=== PATIENT | female | born 1935 | race Caucasian/White ===

== ENCOUNTER 2016-10-04 23:59 | Emergency (ER) | payer MEDICARE ==
[~2016-10-04] VITALS: Ht 167.6 cm; Wt 72.6 kg
[2016-10-05] MEDS ORDERED: RANI75TA9 PO (00:16)
[2016-10-05] MEDS ORDERED: RAN (00:16)
[2016-10-05] MEDS ORDERED: RANI15ELUD PO (00:16)
[2016-10-05] MEDS ORDERED: COUM1TAB14 PO (00:16)
[2016-10-05] MEDS ORDERED: TOPR50TA PO (00:16)
[2016-10-05] MEDS ORDERED: [UNRECOGNIZED DRUG - OTHER] (00:16)
[2016-10-05] MEDS ORDERED: LEVO100T5 PO (00:16)
[2016-10-05] MEDS ORDERED: KETOROLAC 30 MG/ML VIAL (J1885) IV ONE (01:15)
[2016-10-05] MEDS ORDERED: NS 500 ML IV ONE (01:15)
[2016-10-05] MEDS ORDERED: METOCLOPRAMIDE INJ 10MG/2ML VIAL (J2765) IV ONE (01:15)
[2016-10-05] MEDS ORDERED: traMADol 50 MG TAB PO ONE (02:15)
[2016-10-05] MEDS ORDERED: TRAM50TA2 PO (03:39)
[2016-10-05 04:10] VITALS: BP 160/59
== END 2016-10-05 04:31 | disposition home or self-care (01) ==
LOC: M ED 10-05 01:21
DX: G44.201 Tension-type headache, unspecified, intractable (principal); I48.91 Unspecified atrial fibrillation; E03.9 Hypothyroidism, unspecified; K21.9 Gastro-esophageal reflux disease without esophagitis; Z79.01 Long term (current) use of anticoagulants; Z79.899 Other long term (current) drug therapy; Z88.0 Allergy status to penicillin; Z88.2 Allergy status to sulfonamides; Z88.8 Allergy status to other drugs, medicaments and biological substances; Z91.09 Other allergy status, other than to drugs and biological substances
CPT/HCPCS: 70450; 82375; 85652; 96361; 96374; 96375; 99284; J1885; J2765

== ENCOUNTER → 2016-12-03 | Outpatient (REF) | payer MEDICARE ==
[~2016-12-03] MED LIST: COUM1TAB14 PO; LEVO100T5 PO; RAN; RANI15ELUD PO; RANI75TA9 PO; TOPR50TA PO; TRAM50TA2 PO; [UNRECOGNIZED DRUG - OTHER]
== END ==
LOC: M LAB REF 13:08
PROVIDERS: ATTEND Family Medicine
DX: N39.0 Urinary tract infection, site not specified (principal); R82.90 Unspecified abnormal findings in urine

== ENCOUNTER → 2017-04-03 | Outpatient (REF) | payer MEDICARE | LOC: M LAB REF 17:10 | PROVIDERS: ATTEND Physician Assistant Medical | DX: R68.83 Chills (without fever) (principal) ==

== ENCOUNTER → 2017-04-18 | Outpatient (REF) | payer MEDICARE | LOC: M LAB REF 13:10 | PROVIDERS: ATTEND Family Medicine | DX: N39.0 Urinary tract infection, site not specified (principal) ==

== ENCOUNTER → 2017-04-25 | Outpatient (REF) | payer MEDICARE | LOC: M LAB REF 15:22 | DX: N39.0 Urinary tract infection, site not specified (principal) | CPT/HCPCS: 87086 ==

== ENCOUNTER 2018-05-07 16:00 | Emergency (ER) | payer MEDICARE ==
[~2018-05-07] VITALS: Ht 170.2 cm; Wt 77.3 kg
[~2018-05-07 16:00] MED LIST changes: +RANI75TA15 PO; -RANI75TA9 PO; -TOPR50TA PO; +TOPR50TA23 PO
--- NOTE | 2018-05-07 20:36 | REPVR ---
EXAM: MR Lumbar Spine Without Contrast. EXAM DATE/TIME: 05/07/2018 4:54 PM CLINICAL HISTORY: 82 years old, female; Pain; Low back pain; Additional info: Lbp x's 3-4 weeks, intermittent urinary retention TECHNIQUE: Multiplanar magnetic resonance images of the lumbar spine without intravenous contrast. COMPARISON: No relevant prior studies available. FINDINGS: Vertebrae: Slight anterolisthesis of L5 on S1. Levoconvex scoliosis. Marrow: Marrow edema and L3 may indicate the presence of a compression fracture with approximate 10% loss of vertebral height in comparison to L4. Clinical correlation needed. Spinal cord: Normal signal. No cord compression. Clumping of nerve roots demonstrated from the cauda equina to L2-3 maybe related to the presence of lower level central spinal stenoses however arachnoiditis not excluded. Thoracic discs/Spinal canal/Neural foramina: Desiccation of the intervertebral discs throughout the lumbar spine. DISCS/SPINAL CANAL/NEURAL FORAMINA: L1-L2: Diffusely bulging annulus at L1-2 without central spinal stenosis. Bilateral facet joint arthropathy. Moderate bilateral foraminal stenosis. No lateral recess stenosis. L2-L3: There is a moderate central spinal stenosis at L2-3 secondary to diffuse annular bulging, thickened ligamentum flavum and facet joint arthropathy. Moderate foraminal stenosis on the left. No lateral recess stenosis. L3-L4: There is a severe central spinal stenosis at L3-4 secondary to diffuse annular bulging, thickened ligamentum flavum and facet joint arthropathy. Moderate to severe bilateral foraminal stenosis. No lateral recess stenosis. L4-L5: There is a severe central spinal stenosis at L4-5 secondary to diffuse annular bulging, thickened ligamentum flavum and facet joint arthropathy. Severe foraminal stenosis on the right. No lateral recess stenosis. L5-S1: There is a severe central spinal stenosis at L5-S1 secondary to diffuse annular bulging, thickened ligamentum flavum and facet joint arthropathy. Mild bilateral foraminal narrowing. No lateral recess stenosis. Sacrum/coccyx: Transitional S1 segment with an S1-2 disc. Soft tissues: Unremarkable. IMPRESSION: Marrow edema and L3 may indicate the presence of a compression fracture with approximate 10% loss of vertebral height in comparison to L4 versus discogenic marrow space edema. Clinical correlation needed. Multilevel central spinal stenoses, moderate at L2-3 and severe at L3-4 through L5-S1. 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 Electronically signed by: Darnell Maloney On 05/07/2018 20:36:35 PM
[2018-05-07] MEDS ORDERED: ACETAMINOPHEN 325 MG TAB PO ONE ×2 (20:45→21:00)
[2018-05-07] MEDS ORDERED: ULTRACET TAB PO ONE (20:45)
[2018-05-07] MEDS ORDERED: traMADol 50 MG TAB PO ONE (21:00)
[2018-05-07 21:23] VITALS: BP 172/94
--- NOTE | 2018-05-11 12:33 | ED PDOC ---
Post-Departure Follow-Up alex feldman and ruben faxed formal report of mri ls spine for fu Honey Cristina MD May 11, 2018 12:32
== END 2018-05-07 21:29 | disposition home or self-care (01) ==
LOC: M ED 16:00
DX: M48.061 Spinal stenosis, lumbar region without neurogenic claudication (principal); I10 Essential (primary) hypertension; J45.909 Unspecified asthma, uncomplicated; K21.9 Gastro-esophageal reflux disease without esophagitis; M19.90 Unspecified osteoarthritis, unspecified site; E03.9 Hypothyroidism, unspecified; Z85.3 Personal history of malignant neoplasm of breast; Z79.01 Long term (current) use of anticoagulants; Z79.899 Other long term (current) drug therapy; Z88.8 Allergy status to other drugs, medicaments and biological substances; Z88.0 Allergy status to penicillin; Z88.2 Allergy status to sulfonamides; Z91.89 Other specified personal risk factors, not elsewhere classified

== ENCOUNTER → 2018-07-14 | Outpatient (CLI) | payer MEDICARE ==
[~2018-07-14] MED LIST changes: +TRAM-533 PO
--- NOTE | 2018-07-15 23:06 | ECWPNPC ---
PATIENT NAME: GAL MUNOZ : 1935 GENDER: FEMALE VISIT DATE: 07/14/2018 DISCHARGE DATE: 07/14/18 1510 VISIT LOCKED DATE TIME: PHYSICIAN: EUGENE JAMES RESOURCE: EUGENE JAMES REASON FOR APPOINTMENT 1. SPINAL STENOSIS. HISTORY OF PRESENT ILLNESS FALL RISK SCREENING: NEW PATIENT CONSULT: WHEN DID YOUR PAIN FIRST START? ACCIDENT AT HOME. BRIEFLY DESCRIBE HOW YOUR PAIN STARTED? STARTED AFTER A FALL IN 2018. HOW DOES YOUR PAIN CHANGE WITH TIME? WORSENS WITH MOVEMENT. DOES YOUR PAIN AWAKEN YOU FROM SLEEP? 2LOCATION: BUTTOCKS, YES , ONSET: SUB-ACUTE, SEVERITY: MODERATE TO SEVERE, NATURE: ACHING. HOW MANY HOURS OF SLEEP DO YOU NORMALLY GET? 4 HOURS. ANY DIAGNOSTIC TESTING? MRI. PAIN TREATMENT TREATMENT YES CANCER HAVE YOU EVER HAD ANY TYPE OF CANCER?NO NO. 82 YR OLD FEMALE [facility].LOWER BACK PAIN STARTED AFTER FALLING IN 05/16AND AGAIN LAST WEEK, WENT TO ED. SHE WAS INITALLLY REFERRED TO [facility] AND WAS GIVEN PT BUT SAYS IT DID NOT MAKE A DIFFERENCE. SHE WAS ALSO EVALUATED IN [place] BY ORTHOPEDIC SURGEON.SHE HAS BEEN USING TRAMADOL THAT WAS PRESCRIBED IN ED.MRI LUMBAR SPINE 05/16: MARROW EDEMA AND L3 MAY INDICATE PRESENCE OF COMPRESSION FRACTURE.MULTI LEVEL CENTRAL SPINAL STENOSIS, MODERATE AT L2-3 AND SEVERE AT L3-4 AND THROUGH L5-S1.MRI ALSO SUGGESTED ARACHNIODITIS.SHE TAKES COUMADIN FOR PREVIOUS ABLATION AND AF AND UNDER CARE OF WALLET ASSEMBLER.LOCATION IS TOWARDS SACRAL REGION AND TOWARDS GROIN. PATIENT SAYS SHE IS NOT SLEEPING, BUT IS BEING AWAKEN BY PAIN ALMOST EVERY HOUR.SHE DENIES, FEVER, CHILLS, WEIGHT LOSS. PAIN SCREENING: PATIENT HAS A COMPLAINT OF ACUTE OR CHRONIC PAIN :YES ESPINOSA INVENTORY: QUESTIONNAIRE ASSESSEDTBD SCORE VALUE CALCULATED TBD CURRENT MEDICATIONS TAKING VENTOLIN HFA 108 (90 BASE) MCG/ACT AEROSOL SOLUTION 2 PUFFS NEEDED INHALATION EVERY 4 HRS NEEDED TAKING WARFARIN SODIUM 4 MG TABLET 5 DAYS A WEEK AND 2 MG 2 DAYS A WEEK ORALLY ONCE A DAY TAKING METOPROLOL TARTRATE 50 MG TABLET 1 TABLET WITH FOOD ORALLY TWICE A DAY TAKING LEVOTHYROXINE SODIUM 100 MCG TABLET 1 TABLET ON AN EMPTY STOMACH IN THE MORNING ORALLY ONCE A DAY TAKING OMEPRAZOLE 40 MG CAPSULE DELAYED RELEASE 1 CAPSULE ORALLY ONCE A DAY, NOTES: TAKES NEEDED TAKING TRAMADOL HCL 50 MG TABLET DIRECTED ORALLY , NOTES: FROM ER NOT-TAKING WARFARIN SODIUM 3 MG TABLET 2 TABLETS ON FRIDAY, 1.5 TABLETS ON FRI., 1 TABLET ROW ORALLY DAILY MEDICATION LIST REVIEWED AND RECONCILED WITH THE PATIENT PAST MEDICAL HISTORY HTN PAROXYSMAL A. FIB. 11/28/2015 TACHYCARDIA TO 150BPM, DR. SAHNI DID FIND PVC'S ON EKG, 2004 S/P ABLATION C DR. 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 LORENZ 11/2014 GALBLADDER COLIC, STONE RECTAL BLEED 01/31, COLON POLYP ON COLONOSCOPY NAFLD C ELEVATED LFTS ASYMPTOMATIC 06/2015 C OF HEAD, 09/2015 MRI BOTH C SMALL VESS. DIS. 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 LORDOSIS, NARROW EPIDURAL SPACE FORAMEN NARROEWD R C4-6, L C5-6 ALLERGIES PENICILLIN (FOR ALLERGIES USE ONLY): HIVES - ALLERGY AUGMENTIN: RASH - ALLERGY LEVOFLOXACIN: RASH - ALLERGY AMBIEN: PASSED OUT - ALLERGY PREDNISONE: HYPER - ALLERGY THEOPHYLLINE: PASSED OUT - ALLERGY SURGICAL HISTORY PARTIAL HYSTERECTOMY-[facility] 1983 L BREAST LUMPECTOMY-[facility] 1991 HEART ABLATION-[facility] 2003 B CATARACT [id number]. SANNI 2011 FAMILY HISTORY FATHER: 72 YRS MOTHER: 89 YRS FATHER-ANEURYSM, STROKE, ?HTN, ?HL; WAS A SMOKER QUIT C CVA AGE 61\NMOTHER-HEART DIS., A. FIB. SOCIAL HISTORY GENERAL: TOBACCO USE ARE YOU A:NONSMOKER ALCOHOL SCREENING DID YOU HAVE A DRINK CONTAINING ALCOHOL IN THE PAST YEAR?YES HOW OFTEN DID YOU HAVE A DRINK CONTAINING ALCOHOL IN THE PAST YEAR?TWO TO FOUR TIMES A MONTH (2 POINTS) HOW MANY DRINKS DID YOU HAVE ON A TYPICAL DAY WHEN YOU WERE DRINKING IN THE PAST YEAR?1 OR 2 (0 POINTS) POINTS2 INTERPRETATIONNEGATIVE CAFFEINE CAFFEINE USE?YES USUALLY DRINKJS DECAF..DOES HAVE A CUP OCCASIONAL LANGUAGE LANGUAGES SPOKEN:GREEK EDUCATION LEVEL OF EDUCATION:FINISHED COLLEGE LEARNING BARRIERS / SPECIAL NEEDS SPECIAL DEVICES?YES HAS A WALKER AND CANE FOR SAFETY NOT USING DOMESTIC VIOLENCE DO YOU FEEL SAFE IN YOUR ENVIRONMENT?YES OCCUPATION: RETIRED. DIET: REGULAR. EXERCISE: WALKS. MARITAL STATUS: . OTHERS AT HOME: LIVES ALONG. PAIN CLINIC PFS, CLERGY, PUBLIC HEALTH REFERRALS CLERGY REFERRAL NEEDED?NO WAS THE PROVIDER NOTIFIED OF ANY PERTINENT INFO?NO PFS REFERRAL NEEDED?NO PUBLIC HEALTH REFERRAL NEEDED?NO ADVANCE DIRECTIVE ADVANCE DIRECTIVE DISCUSSED WITH PATIENT:YES HAS EVERYTHING AND INSTRUCTED TO BRING IN COPIES TO SCAN INTO CHART HOSPITALIZATION/MAJOR DIAGNOSTIC PROCEDURE ABOVE REVIEW OF SYSTEMS REVIEWED BY: PROVIDER: REGI Zaidi CONSTITUTIONAL: ANY CHANGE IN YOUR MEDICAL CONDITION? YES HAS HAD A COUPLE FALLS . CHILLS NO . FEVER NO . INFECTION: DO YOU HAVE NEW INFECTIONS? NO . DO YOU HAVE HISTORY OF MRSA? NO . MUSCULOSKELETAL: ANY NEW PATTERNS OF PAIN OR NUMBNESS? NO . SYTEMIC LUPUS NO . GASTROENTEROLOGY: ANY NEW CHANGE IN BOWEL CONTROL? NO . BARRETTS ESOPHAGUS NO . CIRRHOSIS NO . HEPATITIS NO . LIVER FAILURE NO . ACID REFLUX NO . UNEXPLAINED WEIGHT LOSS NO . GENITOURINARY: ANY NEW CHANGE IN BLADDER CONTROL? NO . IS THERE A CHANCE YOU COULD BE ? NO . HEMATOLOGY/LYMPH: DO YOU TAKE ANY BLOOD THINNERS? (FOR EXAMPLE- COUMADIN, PLAVIX, AGGRENOX, PLATEL, PRADAXA, OR XARELTO) NO . WHEN WAS YOUR LAST DOSE? DATE: TIME: . LOW PLATELET COUNT NO . SICKLE CELL DISEASE NO . VON WILLIEBRANDS NO . FACTOR V LEIDEN NO . THALLASEMIA NO . ANEMIA NO . EASY BRUISING NO . NEUROLOGY: HAVE YOU FALLEN IN THE PAST 12 MONTHS? NO . ANY NEW EXTREMITY NUMBNESS OR WEAKNESS? NO . HEAD INJURY NO . DEMENTIA NO . CEREBRAL PALSY NO . MULTIPLE SCLEROSIS NO . DIZZINESS NO . HEADACHE NO . STROKES NO . VERTIGO NO . CARDIOLOGY: DO YOU HAVE A PACEMAKER OR DEFIBRILLATOR? NO . ANGINA NO . HEART ATTACK NO . HEART SURGERY YES ABLAISOION IN 2003 . CONGESTIVE HEART FAILURE/FLUID OVERLOAD NO . CHEST PAIN NO . HIGH BLOOD PRESSURE NO . IRREGULAR HEART BEAT NO . RESPIRATORY: HAVE YOU BEEN SICK IN THE PAST WEEK? NO . FEVER NO . FLU LIKE SYMPTOMS? NO . CPAP NO . BYPAP NO . ASTHMA ALLERGIC REACTION CAUSING THE NEED FOR NEBULIZER . EMPHYSEMA NO . CHRONIC LUNG DISEASES NO . SHORTNESS OF BREATH ON EXERTION NO . DO YOU USE ANY TYPE OF TOBACCO (SMOKE, SMOKELESS, CHEW)? NO . COUGH NO . SNORING NO . INTEGUMENTARY: DO YOU HAVE ANY RASHES OR OPEN SORES? NO . ALLERGIC/IMMUNO: ARE YOU ALLERGIC TO IV DYE? NO . ANY NEW ALLERGIES? NO . PSYCHIATRIC: DO YOU HAVE THOUGHTS OF HURTING YOURSELF OR SOMEONE ELSE? NO . ARE YOU ABUSED, NEGLECTED, OR IN AN UNSAFE ENVIRONMENT? NO . ENDOCRINOLOGY: ARE YOU DIABETIC? NO . THYROID DISORDER NO . OTHER: DO YOU NEED ANY PRESCRIPTIONS? NO . IF YES, PLEASE LIST: ____ . ANY NEW PROBLEMS WITH YOUR MEDICATIONS? NO . WHEN DID YOU LAST EAT? ____ . WHEN DID YOU LAST DRINK? ____ . WHAT DID YOU LAST DRINK? ____ . NAME OF PERSON DRIVING YOU HOME? ____ . DO YOU HAVE ANY OTHER QUESTIONS OR CONCERNS NO . VITAL SIGNS WT 166 LBS, HT 68 IN, BMI 25.24 INDEX, BP 147/76 MM HG, HR 18 /MIN, RR 65 /MIN, TEMP 96.8 F, OXYGEN SAT % 98%, NA INITIALS AW 1107. EXAMINATION GENERAL EXAMINATION: GENERAL APPEARANCE:NO ACUTE DISTRESS, WELL NOURISHED AND HYDRATED.UNSTEADY ON FEET. PSYCHAPPROPRIATE MOOD AND AFFECT . HEENT:EOMI, NO SCLERAL ICTERUS, NARES PATENT, ORAL MUCOSA MOIST. FACE:UNREMARKABLE. LUNGS:CLEAR TO AUSCULTATION BILATERALLY, NO WHEEZES, RHONCHI, RALES. HEART:NO MURMURS, REGULAR RATE AND RHYTHM. BACK: NORMAL ALIGNMENT.ANTALGIC GAIT NO TENDERNESS TO PALPATION TO LUMBAR SPINE UNABLE TO LIE ON EXAMINATION BED STANDING JODI TEST + LEFT SIDE.. LUMBAR SACRAL SPINE MUSCLE STRENGTH TESTING 4/5 BILATERAL. ASSESSMENTS SACROILIITIS - M46.1 (PRIMARY) TREATMENT SACROILIITIS CLINICAL NOTES: CONSULTATION DONE IN CONJUNCTION WITH DR GAO. RECOMMENDS BILATERAL SI BLOCK.PLAN: TO GET APPROVAL FROM WALLET ASSEMBLER TO STOP COUMADIN FOR 5 DAYS PRIOR TO PROCEDURE.OBTAIN PHYSICIAN TO PHYSICIAN AGREEMENT FROM PCP TO PRESCRIBED PAIN MEDICATION ARRANGE PROCEDURE AFTER APPROVAL FROM CARDIOLLOGIST.DR GAO SPOKE TO RADIOLOGIST TO DISCUSS MRI, REGARDING POSSIBLE ARACHNOIDITIS. RADIOLOGIST CONFIRMED THERE IS NO EVIDENCE OF ARCHNOIDITIS. OTHERS DISCONTINUE TRAMADOL HCL TABLET, 50 MG, DIRECTED, ORALLY, TID MMD 3 PER DAY, 7 DAYS, 21, REFILLS 0 DISCONTINUE CARISOPRODOL TABLET, 350 MG, 1 TABLET NEEDED, ORALLY, AT BED TIME, 7 DAYS, 7, REFILLS 0 START TRAMADOL HCL TABLET, 50 MG, DIRECTED, ORALLY, THREE TIMES A DAY MMD3, 7 DAYS, 21 START CARISOPRODOL TABLET, 350 MG, 1 TABLET NEEDED, ORALLY, AT BEDTIME, 7 DAYS, 7 CLINICAL NOTES: INITIAL TRAMADOL AND SOMA WAS NOT SENT. PROCEDURE CODES FA211 ESTABILISHED PATIENT [facility] CHARGE DISPOSITION & COMMUNICATION FOLLOW UP REASON: CHRIS DUKES ELECTRONICALLY SIGNED BY RAVEN VALERIO ON 07/15/2018 AT 09:34 AM EDT DISCLAIMER : THIS IS A VISIT SUMMARY EXTRACTED FROM THE [employer] CHART. IT IS NOT A COPY OF THE [employer] PROGRESS NOTE. MIKI
== END ==
LOC: M PAIN 11:00
PROVIDERS: ATTEND Nurse Practitioner Family
DX: M46.1 Sacroiliitis, not elsewhere classified (principal); I10 Essential (primary) hypertension; Z86.79 Personal history of other diseases of the circulatory system; E89.0 Postprocedural hypothyroidism; Z92.3 Personal history of irradiation; Z85.3 Personal history of malignant neoplasm of breast; Z88.0 Allergy status to penicillin; Z88.1 Allergy status to other antibiotic agents; Z88.8 Allergy status to other drugs, medicaments and biological substances; Z79.01 Long term (current) use of anticoagulants; Z79.899 Other long term (current) drug therapy

== ENCOUNTER → 2018-07-23 | Outpatient (CLI) | payer MEDICARE ==
[2018-07-23 11:12] LABS: INR 1.18; PROTHROMBIN TIME 15.2 SECONDS (12.1-14.4)
== END ==
LOC: M LAB 10:22
PROVIDERS: ATTEND Nurse Practitioner Family
DX: M46.01 Spinal enthesopathy, occipito-atlanto-axial region (principal); I48.0 Paroxysmal atrial fibrillation; I10 Essential (primary) hypertension; E89.0 Postprocedural hypothyroidism

== ENCOUNTER → 2018-07-23 | Outpatient (CLI) | payer MEDICARE ==
[~2018-07-23] MED LIST changes: +BUPIVACAINE HCL 0.25% 30 ML VIAL As Ordered ONE; +ISOVUE-M 300 61% 15ML VIAL (Q9967) As Ordered ONE; +LIDOCAINE 1% SDV INJ 30 ML VIAL As Ordered ONE; +TRIAMCINOLONE ACETONIDE SUSP 40 MG/ML VIAL (J3301) As Ordered ONE; +diazePAM 5 MG TAB As Ordered ONE; +oxyCODONE 5MG TAB As Ordered ONE
--- NOTE | 2018-07-23 15:01 | REP ---
SI JOINT SERIES: Four views bilateral study. HISTORY: SI joint injection for pain. 18 seconds of fluoroscopy time is reported. FINDINGS: A sequence of four last image hold fluoroscopically obtained spot radiographs of the SI joints document needle position and contrast injection associated with injection procedure. Electronically Signed by Dustin Carrasco MD 07/23/2018 03:26 P
--- NOTE | 2018-07-24 23:57 | ECWPNPC ---
PATIENT NAME: GAL MUNOZ : 1935 GENDER: FEMALE VISIT DATE: 07/23/2018 DISCHARGE DATE: 07/23/18 1404 VISIT LOCKED DATE TIME: PHYSICIAN: SHERIE GAO MD RESOURCE: SHERIE GAO MD REASON FOR APPOINTMENT 1. BILAT SI BLOCK HISTORY OF PRESENT ILLNESS HISTORY OF PRESENT ILLNESS: PAIN THE PATIENT DESCRIBES THE PAIN... FALL RISK SCREENING: SCREENING :NO FALLS REPORTED IN THE LAST YEAR CURRENT MEDICATIONS TAKING VENTOLIN HFA 108 (90 BASE) MCG/ACT AEROSOL SOLUTION 2 PUFFS NEEDED INHALATION EVERY 4 HRS NEEDED, NOTES: NONE RECENT TAKING WARFARIN SODIUM 4 MG TABLET 5 DAYS A WEEK AND 2 MG 2 DAYS A WEEK ORALLY ONCE A DAY, NOTES: 07/18 TAKING METOPROLOL TARTRATE 50 MG TABLET 1 TABLET WITH FOOD ORALLY TWICE A DAY, NOTES: 07/23 699 TAKING LEVOTHYROXINE SODIUM 100 MCG TABLET 1 TABLET ON AN EMPTY STOMACH IN THE MORNING ORALLY ONCE A DAY, NOTES: 07/23 699 TAKING OMEPRAZOLE 40 MG CAPSULE DELAYED RELEASE 1 CAPSULE ORALLY ONCE A DAY, NOTES: TAKES NEEDED 07/22 899 TAKING TRAMADOL HCL 50 MG TABLET DIRECTED ORALLY THREE TIMES A DAY MMD3, NOTES: 07/23 599 TAKING CARISOPRODOL 350 MG TABLET 1 TABLET NEEDED ORALLY AT BEDTIME, NOTES: 07/22 2129 DISCONTINUED TRAMADOL HCL 50 MG TABLET DIRECTED ORALLY , NOTES: DUPLICATE DISCONTINUED TRAMADOL HCL 50 MG TABLET DIRECTED ORALLY TID MMD 3 PER DAY, NOTES: DUPLICATE DISCONTINUED CARISOPRODOL 350 MG TABLET 1 TABLET NEEDED ORALLY AT BED TIME, NOTES: DUPLICATE DISCONTINUED WARFARIN SODIUM 3 MG TABLET 2 TABLETS ON FRIDAY, 1.5 TABLETS ON FRI., 1 TABLET ROW ORALLY DAILY MEDICATION LIST REVIEWED AND RECONCILED WITH THE PATIENT PAST MEDICAL HISTORY HTN PAROXYSMAL A. FIB. 11/28/2015 TACHYCARDIA TO 150BPM, DR. SAHNI DID FIND PVC'S ON EKG, 2004 S/P ABLATION C DR. 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 LORENZ 11/2014 GALBLADDER COLIC, STONE RECTAL BLEED 01/31, COLON POLYP ON COLONOSCOPY NAFLD C ELEVATED LFTS ASYMPTOMATIC 06/2015 C OF HEAD, 09/2015 MRI BOTH C SMALL VESS. DIS. 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 LORDOSIS, NARROW EPIDURAL SPACE FORAMEN NARROEWD R C4-6, L C5-6 ALLERGIES PENICILLIN (FOR ALLERGIES USE ONLY): HIVES - ALLERGY AUGMENTIN: RASH - ALLERGY LEVOFLOXACIN: RASH - ALLERGY AMBIEN: PASSED OUT - ALLERGY PREDNISONE: HYPER - SIDE EFFECTS THEOPHYLLINE: PASSED OUT - ALLERGY FOOD ADDITIVES: ASTHMA ATTACK - ALLERGY SURGICAL HISTORY PARTIAL HYSTERECTOMY-[facility] 1983 L BREAST LUMPECTOMY-[facility] 1991 HEART ABLATION-[facility] 2003 B CATARACT [id number]. SANNI 2011 TONSILLECTOMY AGE 9 FAMILY HISTORY FATHER: 72 YRS MOTHER: 89 YRS DAUGHTER(S): ALIVE, ARTHRITIS CROHNS 2 SON(S) , 1 DAUGHTER(S) . FATHER-ANEURYSM, STROKE, ?HTN, ?HL; WAS A SMOKER QUIT C CVA AGE 61\\NMOTHER-HEART DIS., A. FIB. SOCIAL HISTORY GENERAL: TOBACCO USE ARE YOU A:NONSMOKER ALCOHOL SCREENING DID YOU HAVE A DRINK CONTAINING ALCOHOL IN THE PAST YEAR?YES HOW OFTEN DID YOU HAVE A DRINK CONTAINING ALCOHOL IN THE PAST YEAR?TWO TO FOUR TIMES A MONTH (2 POINTS) HOW MANY DRINKS DID YOU HAVE ON A TYPICAL DAY WHEN YOU WERE DRINKING IN THE PAST YEAR?1 OR 2 (0 POINTS) POINTS2 INTERPRETATIONNEGATIVE RECREATIONAL DRUG USE DRUG USE?NO NONE CAFFEINE CAFFEINE USE?YES USUALLY DRINKJS DECAF..DOES HAVE A CUP OCCASIONAL WORSHIP [id number] [facility] LANGUAGE LANGUAGES SPOKEN:MALTESE EDUCATION LEVEL OF EDUCATION:FINISHED COLLEGE LEARNING BARRIERS / SPECIAL NEEDS BARRIERS TO LEARNING?NO HEARING IMPAIRED?NO VISION IMPAIRED?YES :CORRECTIVE LENSES READING GLASSES COGNITIVELY IMPAIRED?NO READINESS TO LEARN?YES LEARNING PREFERENCES?NO LEARNING CAPABILITIES PRESENT?YES EMOTIONAL BARRIERS?NO SPECIAL DEVICES?YES HAS A WALKER AND CANE FOR SAFETY NOT USING FOUNDRY PATTERNMAKER NEEDED?NO DOMESTIC VIOLENCE DO YOU FEEL SAFE IN YOUR ENVIRONMENT?YES OCCUPATION: RETIRED. DIET: REGULAR. EXERCISE: WALKS. MARITAL STATUS: . OTHERS AT HOME: LIVES ALONG. PAIN CLINIC PFS, CLERGY, PUBLIC HEALTH REFERRALS HAS THE PATIENT BEEN EDUCATED REGARDING HIS/HER PLAN OF CARE?YES HAS THE PATIENT BEEN EDUCATED REGARDING PAIN, THE RISK FOR PAIN, THE IMPORTANCE OF EFFECTIVE PAIN MANAGEMENT, AND THE PAIN ASSESSMENT PROCESS?YES ADVANCE DIRECTIVE ADVANCE DIRECTIVE DISCUSSED WITH PATIENT:YES HAS EVERYTHING AND INSTRUCTED TO BRING IN COPIES TO SCAN INTO CHART 07/23/18 REVIEWED WITH PT. AD. HOSPITALIZATION/MAJOR DIAGNOSTIC PROCEDURE ABOVE CHILD REVIEW OF SYSTEMS REVIEWED BY: PROVIDER: . CONSTITUTIONAL: ANY CHANGE IN YOUR MEDICAL CONDITION? NO . CHILLS NO . FEVER NO . INFECTION: DO YOU HAVE NEW INFECTIONS? NO . DO YOU HAVE HISTORY OF MRSA? NO . MUSCULOSKELETAL: ANY NEW PATTERNS OF PAIN OR NUMBNESS? NO . GASTROENTEROLOGY: ANY NEW CHANGE IN BOWEL CONTROL? YES, CONSTRIPATION OR LOOSE STOOLS . GENITOURINARY: ANY NEW CHANGE IN BLADDER CONTROL? YES, INCONTINENCE WHICH HAS GOTTEN A LITTLE BETTER . IS THERE A CHANCE YOU COULD BE ? NO . HEMATOLOGY/LYMPH: DO YOU TAKE ANY BLOOD THINNERS? (FOR EXAMPLE- COUMADIN, PLAVIX, AGGRENOX, PLATEL, PRADAXA, OR XARELTO) YES, COUMADIN . WHEN WAS YOUR LAST DOSE? DATE: TIME:07/18 2099 . NEUROLOGY: HAVE YOU FALLEN IN THE PAST 12 MONTHS? YES X 2 LAST TIME WAS 07/09 WAS SEEN IN THE ED AFTER, NO FRACTURES BUT INCREASE IN PAIN AFTER . ANY NEW EXTREMITY NUMBNESS OR WEAKNESS? YES, NUMBNESS OR PAIN RIGHT LEG SINCE FALLING IN APR. . CARDIOLOGY: DO YOU HAVE A PACEMAKER OR DEFIBRILLATOR? NO . RESPIRATORY: HAVE YOU BEEN SICK IN THE PAST WEEK? NO . FEVER NO . FLU LIKE SYMPTOMS? NO . COUGH NO . INTEGUMENTARY: DO YOU HAVE ANY RASHES OR OPEN SORES? NO . ALLERGIC/IMMUNO: ARE YOU ALLERGIC TO IV DYE? NO . ANY NEW ALLERGIES? NO . PSYCHIATRIC: DO YOU HAVE THOUGHTS OF HURTING YOURSELF OR SOMEONE ELSE? NO . ARE YOU ABUSED, NEGLECTED, OR IN AN UNSAFE ENVIRONMENT? NO . ENDOCRINOLOGY: ARE YOU DIABETIC? NO . OTHER: DO YOU NEED ANY PRESCRIPTIONS? NO . IF YES, PLEASE LIST: ____ . ANY NEW PROBLEMS WITH YOUR MEDICATIONS? NO . WHEN DID YOU LAST EAT? 07/[address] GAO AWARE . WHEN DID YOU LAST DRINK? 07/23 0730 . WHAT DID YOU LAST DRINK? CRANBERRY JUICE . NAME OF PERSON DRIVING YOU HOME? NICHELLE CANNON . DO YOU HAVE ANY OTHER QUESTIONS OR CONCERNS NO PT HAS NOT HAD ANY VACCINES IN THE PAST 30 DAYS . VITAL SIGNS WT 162.6 LBS, HT 68 IN, BMI 24.72 INDEX, BP 138/71 MM HG, HR 16 /MIN, RR 64 /MIN, TEMP 97.8 F, OXYGEN SAT % 100%, SAFE IN ENV? (Y/N) Y, NA INITIALS [place] 11:05, REVIEWED BY: RAVEN. 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 SHERIE GAO NAIL POLISH BRUSH MACHINE FEEDER NONE ANESTHESIA LOCAL PRE PROCEDURE NOTE PATIENT WITH HISTORY OF CHRONIC LOW BACK PAIN. I EVALUATED THE PATIENT AND REVIEWED THE CHART. I WENT OVER THE RISKS, ALTERNATIVES, AND BENEFITS ASSOCIATED WITH THIS PROCEDURE. THE PATIENT WOULD LIKE TO PROCEED AND GAVE CONSENT TO PERFORM THE PROCEDURE. THE PATIENT DENIES UNEXPLAINABLE WEIGHT LOSS, FEVER, CHILLS, OR NEW CHANGES IN URINARY OR BOWEL CONTROL DESCRIPTION OF PROCEDURE THE PATIENT WAS BROUGHT TO THE PROCEDURE ROOM AND PLACED IN THE PRONE POSITION. THE LUMBOSACRAL AREA WAS CLEANED WITH CHLORAPREP SOLUTION AND DRAPED ASEPTICALLY. THE PROCEDURE WAS DONE UNDER STERILE CONDITIONS. I CHECKED LATERALITY AND THE LEVEL WHERE THE PROCEDURE WAS GOING TO BE PERFORMED WITH THE PATIENT AND THE SUPPORTING STAFF AT THE MOMENT OF THE TIME OUT IN THE PROCEDURE ROOM. UNDER FLUOROSCOPIC GUIDANCE, TARGET POINT WAS SELECTED AT THE LOWER BORDER OF THE RIGHT AND LEFT SACROILIAC JOINT. TARGET POINT WAS SELECTED AFTER MEDIAL ROTATION AND TILT OF THE MAGNIFIER OF THE C-ARM. LIDOCAINE WAS USED TO NUMB THE SKIN AND SUBCUTANEOUS TISSUE BELOW IT. A SPINAL NEEDLE, 22-GAUGE, WAS ADVANCED UNDER FLUOROSCOPIC GUIDANCE AND FOLLOWING PATIENT FEEDBACK UNTIL THE TARGET AREA WAS TOUCHED. THE POSITION OF THE NEEDLE WAS VERIFIED WITH AP AND LATERAL VIEWS. AFTER PROPER POSITION OF THE NEEDLE WAS ACHIEVED, ISOVUE M DYE 30%, 0.25 ML, WAS INJECTED SHOWING SPREAD OF THE DYE. THEN, A SOLUTION OF 20 MG OF KENALOG WAS INJECTED IN RIGHT AND LEFT JOINT WITH 3 ML OF BUPIVACAINE 0.125%. THERE WAS NO EVIDENCE OF BLOOD, PARESTHESIA OR CEREBROSPINAL FLUID DURING THE PROCEDURE. THE PATIENT WAS SENT TO THE RECOVERY ROOM. THE PATIENT WAS MOVING THE EXTREMITIES AND DOING WELL. THERE WAS NO COMPLICATION DURING THE PROCEDURE. FLUOROSCOPY TIME WAS 18 SECONDS POST PROCEDURE NOTE THE PATIENT WILL BE SEEN IN A FOLLOW UP IN THE NEXT FEW WEEKS. INSTRUCTIONS WERE GIVEN, QUESTIONS WERE ANSWERED, AND THE PATIENT EXPRESSED UNDERSTANDING AND AGREED WITH THE PLAN. I, DU TORRES, DOCUMENTED THE ABOVE INFORMATION ACTING A SCRIBE FOR DR. GAO. I HAVE REVIEWED THE ABOVE DOCUMENT, WRITTEN BY DU TORRES SCRIBGiacomo AND I VERIFY THAT IT IS ACCURATE. PROCEDURE CODES 6045F RADXPS IN END [id number] INJECT SACROILIAC JOINT, MODIFIERS: 50 DISPOSITION & COMMUNICATION FOLLOW UP 3 WEEKS ELECTRONICALLY SIGNED BY SHERIE GAO MD, MD ON 07/24/2018 AT 03:39 PM EDT DISCLAIMER : THIS IS A VISIT SUMMARY EXTRACTED FROM THE [employer] CHART. IT IS NOT A COPY OF THE [employer] PROGRESS NOTE. MTDD
== END ==
LOC: M PAIN 10:30
PROVIDERS: ATTEND Anesthesiology
DX: G89.29 Other chronic pain (principal); M46.1 Sacroiliitis, not elsewhere classified; M53.88 Other specified dorsopathies, sacral and sacrococcygeal region; I48.0 Paroxysmal atrial fibrillation; I10 Essential (primary) hypertension; E89.0 Postprocedural hypothyroidism; Z79.01 Long term (current) use of anticoagulants; Z79.899 Other long term (current) drug therapy; Z88.0 Allergy status to penicillin; Z88.1 Allergy status to other antibiotic agents; Z88.8 Allergy status to other drugs, medicaments and biological substances; Z91.02 Food additives allergy status; Z85.3 Personal history of malignant neoplasm of breast; Z92.3 Personal history of irradiation; Z92.29 Personal history of other drug therapy
CPT/HCPCS: 36415; 85610; G0260; J3301; Q9967

== ENCOUNTER → 2018-07-29 | Outpatient (CLI) | payer MEDICARE ==
[~2018-07-29] MED LIST changes: -BUPIVACAINE HCL 0.25% 30 ML VIAL As Ordered ONE; -ISOVUE-M 300 61% 15ML VIAL (Q9967) As Ordered ONE; -LIDOCAINE 1% SDV INJ 30 ML VIAL As Ordered ONE; -RANI15ELUD PO; +RANI75SY PO; +TOPR50TA PO; -TOPR50TA23 PO; -TRIAMCINOLONE ACETONIDE SUSP 40 MG/ML VIAL (J3301) As Ordered ONE; -diazePAM 5 MG TAB As Ordered ONE; -oxyCODONE 5MG TAB As Ordered ONE
--- NOTE | 2018-07-31 23:07 | ECWPNPC ---
PATIENT NAME: GAL MUNOZ : 1935 GENDER: FEMALE VISIT DATE: 07/29/2018 DISCHARGE DATE: 07/29/18 1343 VISIT LOCKED DATE TIME: PHYSICIAN: EUGENE JAMES RESOURCE: EUGENE JAMES REASON FOR APPOINTMENT 1. POST PROCEDURE- INCREASED PAIN HISTORY OF PRESENT ILLNESS HISTORY OF PRESENT ILLNESS: PAIN THE PATIENT DESCRIBES THE PAINAFTER THE PROCEDURE SEVERITY - PAIN SCORE OF8/10 QUALITYTHROBBING PATIENT IS 83 YR OLD FEMALE HERE FOR F/U POST PROCEDURE OF BILATERAL SI BLOCK ON 07/23/18.SHE SAYS THE PAIN IN LOWER BACK HAS IMPROVED BY >50 PERCENT BUT SAYS SHE HAS MORE PAIN AROUND LEFT SIDE OF WAIST DOWN THE LEG.SHE SAYS SHE HAS NOT TAKEN HER WAFARIN SINCE YESTERDAY. SHE WOULD LIKE TO DISCUSS OTHER TREATMENTS. FALL RISK SCREENING: SCREENING :NO FALLS REPORTED IN THE LAST YEAR CURRENT MEDICATIONS TAKING VENTOLIN HFA 108 (90 BASE) MCG/ACT AEROSOL SOLUTION 2 PUFFS NEEDED INHALATION EVERY 4 HRS NEEDED, NOTES: NONE RECENT TAKING WARFARIN SODIUM 4 MG TABLET 5 DAYS A WEEK AND 2 MG 2 DAYS A WEEK ORALLY ONCE A DAY, NOTES: 07/18 TAKING METOPROLOL TARTRATE 50 MG TABLET 1 TABLET WITH FOOD ORALLY TWICE A DAY, NOTES: 07/23 699 TAKING LEVOTHYROXINE SODIUM 100 MCG TABLET 1 TABLET ON AN EMPTY STOMACH IN THE MORNING ORALLY ONCE A DAY, NOTES: 07/23 699 TAKING OMEPRAZOLE 40 MG CAPSULE DELAYED RELEASE 1 CAPSULE ORALLY ONCE A DAY, NOTES: TAKES NEEDED 07/22 899 TAKING TRAMADOL HCL 50 MG TABLET DIRECTED ORALLY THREE TIMES A DAY MMD3, NOTES: 07/23 599 TAKING CARISOPRODOL 350 MG TABLET 1 TABLET NEEDED ORALLY AT BEDTIME, NOTES: 07/22 2129 MEDICATION LIST REVIEWED AND RECONCILED WITH THE PATIENT PAST MEDICAL HISTORY HTN PAROXYSMAL A. FIB. 11/28/2015 TACHYCARDIA TO 150BPM, DR. SAHNI DID FIND PVC'S ON EKG, 2004 S/P ABLATION C DR. 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 LORENZ 11/2014 GALBLADDER COLIC, STONE RECTAL BLEED 01/31, COLON POLYP ON COLONOSCOPY NAFLD C ELEVATED LFTS ASYMPTOMATIC 06/2015 C OF HEAD, 09/2015 MRI BOTH C SMALL VESS. DIS. 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 LORDOSIS, NARROW EPIDURAL SPACE FORAMEN NARROEWD R C4-6, L C5-6 ALLERGIES PENICILLIN (FOR ALLERGIES USE ONLY): HIVES - ALLERGY AUGMENTIN: RASH - ALLERGY LEVOFLOXACIN: RASH - ALLERGY AMBIEN: PASSED OUT - ALLERGY PREDNISONE: HYPER - SIDE EFFECTS THEOPHYLLINE: PASSED OUT - ALLERGY FOOD ADDITIVES: ASTHMA ATTACK - ALLERGY SURGICAL HISTORY PARTIAL HYSTERECTOMY-[facility] 1983 L BREAST LUMPECTOMY-[facility] 1991 HEART ABLATION-JOSEF 2003 B CATARACT [id number]. SANNI 2011 TONSILLECTOMY AGE 9 FAMILY HISTORY FATHER: 72 YRS MOTHER: 89 YRS DAUGHTER(S): ALIVE, ARTHRITIS CROHNS 2 SON(S) , 1 DAUGHTER(S) . FATHER-ANEURYSM, STROKE, ?HTN, ?HL; WAS A SMOKER QUIT C CVA AGE 61\\\\NMOTHER-HEART DIS., A. FIB.\N. SOCIAL HISTORY GENERAL: TOBACCO USE ARE YOU A:NONSMOKER ALCOHOL SCREENING DID YOU HAVE A DRINK CONTAINING ALCOHOL IN THE PAST YEAR?YES HOW OFTEN DID YOU HAVE A DRINK CONTAINING ALCOHOL IN THE PAST YEAR?TWO TO FOUR TIMES A MONTH (2 POINTS) HOW MANY DRINKS DID YOU HAVE ON A TYPICAL DAY WHEN YOU WERE DRINKING IN THE PAST YEAR?1 OR 2 (0 POINTS) POINTS2 INTERPRETATIONNEGATIVE RECREATIONAL DRUG USE DRUG USE?NO NONE CAFFEINE CAFFEINE USE?YES USUALLY DRINKJS DECAF..DOES HAVE A CUP OCCASIONAL MUSLIM [id number] [employer] LANGUAGES SPOKEN:[place] EDUCATION LEVEL OF EDUCATION:FINISHED COLLEGE LEARNING BARRIERS / SPECIAL NEEDS BARRIERS TO LEARNING?NO HEARING IMPAIRED?NO VISION IMPAIRED?YES :CORRECTIVE LENSES READING GLASSES COGNITIVELY IMPAIRED?NO READINESS TO LEARN?YES LEARNING PREFERENCES?NO LEARNING CAPABILITIES PRESENT?YES EMOTIONAL BARRIERS?NO SPECIAL DEVICES?YES HAS A WALKER AND CANE FOR SAFETY NOT USING SUPERVISOR ORCHARD NEEDED?NO DOMESTIC VIOLENCE DO YOU FEEL SAFE IN YOUR ENVIRONMENT?YES OCCUPATION: RETIRED. DIET: REGULAR. EXERCISE: WALKS. MARITAL STATUS: . OTHERS AT HOME: LIVES ALONG. PAIN CLINIC PFS, CLERGY, PUBLIC HEALTH REFERRALS HAS THE PATIENT BEEN EDUCATED REGARDING HIS/HER PLAN OF CARE?YES HAS THE PATIENT BEEN EDUCATED REGARDING PAIN, THE RISK FOR PAIN, THE IMPORTANCE OF EFFECTIVE PAIN MANAGEMENT, AND THE PAIN ASSESSMENT PROCESS?YES ADVANCE DIRECTIVE ADVANCE DIRECTIVE DISCUSSED WITH PATIENT:YES HCP SON GRABIEL MUNOZ 07/23/18 REVIEWED WITH PT. AD07/29/18 REVIEWED WITH PT ALBARO. HOSPITALIZATION/MAJOR DIAGNOSTIC PROCEDURE ABOVE CHILD REVIEW OF SYSTEMS REVIEWED BY: PROVIDER: REGI . CONSTITUTIONAL: ANY CHANGE IN YOUR MEDICAL CONDITION? NO . CHILLS NO . FEVER NO . INFECTION: DO YOU HAVE NEW INFECTIONS? NO . DO YOU HAVE HISTORY OF MRSA? NO . MUSCULOSKELETAL: ANY NEW PATTERNS OF PAIN OR NUMBNESS? PT REPORTS PAIN IS NOW IN MID BACK, EXTENDING DOWN LEFT HIP/LEFT LEG. STATES HER PAIN IN HER LOWER BACK HAS IMPROVED. . GASTROENTEROLOGY: ANY NEW CHANGE IN BOWEL CONTROL? NO . GENITOURINARY: ANY NEW CHANGE IN BLADDER CONTROL? YES PT REPORTS DECREASE IN HER ABILITY TO CONTROL HER BLADDER. . IS THERE A CHANCE YOU COULD BE ? NO . HEMATOLOGY/LYMPH: DO YOU TAKE ANY BLOOD THINNERS? (FOR EXAMPLE- COUMADIN, PLAVIX, AGGRENOX, PLATEL, PRADAXA, OR XARELTO) YES . WHEN WAS YOUR LAST DOSE? DATE:07/29/18 TIME: 190 COUMADIN . NEUROLOGY: HAVE YOU FALLEN IN THE PAST 12 MONTHS? PT REPORTS SHE FELL AGAINST A TABLE 04/2018 . ANY NEW EXTREMITY NUMBNESS OR WEAKNESS? PT REPORTS WEAKNESS IN HER LEFT LEG/ NUMBNESS IN BOTH FEET AND ANKLES. . CARDIOLOGY: DO YOU HAVE A PACEMAKER OR DEFIBRILLATOR? NO . RESPIRATORY: HAVE YOU BEEN SICK IN THE PAST WEEK? NO . FEVER NO . FLU LIKE SYMPTOMS? NO . COUGH NO . INTEGUMENTARY: DO YOU HAVE ANY RASHES OR OPEN SORES? NO . ALLERGIC/IMMUNO: ARE YOU ALLERGIC TO IV DYE? NO . ANY NEW ALLERGIES? NO . PSYCHIATRIC: DO YOU HAVE THOUGHTS OF HURTING YOURSELF OR SOMEONE ELSE? NO . ARE YOU ABUSED, NEGLECTED, OR IN AN UNSAFE ENVIRONMENT? NO . ENDOCRINOLOGY: ARE YOU DIABETIC? NO . OTHER: DO YOU NEED ANY PRESCRIPTIONS? NO . IF YES, PLEASE LIST: ____ . ANY NEW PROBLEMS WITH YOUR MEDICATIONS? NO . WHEN DID YOU LAST EAT? ____ . WHEN DID YOU LAST DRINK? ____ . WHAT DID YOU LAST DRINK? ____ . NAME OF PERSON DRIVING YOU HOME? ____ . DO YOU HAVE ANY OTHER QUESTIONS OR CONCERNS NO . VITAL SIGNS WT 162.6 LBS, HT 68 IN, BMI 24.72 INDEX, BP 188/88 MM HG, HR 16 /MIN, RR 63 /MIN, TEMP 98.3 F, OXYGEN SAT % 99%, SAFE IN ENV? (Y/N) YES, NA INITIALS AW 1153, REVIEWED BY: ALBARO. EXAMINATION GENERAL EXAMINATION: GENERAL APPEARANCE:MILDLY DISTRESSED. LUNGS:CLEAR TO AUSCULTATION BILATERALLY, NO WHEEZES, RHONCHI, RALES. HEART:NO MURMURS, REGULAR RATE AND RHYTHM. BACK:TENDERNESS ALONG BILATERAL PARASPINAL MUSCLES. L4- S1 REGION PAIN WITH EXTENSION AND ROTATION OF LUMBAR SPINE. SLR BILATERAL NEG REFLEXES 2+ SLOW GAIT.. 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 CLINICAL NOTES: BILATERAL L4-L5, L5-S1 THERAPEUTIC FACET BLOCK. BRINGS IN MEDICATIONS WHICH IS APPROPRIATE FOR WHAT WAS DISPENSED. NO UNAUTHORIZED MEDICATIONS. NO ILLICIT SUBSTANCES AND PRESCRIBED MEDICATIONS WERE PRESENT. , RISKS AND BENEFITS OF NARCOTIC/OPIOD MEDICATIONS WERE REVIEWED WITH PATIENT - THIS INCLUDES BUT IS NOT LIMITED TO RISK OF DEPENDANCE/DEVELOPMENT OF ADDICTION, MOOD DISTURBANCE AND DEPRESSION, OSTEOPOROSIS, HORMONAL AND LABIDAL CHANGES, RESPIRATORY DEPRESSION AND . PATIENT IS ADVISED NOT TO DRIVE OR DRINK ALCOHOL WHILE ON THESE MEDICATIONS. ACUTE BILATERAL LOW BACK PAIN WITH LEFT-SIDED SCIATICA START PERCOCET TABLET, 5-325 MG, 1 TABLET NEEDED, ORALLY, EVERY 6 HRS MDD 3, 3 DAYS, 12, REFILLS 0 CLINICAL NOTES: ADVISED TO USE 1-2 TABS IF NEEDED. I HAVE LEFT A MESSAGE FOR HER PCP, THAT I HAVE PRESCRIBED THIS FOR HER ACUTE PAIN TODAY. ESSENTIAL HYPERTENSION CLINICAL NOTES: ADVISED PATIENT TO F/U WITH HER PCP. PROCEDURE CODES FA211 ESTABILISHED PATIENT [facility]AIN FACILITY CHARGE DISPOSITION & COMMUNICATION FOLLOW UP POST PROCEDURE (REASON: BILATERAL L4-L5, L5-S1 THERAPEUTIC FACET BLOCK) ELECTRONICALLY SIGNED BY RAVEN VALERIO ON 07/31/2018 AT 08:24 AM EDT DISCLAIMER : THIS IS A VISIT SUMMARY EXTRACTED FROM THE [employer] CHART. IT IS NOT A COPY OF THE [employer] PROGRESS NOTE. MIKI
== END ==
LOC: M PAIN 11:00
PROVIDERS: ATTEND Nurse Practitioner Family
DX: M46.1 Sacroiliitis, not elsewhere classified (principal); M54.42 Lumbago with sciatica, left side; I10 Essential (primary) hypertension; I48.0 Paroxysmal atrial fibrillation; E03.9 Hypothyroidism, unspecified; Z85.3 Personal history of malignant neoplasm of breast; H35.30 Unspecified macular degeneration; K76.0 Fatty (change of) liver, not elsewhere classified; M50.30 Other cervical disc degeneration, unspecified cervical region; Z98.42 Cataract extraction status, left eye; Z98.41 Cataract extraction status, right eye; Z79.01 Long term (current) use of anticoagulants; Z79.899 Other long term (current) drug therapy; Z88.0 Allergy status to penicillin; Z88.1 Allergy status to other antibiotic agents; Z88.8 Allergy status to other drugs, medicaments and biological substances; Z91.018 Allergy to other foods

== ENCOUNTER → 2018-08-04 | Outpatient (CLI) | payer MEDICARE ==
[2018-08-04 10:18] LABS: INR 1.14; PROTHROMBIN TIME 14.8 SECONDS (12.1-14.4)
== END ==
LOC: M LAB 09:39
PROVIDERS: ATTEND Nurse Practitioner Family
DX: I48.0 Paroxysmal atrial fibrillation (principal)

== ENCOUNTER → 2018-08-04 | Outpatient (CLI) | payer MEDICARE ==
[~2018-08-04] MED LIST changes: +BUPIVACAINE HCL 0.25% 30 ML VIAL As Ordered ONE; +ISOVUE-M 300 61% 15ML VIAL (Q9967) As Ordered ONE; +LIDOCAINE 1% SDV INJ 30 ML VIAL As Ordered ONE; +TRIAMCINOLONE ACETONIDE SUSP 40 MG/ML VIAL (J3301) As Ordered ONE; +diazePAM 5 MG TAB As Ordered ONE; +oxyCODONE 5MG TAB As Ordered ONE
--- NOTE | 2018-08-04 15:31 | REP ---
Partial lumbar spine series: Two views . History: Injection procedure for pain. 45 seconds of fluoroscopy time is reported. Findings: A sequence of two fluoroscopically obtained last image hold procedural spot radiographs of the lumbar spine document needle position and contrast injection associated with injection procedure. Electronically Signed by Dustin Carrasco MD 08/04/2018 03:22 P
--- NOTE | 2018-08-16 23:21 | ECWPNPC ---
PATIENT NAME: GAL MUNOZ : 1935 GENDER: FEMALE VISIT DATE: 08/04/2018 DISCHARGE DATE: 08/04/18 1312 VISIT LOCKED DATE TIME: PHYSICIAN: SHERIE GAO MD RESOURCE: SHERIE GAO MD REASON FOR APPOINTMENT 1. BILATERAL L3-L4, L4-L5, L5-S1 THERAPEUTIC FACET BLOCK HISTORY OF PRESENT ILLNESS HISTORY OF PRESENT ILLNESS: PAIN THE PATIENT DESCRIBES THE PAIN... FALL RISK SCREENING: SCREENING :NO FALLS REPORTED IN THE LAST YEAR CURRENT MEDICATIONS TAKING VENTOLIN HFA 108 (90 BASE) MCG/ACT AEROSOL SOLUTION 2 PUFFS NEEDED INHALATION EVERY 4 HRS NEEDED, NOTES: NONE LATELY TAKING WARFARIN SODIUM 4 MG TABLET 5 DAYS A WEEK AND 2 MG 2 DAYS A WEEK ORALLY ONCE A DAY, NOTES: 07/29/18 TAKING METOPROLOL TARTRATE 50 MG TABLET 1 TABLET WITH FOOD ORALLY TWICE A DAY, NOTES: 08/04/18 AM TAKING LEVOTHYROXINE SODIUM 100 MCG TABLET 1 TABLET ON AN EMPTY STOMACH IN THE MORNING ORALLY ONCE A DAY, NOTES: 08/04/18 AM TAKING OMEPRAZOLE 40 MG CAPSULE DELAYED RELEASE 1 CAPSULE ORALLY ONCE A DAY, NOTES: 08/03/18 TAKING TRAMADOL HCL 50 MG TABLET DIRECTED ORALLY THREE TIMES A DAY MMD3, NOTES: 08/03/18 TAKING CARISOPRODOL 350 MG TABLET 1 TABLET NEEDED ORALLY AT BEDTIME, NOTES: 08/03/18 TAKING PERCOCET 5-325 MG TABLET 1 TABLET NEEDED ORALLY EVERY 6 HRS MDD 3, NOTES: 08/03/18 MEDICATION LIST REVIEWED AND RECONCILED WITH THE PATIENT PAST MEDICAL HISTORY HTN PAROXYSMAL A. FIB. 11/28/2015 TACHYCARDIA TO 150BPM, DR. SAHNI DID FIND PVC'S ON EKG, 2003 S/P ABLATION C DR. 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 LORENZ 11/2014 GALBLADDER COLIC, STONE RECTAL BLEED 01/31, COLON POLYP ON COLONOSCOPY NAFLD C ELEVATED LFTS ASYMPTOMATIC 06/2015 C OF HEAD, 09/2015 MRI BOTH C SMALL VESS. DIS. 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 LORDOSIS, NARROW EPIDURAL SPACE FORAMEN NARROEWD R C4-6, L C5-6 ALLERGIES PENICILLIN (FOR ALLERGIES USE ONLY): HIVES - ALLERGY AUGMENTIN: RASH - ALLERGY LEVOFLOXACIN: RASH - ALLERGY AMBIEN: PASSED OUT - ALLERGY PREDNISONE: HYPER - SIDE EFFECTS THEOPHYLLINE: PASSED OUT - ALLERGY FOOD ADDITIVES: ASTHMA ATTACK - ALLERGY SURGICAL HISTORY PARTIAL HYSTERECTOMY-[facility] 1983 L BREAST LUMPECTOMY-[facility] 1991 HEART ABLATION-JOSEF 2004 B CATARACT [id number]. SANNI 2011 TONSILLECTOMY AGE 9 FAMILY HISTORY FATHER: 72 YRS MOTHER: 89 YRS DAUGHTER(S): ALIVE, ARTHRITIS CROHNS 2 SON(S) , 1 DAUGHTER(S) . FATHER-ANEURYSM, STROKE, ?HTN, ?HL; WAS A SMOKER QUIT C CVA AGE 61\\\\\\\\NMOTHER-HEART DIS., A. FIB.\\N. SOCIAL HISTORY GENERAL: TOBACCO USE ARE YOU A:NONSMOKER ALCOHOL SCREENING DID YOU HAVE A DRINK CONTAINING ALCOHOL IN THE PAST YEAR?YES HOW OFTEN DID YOU HAVE A DRINK CONTAINING ALCOHOL IN THE PAST YEAR?TWO TO FOUR TIMES A MONTH (2 POINTS) HOW MANY DRINKS DID YOU HAVE ON A TYPICAL DAY WHEN YOU WERE DRINKING IN THE PAST YEAR?1 OR 2 (0 POINTS) POINTS2 INTERPRETATIONNEGATIVE RECREATIONAL DRUG USE DRUG USE?NO NONE CAFFEINE CAFFEINE USE?YES USUALLY DRINKJS DECAF..DOES HAVE A CUP OCCASIONAL MANDAEISM [id number] [employer] LANGUAGES SPOKEN:ALBANIAN EDUCATION LEVEL OF EDUCATION:FINISHED COLLEGE LEARNING BARRIERS / SPECIAL NEEDS BARRIERS TO LEARNING?NO HEARING IMPAIRED?NO VISION IMPAIRED?YES :CORRECTIVE LENSES READING GLASSES COGNITIVELY IMPAIRED?NO READINESS TO LEARN?YES LEARNING PREFERENCES?NO LEARNING CAPABILITIES PRESENT?YES EMOTIONAL BARRIERS?NO SPECIAL DEVICES?YES HAS A WALKER AND CANE FOR SAFETY NOT USING SANITATION OFFICER NEEDED?NO DOMESTIC VIOLENCE DO YOU FEEL SAFE IN YOUR ENVIRONMENT?YES OCCUPATION: RETIRED. DIET: REGULAR. EXERCISE: WALKS. MARITAL STATUS: . OTHERS AT HOME: LIVES ALONG. PAIN CLINIC PFS, CLERGY, PUBLIC HEALTH REFERRALS HAS THE PATIENT BEEN EDUCATED REGARDING HIS/HER PLAN OF CARE?YES HAS THE PATIENT BEEN EDUCATED REGARDING PAIN, THE RISK FOR PAIN, THE IMPORTANCE OF EFFECTIVE PAIN MANAGEMENT, AND THE PAIN ASSESSMENT PROCESS?YES ADVANCE DIRECTIVE ADVANCE DIRECTIVE DISCUSSED WITH PATIENT:YES HCP SON GRABIEL MUNOZ 07/23/18 REVIEWED WITH PT. AD07/29/18 REVIEWED WITH PT ALBARO. HOSPITALIZATION/MAJOR DIAGNOSTIC PROCEDURE ABOVE CHILD REVIEW OF SYSTEMS REVIEWED BY: PROVIDER: . CONSTITUTIONAL: ANY CHANGE IN YOUR MEDICAL CONDITION? NO . CHILLS NO . FEVER NO . INFECTION: DO YOU HAVE NEW INFECTIONS? NO . DO YOU HAVE HISTORY OF MRSA? NO . MUSCULOSKELETAL: ANY NEW PATTERNS OF PAIN OR NUMBNESS? YES, MID BACK PAIN . GASTROENTEROLOGY: ANY NEW CHANGE IN BOWEL CONTROL? NO . GENITOURINARY: ANY NEW CHANGE IN BLADDER CONTROL? NO . IS THERE A CHANCE YOU COULD BE ? NO . HEMATOLOGY/LYMPH: DO YOU TAKE ANY BLOOD THINNERS? (FOR EXAMPLE- COUMADIN, PLAVIX, AGGRENOX, PLATEL, PRADAXA, OR XARELTO) YES, WARFARIN 07/29/18 PT/INR 14.8/1.14, DR. GAO NOTIFIED. . WHEN WAS YOUR LAST DOSE? DATE: TIME: . NEUROLOGY: HAVE YOU FALLEN IN THE PAST 12 MONTHS? YES, FELL 06/2018 FROM TRIPPING HAD TO GO TO ER PT COULDN'T GET UP. PT WAS TX'D AND RELEASED . ANY NEW EXTREMITY NUMBNESS OR WEAKNESS? NO . CARDIOLOGY: DO YOU HAVE A PACEMAKER OR DEFIBRILLATOR? NO . RESPIRATORY: HAVE YOU BEEN SICK IN THE PAST WEEK? NO . FEVER NO . FLU LIKE SYMPTOMS? NO . COUGH NO . INTEGUMENTARY: DO YOU HAVE ANY RASHES OR OPEN SORES? NO . ALLERGIC/IMMUNO: ARE YOU ALLERGIC TO IV DYE? NO . ANY NEW ALLERGIES? NO . PSYCHIATRIC: DO YOU HAVE THOUGHTS OF HURTING YOURSELF OR SOMEONE ELSE? NO . ARE YOU ABUSED, NEGLECTED, OR IN AN UNSAFE ENVIRONMENT? NO . ENDOCRINOLOGY: ARE YOU DIABETIC? NO . OTHER: DO YOU NEED ANY PRESCRIPTIONS? NO . IF YES, PLEASE LIST: ____ . ANY NEW PROBLEMS WITH YOUR MEDICATIONS? NO . WHEN DID YOU LAST EAT? 08-03-18 . WHEN DID YOU LAST DRINK? 08/04/18 AM . WHAT DID YOU LAST DRINK? ___WATER . NAME OF PERSON DRIVING YOU HOME? NICHELLE . DO YOU HAVE ANY OTHER QUESTIONS OR CONCERNS NO . VITAL SIGNS WT 162.6 LBS, HT 68 IN, BMI 24.72 INDEX, BP 191/88 MM HG, HR 16 /MIN, RR 60 /MIN, TEMP 98.6 F, OXYGEN SAT % 100%, NA INITIALS AW 1012, REVIEWED BY: EM. ASSESSMENTS SPONDYLOSIS OF LUMBAR REGION WITHOUT MYELOPATHY OR RADICULOPATHY - M47.816 (PRIMARY) SPONDYLOSIS OF LUMBOSACRAL REGION WITHOUT MYELOPATHY OR RADICULOPATHY - M47.817 PROCEDURES PN LUMBAR FACET BLOCK THERAPEUTIC PRE PROCEDURE DIAGNOSIS LUMBAR SPONDYLOSIS, LUMBOSACRAL SPONDYLOSIS POST PROCEDURE DIAGNOSIS LUMBAR SPONDYLOSIS, LUMBOSACRAL SPONDYLOSIS PROCEDURE BILATERAL L3-L4, BILATERAL L4-L5, AND BILATERAL L5-S1 LUMBAR FACET THERAPEUTIC BLOCK SURGEON DR. SHERIE GAO ACCORDION REPAIRER NONE ANESTHESIA LOCAL PRE PROCEDURE NOTE THE PATIENT HAS A HISTORY OF CHRONIC LOW BACK PAIN. I EVALUATE THE PATIENT AND REVIEWED THE CHART. I WENT OVER THE RISKS, ALTERNATIVES, AND BENEFITS ASSOCIATED WITH THIS PROCEDURE. THE PATIENT WOULD LIKE TO PROCEED AND GIVE CONSENT TO PERFORMED THE PROCEDURE. THE PATIENT DENIES UNEXPLAINABLE WEIGHT LOSS, FEVER, CHILLS, OR NEW CHANGES IN URINARY OR BOWEL CONTROL DESCRIPTION OF PROCEDURE THE PATIENT WAS BROUGHT TO THE PROCEDURE ROOM AND PLACED IN THE PRONE POSITION. THE LUMBOSACRAL AREA WAS CLEANED WITH CHLORAPREP SOLUTION AND DRAPED ASEPTICALLY. THE PROCEDURE WAS DONE UNDER STERILE CONDITIONS. I CHECKED LATERALITY AND THE LEVEL WHERE THE PROCEDURE WAS GOING TO BE PERFORMED WITH THE PATIENT AND THE SUPPORTING STAFF AT THE MOMENT OF THE TIME OUT IN THE PROCEDURE ROOM. UNDER FLUOROSCOPIC GUIDANCE, THE TARGET POINT WAS SELECTED AT THE RIGHT AND LEFT L3-L4, RIGHT AND LEFT L4-L5, AND RIGHT AND LEFT L5-S1 FACET JOINT. TARGET POINT WAS SELECTED AFTER LATERAL ROTATION AND TILT OF THE MAGNIFIER OF THE C-ARM. LIDOCAINE 0.5% WAS USED TO NUMB THE SKIN AND THE SUBCUTANEOUS TISSUE BELOW IT. SPINAL NEEDLES, 22-GAUGE, WERE ADVANCED UNDER FLUOROSCOPIC GUIDANCE AND FOLLOWING PATIENT FEEDBACK UNTIL THE TARGETS WERE TOUCHED. THE POSITION OF THE NEEDLES WAS VERIFIED WITH AP AND LATERAL VIEWS. AFTER PROPER POSITION OF THE NEEDLES WAS ACHIEVED, ISOVUE-M DYE 30% 0.1 ML WAS INJECTED SHOWING ADEQUATE SPREAD OF THE DYE. THEN A SOLUTION OF 1.9 ML OF BUPIVACAINE 0.125% OF KENALOG 10 MG WAS INJECTED AT EACH SITE. THERE WAS NO EVIDENCE OF BLOOD, PARESTHESIA OR CEREBROSPINAL FLUID DURING THE PROCEDURE. THE PATIENT WAS SENT TO THE RECOVERY ROOM. THE PATIENT WAS MOVING THE EXTREMITIES AND DOING WELL. THERE WAS NO COMPLICATION DURING THE PROCEDURE. FLUOROSCOPY TIME WAS 45 SECONDS POST PROCEDURE NOTE THE PATIENT WILL BE SEEN IN A FOLLOW UP IN THE NEXT FEW WEEKS. INSTRUCTIONS WERE GIVEN, QUESTIONS WERE ANSWERED, AND THE PATIENT EXPRESSED UNDERSTANDING AND AGREES WITH THE PLAN. I, DU TORRES, DOCUMENTED THE ABOVE INFORMATION ACTING A SCRIBE FOR DR. GAO. I HAVE REVIEWED THE ABOVE DOCUMENT, WRITTEN BY DU TORRES SCRIBE AND I VERIFY THAT IT IS ACCURATE. DIAGNOSTIC IMAGING [facility] FACET BLOCK (PAIN)[id number] PROCEDURE CODES 6045F RADXPS IN END [id number] PXD 78042 INJ PARAVERT F JNT L/S 1 LEV, MODIFIERS: 50 [id number] INJ PARAVERT F JNT L/S 2 LEV, MODIFIERS: 50 [id number] INJ PARAVERT F JNT L/S 3 LEV, MODIFIERS: 50 DISPOSITION & COMMUNICATION FOLLOW UP 3 WEEKS ELECTRONICALLY SIGNED BY SHERIE GAO MD, ON 08/16/2018 AT 03:06 PM EDT DISCLAIMER : THIS IS A VISIT SUMMARY EXTRACTED FROM THE [employer] CHART. IT IS NOT A COPY OF THE [employer] PROGRESS NOTE. MIKI
== END ==
LOC: M PAIN 10:00
PROVIDERS: ATTEND Anesthesiology
DX: G89.29 Other chronic pain (principal); M47.816 Spondylosis without myelopathy or radiculopathy, lumbar region; M47.817 Spondylosis without myelopathy or radiculopathy, lumbosacral region; I48.0 Paroxysmal atrial fibrillation; I10 Essential (primary) hypertension; E03.9 Hypothyroidism, unspecified; Z79.01 Long term (current) use of anticoagulants; Z79.899 Other long term (current) drug therapy; Z88.0 Allergy status to penicillin; Z88.1 Allergy status to other antibiotic agents; Z88.8 Allergy status to other drugs, medicaments and biological substances; Z91.02 Food additives allergy status; Z85.3 Personal history of malignant neoplasm of breast; Z92.3 Personal history of irradiation; Z92.29 Personal history of other drug therapy
CPT/HCPCS: 36415; 64493; 64494; 64495; 85610; J3301; Q9967

== ENCOUNTER → 2018-08-24 | Outpatient (CLI) | payer MEDICARE ==
[~2018-08-24] MED LIST changes: -BUPIVACAINE HCL 0.25% 30 ML VIAL As Ordered ONE; -ISOVUE-M 300 61% 15ML VIAL (Q9967) As Ordered ONE; -LIDOCAINE 1% SDV INJ 30 ML VIAL As Ordered ONE; -TRIAMCINOLONE ACETONIDE SUSP 40 MG/ML VIAL (J3301) As Ordered ONE; -diazePAM 5 MG TAB As Ordered ONE; -oxyCODONE 5MG TAB As Ordered ONE
--- NOTE | 2018-09-09 23:53 | ECWPNPC ---
PATIENT NAME: GAL MUNOZ : 1935 GENDER: FEMALE VISIT DATE: 08/24/2018 DISCHARGE DATE: 08/24/18 1633 VISIT LOCKED DATE TIME: PHYSICIAN: BERNARDA GILL RESOURCE: BERNARDA GILL REASON FOR APPOINTMENT 1. INCREASING PAIN HISTORY OF PRESENT ILLNESS HISTORY OF PRESENT ILLNESS: PATIENT IS BEING SEEN ON AN URGENT BASIS DUE TO INCREASING LOW BACK PAIN.RATING PAIN VAS 8/10.DESCRIBES PAIN ACHING AND STABBING.PAIN AWAKENS FROM SLEEP. PAIN THE PATIENT DESCRIBES THE PAIN... FALL RISK SCREENING: SCREENING :NO FALLS REPORTED IN THE LAST YEAR CURRENT MEDICATIONS TAKING VENTOLIN HFA 108 (90 BASE) MCG/ACT AEROSOL SOLUTION 2 PUFFS NEEDED INHALATION EVERY 4 HRS NEEDED TAKING WARFARIN SODIUM 4 MG TABLET 5 DAYS A WEEK AND 2 MG 2 DAYS A WEEK ORALLY ONCE A DAY TAKING METOPROLOL TARTRATE 50 MG TABLET 1 TABLET WITH FOOD ORALLY TWICE A DAY TAKING LEVOTHYROXINE SODIUM 100 MCG TABLET 1 TABLET ON AN EMPTY STOMACH IN THE MORNING ORALLY ONCE A DAY TAKING OMEPRAZOLE 40 MG CAPSULE DELAYED RELEASE 1 CAPSULE ORALLY ONCE A DAY TAKING TRAMADOL HCL 50 MG TABLET DIRECTED ORALLY THREE TIMES A DAY MMD3 TAKING CARISOPRODOL 350 MG TABLET 1 TABLET NEEDED ORALLY AT BEDTIME MEDICATION LIST REVIEWED AND RECONCILED WITH THE PATIENT PAST MEDICAL HISTORY HTN PAROXYSMAL A. FIB. 11/28/2015 TACHYCARDIA TO 150BPM, DR. SAHNI DID FIND PVC'S ON EKG, 2004 S/P ABLATION C DR. 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 LORENZ 11/2014 GALBLADDER COLIC, STONE RECTAL BLEED 01/31, COLON POLYP ON COLONOSCOPY NAFLD C ELEVATED LFTS ASYMPTOMATIC 06/2015 C OF HEAD, 09/2015 MRI BOTH C SMALL VESS. DIS. 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 LORDOSIS, NARROW EPIDURAL SPACE FORAMEN NARROEWD R C4-6, L C5-6 ALLERGIES PENICILLIN (FOR ALLERGIES USE ONLY): HIVES - ALLERGY AUGMENTIN: RASH - ALLERGY LEVOFLOXACIN: RASH - ALLERGY AMBIEN: PASSED OUT - ALLERGY PREDNISONE: HYPER - SIDE EFFECTS THEOPHYLLINE: PASSED OUT - ALLERGY FOOD ADDITIVES: ASTHMA ATTACK - ALLERGY SURGICAL HISTORY PARTIAL HYSTERECTOMY-[facility] 1983 L BREAST LUMPECTOMY-[facility] 1991 HEART ABLATION-[facility] 2004 B CATARACT [id number]. SANNI 2011 TONSILLECTOMY AGE 9 FAMILY HISTORY FATHER: 72 YRS MOTHER: 89 YRS DAUGHTER(S): ALIVE, ARTHRITIS CROHNS 2 SON(S) , 1 DAUGHTER(S) . FATHER-ANEURYSM, STROKE, ?HTN, ?HL; WAS A SMOKER QUIT C CVA AGE 61\\\\\\\\\\\\\\\\\\\\\\\\\\\\\\\\NMOTHER-HEART DIS., A. FIB.\\\\\\\\N. SOCIAL HISTORY GENERAL: TOBACCO USE ARE YOU A:NONSMOKER OTHERS AT HOME: LIVES ALONG. EDUCATION LEVEL OF EDUCATION:FINISHED COLLEGE DIET: REGULAR. LANGUAGE LANGUAGES SPOKEN:TAMAZIGHT DOMESTIC VIOLENCE DO YOU FEEL SAFE IN YOUR ENVIRONMENT?YES RECREATIONAL DRUG USE DRUG USE?NO NONE EXERCISE: WALKS. LEARNING BARRIERS / SPECIAL NEEDS BARRIERS TO LEARNING?NO HEARING IMPAIRED?NO VISION IMPAIRED?YES :CORRECTIVE LENSES READING GLASSES COGNITIVELY IMPAIRED?NO READINESS TO LEARN?YES LEARNING PREFERENCES?NO LEARNING CAPABILITIES PRESENT?YES EMOTIONAL BARRIERS?NO SPECIAL DEVICES?YES HAS A WALKER AND CANE FOR SAFETY NOT USING TIMBER PACKER NEEDED?NO PAIN CLINIC PFS, CLERGY, PUBLIC HEALTH REFERRALS HAS THE PATIENT BEEN EDUCATED REGARDING HIS/HER PLAN OF CARE?YES HAS THE PATIENT BEEN EDUCATED REGARDING PAIN, THE RISK FOR PAIN, THE IMPORTANCE OF EFFECTIVE PAIN MANAGEMENT, AND THE PAIN ASSESSMENT PROCESS?YES LATEX QUESTIONNAIRE LATEX ALLERGY : HAVE YOU EVER DEVELOPED ANY TYPE OF REACTION AFTER HANDLING LATEX PRODUCTS SUCH RUBBER GLOVES, CONDOMS, DIAPHRAGMS, BALLOONS, SOCKS, OR UNDERWEAR?NO LATEX ALLERGY : HAVE YOU EVER DEVELOPED ANY TYPE OF REACTION DURING OR AFTER DENTAL APPOINTMENT, VAGINAL/RECTAL EXAMINATION, SURGICAL PROCEDURE, OR ANY OTHER EXPOSURE?NO LATEX RISK : HAVE YOU EVER HAD ANY DIFFICULTY BREATHING OR HIVES AFTER EATING OR HANDLING ANY FRUITS, OR VEGETABLES; SUCH KIWI, BANANAS, STONE FRUITS, OR CHESTNUTSNO LATEX RISK : DO YOU HAVE A PREVIOUS PERSONAL HISTORY OF MORE THAN NINE SURGERIES, SPINA BIFIDA, OR REPEATED CATHERTIZATIONS? NO LATEX RISK : ARE YOU FREQUENTLY EXPOSED TO LATEX PRODUCTS IN YOUR OCCUPATION?NO DATE ASKED : 08/13/2018 CAFFEINE CAFFEINE USE?YES USUALLY DRINKJS DECAF..DOES HAVE A CUP OCCASIONAL ADVANCE DIRECTIVE ADVANCE DIRECTIVE DISCUSSED WITH PATIENT:YES HCP SON GRABIEL MUNOZ [phone] BUDDHISM [id number] [facility] MARITAL STATUS: . ALCOHOL SCREENING DID YOU HAVE A DRINK CONTAINING ALCOHOL IN THE PAST YEAR?YES HOW OFTEN DID YOU HAVE A DRINK CONTAINING ALCOHOL IN THE PAST YEAR?TWO TO FOUR TIMES A MONTH (2 POINTS) HOW MANY DRINKS DID YOU HAVE ON A TYPICAL DAY WHEN YOU WERE DRINKING IN THE PAST YEAR?1 OR 2 (0 POINTS) POINTS2 INTERPRETATIONNEGATIVE OCCUPATION: RETIRED. 07/23/18 REVIEWED WITH PT. AD07/29/18 REVIEWED WITH PT LASREVIEWED WITH PATIENT 08/24/18 1440 JS. HOSPITALIZATION/MAJOR DIAGNOSTIC PROCEDURE ABOVE CHILD REVIEW OF SYSTEMS REVIEWED BY: PROVIDER: BERNARDA CARBAJAL . CONSTITUTIONAL: ANY CHANGE IN YOUR MEDICAL CONDITION? NO . CHILLS NO . FEVER NO . INFECTION: DO YOU HAVE NEW INFECTIONS? NO . DO YOU HAVE HISTORY OF MRSA? NO . MUSCULOSKELETAL: ANY NEW PATTERNS OF PAIN OR NUMBNESS? YES, STATES INCREASED PAIN AND SPASMS, NOTHING HELPING AT THIS TIME WITH THE PAIN . GASTROENTEROLOGY: ANY NEW CHANGE IN BOWEL CONTROL? NO . GENITOURINARY: ANY NEW CHANGE IN BLADDER CONTROL? NO . IS THERE A CHANCE YOU COULD BE ? NO . HEMATOLOGY/LYMPH: DO YOU TAKE ANY BLOOD THINNERS? (FOR EXAMPLE- COUMADIN, PLAVIX, AGGRENOX, PLATEL, PRADAXA, OR XARELTO) YES, COUMADIN . WHEN WAS YOUR LAST DOSE? DATE: 08/23/18TIME: 1900 . NEUROLOGY: HAVE YOU FALLEN IN THE PAST 12 MONTHS? NO . ANY NEW EXTREMITY NUMBNESS OR WEAKNESS? NO . CARDIOLOGY: DO YOU HAVE A PACEMAKER OR DEFIBRILLATOR? NO . RESPIRATORY: HAVE YOU BEEN SICK IN THE PAST WEEK? NO . FEVER NO . FLU LIKE SYMPTOMS? NO . COUGH NO . INTEGUMENTARY: DO YOU HAVE ANY RASHES OR OPEN SORES? NO . ALLERGIC/IMMUNO: ARE YOU ALLERGIC TO IV DYE? NO . ANY NEW ALLERGIES? NO . PSYCHIATRIC: DO YOU HAVE THOUGHTS OF HURTING YOURSELF OR SOMEONE ELSE? NO . ARE YOU ABUSED, NEGLECTED, OR IN AN UNSAFE ENVIRONMENT? NO . ENDOCRINOLOGY: ARE YOU DIABETIC? NO . OTHER: DO YOU NEED ANY PRESCRIPTIONS? NO . IF YES, PLEASE LIST: ____ . ANY NEW PROBLEMS WITH YOUR MEDICATIONS? NO . WHEN DID YOU LAST EAT? ____ . WHEN DID YOU LAST DRINK? ____ . WHAT DID YOU LAST DRINK? ____ . NAME OF PERSON DRIVING YOU HOME? ____ . DO YOU HAVE ANY OTHER QUESTIONS OR CONCERNS YES, REALLY NEEDS SOMETHING TO AID IN PAIN RELIEF, STATES NOTHING IS WORKING AT THIS TIME . VITAL SIGNS WT 162.6 LBS, HT 68 IN, BMI 24.72 INDEX, BP 160/79 MM HG, HR 76 /MIN, RR 16 /MIN, TEMP 98.2 F, OXYGEN SAT % 94%, SAFE IN ENV? (Y/N) YES, NA INITIALS AW 1432, REVIEWED BY: CARMEN08/24/18 DISCUSSED ELEVATED BP WITH PATIENT. STATES IT IS DUE TO THE PAIN. WILL DISCUSS WITH PCP IF IT CONTINUES TO BE ELEVATED. JS. EXAMINATION GENERAL EXAMINATION: GENERAL APPEARANCE: AWAKE,ALERT ,PLEAASANT . PSYCH AFFECT NORMAL . LUNGS: LUNG ARMAS ARE CLEAR TO AUSCULTATION BILATERALLY. GOOD MOVEMENT OF AIR . HEART: S1, S2 IN A REGULAR RATE AND RHYTHM. NO SIGNIFICANT MURMURS, RUBS OR GALLOPS NOTED . LUMBAR SACRAL SPINEPALPATION:TENDER OVER RIGHT. L3/4-L4/5 LUMBAR FACETS WITH FACET LOADING.. DIAGNOSTIC TESTS REVIEWED MRI-L/S SPINE-05/07/18. 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 PREVENTIVE MEDICINE PAIN CLINIC TEACHING: PROCEDURE TEACHING REVIEWED INFORMATION ON FACET BLOCK PROCEDURE WITH PATIENT. ALSO REVIEWED PRE-PROCEDURE INSTRUCTIONS. PATIENT VERBALIZED AN UNDERSTANDING. OSCAR CARMONA 08/24/2018 4:43:34 PM > . PROCEDURE CODES FA211 ESTABILISHED PATIENT [facility] CHARGE DISPOSITION & COMMUNICATION FOLLOW UP POST (REASON: RIGHT L3/4-L4/5-L5/S1 THERAPEUTIC BLOCK) ELECTRONICALLY SIGNED BY RAVEN JOHANSEN ON 09/09/2018 AT 08:39 AM EDT DISCLAIMER : THIS IS A VISIT SUMMARY EXTRACTED FROM THE [employer] CHART. IT IS NOT A COPY OF THE [employer] PROGRESS NOTE. MTDD
== END ==
LOC: M PAIN 14:15
PROVIDERS: ATTEND Nurse Practitioner Family
DX: M48.07 Spinal stenosis, lumbosacral region (principal); I10 Essential (primary) hypertension; E03.9 Hypothyroidism, unspecified; Z79.01 Long term (current) use of anticoagulants; Z79.891 Long term (current) use of opiate analgesic; Z79.899 Other long term (current) drug therapy; Z88.0 Allergy status to penicillin; Z88.1 Allergy status to other antibiotic agents; Z88.8 Allergy status to other drugs, medicaments and biological substances; Z91.02 Food additives allergy status; Z86.79 Personal history of other diseases of the circulatory system; Z85.3 Personal history of malignant neoplasm of breast; Z92.3 Personal history of irradiation; Z92.29 Personal history of other drug therapy

== ENCOUNTER → 2018-09-02 | Outpatient (CLI) | payer MEDICARE ==
[~2018-09-02] MED LIST changes: +BUPIVACAINE HCL 0.25% 30 ML VIAL As Ordered ONE; +ISOVUE-M 300 61% 15ML VIAL (Q9967) As Ordered ONE; +LIDOCAINE 1% SDV INJ 30 ML VIAL As Ordered ONE; +TRIAMCINOLONE ACETONIDE SUSP 40 MG/ML VIAL (J3301) As Ordered ONE; +diazePAM 5 MG TAB As Ordered ONE; +oxyCODONE 5MG TAB As Ordered ONE
--- NOTE | 2018-09-02 14:57 | REP ---
Partial lumbar spine series: Single view . History: Injection procedure for pain. 26 seconds of fluoroscopy time is reported. Findings: A single fluoroscopically obtained last image hold procedural spot radiograph of the lumbar spine documents needle position and contrast injection associated with injection procedure. Electronically Signed by Dustin Carrasco MD 09/02/2018 02:48 P
--- NOTE | 2018-09-19 23:23 | ECWPNPC ---
PATIENT NAME: GAL MUNOZ : 1935 GENDER: FEMALE VISIT DATE: 09/02/2018 DISCHARGE DATE: 09/02/18 1523 VISIT LOCKED DATE TIME: PHYSICIAN: SHERIE GAO MD RESOURCE: SHERIE GAO MD REASON FOR APPOINTMENT 1. RIGHT L3/L4- L4/5-L5/S1 THERAPEUTIC BLOCK, PER HISTORY OF PRESENT ILLNESS HISTORY OF PRESENT ILLNESS: PAIN THE PATIENT DESCRIBES THE PAIN... FALL RISK SCREENING: SCREENING :NO FALLS REPORTED IN THE LAST YEAR CURRENT MEDICATIONS TAKING VENTOLIN HFA 108 (90 BASE) MCG/ACT AEROSOL SOLUTION 2 PUFFS NEEDED INHALATION EVERY 4 HRS NEEDED, NOTES: NONE RECENT TAKING WARFARIN SODIUM 4 MG TABLET 5 DAYS A WEEK AND 2 MG 2 DAYS A WEEK ORALLY ONCE A DAY, NOTES: 08/27 TAKING METOPROLOL TARTRATE 50 MG TABLET 1 TABLET WITH FOOD ORALLY TWICE A DAY, NOTES: 09/02 07 TAKING LEVOTHYROXINE SODIUM 100 MCG TABLET 1 TABLET ON AN EMPTY STOMACH IN THE MORNING ORALLY ONCE A DAY, NOTES: 09/02 0700 TAKING OMEPRAZOLE 40 MG CAPSULE DELAYED RELEASE 1 CAPSULE ORALLY ONCE A DAY, NOTES: 09/01 1200 TAKING TRAMADOL HCL 50 MG TABLET DIRECTED ORALLY 2 IN AM,1 12N,2 AT 4 MDD5, NOTES: 09/02 (1 TAB)0700 TAKING CARISOPRODOL 350 MG TABLET 1 TABLET NEEDED ORALLY AT BEDTIME, NOTES: 09/01 2200 MEDICATION LIST REVIEWED AND RECONCILED WITH THE PATIENT PAST MEDICAL HISTORY HTN PAROXYSMAL A. FIB. 11/28/2015 TACHYCARDIA TO 150BPM, DR. SAHNI DID FIND PVC'S ON EKG, 2003 S/P ABLATION C DR. 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 LORENZ 11/2014 GALBLADDER COLIC, STONE RECTAL BLEED 01/31, COLON POLYP ON COLONOSCOPY NAFLD C ELEVATED LFTS ASYMPTOMATIC 06/2015 C OF HEAD, 09/2015 MRI BOTH C SMALL VESS. DIS. 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 LORDOSIS, NARROW EPIDURAL SPACE FORAMEN NARROEWD R C4-6, L C5-6 ALLERGIES PENICILLIN (FOR ALLERGIES USE ONLY): HIVES - ALLERGY AUGMENTIN: RASH - ALLERGY LEVOFLOXACIN: RASH - ALLERGY AMBIEN: PASSED OUT - ALLERGY PREDNISONE: HYPER - SIDE EFFECTS THEOPHYLLINE: PASSED OUT - ALLERGY FOOD ADDITIVES: ASTHMA ATTACK - ALLERGY SURGICAL HISTORY PARTIAL HYSTERECTOMY-[facility] 1983 L BREAST LUMPECTOMY-[facility] 1991 HEART ABLATION-[facility] 2004 B CATARACT [id number]. SANNI 2011 TONSILLECTOMY AGE 9 FAMILY HISTORY FATHER: 72 YRS MOTHER: 89 YRS DAUGHTER(S): ALIVE, ARTHRITIS CROHNS 2 SON(S) , 1 DAUGHTER(S) . FATHER-ANEURYSM, STROKE, ?HTN, ?HL; WAS A SMOKER QUIT C CVA AGE 61\\\\\\\\\\\\\\\\\\\\\\\\\\\\\\\\\\\\\\\\\\\\\\\\\\\\\\\\\\\\\\\ NMOTHER-HEART DIS., A. FIB.\\\\\\\\\\\\\\\\N. SOCIAL HISTORY GENERAL: TOBACCO USE ARE YOU A:NONSMOKER OTHERS AT HOME: LIVES ALONG. EDUCATION LEVEL OF EDUCATION:FINISHED COLLEGE DIET: REGULAR. LANGUAGE LANGUAGES SPOKEN:[place]IZ[place] DOMESTIC VIOLENCE DO YOU FEEL SAFE IN YOUR ENVIRONMENT?YES RECREATIONAL DRUG USE DRUG USE?NO NONE EXERCISE: WALKS. LEARNING BARRIERS / SPECIAL NEEDS BARRIERS TO LEARNING?NO HEARING IMPAIRED?NO VISION IMPAIRED?YES :CORRECTIVE LENSES READING GLASSES COGNITIVELY IMPAIRED?NO READINESS TO LEARN?YES LEARNING PREFERENCES?NO LEARNING CAPABILITIES PRESENT?YES EMOTIONAL BARRIERS?NO SPECIAL DEVICES?YES HAS A WALKER AND CANE FOR SAFETY NOT USING RELATIONSHIP COUNSELOR NEEDED?NO PAIN CLINIC PFS, CLERGY, PUBLIC HEALTH REFERRALS HAS THE PATIENT BEEN EDUCATED REGARDING HIS/HER PLAN OF CARE?YES HAS THE PATIENT BEEN EDUCATED REGARDING PAIN, THE RISK FOR PAIN, THE IMPORTANCE OF EFFECTIVE PAIN MANAGEMENT, AND THE PAIN ASSESSMENT PROCESS?YES LATEX QUESTIONNAIRE LATEX ALLERGY : HAVE YOU EVER DEVELOPED ANY TYPE OF REACTION AFTER HANDLING LATEX PRODUCTS SUCH RUBBER GLOVES, CONDOMS, DIAPHRAGMS, BALLOONS, SOCKS, OR UNDERWEAR?NO LATEX ALLERGY : HAVE YOU EVER DEVELOPED ANY TYPE OF REACTION DURING OR AFTER DENTAL APPOINTMENT, VAGINAL/RECTAL EXAMINATION, SURGICAL PROCEDURE, OR ANY OTHER EXPOSURE?NO LATEX RISK : HAVE YOU EVER HAD ANY DIFFICULTY BREATHING OR HIVES AFTER EATING OR HANDLING ANY FRUITS, OR VEGETABLES; SUCH KIWI, BANANAS, STONE FRUITS, OR CHESTNUTSNO LATEX RISK : DO YOU HAVE A PREVIOUS PERSONAL HISTORY OF MORE THAN NINE SURGERIES, SPINA BIFIDA, OR REPEATED CATHERTIZATIONS? NO LATEX RISK : ARE YOU FREQUENTLY EXPOSED TO LATEX PRODUCTS IN YOUR OCCUPATION?NO DATE ASKED : 09/02/2018 CAFFEINE CAFFEINE USE?YES USUALLY DRINKJS DECAF..DOES HAVE A CUP OCCASIONAL ADVANCE DIRECTIVE ADVANCE DIRECTIVE DISCUSSED WITH PATIENT:YES HCP SON GRABIEL MUNOZ [phone] JEWISH [id number] [facility] MARITAL STATUS: . ALCOHOL SCREENING DID YOU HAVE A DRINK CONTAINING ALCOHOL IN THE PAST YEAR?YES HOW OFTEN DID YOU HAVE A DRINK CONTAINING ALCOHOL IN THE PAST YEAR?TWO TO FOUR TIMES A MONTH (2 POINTS) HOW MANY DRINKS DID YOU HAVE ON A TYPICAL DAY WHEN YOU WERE DRINKING IN THE PAST YEAR?1 OR 2 (0 POINTS) POINTS2 INTERPRETATIONNEGATIVE OCCUPATION: RETIRED. 07/23/18 REVIEWED WITH PT. AD07/29/18 REVIEWED WITH PT LASREVIEWED WITH PATIENT 08/24/18 1440 09/02/18 REVIEWED WITH PT. AD. HOSPITALIZATION/MAJOR DIAGNOSTIC PROCEDURE ABOVE CHILD REVIEW OF SYSTEMS REVIEWED BY: PROVIDER: . CONSTITUTIONAL: ANY CHANGE IN YOUR MEDICAL CONDITION? NO . CHILLS NO . FEVER NO . INFECTION: DO YOU HAVE NEW INFECTIONS? NO . DO YOU HAVE HISTORY OF MRSA? NO . MUSCULOSKELETAL: ANY NEW PATTERNS OF PAIN OR NUMBNESS? NO . GASTROENTEROLOGY: ANY NEW CHANGE IN BOWEL CONTROL? NO . GENITOURINARY: ANY NEW CHANGE IN BLADDER CONTROL? YES, HAS EXTREME URGENCY X 2-3 DAYS. DENIES BURNING OR FREQUENCY . IS THERE A CHANCE YOU COULD BE ? NO . HEMATOLOGY/LYMPH: DO YOU TAKE ANY BLOOD THINNERS? (FOR EXAMPLE- COUMADIN, PLAVIX, AGGRENOX, PLATEL, PRADAXA, OR XARELTO) YES . WHEN WAS YOUR LAST DOSE? DATE: TIME:08/27/18 2100 . NEUROLOGY: HAVE YOU FALLEN IN THE PAST 12 MONTHS? YES, COUPLE OF TIMES. IN APRIL SHE HIT THE DINING ROOM TABLE. SEEN BY PCP-XRAYS AND MRI DONE. HAS HAD SEVERE PAIN IN LOW BACK SINCE. . ANY NEW EXTREMITY NUMBNESS OR WEAKNESS? NO . CARDIOLOGY: DO YOU HAVE A PACEMAKER OR DEFIBRILLATOR? NO . RESPIRATORY: HAVE YOU BEEN SICK IN THE PAST WEEK? NO . FEVER NO . FLU LIKE SYMPTOMS? NO . COUGH NO . INTEGUMENTARY: DO YOU HAVE ANY RASHES OR OPEN SORES? NO . ALLERGIC/IMMUNO: ARE YOU ALLERGIC TO IV DYE? NO . ANY NEW ALLERGIES? NO . PSYCHIATRIC: DO YOU HAVE THOUGHTS OF HURTING YOURSELF OR SOMEONE ELSE? NO . ARE YOU ABUSED, NEGLECTED, OR IN AN UNSAFE ENVIRONMENT? NO . ENDOCRINOLOGY: ARE YOU DIABETIC? NO . OTHER: DO YOU NEED ANY PRESCRIPTIONS? NO . IF YES, PLEASE LIST: ____ . ANY NEW PROBLEMS WITH YOUR MEDICATIONS? NO . WHEN DID YOU LAST EAT? 09/01 1730 . WHEN DID YOU LAST DRINK? 09/02 0700 . WHAT DID YOU LAST DRINK? WATER . NAME OF PERSON DRIVING YOU HOME? NICHELLE CANNON . DO YOU HAVE ANY OTHER QUESTIONS OR CONCERNS NO PT HAS NOT HAD ANY VACCINES IN THE PAST 30 DAYS . VITAL SIGNS WT 162.6 LBS, HT 68 IN, BMI 24.72 INDEX, BP 131/78 MM HG, HR 71 /MIN, RR 16 /MIN, TEMP 97.1 F, OXYGEN SAT % 99%, NA INITIALS SC 11:16, REVIEWED BY: AD. ASSESSMENTS SPONDYLOSIS OF LUMBAR REGION WITHOUT MYELOPATHY OR RADICULOPATHY - M47.816 (PRIMARY) SPONDYLOSIS OF LUMBOSACRAL REGION WITHOUT MYELOPATHY OR RADICULOPATHY - M47.817 PROCEDURES PN LUMBAR FACET BLOCK THERAPEUTIC PRE PROCEDURE DIAGNOSIS LUMBAR SPONDYLOSIS, LUMBOSACRAL SPONDYLOSIS POST PROCEDURE DIAGNOSIS LUMBAR SPONDYLOSIS, LUMBOSACRAL SPONDYLOSIS PROCEDURE RIGHT L3-L4, RIGHT L4-L5, AND RIGHT L5-S1 LUMBAR FACET THERAPEUTIC BLOCK SURGEON DR. SHERIE GAO MAINTENANCE SUPERVISOR 2ND SHIFT NONE ANESTHESIA LOCAL PRE PROCEDURE NOTE THE PATIENT HAS A HISTORY OF CHRONIC LOW BACK PAIN. I EVALUATE THE PATIENT AND REVIEWED THE CHART. I WENT OVER THE RISKS, ALTERNATIVES, AND BENEFITS ASSOCIATED WITH THIS PROCEDURE. THE PATIENT WOULD LIKE TO PROCEED AND GIVE CONSENT TO PERFORMED THE PROCEDURE. THE PATIENT DENIES UNEXPLAINABLE WEIGHT LOSS, FEVER, CHILLS, OR NEW CHANGES IN URINARY OR BOWEL CONTROL DESCRIPTION OF PROCEDURE THE PATIENT WAS BROUGHT TO THE PROCEDURE ROOM AND PLACED IN THE PRONE POSITION. THE LUMBOSACRAL AREA WAS CLEANED WITH CHLORAPREP SOLUTION AND DRAPED ASEPTICALLY. THE PROCEDURE WAS DONE UNDER STERILE CONDITIONS. I CHECKED LATERALITY AND THE LEVEL WHERE THE PROCEDURE WAS GOING TO BE PERFORMED WITH THE PATIENT AND THE SUPPORTING STAFF AT THE MOMENT OF THE TIME OUT IN THE PROCEDURE ROOM. UNDER FLUOROSCOPIC GUIDANCE, THE TARGET POINT WAS SELECTED AT THE RIGHT L3-L4, RIGHT L4-L5, AND RIGHT L5-S1 FACET JOINT. TARGET POINT WAS SELECTED AFTER LATERAL ROTATION AND TILT OF THE MAGNIFIER OF THE C-ARM. LIDOCAINE 0.5% WAS USED TO NUMB THE SKIN AND THE SUBCUTANEOUS TISSUE BELOW IT. SPINAL NEEDLES, 22-GAUGE, WERE ADVANCED UNDER FLUOROSCOPIC GUIDANCE AND FOLLOWING PATIENT FEEDBACK UNTIL THE TARGETS WERE TOUCHED. THE POSITION OF THE NEEDLES WAS VERIFIED WITH AP AND LATERAL VIEWS. AFTER PROPER POSITION OF THE NEEDLES WAS ACHIEVED, ISOVUE-M DYE 30% 0.1 ML WAS INJECTED SHOWING ADEQUATE SPREAD OF THE DYE. THEN A SOLUTION OF 1.9 ML OF BUPIVACAINE 0.125% OF KENALOG 10 MG WAS INJECTED AT EACH SITE. THERE WAS NO EVIDENCE OF BLOOD, PARESTHESIA OR CEREBROSPINAL FLUID DURING THE PROCEDURE. THE PATIENT WAS SENT TO THE RECOVERY ROOM. THE PATIENT WAS MOVING THE EXTREMITIES AND DOING WELL. THERE WAS NO COMPLICATION DURING THE PROCEDURE. FLUOROSCOPY TIME WAS 26 SECONDS POST PROCEDURE NOTE THE PATIENT WILL BE SEEN IN A FOLLOW UP IN THE NEXT FEW WEEKS. INSTRUCTIONS WERE GIVEN, QUESTIONS WERE ANSWERED, AND THE PATIENT EXPRESSED UNDERSTANDING AND AGREES WITH THE PLAN. I, DU TORRES, DOCUMENTED THE ABOVE INFORMATION ACTING A SCRIBE FOR DR. GAO. I HAVE REVIEWED THE ABOVE DOCUMENT, WRITTEN BY UD KAUFMANIBGiacomo AND I VERIFY THAT IT IS ACCURATE. DIAGNOSTIC IMAGING [facility] FACET BLOCK (PAIN)[id number] PROCEDURE CODES 6045F RADXPS IN END [id number] PXD 02609 INJ PARAVERT F JNT L/S 1 LEV, MODIFIERS: [place] [address] INJ PARAVERT F JNT L/S 2 LEV, MODIFIERS: [place] [address] INJ PARAVERT F JNT L/S 3 LEV, MODIFIERS: RT DISPOSITION & COMMUNICATION FOLLOW UP 3 WEEKS ELECTRONICALLY SIGNED BY SHERIE GAO MD, MD ON 09/19/2018 AT 04:07 PM EDT DISCLAIMER : THIS IS A VISIT SUMMARY EXTRACTED FROM THE [employer] CHART. IT IS NOT A COPY OF THE [employer] PROGRESS NOTE. MTDD
== END ==
LOC: M PAIN 10:45
PROVIDERS: ATTEND Anesthesiology
DX: G89.29 Other chronic pain (principal); M48.07 Spinal stenosis, lumbosacral region; M47.816 Spondylosis without myelopathy or radiculopathy, lumbar region; M47.817 Spondylosis without myelopathy or radiculopathy, lumbosacral region; I10 Essential (primary) hypertension; E03.9 Hypothyroidism, unspecified; Z79.01 Long term (current) use of anticoagulants; Z79.891 Long term (current) use of opiate analgesic; Z79.899 Other long term (current) drug therapy; Z88.0 Allergy status to penicillin; Z88.1 Allergy status to other antibiotic agents; Z88.8 Allergy status to other drugs, medicaments and biological substances; Z91.02 Food additives allergy status; Z92.3 Personal history of irradiation; Z92.29 Personal history of other drug therapy; Z86.79 Personal history of other diseases of the circulatory system; Z85.3 Personal history of malignant neoplasm of breast
CPT/HCPCS: 36415; 64493; 64494; 64495; 85610; J3301; Q9967

== ENCOUNTER → 2018-09-02 | Outpatient (CLI) | payer MEDICARE ==
[~2018-09-02] MED LIST changes: -BUPIVACAINE HCL 0.25% 30 ML VIAL As Ordered ONE; -ISOVUE-M 300 61% 15ML VIAL (Q9967) As Ordered ONE; -LIDOCAINE 1% SDV INJ 30 ML VIAL As Ordered ONE; -TRIAMCINOLONE ACETONIDE SUSP 40 MG/ML VIAL (J3301) As Ordered ONE; -diazePAM 5 MG TAB As Ordered ONE; -oxyCODONE 5MG TAB As Ordered ONE
[2018-09-02 11:29] LABS: INR 1.09; PROTHROMBIN TIME 14.2 SECONDS (12.1-14.4)
== END ==
LOC: M LAB 10:44
PROVIDERS: ATTEND Nurse Practitioner Family
DX: M48.07 Spinal stenosis, lumbosacral region (principal)

== ENCOUNTER → 2018-09-23 | Outpatient (CLI) | payer MEDICARE ==
--- NOTE | 2018-10-05 00:21 | ECWPNPC ---
PATIENT NAME: GAL MUNOZ : 1935 GENDER: FEMALE VISIT DATE: 09/23/2018 DISCHARGE DATE: 09/23/18 1530 VISIT LOCKED DATE TIME: PHYSICIAN: BERNARDA GILL RESOURCE: BERNARDA GILL REASON FOR APPOINTMENT 1. POST PROCEDURE HISTORY OF PRESENT ILLNESS HISTORY OF PRESENT ILLNESS: HERE FOR POST PROCEDURE F/U.HAD RIGHT L3/4-L4/5-L5/S1 THERAPEUTIC BLOCK ON 09/02/18.REPORTING SIGNIFICANT REDUCTION IN PAIN THAT CONTINUES TODAY.SHE IS HAVING RIGHT CVA TENDERNESS THAT RADIATES TO RIGHT ABDOMINAL AREA.CURRENTLY BEING TREATED FOR UTI WITHOUT IMPROVEMENT .SHE WENT TO URGENT CARE TODAY AND WAS PLACED ON KEFLEX.TODAY ANDRÉS ENCOURAGED HER TO HAVE PRIMARY CARE EVAKUATE THIS IT SOUNDS LIKE A KIDNEY INFECTION OR KIDNEY PATHOLOGY ON RIGHT SIDE.DOES REPORT SOME URINARY RETENTION ISSUES. PAIN THE PATIENT DESCRIBES THE PAIN... FALL RISK SCREENING: SCREENING :NO FALLS REPORTED IN THE LAST YEAR CURRENT MEDICATIONS TAKING VENTOLIN HFA 108 (90 BASE) MCG/ACT AEROSOL SOLUTION 2 PUFFS NEEDED INHALATION EVERY 4 HRS NEEDED TAKING WARFARIN SODIUM 4 MG TABLET 5 DAYS A WEEK AND 2 MG 2 DAYS A WEEK ORALLY ONCE A DAY TAKING METOPROLOL TARTRATE 50 MG TABLET 1 TABLET WITH FOOD ORALLY TWICE A DAY TAKING LEVOTHYROXINE SODIUM 100 MCG TABLET 1 TABLET ON AN EMPTY STOMACH IN THE MORNING ORALLY ONCE A DAY TAKING OMEPRAZOLE 40 MG CAPSULE DELAYED RELEASE 1 CAPSULE ORALLY ONCE A DAY TAKING TRAMADOL HCL 50 MG TABLET DIRECTED ORALLY 2 IN AM,1 12N,2 AT 4 MDD5 TAKING CARISOPRODOL 350 MG TABLET 1 TABLET NEEDED ORALLY AT BEDTIME TAKING KEFLEX 250 MG CAPSULE 1 CAPSULE ORALLY EVERY 6 HRS, NOTES: NOT SURE OF DOSE MEDICATION LIST REVIEWED AND RECONCILED WITH THE PATIENT PAST MEDICAL HISTORY HTN PAROXYSMAL A. FIB. 11/28/2015 TACHYCARDIA TO 150BPM, DR. SAHNI DID FIND PVC'S ON EKG, 2004 S/P ABLATION C DR. 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 LORENZ 11/2014 GALBLADDER COLIC, STONE RECTAL BLEED 01/31, COLON POLYP ON COLONOSCOPY NAFLD C ELEVATED LFTS ASYMPTOMATIC 06/2015 C OF HEAD, 09/2015 MRI BOTH C SMALL VESS. DIS. 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 LORDOSIS, NARROW EPIDURAL SPACE FORAMEN NARROEWD R C4-6, L C5-6 ALLERGIES PENICILLIN (FOR ALLERGIES USE ONLY): HIVES - ALLERGY AUGMENTIN: RASH - ALLERGY LEVOFLOXACIN: RASH - ALLERGY AMBIEN: PASSED OUT - ALLERGY PREDNISONE: HYPER - SIDE EFFECTS THEOPHYLLINE: PASSED OUT - ALLERGY FOOD ADDITIVES: ASTHMA ATTACK - ALLERGY SURGICAL HISTORY PARTIAL HYSTERECTOMY-[facility] 1983 L BREAST LUMPECTOMY-[facility] 1991 HEART ABLATION-[facility] 2003 B CATARACT [id number]. SANNI 2011 TONSILLECTOMY AGE 9 FAMILY HISTORY FATHER: 72 YRS MOTHER: 89 YRS DAUGHTER(S): ALIVE, ARTHRITIS CROHNS 2 SON(S) , 1 DAUGHTER(S) . FATHER-ANEURYSM, STROKE, ?HTN, ?HL; WAS A SMOKER QUIT C CVA AGE 61\\\\\\\\\\\\\\\\\\\\\\\\\\\\\\\\\\\\\\\\\\\\\\\\\\\\\\\\\\\\\\\ NMOTHER-HEART DIS., A. FIB.\\\\\\\\\\\\\\\\N. SOCIAL HISTORY GENERAL: TOBACCO USE ARE YOU A:NONSMOKER OTHERS AT HOME: LIVES ALONG. EDUCATION LEVEL OF EDUCATION:FINISHED COLLEGE DIET: REGULAR. LANGUAGE LANGUAGES SPOKEN:SWEDISH DOMESTIC VIOLENCE DO YOU FEEL SAFE IN YOUR ENVIRONMENT?YES RECREATIONAL DRUG USE DRUG USE?NO NONE EXERCISE: WALKS. LEARNING BARRIERS / SPECIAL NEEDS BARRIERS TO LEARNING?NO HEARING IMPAIRED?NO VISION IMPAIRED?YES :CORRECTIVE LENSES READING GLASSES COGNITIVELY IMPAIRED?NO READINESS TO LEARN?YES LEARNING PREFERENCES?NO LEARNING CAPABILITIES PRESENT?YES EMOTIONAL BARRIERS?NO SPECIAL DEVICES?YES HAS A WALKER AND CANE FOR SAFETY NOT USING LABORATORY VETERINARIAN NEEDED?NO PAIN CLINIC PFS, CLERGY, PUBLIC HEALTH REFERRALS HAS THE PATIENT BEEN EDUCATED REGARDING HIS/HER PLAN OF CARE?YES HAS THE PATIENT BEEN EDUCATED REGARDING PAIN, THE RISK FOR PAIN, THE IMPORTANCE OF EFFECTIVE PAIN MANAGEMENT, AND THE PAIN ASSESSMENT PROCESS?YES LATEX QUESTIONNAIRE LATEX ALLERGY : HAVE YOU EVER DEVELOPED ANY TYPE OF REACTION AFTER HANDLING LATEX PRODUCTS SUCH RUBBER GLOVES, CONDOMS, DIAPHRAGMS, BALLOONS, SOCKS, OR UNDERWEAR?NO LATEX ALLERGY : HAVE YOU EVER DEVELOPED ANY TYPE OF REACTION DURING OR AFTER DENTAL APPOINTMENT, VAGINAL/RECTAL EXAMINATION, SURGICAL PROCEDURE, OR ANY OTHER EXPOSURE?NO LATEX RISK : HAVE YOU EVER HAD ANY DIFFICULTY BREATHING OR HIVES AFTER EATING OR HANDLING ANY FRUITS, OR VEGETABLES; SUCH KIWI, BANANAS, STONE FRUITS, OR CHESTNUTSNO LATEX RISK : DO YOU HAVE A PREVIOUS PERSONAL HISTORY OF MORE THAN NINE SURGERIES, SPINA BIFIDA, OR REPEATED CATHERTIZATIONS? NO LATEX RISK : ARE YOU FREQUENTLY EXPOSED TO LATEX PRODUCTS IN YOUR OCCUPATION?NO DATE ASKED : 09/02/2018 CAFFEINE CAFFEINE USE?YES USUALLY DRINKJS DECAF..DOES HAVE A CUP OCCASIONAL ADVANCE DIRECTIVE ADVANCE DIRECTIVE DISCUSSED WITH PATIENT:YES HCP SON GRABIEL MUNOZ [phone] RASTAFARI [id number] PRESBYTERIAN MARITAL STATUS: . ALCOHOL SCREENING DID YOU HAVE A DRINK CONTAINING ALCOHOL IN THE PAST YEAR?YES HOW OFTEN DID YOU HAVE A DRINK CONTAINING ALCOHOL IN THE PAST YEAR?TWO TO FOUR TIMES A MONTH (2 POINTS) HOW MANY DRINKS DID YOU HAVE ON A TYPICAL DAY WHEN YOU WERE DRINKING IN THE PAST YEAR?1 OR 2 (0 POINTS) POINTS2 INTERPRETATIONNEGATIVE OCCUPATION: RETIRED. 07/23/18 REVIEWED WITH PT. AD07/29/18 REVIEWED WITH PT LASREVIEWED WITH PATIENT 08/24/18 1440 JS09/02/18 REVIEWED WITH PT. AD. HOSPITALIZATION/MAJOR DIAGNOSTIC PROCEDURE ABOVE CHILD REVIEW OF SYSTEMS REVIEWED BY: PROVIDER: BERNARDA CARBAJAL . CONSTITUTIONAL: ANY CHANGE IN YOUR MEDICAL CONDITION? YES, PT STATES SHE HAS A UTI, PCP (DR MASTERS) PRECRIBED ABX 09/08/18, PT STATES SHE TOOK FULL FULL COURSE OF ABX, S/S RELIEVED DURING TAKING ABX, THEN S/S CONTINUED. PT CALLED PCP THIS AM ASKING FOR ANOTHER ABX, PT WAS TOLD SHE WOULD HAVE TO WAIT UNTIL FRIDAY TO BE SEEN AND PRESCRIBED ABX. PT WENT URGENT CARE THIS AM WHERE SHE WAS TX'D WITH KEFLEX, PT IS GOING TO P/U AFTER VISIT HERE. . CHILLS NO . FEVER NO . INFECTION: DO YOU HAVE NEW INFECTIONS? YES, UTI . DO YOU HAVE HISTORY OF MRSA? NO . MUSCULOSKELETAL: ANY NEW PATTERNS OF PAIN OR NUMBNESS? NO . GASTROENTEROLOGY: ANY NEW CHANGE IN BOWEL CONTROL? NO . GENITOURINARY: ANY NEW CHANGE IN BLADDER CONTROL? YES, UTI . IS THERE A CHANCE YOU COULD BE ? NO . HEMATOLOGY/LYMPH: DO YOU TAKE ANY BLOOD THINNERS? (FOR EXAMPLE- COUMADIN, PLAVIX, AGGRENOX, PLATEL, PRADAXA, OR XARELTO) YES, COUMADIN . WHEN WAS YOUR LAST DOSE? DATE: TIME: . NEUROLOGY: HAVE YOU FALLEN IN THE PAST 12 MONTHS? YES, PRIOR TO LAST VISIT . ANY NEW EXTREMITY NUMBNESS OR WEAKNESS? NO . CARDIOLOGY: DO YOU HAVE A PACEMAKER OR DEFIBRILLATOR? NO . RESPIRATORY: HAVE YOU BEEN SICK IN THE PAST WEEK? NO . FEVER NO . FLU LIKE SYMPTOMS? NO . COUGH NO . INTEGUMENTARY: DO YOU HAVE ANY RASHES OR OPEN SORES? NO . ALLERGIC/IMMUNO: ARE YOU ALLERGIC TO IV DYE? NO . ANY NEW ALLERGIES? NO . PSYCHIATRIC: DO YOU HAVE THOUGHTS OF HURTING YOURSELF OR SOMEONE ELSE? NO . ARE YOU ABUSED, NEGLECTED, OR IN AN UNSAFE ENVIRONMENT? NO . ENDOCRINOLOGY: ARE YOU DIABETIC? NO . OTHER: DO YOU NEED ANY PRESCRIPTIONS? YES, DISCUSS WITH BERNARDA . IF YES, PLEASE LIST: ____ . ANY NEW PROBLEMS WITH YOUR MEDICATIONS? NO . WHEN DID YOU LAST EAT? ____ . WHEN DID YOU LAST DRINK? ____ . WHAT DID YOU LAST DRINK? ____ . NAME OF PERSON DRIVING YOU HOME? ____ . DO YOU HAVE ANY OTHER QUESTIONS OR CONCERNS YES, TO DISCUSS MEDS WITH BERNARDA . VITAL SIGNS WT 147.0 LBS, HT 68 IN, BMI 22.35 INDEX, BP 139/67 MM HG, HR 79 /MIN, RR 16 /MIN, TEMP 97.3 F, OXYGEN SAT % 97, NA INITIALS MP 1426, REVIEWED BY: EM. EXAMINATION GENERAL EXAMINATION: GENERAL APPEARANCE: AWAKE,ALERT ,PLEAASANT .DIFFICULT TO ARISE TO STANDING POSITION.WALKS W ASSIST OF A CANE W SLOW ANTALGIC GAIT. PSYCH AFFECT NORMAL . LUNGS: LUNG ARMAS ARE CLEAR TO AUSCULTATION BILATERALLY. GOOD MOVEMENT OF AIR . HEART: S1, S2 IN A REGULAR RATE AND RHYTHM. NO SIGNIFICANT MURMURS, RUBS OR GALLOPS NOTED . LUMBAR SACRAL SPINEPALPATION:POSITIVE FOR RIGHT CVA TENDERNESS. DIAGNOSTIC TESTS REVIEWED MRI-L/S SPINE-05/07/18. ASSESSMENTS SPONDYLOSIS OF LUMBAR REGION WITHOUT MYELOPATHY OR RADICULOPATHY - M47.816 (PRIMARY) LUMBOSACRAL SPINAL STENOSIS - M48.07 TREATMENT SPONDYLOSIS OF LUMBAR REGION WITHOUT MYELOPATHY OR RADICULOPATHY REFILL TRAMADOL HCL TABLET, 50 MG, DIRECTED, ORALLY, 2 IN AM,1 12N,2 AT 4 MDD5, 30 DAYS, 150, REFILLS 2 REFILL CARISOPRODOL TABLET, 350 MG, 1 TABLET NEEDED, ORALLY, AT BEDTIME, 30 DAYS, 30, REFILLS 1 START COLACE CAPSULE, 100 MG, 1 CAPSULE NEEDED, ORALLY, BID, 30 DAY(S), 60 CAPSULE, REFILLS 5 NOTES: HAVE PRIMARY CARE,DR MASTERS EVALUATE RIGHT CVA PAIN WITH RADIATION TO ABDOMEN,UTI,AND WEIGHT LOSS. PREVENTIVE MEDICINE PAIN CLINIC TEACHING: MEDICATIONS PT GIVEN WRITTEN AND VERBAL EDUCATION ON STARTING COLACE. PT VERBALIZES UNDERSTANDING OF ALL EDUCATION. SELENE ALBERTO 09/23/2018 3:30:28 PM > . PROCEDURE CODES FA211 ESTABILISHED PATIENT [facility] CHARGE DISPOSITION & COMMUNICATION FOLLOW UP 6-8WKS W DR Felipe OR ME ELECTRONICALLY SIGNED BY BERNARDA CARBAJAL, RAVEN ON 10/04/2018 AT 09:45 AM EDT DISCLAIMER : THIS IS A VISIT SUMMARY EXTRACTED FROM THE [employer] CHART. IT IS NOT A COPY OF THE [employer] PROGRESS NOTE. MIKI
== END ==
LOC: M PAIN 14:15
PROVIDERS: ATTEND Nurse Practitioner Family
DX: M47.816 Spondylosis without myelopathy or radiculopathy, lumbar region (principal); M48.07 Spinal stenosis, lumbosacral region; I10 Essential (primary) hypertension; E03.9 Hypothyroidism, unspecified; Z88.0 Allergy status to penicillin; Z88.1 Allergy status to other antibiotic agents; Z88.8 Allergy status to other drugs, medicaments and biological substances; Z91.02 Food additives allergy status; Z79.891 Long term (current) use of opiate analgesic; Z79.899 Other long term (current) drug therapy
CPT/HCPCS: 87088; 87186; G0463

== ENCOUNTER → 2018-09-23 | Outpatient (REF) | payer MEDICARE | LOC: M LAB REF 16:33 | PROVIDERS: ATTEND Physician Assistant | DX: N39.0 Urinary tract infection, site not specified (principal) ==

== ENCOUNTER → 2018-09-29 | Outpatient (REF) | payer MEDICARE | LOC: M LAB REF 16:47 | PROVIDERS: ATTEND Internal Medicine | DX: N39.0 Urinary tract infection, site not specified (principal) ==

== ENCOUNTER → 2018-10-14 | Outpatient (REF) | payer MEDICARE | LOC: M LAB REF 16:46 | PROVIDERS: ATTEND Physician Assistant | DX: R30.0 Dysuria (principal) ==

== ENCOUNTER → 2018-11-05 | Outpatient (CLI) | payer MEDICARE ==
--- NOTE | 2018-11-16 23:56 | ECWPNPC ---
PATIENT NAME: GAL MUNOZ : 1935 GENDER: FEMALE VISIT DATE: 11/05/2018 DISCHARGE DATE: 11/05/18 1248 VISIT LOCKED DATE TIME: PHYSICIAN: BERNARDA GILL RESOURCE: BERNARDA GILL REASON FOR APPOINTMENT 1. 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 PAIN THE PATIENT DESCRIBES THE PAIN... FALL RISK SCREENING: SCREENING :NO FALLS REPORTED IN THE LAST YEAR CURRENT MEDICATIONS TAKING VENTOLIN HFA 108 (90 BASE) MCG/ACT AEROSOL SOLUTION 2 PUFFS NEEDED INHALATION EVERY 4 HRS NEEDED TAKING WARFARIN SODIUM 4 MG TABLET 5 DAYS A WEEK AND 2 MG 2 DAYS A WEEK ORALLY ONCE A DAY TAKING METOPROLOL TARTRATE 50 MG TABLET 1 TABLET WITH FOOD ORALLY TWICE A DAY TAKING LEVOTHYROXINE SODIUM 100 MCG TABLET 1 TABLET ON AN EMPTY STOMACH IN THE MORNING ORALLY ONCE A DAY TAKING OMEPRAZOLE 40 MG CAPSULE DELAYED RELEASE 1 CAPSULE ORALLY ONCE A DAY TAKING KEFLEX 250 MG CAPSULE 1 CAPSULE ORALLY EVERY 6 HRS, NOTES: NOT SURE OF DOSE TAKING TRAMADOL HCL 50 MG TABLET DIRECTED ORALLY 2 IN AM,1 12N,2 AT 4 MDD5 TAKING CARISOPRODOL 350 MG TABLET 1 TABLET NEEDED ORALLY AT BEDTIME TAKING COLACE 100 MG CAPSULE 1 CAPSULE NEEDED ORALLY BID MEDICATION LIST REVIEWED AND RECONCILED WITH THE PATIENT PAST MEDICAL HISTORY HTN PAROXYSMAL A. FIB. 11/28/2015 TACHYCARDIA TO 150BPM, DR. SAHNI DID FIND PVC'S ON EKG, 2004 S/P ABLATION C DR. 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 LORENZ 11/2014 GALBLADDER COLIC, STONE RECTAL BLEED 01/31, COLON POLYP ON COLONOSCOPY NAFLD C ELEVATED LFTS ASYMPTOMATIC 06/2015 C OF HEAD, 09/2015 MRI BOTH C SMALL VESS. DIS. 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 LORDOSIS, NARROW EPIDURAL SPACE FORAMEN NARROEWD R C4-6, L C5-6 ALLERGIES PENICILLIN (FOR ALLERGIES USE ONLY): HIVES - ALLERGY AUGMENTIN: RASH - ALLERGY LEVOFLOXACIN: RASH - ALLERGY AMBIEN: PASSED OUT - ALLERGY PREDNISONE: HYPER - SIDE EFFECTS THEOPHYLLINE: PASSED OUT - ALLERGY FOOD ADDITIVES: ASTHMA ATTACK - ALLERGY SURGICAL HISTORY PARTIAL HYSTERECTOMY-[facility] 1983 L BREAST LUMPECTOMY-[facility] 1991 HEART ABLATION-JOSEF 2004 B CATARACT [id number]. SANNI 2011 TONSILLECTOMY AGE 9 FAMILY HISTORY FATHER: 72 YRS MOTHER: 89 YRS DAUGHTER(S): ALIVE, ARTHRITIS CROHNS 2 SON(S) , 1 DAUGHTER(S) . FATHER-ANEURYSM, STROKE, ?HTN, ?HL; WAS A SMOKER QUIT C CVA AGE 61\\\\\\\\\\\\\\\\\\\\\\\\\\\\\\\\\\\\\\\\\\\\\\\\\\\\\\\\\\\\\\\ NMOTHER-HEART DIS., A. FIB.\\\\\\\\\\\\\\\\N. SOCIAL HISTORY GENERAL: TOBACCO USE ARE YOU A:NONSMOKER OTHERS AT HOME: LIVES ALONG. EDUCATION LEVEL OF EDUCATION:FINISHED COLLEGE DIET: REGULAR. LANGUAGE LANGUAGES SPOKEN:ALGERIAN DOMESTIC VIOLENCE DO YOU FEEL SAFE IN YOUR ENVIRONMENT?YES RECREATIONAL DRUG USE DRUG USE?NO NONE EXERCISE: WALKS. LEARNING BARRIERS / SPECIAL NEEDS BARRIERS TO LEARNING?NO HEARING IMPAIRED?NO VISION IMPAIRED?YES :CORRECTIVE LENSES READING GLASSES COGNITIVELY IMPAIRED?NO READINESS TO LEARN?YES LEARNING PREFERENCES?NO LEARNING CAPABILITIES PRESENT?YES EMOTIONAL BARRIERS?NO SPECIAL DEVICES?YES HAS A WALKER AND CANE FOR SAFETY NOT USING CUTTER BARREL DRUM NEEDED?NO PAIN CLINIC PFS, CLERGY, PUBLIC HEALTH REFERRALS WAS THE PROVIDER NOTIFIED OF ANY PERTINENT INFO?YES HAS THE PATIENT BEEN EDUCATED REGARDING HIS/HER PLAN OF CARE?YES HAS THE PATIENT BEEN EDUCATED REGARDING PAIN, THE RISK FOR PAIN, THE IMPORTANCE OF EFFECTIVE PAIN MANAGEMENT, AND THE PAIN ASSESSMENT PROCESS?YES LATEX QUESTIONNAIRE LATEX ALLERGY : HAVE YOU EVER DEVELOPED ANY TYPE OF REACTION AFTER HANDLING LATEX PRODUCTS SUCH RUBBER GLOVES, CONDOMS, DIAPHRAGMS, BALLOONS, SOCKS, OR UNDERWEAR?NO LATEX ALLERGY : HAVE YOU EVER DEVELOPED ANY TYPE OF REACTION DURING OR AFTER DENTAL APPOINTMENT, VAGINAL/RECTAL EXAMINATION, SURGICAL PROCEDURE, OR ANY OTHER EXPOSURE?NO LATEX RISK : HAVE YOU EVER HAD ANY DIFFICULTY BREATHING OR HIVES AFTER EATING OR HANDLING ANY FRUITS, OR VEGETABLES; SUCH KIWI, BANANAS, STONE FRUITS, OR CHESTNUTSNO LATEX RISK : DO YOU HAVE A PREVIOUS PERSONAL HISTORY OF MORE THAN NINE SURGERIES, SPINA BIFIDA, OR REPEATED CATHERIZATIONS? NO LATEX RISK : ARE YOU FREQUENTLY EXPOSED TO LATEX PRODUCTS IN YOUR OCCUPATION?NO DATE ASKED : 11/05/2018 CAFFEINE CAFFEINE USE?YES USUALLY DRINKJS DECAF..DOES HAVE A CUP OCCASIONAL ADVANCE DIRECTIVE ADVANCE DIRECTIVE DISCUSSED WITH PATIENT:YES HCP SON GRABIEL MUNOZ [phone] [facility] [id number] PRESBYTERIAN MARITAL STATUS: . ALCOHOL SCREENING DID YOU HAVE A DRINK CONTAINING ALCOHOL IN THE PAST YEAR?YES HOW OFTEN DID YOU HAVE A DRINK CONTAINING ALCOHOL IN THE PAST YEAR?TWO TO FOUR TIMES A MONTH (2 POINTS) HOW MANY DRINKS DID YOU HAVE ON A TYPICAL DAY WHEN YOU WERE DRINKING IN THE PAST YEAR?1 OR 2 (0 POINTS) POINTS2 INTERPRETATIONNEGATIVE OCCUPATION: RETIRED. 07/23/18 REVIEWED WITH PT. AD07/29/18 REVIEWED WITH PT LASREVIEWED WITH PATIENT 08/24/18 1440 JS09/02/18 REVIEWED WITH PT. AD. HOSPITALIZATION/MAJOR DIAGNOSTIC PROCEDURE ABOVE CHILD REVIEW OF SYSTEMS REVIEWED BY: PROVIDER: BERNARDA CARBAJAL . CONSTITUTIONAL: ANY CHANGE IN YOUR MEDICAL CONDITION? NO . CHILLS NO . FEVER NO . INFECTION: DO YOU HAVE NEW INFECTIONS? NO . DO YOU HAVE HISTORY OF MRSA? NO . MUSCULOSKELETAL: ANY NEW PATTERNS OF PAIN OR NUMBNESS? YES, SPASM AND PAIN IN RIGHT BACK AND ABDOMEN, STARTED ABOUT 1 WEEK AGO . GASTROENTEROLOGY: ANY NEW CHANGE IN BOWEL CONTROL? YES, FEELS THAT PAIN IS RELATED TO CONSTIPATION . GENITOURINARY: ANY NEW CHANGE IN BLADDER CONTROL? YES, PT FEELS THAT SHE IS HAVING INCONTINENCE AT TIMES . IS THERE A CHANCE YOU COULD BE ? NO . HEMATOLOGY/LYMPH: DO YOU TAKE ANY BLOOD THINNERS? (FOR EXAMPLE- COUMADIN, PLAVIX, AGGRENOX, PLATEL, PRADAXA, OR XARELTO) YES . WHEN WAS YOUR LAST DOSE? DATE: TIME: . NEUROLOGY: HAVE YOU FALLEN IN THE PAST 12 MONTHS? NO . ANY NEW EXTREMITY NUMBNESS OR WEAKNESS? NO . CARDIOLOGY: DO YOU HAVE A PACEMAKER OR DEFIBRILLATOR? NO . RESPIRATORY: HAVE YOU BEEN SICK IN THE PAST WEEK? NO . FEVER NO . FLU LIKE SYMPTOMS? NO . COUGH NO . INTEGUMENTARY: DO YOU HAVE ANY RASHES OR OPEN SORES? NO . ALLERGIC/IMMUNO: ARE YOU ALLERGIC TO IV DYE? YES . ANY NEW ALLERGIES? NO . PSYCHIATRIC: DO YOU HAVE THOUGHTS OF HURTING YOURSELF OR SOMEONE ELSE? NO . ARE YOU ABUSED, NEGLECTED, OR IN AN UNSAFE ENVIRONMENT? NO . ENDOCRINOLOGY: ARE YOU DIABETIC? NO . OTHER: DO YOU NEED ANY PRESCRIPTIONS? NO . IF YES, PLEASE LIST: ____ . ANY NEW PROBLEMS WITH YOUR MEDICATIONS? NO . WHEN DID YOU LAST EAT? ____ . WHEN DID YOU LAST DRINK? ____ . WHAT DID YOU LAST DRINK? ____ . NAME OF PERSON DRIVING YOU HOME? ____ . DO YOU HAVE ANY OTHER QUESTIONS OR CONCERNS NO . VITAL SIGNS WT 145.2 LBS, HT 68 IN, BMI 22.08 INDEX, BP 151/78 MM HG, HR 70 /MIN, RR 16 /MIN, TEMP 96.2 F, OXYGEN SAT % 96%, SAFE IN ENV? (Y/N) Y, NA INITIALS SC 12:04, REVIEWED BY: RADHA. EXAMINATION GENERAL EXAMINATION: GENERAL AWAKE,ALERT ,PLEAASANT . PSYCH AFFECT NORMAL . LUNGS: LUNG ARMAS ARE CLEAR TO AUSCULTATION BILATERALLY. GOOD MOVEMENT OF AIR . HEART: S1, S2 IN A REGULAR RATE AND RHYTHM. NO SIGNIFICANT MURMURS, RUBS OR GALLOPS NOTED . THORACIC SPINE TRIGGER POINTS:BILAT THORACIC PARASPINAL REGION. ASSESSMENTS ACUTE BILATERAL THORACIC BACK PAIN - M54.6 (PRIMARY) TREATMENT ACUTE BILATERAL THORACIC BACK PAIN STOP TRAMADOL HCL TABLET, 50 MG, DIRECTED, ORALLY, 2 IN AM,1 12N,2 AT 4 MDD5 START OXYCODONE HCL TABLET, 5 MG, 1 TABLET NEEDED, ORALLY, EVERY 6 HRS PRN MDD4, 30 DAYS, 120, REFILLS 0 [facility] MRI SPINE,THORACIC WITHOUT [id number],HEATHER L 11/05/2018 12:47:20 PM > MEDICARE AB NOTES: EDUCATION PAPERWORK GIVEN AND REVIEWED WITH PT ON NEW MEDICATIONSISTOP REGISTRY REVIEWED AND DEMONSTRATES COMPLLIANCE. BRINGS IN MEDICATIONS WHICH IS APPROPRIATE FOR WHAT WAS DISPENSED. RECENT URINE TOXICOLOGY REVIEWED. NO UNAUTHORIZED MEDICATIONS. NO ILLICIT SUBSTANCES AND PRESCRIBED MEDICATIONS WERE PRESENT. , RISKS AND BENEFITS OF NARCOTIC/OPIOD MEDICATIONS WERE REVIEWED WITH PATIENT - THIS INCLUDES BUT IS NOT LIMITED TO RISK OF DEPENDANCE/DEVELOPMENT OF ADDICTION, MOOD DISTURBANCE AND DEPRESSION, OSTEOPOROSIS, HORMONAL AND LABIDAL CHANGES, RESPIRATORY DEPRESSION AND . PATIENT IS ADVISED NOT TO DRIVE OR DRINK ALCOHOL WHILE ON THESE MEDICATIONS, . DISPOSITION & COMMUNICATION FOLLOW UP 4-6 WKS ELECTRONICALLY SIGNED BY RAVEN JOHANSEN ON 11/16/2018 AT 01:06 PM EDT DISCLAIMER : THIS IS A VISIT SUMMARY EXTRACTED FROM THE [employer] CHART. IT IS NOT A COPY OF THE [employer] PROGRESS NOTE. MIKI
== END ==
LOC: M PAIN 11:15
PROVIDERS: ATTEND Nurse Practitioner Family
DX: M54.6 Pain in thoracic spine (principal); I10 Essential (primary) hypertension; I48.0 Paroxysmal atrial fibrillation; E03.9 Hypothyroidism, unspecified; Z85.3 Personal history of malignant neoplasm of breast; Z92.3 Personal history of irradiation; I44.0 Atrioventricular block, first degree; H35.30 Unspecified macular degeneration; K75.81 Nonalcoholic steatohepatitis (NASH); M50.30 Other cervical disc degeneration, unspecified cervical region; Z79.01 Long term (current) use of anticoagulants; Z79.891 Long term (current) use of opiate analgesic; Z79.899 Other long term (current) drug therapy; Z88.0 Allergy status to penicillin; Z88.1 Allergy status to other antibiotic agents; Z88.8 Allergy status to other drugs, medicaments and biological substances; Z91.018 Allergy to other foods

== ENCOUNTER → 2018-11-06 | Outpatient (REF) | payer MEDICARE | LOC: M LAB REF 12:53 | PROVIDERS: ATTEND Nurse Practitioner Family | DX: R30.0 Dysuria (principal) ==

== ENCOUNTER → 2018-11-07 | Outpatient (CLI) | payer MEDICARE ==
--- NOTE | 2018-11-09 10:10 | REP ---
MRI thoracic spine without contrast: History: Mid back pain. No comparison thoracic spine imaging. Technique: Sagittal and axial T1 and T2-weighted scans are acquired in the usual fashion with and without fat saturation. Sequences include spin echo, turbo spin-echo, and STIR imaging sequences. MRI findings: Thoracic kyphosis is somewhat exaggerated. There are recent osteoporotic wedge compression fracture deformities at the T9, T10, T11, and T12 vertebral body levels with some marrow edema along the superior endplates at each of these levels . There is approximately 50% loss of anterior vertebral body height at T10 and 20% loss of anterior vertebral body height at the other levels. There is subtle buckling of the posterior cortical margin adjacent to the superior endplate of T11 and T12. There is no evidence of metastatic disease or bony destructive lesion. Cortical and medullary bone signal intensity is otherwise normal. There is as a central disc protrusion at C6-7 effacing the ventral subarachnoid space. No evidence of thoracic disc herniation is seen. No cord compressive lesion is appreciated. There is mild diffuse disc bulging at T9-10 T10-11 and T11-12. Impression: Recent osteoporotic wedge compression fracture deformities at T9 T10, T11, and T12. No evidence of spinal cord compression. Electronically Signed by Dustin Carrasco MD 11/09/2018 11:11 A
== END ==
LOC: M RAD 14:42
PROVIDERS: ATTEND Nurse Practitioner Family
DX: M80.88XA Other osteoporosis with current pathological fracture, vertebra(e), initial encounter for fracture (principal)

== ENCOUNTER → 2018-11-11 | Outpatient (CLI) | payer MEDICARE ==
--- NOTE | 2018-11-14 00:45 | ECWPNPC ---
PATIENT NAME: GAL MUNOZ : 1935 GENDER: FEMALE VISIT DATE: 11/11/2018 DISCHARGE DATE: 11/11/18 1609 VISIT LOCKED DATE TIME: PHYSICIAN: SHERIE GAO MD RESOURCE: SHERIE GAO MD REASON FOR APPOINTMENT 1. BACK HISTORY OF PRESENT ILLNESS HISTORY OF PRESENT ILLNESS: PAIN THE PATIENT DESCRIBES THE PAIN... 83 YEAR OLD FEMALE PATIENT WITH A HISTORY OF CHRONIC BACK PAIN. THE PATIENT DESCRIBES THE PAIN ACHING, SHARP, STABBING, AND CONTINUOUS WITH A PAIN SCORE OF 7-10/10 DEPENDING ON PHYSICAL ACTIVITY. THE PATIENT SAYS HER PAIN IS MAINLY IN HER LOW BACK AND THORACIC AREAS. THE PATIENT SAYS THAT HER PAIN IS SO SEVERE THAT SHE HAS BEEN HAVING DIFFICULTY BREATHING AT TIMES. PATIENT DENIES UNEXPLAINABLE WEIGHT LOSS, FEVER, CHILLS, NEW CHANGES ON HER URINARY OR BOWEL CONTROL. FALL RISK SCREENING: SCREENING :NO FALLS REPORTED IN THE LAST YEAR CURRENT MEDICATIONS TAKING VENTOLIN HFA 108 (90 BASE) MCG/ACT AEROSOL SOLUTION 2 PUFFS NEEDED INHALATION EVERY 4 HRS NEEDED TAKING WARFARIN SODIUM 4 MG TABLET 5 DAYS A WEEK AND 2 MG 2 DAYS A WEEK ORALLY ONCE A DAY TAKING METOPROLOL TARTRATE 50 MG TABLET 1 TABLET WITH FOOD ORALLY TWICE A DAY TAKING LEVOTHYROXINE SODIUM 100 MCG TABLET 1 TABLET ON AN EMPTY STOMACH IN THE MORNING ORALLY ONCE A DAY TAKING OMEPRAZOLE 40 MG CAPSULE DELAYED RELEASE 1 CAPSULE ORALLY ONCE A DAY TAKING COLACE 100 MG CAPSULE 1 CAPSULE NEEDED ORALLY BID, NOTES: TAKES ONCE A DAY TAKING OXYCODONE HCL 5 MG TABLET 1 TABLET NEEDED ORALLY EVERY 6 HRS PRN MDD4 NOT-TAKING KEFLEX 250 MG CAPSULE 1 CAPSULE ORALLY EVERY 6 HRS, NOTES: NOT SURE OF DOSE NOT-TAKING CARISOPRODOL 350 MG TABLET 1 TABLET NEEDED ORALLY AT BEDTIME MEDICATION LIST REVIEWED AND RECONCILED WITH THE PATIENT PAST MEDICAL HISTORY HTN PAROXYSMAL A. FIB. 11/28/2015 TACHYCARDIA TO 150BPM, DR. SAHNI DID FIND PVC'S ON EKG, 2004 S/P ABLATION C DR. 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 LORENZ 11/2014 GALBLADDER COLIC, STONE RECTAL BLEED 01/31, COLON POLYP ON COLONOSCOPY NAFLD C ELEVATED LFTS ASYMPTOMATIC 06/2015 C OF HEAD, 09/2015 MRI BOTH C SMALL VESS. DIS. 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 PAIN - SIDE EFFECTS SURGICAL HISTORY PARTIAL HYSTERECTOMY-[facility] 1983 L BREAST LUMPECTOMY-[facility] 1991 HEART ABLATION-[facility] 2003 B CATARACT [id number]. SANNI 2011 TONSILLECTOMY AGE 9 FAMILY HISTORY FATHER: 72 YRS MOTHER: 89 YRS DAUGHTER(S): ALIVE, ARTHRITIS CROHNS 2 SON(S) , 1 DAUGHTER(S) . FATHER-ANEURYSM, STROKE, ?HTN, ?HL; WAS A SMOKER QUIT C CVA AGE 61\\\\\\\\\\\\\\\\\\\\\\\\\\\\\\\\\\\\\\\\\\\\\\\\\\\\\\\\\\\\\\\\\\\\\\\\\\\\\\\\\\\\\\\\\\\\\\\\\\\\\\\\\\\\\\\\\\\\\\\\\\\\\\ NMOTHER-HEART DIS., A. FIB.\\\\\\\\\\\\\\\\\\\\\\\\\\\\\\\\N. SOCIAL HISTORY GENERAL: TOBACCO USE ARE YOU A:NONSMOKER OTHERS AT HOME: LIVES ALONG. EDUCATION LEVEL OF EDUCATION:FINISHED COLLEGE DIET: REGULAR. LANGUAGE LANGUAGES SPOKEN:[place] DOMESTIC VIOLENCE DO YOU FEEL SAFE IN YOUR ENVIRONMENT?YES RECREATIONAL DRUG USE DRUG USE?NO NONE EXERCISE: WALKS. LEARNING BARRIERS / SPECIAL NEEDS BARRIERS TO LEARNING?NO HEARING IMPAIRED?NO VISION IMPAIRED?YES :CORRECTIVE LENSES READING GLASSES COGNITIVELY IMPAIRED?NO READINESS TO LEARN?YES LEARNING PREFERENCES?NO LEARNING CAPABILITIES PRESENT?YES EMOTIONAL BARRIERS?NO SPECIAL DEVICES?YES HAS A WALKER AND CANE FOR SAFETY NOT USING HUB BANDER NEEDED?NO PAIN CLINIC PFS, CLERGY, PUBLIC HEALTH REFERRALS HAS THE PATIENT BEEN EDUCATED REGARDING HIS/HER PLAN OF CARE?YES HAS THE PATIENT BEEN EDUCATED REGARDING PAIN, THE RISK FOR PAIN, THE IMPORTANCE OF EFFECTIVE PAIN MANAGEMENT, AND THE PAIN ASSESSMENT PROCESS?YES LATEX QUESTIONNAIRE LATEX ALLERGY : HAVE YOU EVER DEVELOPED ANY TYPE OF REACTION AFTER HANDLING LATEX PRODUCTS SUCH RUBBER GLOVES, CONDOMS, DIAPHRAGMS, BALLOONS, SOCKS, OR UNDERWEAR?NO LATEX ALLERGY : HAVE YOU EVER DEVELOPED ANY TYPE OF REACTION DURING OR AFTER DENTAL APPOINTMENT, VAGINAL/RECTAL EXAMINATION, SURGICAL PROCEDURE, OR ANY OTHER EXPOSURE?NO LATEX RISK : HAVE YOU EVER HAD ANY DIFFICULTY BREATHING OR HIVES AFTER EATING OR HANDLING ANY FRUITS, OR VEGETABLES; SUCH KIWI, BANANAS, STONE FRUITS, OR CHESTNUTSNO LATEX RISK : DO YOU HAVE A PREVIOUS PERSONAL HISTORY OF MORE THAN NINE SURGERIES, SPINA BIFIDA, OR REPEATED CATHERIZATIONS? NO LATEX RISK : ARE YOU FREQUENTLY EXPOSED TO LATEX PRODUCTS IN YOUR OCCUPATION?NO DATE ASKED : 11/11/2018 CAFFEINE CAFFEINE USE?YES USUALLY DRINKJS DECAF..DOES HAVE A CUP OCCASIONAL ADVANCE DIRECTIVE ADVANCE DIRECTIVE DISCUSSED WITH PATIENT:YES HCP SON GRABIEL MUNOZ [phone] MANDAEISM [id number] PRESBYTER[facility] MARITAL STATUS: . ALCOHOL SCREENING DID YOU HAVE A DRINK CONTAINING ALCOHOL IN THE PAST YEAR?YES HOW OFTEN DID YOU HAVE A DRINK CONTAINING ALCOHOL IN THE PAST YEAR?TWO TO FOUR TIMES A MONTH (2 POINTS) HOW MANY DRINKS DID YOU HAVE ON A TYPICAL DAY WHEN YOU WERE DRINKING IN THE PAST YEAR?1 OR 2 (0 POINTS) POINTS2 INTERPRETATIONNEGATIVE OCCUPATION: RETIRED. 07/23/18 REVIEWED WITH PT. AD07/29/18 REVIEWED WITH PT LASREVIEWED WITH PATIENT 08/24/18 1440 JS09/02/18 REVIEWED WITH PT. AD171 REVIEWED WITH PT. AD. HOSPITALIZATION/MAJOR DIAGNOSTIC PROCEDURE ABOVE CHILD REVIEW OF SYSTEMS REVIEWED BY: PROVIDER: SHERIE GAO MD . CONSTITUTIONAL: ANY CHANGE IN YOUR MEDICAL CONDITION? NO . CHILLS NO . FEVER NO . INFECTION: DO YOU HAVE NEW INFECTIONS? YES, UTI 11/06 TREATED WITH CIPRO . DO YOU HAVE HISTORY OF MRSA? NO . MUSCULOSKELETAL: ANY NEW PATTERNS OF PAIN OR NUMBNESS? YES, INCREASE IN HER BACK PAIN ABOVE THE WAIST FOR APPROX 3 WEEKS . GASTROENTEROLOGY: ANY NEW CHANGE IN BOWEL CONTROL? NO . GENITOURINARY: ANY NEW CHANGE IN BLADDER CONTROL? YES, FREQENCY,BURNING, INCONT.-PT. FEELS IT'S DUE TO HER UTI . IS THERE A CHANCE YOU COULD BE ? NO . HEMATOLOGY/LYMPH: DO YOU TAKE ANY BLOOD THINNERS? (FOR EXAMPLE- COUMADIN, PLAVIX, AGGRENOX, PLATEL, PRADAXA, OR XARELTO) YES, COUMADIN . WHEN WAS YOUR LAST DOSE? DATE: TIME:11/10/18 1900 . NEUROLOGY: HAVE YOU FALLEN IN THE PAST 12 MONTHS? YES, IN APRIL-PREVIOUSLY NOTED . ANY NEW EXTREMITY NUMBNESS OR WEAKNESS? NO . CARDIOLOGY: DO YOU HAVE A PACEMAKER OR DEFIBRILLATOR? NO . RESPIRATORY: HAVE YOU BEEN SICK IN THE PAST WEEK? YES, UTI . FEVER NO . FLU LIKE SYMPTOMS? NO . COUGH NO . INTEGUMENTARY: DO YOU HAVE ANY RASHES OR OPEN SORES? NO . ALLERGIC/IMMUNO: ARE YOU ALLERGIC TO IV DYE? YES . ANY NEW ALLERGIES? NO . PSYCHIATRIC: DO YOU HAVE THOUGHTS OF HURTING YOURSELF OR SOMEONE ELSE? NO . ARE YOU ABUSED, NEGLECTED, OR IN AN UNSAFE ENVIRONMENT? NO . ENDOCRINOLOGY: ARE YOU DIABETIC? NO . OTHER: DO YOU NEED ANY PRESCRIPTIONS? NO . IF YES, PLEASE LIST: ____ . ANY NEW PROBLEMS WITH YOUR MEDICATIONS? NO . WHEN DID YOU LAST EAT? ____ . WHEN DID YOU LAST DRINK? ____ . WHAT DID YOU LAST DRINK? ____ . NAME OF PERSON DRIVING YOU HOME? ____ . DO YOU HAVE ANY OTHER QUESTIONS OR CONCERNS YES "I NEED AN ANSWER FOR ALL OF THIS PAIN. WHERE DO I GO FROM HERE?" . VITAL SIGNS WT 142.8 LBS, HT 68 IN, BMI 21.71 INDEX, BP 136/63 MM HG, HR 72 /MIN, RR 16 /MIN, TEMP 97.3 F, OXYGEN SAT % 98%, SAFE IN ENV? (Y/N) Y, NA INITIALS AW 1431, REVIEWED BY: AD. EXAMINATION GENERAL EXAMINATION: PATIENT IS ALERT O X 3 AND COOPERATIVE. TENDERNESS IN THE THORACIC AREA OVER THE FACET JOINTS. PRESENCE OF TRIGGER POINTS AND BANDS OF TISSUE WITH RESTRICTION OF MOVEMENT OF THE BACK. MRI OF THE THORACIC SPINE DONE ON 11/07/2018 IS SHOWING FACET ARTHROPATHY CHANGES AND VERTEBRAL FRACTURES. MRI OF THE LUMBAR SPINE DONE ON 05/07/2018 IS SHOWING FACET ARTHROPATHY CHANGES AND VERTEBRAL FRACTURES. 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 TREATMENT MYALGIA, OTHER SITE CLINICAL NOTES: WE DISCUSSED SEVERAL ISSUES WITH MRS. MUNOZ'S PAIN MANAGEMENT CASE. DUE TO THE TRIGGER POINTS, BANDS OF TISSUE, AND RESTRICTION OF MOVEMENT, I WOULD LIKE TO MOVE FORWARD WITH A TRIGGER POINT INJECTION AT THIS TIME. WE DISCUSSED THE BENEFITS, RISKS, AND ALTERNATIVES OF THE INJECTION AND THE PATIENT WOULD LIKE TO PROCEED. I DISCUSSED WITH THE PATIENT THE POSSIBILITY OF CONSIDERING A VERTEBROPLASTY, BUT THE PATIENT SAYS SHE WOULD LIKE TO AVOID THAT ROUTE. THE PATIENT WILL DISCUSS WITH HER PRIMARY CARE PHYSICIAN ABOUT A BONE DENSITY TEST DUE TO THE MULTIPLE FRACTURES. THE PATIENT WILL FOLLOW UP A FEW WEEKS AFTER THE INJECTION. INSTRUCTIONS WERE GIVEN, QUESTIONS WERE ANSWERED, PATIENT REPORTS UNDERSTANDING AND AGREES WITH THE PLAN. I, DU TORRES, DOCUMENTED THE ABOVE INFORMATION ACTING A SCRIBE FOR DR. GAO. I HAVE REVIEWED THE ABOVE DOCUMENT, WRITTEN BY DU GEORGE AND I VERIFY THAT IT IS ACCURATE. . PREVENTIVE MEDICINE PAIN CLINIC TEACHING: PROCEDURE TEACHING PT GIVEN WRITTEN AND VERBAL EDUCATION ON TRIGGER POINT INJECTIONS. PT ALSO GIVEN WRITTEN AND VERBAL PRE PROCEDURE INSTRUCTIONS. PT VERBALIZES UNDERSTANDING OF ALL EDUCATION AND INSTRUCTIONS. SELENE ALBERTO 11/11/2018 4:10:36 PM > . PROCEDURE CODES G8427 CURRENT MEDS W/DOSAGES DOCUMENTED G8730 PAIN ASSESS POS TOOL F/U PLAN DOC FA211 ESTABILISHED PATIENT [facility] FACILITY CHARGE DISPOSITION & COMMUNICATION FOLLOW UP 3 WEEKS ELECTRONICALLY SIGNED BY SHERIE GAO MD, MD ON 11/13/2018 AT 11:34 AM EDT DISCLAIMER : THIS IS A VISIT SUMMARY EXTRACTED FROM THE [employer] CHART. IT IS NOT A COPY OF THE [employer] PROGRESS NOTE. MTDD
== END ==
LOC: M PAIN 14:30
PROVIDERS: ATTEND Anesthesiology
DX: M79.18 Myalgia, other site (principal); M47.814 Spondylosis without myelopathy or radiculopathy, thoracic region; M47.816 Spondylosis without myelopathy or radiculopathy, lumbar region; I10 Essential (primary) hypertension; I48.0 Paroxysmal atrial fibrillation; E03.9 Hypothyroidism, unspecified; H35.30 Unspecified macular degeneration; K76.0 Fatty (change of) liver, not elsewhere classified; Z87.440 Personal history of urinary (tract) infections; G62.9 Polyneuropathy, unspecified; M46.1 Sacroiliitis, not elsewhere classified; Z88.0 Allergy status to penicillin; Z88.1 Allergy status to other antibiotic agents; Z88.8 Allergy status to other drugs, medicaments and biological substances

== ENCOUNTER → 2018-11-13 | Outpatient (CLI) | payer MEDICARE ==
[~2018-11-13] MED LIST changes: +BUPIVACAINE HCL 0.25% 10 ML VIAL As Ordered ONE; +BUPIVACAINE HCL 0.25% 30 ML VIAL As Ordered ONE; +TRIAMCINOLONE ACETONIDE SUSP 40 MG/ML VIAL (J3301) As Ordered ONE; +diazePAM 5 MG TAB As Ordered ONE; +oxyCODONE 5MG TAB As Ordered ONE
--- NOTE | 2018-11-24 00:02 | ECWPNPC ---
PATIENT NAME: GAL MUNOZ : 1935 GENDER: FEMALE VISIT DATE: 11/13/2018 DISCHARGE DATE: 11/13/18 1015 VISIT LOCKED DATE TIME: PHYSICIAN: SHERIE GAO MD RESOURCE: SHERIE GAO MD REASON FOR APPOINTMENT 1. THORACIC & LOW BACK PER DR Felipe HISTORY OF PRESENT ILLNESS HISTORY OF PRESENT ILLNESS: PAIN THE PATIENT DESCRIBES THE PAIN... FALL RISK SCREENING: SCREENING :NO FALLS REPORTED IN THE LAST YEAR CURRENT MEDICATIONS TAKING WARFARIN SODIUM 4 MG TABLET 5 DAYS A WEEK AND 2 MG 2 DAYS A WEEK ORALLY ONCE A DAY, NOTES: 11/12/18@190 TAKING METOPROLOL TARTRATE 50 MG TABLET 1 TABLET WITH FOOD ORALLY TWICE A DAY, NOTES: 11/12/18@1899 TAKING LEVOTHYROXINE SODIUM 100 MCG TABLET 1 TABLET ON AN EMPTY STOMACH IN THE MORNING ORALLY ONCE A DAY, NOTES: 0530 TAKING OMEPRAZOLE 40 MG CAPSULE DELAYED RELEASE 1 CAPSULE ORALLY ONCE A DAY, NOTES: 11/12/18@0730 TAKING COLACE 100 MG CAPSULE 1 CAPSULE NEEDED ORALLY BID, NOTES: 11/13/18@1899 TAKING OXYCODONE HCL 5 MG TABLET 1 TABLET NEEDED ORALLY EVERY 6 HRS PRN MDD4, NOTES: 11/12/18@2199 TAKING CARISOPRODOL 350 MG TABLET 1 TABLET NEEDED ORALLY AT BEDTIME, NOTES: 11/12/18@2199 NOT-TAKING VENTOLIN HFA 108 (90 BASE) MCG/ACT AEROSOL SOLUTION 2 PUFFS NEEDED INHALATION EVERY 4 HRS NEEDED, NOTES: NONE RECENTLY DISCONTINUED KEFLEX 250 MG CAPSULE 1 CAPSULE ORALLY EVERY 6 HRS, NOTES: NOT SURE OF DOSE MEDICATION LIST REVIEWED AND RECONCILED WITH THE PATIENT PAST MEDICAL HISTORY HTN PAROXYSMAL A. FIB. 11/28/2015 TACHYCARDIA TO 150BPM, DR. SAHNI DID FIND PVC'S ON EKG, 2004 S/P ABLATION C DR. 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 LORENZ 11/2014 GALBLADDER COLIC, STONE RECTAL BLEED 01/31, COLON POLYP ON COLONOSCOPY NAFLD C ELEVATED LFTS ASYMPTOMATIC 06/2015 C OF HEAD, 09/2015 MRI BOTH C SMALL VESS. DIS. 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 PAIN - SIDE EFFECTS SURGICAL HISTORY PARTIAL HYSTERECTOMY-[facility] 1983 L BREAST LUMPECTOMY-[facility] 1991 HEART ABLATION-JOSEF 2003 B CATARACT [id number]. SANNI 2011 TONSILLECTOMY AGE 9 FAMILY HISTORY FATHER: 72 YRS MOTHER: 89 YRS DAUGHTER(S): ALIVE, ARTHRITIS CROHNS 2 SON(S) , 1 DAUGHTER(S) . FATHER-ANEURYSM, STROKE, ?HTN, ?HL; WAS A SMOKER QUIT C CVA AGE 61\\\\\\\\\\\\\\\\\\\\\\\\\\\\\\\\\\\\\\\\\\\\\\\\\\\\\\\\\\\\\\\ NMOTHER-HEART DIS., A. FIB.\\\\\\\\\\\\\\\\N. SOCIAL HISTORY GENERAL: TOBACCO USE ARE YOU A:NONSMOKER OTHERS AT HOME: LIVES ALONG. EDUCATION LEVEL OF EDUCATION:FINISHED COLLEGE DIET: REGULAR. LANGUAGE LANGUAGES SPOKEN:MAORI DOMESTIC VIOLENCE DO YOU FEEL SAFE IN YOUR ENVIRONMENT?YES RECREATIONAL DRUG USE DRUG USE?NO NONE EXERCISE: WALKS. 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 NEEDED?NO PAIN CLINIC PFS, CLERGY, PUBLIC HEALTH REFERRALS HAS THE PATIENT BEEN EDUCATED REGARDING HIS/HER PLAN OF CARE?YES HAS THE PATIENT BEEN EDUCATED REGARDING PAIN, THE RISK FOR PAIN, THE IMPORTANCE OF EFFECTIVE PAIN MANAGEMENT, AND THE PAIN ASSESSMENT PROCESS?YES LATEX QUESTIONNAIRE LATEX ALLERGY : HAVE YOU EVER DEVELOPED ANY TYPE OF REACTION AFTER HANDLING LATEX PRODUCTS SUCH RUBBER GLOVES, CONDOMS, DIAPHRAGMS, BALLOONS, SOCKS, OR UNDERWEAR?NO LATEX ALLERGY : HAVE YOU EVER DEVELOPED ANY TYPE OF REACTION DURING OR AFTER DENTAL APPOINTMENT, VAGINAL/RECTAL EXAMINATION, SURGICAL PROCEDURE, OR ANY OTHER EXPOSURE?NO LATEX RISK : HAVE YOU EVER HAD ANY DIFFICULTY BREATHING OR HIVES AFTER EATING OR HANDLING ANY FRUITS, OR VEGETABLES; SUCH KIWI, BANANAS, STONE FRUITS, OR CHESTNUTSNO LATEX RISK : DO YOU HAVE A PREVIOUS PERSONAL HISTORY OF MORE THAN NINE SURGERIES, SPINA BIFIDA, OR REPEATED CATHERIZATIONS? NO LATEX RISK : ARE YOU FREQUENTLY EXPOSED TO LATEX PRODUCTS IN YOUR OCCUPATION?NO DATE ASKED : 11/13/2018 CAFFEINE CAFFEINE USE?YES USUALLY DRINKJS DECAF..DOES HAVE A CUP OCCASIONAL ADVANCE DIRECTIVE ADVANCE DIRECTIVE DISCUSSED WITH PATIENT:YES HCP SON GRABIEL MUNOZ [phone] [employer] [id number] PRESBYTERIAN MARITAL STATUS: . ALCOHOL SCREENING DID YOU HAVE A DRINK CONTAINING ALCOHOL IN THE PAST YEAR?YES HOW OFTEN DID YOU HAVE A DRINK CONTAINING ALCOHOL IN THE PAST YEAR?TWO TO FOUR TIMES A MONTH (2 POINTS) HOW MANY DRINKS DID YOU HAVE ON A TYPICAL DAY WHEN YOU WERE DRINKING IN THE PAST YEAR?1 OR 2 (0 POINTS) POINTS2 INTERPRETATIONNEGATIVE OCCUPATION: RETIRED. 07/23/18 REVIEWED WITH PT. RAVEN07/29/18 REVIEWED WITH PT LASREVIEWED WITH PATIENT 08/24/18 1440 JS09/02/18 REVIEWED WITH PT. [id number] REVIEWED WITH PT. AD. HOSPITALIZATION/MAJOR DIAGNOSTIC PROCEDURE ABOVE CHILD REVIEW OF SYSTEMS REVIEWED BY: PROVIDER: . CONSTITUTIONAL: ANY CHANGE IN YOUR MEDICAL CONDITION? NO . CHILLS NO . FEVER NO . INFECTION: DO YOU HAVE NEW INFECTIONS? NO . DO YOU HAVE HISTORY OF MRSA? NO . MUSCULOSKELETAL: ANY NEW PATTERNS OF PAIN OR NUMBNESS? NO . GASTROENTEROLOGY: ANY NEW CHANGE IN BOWEL CONTROL? NO . GENITOURINARY: ANY NEW CHANGE IN BLADDER CONTROL? NO . IS THERE A CHANCE YOU COULD BE ? NO . HEMATOLOGY/LYMPH: DO YOU TAKE ANY BLOOD THINNERS? (FOR EXAMPLE- COUMADIN, PLAVIX, AGGRENOX, PLATEL, PRADAXA, OR XARELTO) YES . WHEN WAS YOUR LAST DOSE? DATE: TIME: 11/13/18@1900 <11/13/18@1900> . NEUROLOGY: HAVE YOU FALLEN IN THE PAST 12 MONTHS? NO . ANY NEW EXTREMITY NUMBNESS OR WEAKNESS? NO . CARDIOLOGY: DO YOU HAVE A PACEMAKER OR DEFIBRILLATOR? NO . RESPIRATORY: HAVE YOU BEEN SICK IN THE PAST WEEK? YES BLADDER INFECTION,DONE WITH ANTIBIOTICS . FEVER NO . FLU LIKE SYMPTOMS? NO . COUGH NO . INTEGUMENTARY: DO YOU HAVE ANY RASHES OR OPEN SORES? NO . ALLERGIC/IMMUNO: ARE YOU ALLERGIC TO IV DYE? YES . ANY NEW ALLERGIES? NO . PSYCHIATRIC: DO YOU HAVE THOUGHTS OF HURTING YOURSELF OR SOMEONE ELSE? NO . ARE YOU ABUSED, NEGLECTED, OR IN AN UNSAFE ENVIRONMENT? NO . ENDOCRINOLOGY: ARE YOU DIABETIC? NO . OTHER: DO YOU NEED ANY PRESCRIPTIONS? NO . IF YES, PLEASE LIST: ____ . ANY NEW PROBLEMS WITH YOUR MEDICATIONS? NO . WHEN DID YOU LAST EAT? ____11/12/18 . WHEN DID YOU LAST DRINK? ____11/12/18 . WHAT DID YOU LAST DRINK? ____WATER . NAME OF PERSON DRIVING YOU HOME? ____NICHELLE CANNON . DO YOU HAVE ANY OTHER QUESTIONS OR CONCERNS NO . VITAL SIGNS WT 142.8 LBS, HT 68 IN, BMI 21.71 INDEX, BP 140/72 MM HG, HR 63 /MIN, RR 16 /MIN, TEMP 98.3 F, OXYGEN SAT % 98%, SAFE IN ENV? (Y/N) YES, NA INITIALS AW 0843, REVIEWED BY: VD. ASSESSMENTS MYALGIA, OTHER SITE - M79.18 (PRIMARY) PROCEDURES PN TRIGGER POINT INJECTION WITH STEROIDS PRE PROCEDURE DIAGNOSIS 1. MYALGIA 2. PAIN AT BILATERAL THORACIC AREA AND BILATERAL LOW BACK AREA POST PROCEDURE DIAGNOSIS 1. MYALGIA 2. PAIN AT BILATERAL THORACIC AREA AND BILATERAL LOW BACK AREA PROCEDURE TRIGGER POINT INJECTION AT BILATERAL THORACIC AREA AND BILATERAL LOW BACK AREA SURGEON DR. SHERIE GAO FLOOR INSTALLATION MECHANIC NONE ANESTHESIA LOCAL PRE PROCEDURE NOTE THE PATIENT HAS A HISTORY OF CHRONIC PAIN AT THE RIGHT AND LEFT THORACIC AREA AND RIGHT AND LEFT LOW BACK AREA. I EVALUATE THE PATIENT AND REVIEWED THE CHART. THERE IS EVIDENCE OF BANDS OF TISSUE WITH RESTRICTION OF MOVEMENT AND PRESENCE OF TRIGGER POINT AT THE AFFECTED AREA. I WENT OVER THE RISKS, ALTERNATIVES, AND BENEFITS ASSOCIATED WITH THIS PROCEDURE. THE PATIENT WOULD LIKE TO PROCEED AND GIVE CONSENT TO PERFORMED THE PROCEDURE. THE PATIENT DENIES UNEXPLAINABLE WEIGHT LOSS, FEVER, CHILLS, OR NEW CHANGES IN URINARY OR BOWEL CONTROL DESCRIPTION OF PROCEDURE THE PATIENT WAS BROUGHT TO THE PROCEDURE ROOM AND PLACED IN THE SITTING POSITION. THE AREA WAS CLEANED WITH ALCOHOL. THE PROCEDURE WAS DONE USING ASEPTIC STERILE TECHNIQUE. I CHECKED LATERALITY AND THE LEVEL WHERE THE PROCEDURE WAS GOING TO BE PERFORMED WITH THE PATIENT AND THE SUPPORTING STAFF AT THE MOMENT OF THE TIME OUT IN THE PROCEDURE ROOM. USING A 25-GAUGE NEEDLE, TRIGGER POINTS WERE INJECTED AT THE RIGHT AND LEFT THORACIC AREA AND RIGHT AND LEFT LOW BACK AREA WITH A TOTAL OF 40 ML OF BUPIVACAINE 0.25% AND KENALOG 40 MG. THERE WAS NO EVIDENCE OF BLOOD, PARESTHESIA OR CEREBROSPINAL FLUID DURING THE PROCEDURE. THE PATIENT WAS SENT TO THE RECOVERY ROOM. THE PATIENT WAS MOVING THE EXTREMITIES AND DOING WELL. THERE WAS NO COMPLICATION DURING THE PROCEDURE POST PROCEDURE NOTE THE PATIENT WILL BE SEEN IN A FOLLOW UP IN THE NEXT FEW WEEKS. INSTRUCTIONS WERE GIVEN, QUESTIONS WERE ANSWERED, AND THE PATIENT EXPRESSED UNDERSTANDING AND AGREES WITH THE PLAN. I, DU TORRES, DOCUMENTED THE ABOVE INFORMATION ACTING A SCRIBE FOR DR. AGO. I HAVE REVIEWED THE ABOVE DOCUMENT, WRITTEN BY DU GEORGE AND I VERIFY THAT IT IS ACCURATE. PROCEDURE CODES 81447 INJECT TRIGGER POINTS 3/> DISPOSITION & COMMUNICATION FOLLOW UP 3 WEEKS ELECTRONICALLY SIGNED BY SHERIE GAO MD, MD ON 11/23/2018 AT 04:11 PM EDT DISCLAIMER : THIS IS A VISIT SUMMARY EXTRACTED FROM THE [employer] CHART. IT IS NOT A COPY OF THE [employer] PROGRESS NOTE. [facility] HOSPITALJennifer
== END ==
LOC: M PAIN 08:30
PROVIDERS: ATTEND Anesthesiology
DX: M79.18 Myalgia, other site (principal); I10 Essential (primary) hypertension; I48.0 Paroxysmal atrial fibrillation; E03.9 Hypothyroidism, unspecified; H35.30 Unspecified macular degeneration; K76.0 Fatty (change of) liver, not elsewhere classified; M50.20 Other cervical disc displacement, unspecified cervical region; G62.9 Polyneuropathy, unspecified; M46.1 Sacroiliitis, not elsewhere classified; Z85.3 Personal history of malignant neoplasm of breast; Z92.3 Personal history of irradiation; Z98.49 Cataract extraction status, unspecified eye; Z79.01 Long term (current) use of anticoagulants; Z79.891 Long term (current) use of opiate analgesic; Z79.899 Other long term (current) drug therapy; Z88.0 Allergy status to penicillin; Z88.1 Allergy status to other antibiotic agents; Z88.8 Allergy status to other drugs, medicaments and biological substances; Z91.018 Allergy to other foods
CPT/HCPCS: 20553; J3301

== ENCOUNTER → 2018-11-18 | Outpatient (CLI) | payer MEDICARE ==
[~2018-11-18] MED LIST changes: -BUPIVACAINE HCL 0.25% 10 ML VIAL As Ordered ONE; -BUPIVACAINE HCL 0.25% 30 ML VIAL As Ordered ONE; -TRIAMCINOLONE ACETONIDE SUSP 40 MG/ML VIAL (J3301) As Ordered ONE; -diazePAM 5 MG TAB As Ordered ONE; -oxyCODONE 5MG TAB As Ordered ONE
--- NOTE | 2018-11-27 23:39 | ECWPNPC ---
PATIENT NAME: GAL MUNOZ : 1935 GENDER: FEMALE VISIT DATE: 11/18/2018 DISCHARGE DATE: 11/18/18955 VISIT LOCKED DATE TIME: PHYSICIAN: SHERIE GAO MD RESOURCE: SHERIE GAO MD REASON FOR APPOINTMENT 1. PER DR Felipe- POST PROCEDURE HISTORY OF PRESENT ILLNESS HISTORY OF PRESENT ILLNESS: PAIN THE PATIENT DESCRIBES THE PAIN... 83 YEAR OLD FEMALE PATIENT WITH A HISTORY OF CHRONIC LOW BACK AND ABDOMINAL PAIN. THE PATIENT DESCRIBES THE PAIN ACHING, STABBING, SHARP, DAILY, AND CONTINUOUS WITH A PAIN SCORE OF 6-8/10 DEPENDING ON PHYSICAL ACTIVITY. THE PATIENT STATES SHE HAS BEEN SUFFERING FROM THIS ABDOMINAL PAIN FOR MONTHS NOW. THE PATIENT SAYS SHE IS USING MEDICATION FOR CONSTIPATION AND HAS AN UPCOMING UROLOGIST APPOINTMENT FOR URINARY ISSUES. THE PATIENT RECEIVED A TRIGGER POINT INJECTION ON 11/13/2018, WHICH SHE SAYS HELPED A LITTLE WITH HER PAIN BUT THE PAIN HAS RETURNED. , PATIENT DENIES UNEXPLAINABLE WEIGHT LOSS, FEVER, CHILLS, NEW CHANGES ON HER URINARY OR BOWEL CONTROL. FALL RISK SCREENING: SCREENING :NO FALLS REPORTED IN THE LAST YEAR CURRENT MEDICATIONS TAKING WARFARIN SODIUM 4 MG TABLET 5 DAYS A WEEK AND 2 MG 2 DAYS A WEEK ORALLY ONCE A DAY TAKING METOPROLOL TARTRATE 50 MG TABLET 1 TABLET WITH FOOD ORALLY TWICE A DAY TAKING LEVOTHYROXINE SODIUM 100 MCG TABLET 1 TABLET ON AN EMPTY STOMACH IN THE MORNING ORALLY ONCE A DAY TAKING OMEPRAZOLE 40 MG CAPSULE DELAYED RELEASE 1 CAPSULE ORALLY ONCE A DAY TAKING COLACE 100 MG CAPSULE 1 CAPSULE NEEDED ORALLY BID TAKING OXYCODONE HCL 5 MG TABLET 1 TABLET NEEDED ORALLY EVERY 6 HRS PRN MDD4 TAKING CARISOPRODOL 350 MG TABLET 1 TABLET NEEDED ORALLY AT BEDTIME NOT-TAKING VENTOLIN HFA 108 (90 BASE) MCG/ACT AEROSOL SOLUTION 2 PUFFS NEEDED INHALATION EVERY 4 HRS NEEDED, NOTES: NONE RECENTLY MEDICATION LIST REVIEWED AND RECONCILED WITH THE PATIENT PAST MEDICAL HISTORY HTN PAROXYSMAL A. FIB. 11/28/2015 TACHYCARDIA TO 150BPM, DR. SAHNI DID FIND PVC'S ON EKG, 2004 S/P ABLATION C DR. 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 LORENZ 11/2014 GALBLADDER COLIC, STONE RECTAL BLEED 01/31, COLON POLYP ON COLONOSCOPY NAFLD C ELEVATED LFTS ASYMPTOMATIC 06/2015 C OF HEAD, 09/2015 MRI BOTH C SMALL VESS. DIS. 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 LORDOSIS, NARROW EPIDURAL SPACE FORAMEN NARROEWD R C4-6, L C5-6 FREQUENT UTI'S AIRLINE PILOT USE OF ANTICOAGULANT IDIOPATHIC PERIPHERAL NEUROPATHY ELEVATED LFTS SACROILIITIS ALLERGIES PENICILLIN (FOR ALLERGIES USE ONLY): HIVES - ALLERGY AUGMENTIN: RASH - ALLERGY LEVOFLOXACIN: RASH - ALLERGY AMBIEN: PASSED OUT - ALLERGY PREDNISONE: HYPER - SIDE EFFECTS THEOPHYLLINE: PASSED OUT - ALLERGY FOOD ADDITIVES: ASTHMA ATTACK - ALLERGY CIPRO: SEVERE ABD. PAIN - SIDE EFFECTS SURGICAL HISTORY PARTIAL HYSTERECTOMY-[facility] 1983 L BREAST LUMPECTOMY-[facility] 1991 HEART ABLATION-JOSEF 2003 B CATARACT [id number]. SANNI 2011 TONSILLECTOMY AGE 9 FAMILY HISTORY FATHER: 72 YRS MOTHER: 89 YRS DAUGHTER(S): ALIVE, ARTHRITIS CROHNS 2 SON(S) , 1 DAUGHTER(S) . FATHER-ANEURYSM, STROKE, ?HTN, ?HL; WAS A SMOKER QUIT C CVA AGE 61\\\\\\\\\\\\\\\\\\\\\\\\\\\\\\\\\\\\\\\\\\\\\\\\\\\\\\\\\\\\\\\ NMOTHER-HEART DIS., A. FIB.\\\\\\\\\\\\\\\\N. SOCIAL HISTORY GENERAL: TOBACCO USE ARE YOU A:NONSMOKER OTHERS AT HOME: LIVES ALONG. EDUCATION LEVEL OF EDUCATION:FINISHED COLLEGE DIET: REGULAR. LANGUAGE LANGUAGES SPOKEN:[place]URKMEN DOMESTIC VIOLENCE DO YOU FEEL SAFE IN YOUR ENVIRONMENT?YES RECREATIONAL DRUG USE DRUG USE?NO NONE EXERCISE: WALKS. LEARNING BARRIERS / SPECIAL NEEDS BARRIERS TO LEARNING?NO HEARING IMPAIRED?NO VISION IMPAIRED?YES :CORRECTIVE LENSES READING GLASSES COGNITIVELY IMPAIRED?NO READINESS TO LEARN?YES LEARNING PREFERENCES?NO LEARNING CAPABILITIES PRESENT?YES EMOTIONAL BARRIERS?NO SPECIAL DEVICES?YES HAS A WALKER AND CANE FOR SAFETY NOT USING MCAT TUTOR NEEDED?NO PAIN CLINIC PFS, CLERGY, PUBLIC HEALTH REFERRALS WAS THE PROVIDER NOTIFIED OF ANY PERTINENT INFO?YES HAS THE PATIENT BEEN EDUCATED REGARDING HIS/HER PLAN OF CARE?YES HAS THE PATIENT BEEN EDUCATED REGARDING PAIN, THE RISK FOR PAIN, THE IMPORTANCE OF EFFECTIVE PAIN MANAGEMENT, AND THE PAIN ASSESSMENT PROCESS?YES LATEX QUESTIONNAIRE LATEX ALLERGY : HAVE YOU EVER DEVELOPED ANY TYPE OF REACTION AFTER HANDLING LATEX PRODUCTS SUCH RUBBER GLOVES, CONDOMS, DIAPHRAGMS, BALLOONS, SOCKS, OR UNDERWEAR?NO LATEX ALLERGY : HAVE YOU EVER DEVELOPED ANY TYPE OF REACTION DURING OR AFTER DENTAL APPOINTMENT, VAGINAL/RECTAL EXAMINATION, SURGICAL PROCEDURE, OR ANY OTHER EXPOSURE?NO LATEX RISK : HAVE YOU EVER HAD ANY DIFFICULTY BREATHING OR HIVES AFTER EATING OR HANDLING ANY FRUITS, OR VEGETABLES; SUCH KIWI, BANANAS, STONE FRUITS, OR CHESTNUTSNO LATEX RISK : DO YOU HAVE A PREVIOUS PERSONAL HISTORY OF MORE THAN NINE SURGERIES, SPINA BIFIDA, OR REPEATED CATHERIZATIONS? NO LATEX RISK : ARE YOU FREQUENTLY EXPOSED TO LATEX PRODUCTS IN YOUR OCCUPATION?NO DATE ASKED : 11/18/2018 CAFFEINE CAFFEINE USE?YES USUALLY DRINKJS DECAF..DOES HAVE A CUP OCCASIONAL ADVANCE DIRECTIVE ADVANCE DIRECTIVE DISCUSSED WITH PATIENT:YES HCP SON GRABIEL MUNOZ [phone] MANDAEISM [id number] PRESBYTERIAN MARITAL STATUS: . ALCOHOL SCREENING DID YOU HAVE A DRINK CONTAINING ALCOHOL IN THE PAST YEAR?YES HOW OFTEN DID YOU HAVE A DRINK CONTAINING ALCOHOL IN THE PAST YEAR?TWO TO FOUR TIMES A MONTH (2 POINTS) HOW MANY DRINKS DID YOU HAVE ON A TYPICAL DAY WHEN YOU WERE DRINKING IN THE PAST YEAR?1 OR 2 (0 POINTS) POINTS2 INTERPRETATIONNEGATIVE OCCUPATION: RETIRED. 07/23/18 REVIEWED WITH PT. AD07/29/18 REVIEWED WITH PT LASREVIEWED WITH PATIENT 08/24/18 1440 JS09/02/18 REVIEWED WITH PT. [id number] REVIEWED WITH PT. AD. HOSPITALIZATION/MAJOR DIAGNOSTIC PROCEDURE ABOVE CHILD REVIEW OF SYSTEMS REVIEWED BY: PROVIDER: SHERIE GAO MD . CONSTITUTIONAL: ANY CHANGE IN YOUR MEDICAL CONDITION? NO . CHILLS NO . FEVER NO . INFECTION: DO YOU HAVE NEW INFECTIONS? NO . DO YOU HAVE HISTORY OF MRSA? NO . MUSCULOSKELETAL: ANY NEW PATTERNS OF PAIN OR NUMBNESS? NO . GASTROENTEROLOGY: ANY NEW CHANGE IN BOWEL CONTROL? NO . GENITOURINARY: ANY NEW CHANGE IN BLADDER CONTROL? NO . IS THERE A CHANCE YOU COULD BE ? NO . HEMATOLOGY/LYMPH: DO YOU TAKE ANY BLOOD THINNERS? (FOR EXAMPLE- COUMADIN, PLAVIX, AGGRENOX, PLATEL, PRADAXA, OR XARELTO) NO . WHEN WAS YOUR LAST DOSE? DATE: TIME: . NEUROLOGY: HAVE YOU FALLEN IN THE PAST 12 MONTHS? NO . ANY NEW EXTREMITY NUMBNESS OR WEAKNESS? NO . CARDIOLOGY: DO YOU HAVE A PACEMAKER OR DEFIBRILLATOR? NO . RESPIRATORY: HAVE YOU BEEN SICK IN THE PAST WEEK? NO . FEVER NO . FLU LIKE SYMPTOMS? NO . COUGH NO . INTEGUMENTARY: DO YOU HAVE ANY RASHES OR OPEN SORES? NO . ALLERGIC/IMMUNO: ARE YOU ALLERGIC TO IV DYE? NO . ANY NEW ALLERGIES? NO . PSYCHIATRIC: DO YOU HAVE THOUGHTS OF HURTING YOURSELF OR SOMEONE ELSE? NO . ARE YOU ABUSED, NEGLECTED, OR IN AN UNSAFE ENVIRONMENT? NO . ENDOCRINOLOGY: ARE YOU DIABETIC? NO . OTHER: DO YOU NEED ANY PRESCRIPTIONS? NO . IF YES, PLEASE LIST: ____ . ANY NEW PROBLEMS WITH YOUR MEDICATIONS? NO . WHEN DID YOU LAST EAT? ____ . WHEN DID YOU LAST DRINK? ____ . WHAT DID YOU LAST DRINK? ____ . NAME OF PERSON DRIVING YOU HOME? ____ . DO YOU HAVE ANY OTHER QUESTIONS OR CONCERNS PT STATES THAT SHE HAD A FEW DAYS OF PAIN RELIEF IN CERTAIN POSITIONS. PT HAS SINCE RETURNED. PT STATES THAT SHE IS HAVING SEVERE PAIN IN ABDOMEN AND BACK RANGING ON SCALE OF 4-8/10 . VITAL SIGNS WT 142.8 LBS, HT 68 IN, BMI 21.71 INDEX, BP 167/79 MM HG, HR 64 /MIN, RR 16 /MIN, TEMP 96.9 F, OXYGEN SAT % 99%, SAFE IN ENV? (Y/N) Y, NA INITIALS SC 15:21, REVIEWED BY: RADHA. EXAMINATION GENERAL EXAMINATION: PATIENT IS ALERT O X 3 AND COOPERATIVE. TENDERNESS IN THE LOW BACK. PAIN INCREASES OVER THE LUMBAR FACET JOINTS WITH EXTENSION AND LATERAL ROTATION OF THE BACK. SOME TENDERNESS IN THE DISTENDED ABDOMINAL AREA. MRI OF THE LUMBAR SPINE DONE ON 05/07/2018 SHOWS FACET ARTHROPATHY CHANGES AND POSSIBLE COMPRESSION FRACTURE. ASSESSMENTS SPONDYLOSIS OF LUMBAR REGION WITHOUT MYELOPATHY OR RADICULOPATHY - M47.816 (PRIMARY) SPONDYLOSIS OF LUMBOSACRAL REGION WITHOUT MYELOPATHY OR RADICULOPATHY - M47.817 ABDOMINAL PAIN, UNSPECIFIED ABDOMINAL LOCATION - R10.9 TREATMENT SPONDYLOSIS OF LUMBAR REGION WITHOUT MYELOPATHY OR RADICULOPATHY CLINICAL NOTES: WE DISCUSSED SEVERAL ISSUES WITH MS. MUNOZ'S PAIN MANAGEMENT CASE. DUE TO THE LUMBAR SPONDYLOSIS, I WOULD LIKE TO MOVE FORWARD WITH A THERAPEUTIC LUMBAR FACET BLOCK AT THIS TIME. WE DISCUSSED THE BENEFITS, RISKS, AND ALTERNATIVES OF THE INJECTION AND THE PATIENT WOULD LIKE TO PROCEED. I WILL ALSO CONTACT THE PATIENT'S OPERATING ROOM REGISTERED NURSE, DR. ZACHERY MARTIN, TOMORROW TO SEE IF THE PATIENT CAN BE SEEN SOONER DUE TO ABDOMINAL PAIN. THE PATIENT WILL FOLLOW UP IN SEVERAL WEEKS AFTER THE PROCEDURE. INSTRUCTIONS WERE GIVEN, QUESTIONS WERE ANSWERED, PATIENT REPORTS UNDERSTANDING AND AGREES WITH THE PLAN. I, RAMAN PEGUERO, DOCUMENTED THE ABOVE INFORMATION ACTING A SCRIBE FOR DR. GAO. I HAVE REVIEWED THE ABOVE DOCUMENT, WRITTEN BY RAMAN GEORGE AND I VERIFY THAT IT IS ACCURATE. . PROCEDURE CODES FA211 ESTABILISHED PATIENT [facility] FACILITY CHARGE G8427 CURRENT MEDS W/DOSAGES DOCUMENTED G8730 PAIN ASSESS POS TOOL F/U PLAN DOC DISPOSITION & COMMUNICATION FOLLOW UP 3 WEEKS (REASON: L FB) ELECTRONICALLY SIGNED BY SHERIE GAO MD, MD ON 11/27/2018 AT 02:03 PM EDT DISCLAIMER : THIS IS A VISIT SUMMARY EXTRACTED FROM THE [employer] CHART. IT IS NOT A COPY OF THE [employer] PROGRESS NOTE. MTDJennifer
== END ==
LOC: M PAIN 15:15
PROVIDERS: ATTEND Anesthesiology
DX: M47.816 Spondylosis without myelopathy or radiculopathy, lumbar region (principal); M47.817 Spondylosis without myelopathy or radiculopathy, lumbosacral region; R10.9 Unspecified abdominal pain; I10 Essential (primary) hypertension; I48.0 Paroxysmal atrial fibrillation; E03.9 Hypothyroidism, unspecified; Z85.3 Personal history of malignant neoplasm of breast; Z92.3 Personal history of irradiation; H35.30 Unspecified macular degeneration; K80.00 Calculus of gallbladder with acute cholecystitis without obstruction; Z86.010 Personal history of colon polyps; K76.0 Fatty (change of) liver, not elsewhere classified; Z87.440 Personal history of urinary (tract) infections; G62.9 Polyneuropathy, unspecified; M46.1 Sacroiliitis, not elsewhere classified; M50.30 Other cervical disc degeneration, unspecified cervical region; Z98.41 Cataract extraction status, right eye; Z98.42 Cataract extraction status, left eye; Z79.01 Long term (current) use of anticoagulants; Z79.899 Other long term (current) drug therapy; Z79.891 Long term (current) use of opiate analgesic; Z88.0 Allergy status to penicillin; Z88.1 Allergy status to other antibiotic agents; Z88.8 Allergy status to other drugs, medicaments and biological substances; Z91.048 Other nonmedicinal substance allergy status

== ENCOUNTER → 2018-11-25 | Outpatient (CLI) | payer MEDICARE ==
[~2018-11-25] MED LIST changes: +BUPIVACAINE HCL 0.25% 30 ML VIAL As Ordered ONE; +ISOVUE-M 200 41% 20ML VIAL (Q9966) As Ordered ONE; +LIDOCAINE 1% SDV INJ 30 ML VIAL As Ordered ONE; +TRIAMCINOLONE ACETONIDE SUSP 40 MG/ML VIAL (J3301) As Ordered ONE; +diazePAM 5 MG TAB As Ordered ONE; +oxyCODONE 5MG TAB As Ordered ONE
--- NOTE | 2018-11-25 17:36 | REP ---
Partial thoracolumbar spine series: Two views . History: Injection procedure for pain. 51 seconds of fluoroscopy time is reported. Findings: A sequence of two fluoroscopically obtained last image hold procedural spot radiographs of the thoracolumbar spine document needle position and contrast injection associated with injection procedure. Electronically Signed by Dustin Carrasco MD 11/25/2018 05:27 P
--- NOTE | 2018-12-10 00:05 | ECWPNPC ---
PATIENT NAME: GAL MUNOZ : 1935 GENDER: FEMALE VISIT DATE: 11/25/2018 DISCHARGE DATE: 11/25/18 1633 VISIT LOCKED DATE TIME: PHYSICIAN: SHERIE GAO MD RESOURCE: SHERIE GAO MD REASON FOR APPOINTMENT 1. LUMBAR FACET HISTORY OF PRESENT ILLNESS HISTORY OF PRESENT ILLNESS: PAIN THE PATIENT DESCRIBES THE PAIN... FALL RISK SCREENING: SCREENING :NO FALLS REPORTED IN THE LAST YEAR CURRENT MEDICATIONS TAKING WARFARIN SODIUM 4 MG TABLET 5 DAYS A WEEK AND 2 MG 2 DAYS A WEEK ORALLY ONCE A DAY, NOTES: 11/19/18 1900 TAKING METOPROLOL TARTRATE 50 MG TABLET 1 TABLET WITH FOOD ORALLY TWICE A DAY, NOTES: 11/25/18 0800 TAKING LEVOTHYROXINE SODIUM 100 MCG TABLET 1 TABLET ON AN EMPTY STOMACH IN THE MORNING ORALLY ONCE A DAY, NOTES: 11/25/18 0800 TAKING OMEPRAZOLE 40 MG CAPSULE DELAYED RELEASE 1 CAPSULE ORALLY ONCE A DAY, NOTES: 11/25/18 0800 TAKING COLACE 100 MG CAPSULE 1 CAPSULE NEEDED ORALLY BID, NOTES: 11/22/18 TAKING OXYCODONE HCL 5 MG TABLET 1 TABLET NEEDED ORALLY EVERY 6 HRS PRN MDD4, NOTES: 11/24/18 2100 TAKING CARISOPRODOL 350 MG TABLET 1 TABLET NEEDED ORALLY AT BEDTIME, NOTES: 11/24/18 TAKING VITAMIN C 500 MG TABLET 1 TABLET ORALLY ONCE A DAY, NOTES: 11/24/18 0800 NOT-TAKING VENTOLIN HFA 108 (90 BASE) MCG/ACT AEROSOL SOLUTION 2 PUFFS NEEDED INHALATION EVERY 4 HRS NEEDED, NOTES: NONE RECENTLY MEDICATION LIST REVIEWED AND RECONCILED WITH THE PATIENT PAST MEDICAL HISTORY HTN PAROXYSMAL A. FIB. 11/28/2015 TACHYCARDIA TO 150BPM, DR. SAHNI DID FIND PVC'S ON EKG, 2003 S/P ABLATION C DR. 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 LORENZ 11/2014 GALBLADDER COLIC, STONE RECTAL BLEED 01/31, COLON POLYP ON COLONOSCOPY NAFLD C ELEVATED LFTS ASYMPTOMATIC 06/2015 C OF HEAD, 09/2015 MRI BOTH C SMALL VESS. DIS. 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 LORDOSIS, NARROW EPIDURAL SPACE FORAMEN NARROEWD R C4-6, L C5-6 FREQUENT UTI'S MCC USE OF ANTICOAGULANT IDIOPATHIC PERIPHERAL NEUROPATHY ELEVATED LFTS SACROILIITIS ALLERGIES PENICILLIN (FOR ALLERGIES USE ONLY): HIVES - ALLERGY AUGMENTIN: RASH - ALLERGY LEVOFLOXACIN: RASH - ALLERGY AMBIEN: PASSED OUT - ALLERGY PREDNISONE: HYPER - SIDE EFFECTS THEOPHYLLINE: PASSED OUT - ALLERGY FOOD ADDITIVES: ASTHMA ATTACK - ALLERGY CIPRO: SEVERE ABD. PAIN - SIDE EFFECTS SURGICAL HISTORY PARTIAL HYSTERECTOMY-[facility] 1983 L BREAST LUMPECTOMY-[facility] 1991 HEART ABLATION-[facility] 2003 B CATARACT [id number]. SANNI 2011 TONSILLECTOMY AGE 9 FAMILY HISTORY FATHER: 72 YRS MOTHER: 89 YRS DAUGHTER(S): ALIVE, ARTHRITIS CROHNS 2 SON(S) , 1 DAUGHTER(S) . FATHER-ANEURYSM, STROKE, ?HTN, ?HL; WAS A SMOKER QUIT C CVA AGE 61\\\\\\\\\\\\\\\\\\\\\\\\\\\\\\\\\\\\\\\\\\\\\\\\\\\\\\\\\\\\\\\ NMOTHER-HEART DIS., A. FIB.\\\\\\\\\\\\\\\\N. SOCIAL HISTORY GENERAL: TOBACCO USE ARE YOU A:NONSMOKER OTHERS AT HOME: LIVES ALONG. EDUCATION LEVEL OF EDUCATION:FINISHED COLLEGE DIET: REGULAR. LANGUAGE LANGUAGES SPOKEN:LIBYAN DOMESTIC VIOLENCE DO YOU FEEL SAFE IN YOUR ENVIRONMENT?YES RECREATIONAL DRUG USE DRUG USE?NO NONE EXERCISE: WALKS. LEARNING BARRIERS / SPECIAL NEEDS BARRIERS TO LEARNING?NO HEARING IMPAIRED?NO VISION IMPAIRED?YES :CORRECTIVE LENSES READING GLASSES COGNITIVELY IMPAIRED?NO READINESS TO LEARN?YES LEARNING PREFERENCES?NO LEARNING CAPABILITIES PRESENT?YES EMOTIONAL BARRIERS?NO SPECIAL DEVICES?YES HAS A WALKER AND CANE FOR SAFETY NOT USING DEFLECTOR OPERATOR NEEDED?NO PAIN CLINIC PFS, CLERGY, PUBLIC HEALTH REFERRALS WAS THE PROVIDER NOTIFIED OF ANY PERTINENT INFO?YES HAS THE PATIENT BEEN EDUCATED REGARDING HIS/HER PLAN OF CARE?YES HAS THE PATIENT BEEN EDUCATED REGARDING PAIN, THE RISK FOR PAIN, THE IMPORTANCE OF EFFECTIVE PAIN MANAGEMENT, AND THE PAIN ASSESSMENT PROCESS?YES LATEX QUESTIONNAIRE LATEX ALLERGY : HAVE YOU EVER DEVELOPED ANY TYPE OF REACTION AFTER HANDLING LATEX PRODUCTS SUCH RUBBER GLOVES, CONDOMS, DIAPHRAGMS, BALLOONS, SOCKS, OR UNDERWEAR?NO LATEX ALLERGY : HAVE YOU EVER DEVELOPED ANY TYPE OF REACTION DURING OR AFTER DENTAL APPOINTMENT, VAGINAL/RECTAL EXAMINATION, SURGICAL PROCEDURE, OR ANY OTHER EXPOSURE?NO LATEX RISK : HAVE YOU EVER HAD ANY DIFFICULTY BREATHING OR HIVES AFTER EATING OR HANDLING ANY FRUITS, OR VEGETABLES; SUCH KIWI, BANANAS, STONE FRUITS, OR CHESTNUTSNO LATEX RISK : DO YOU HAVE A PREVIOUS PERSONAL HISTORY OF MORE THAN NINE SURGERIES, SPINA BIFIDA, OR REPEATED CATHERIZATIONS? NO LATEX RISK : ARE YOU FREQUENTLY EXPOSED TO LATEX PRODUCTS IN YOUR OCCUPATION?NO DATE ASKED : 11/18/2018 CAFFEINE CAFFEINE USE?YES USUALLY DRINKJS DECAF..DOES HAVE A CUP OCCASIONAL ADVANCE DIRECTIVE ADVANCE DIRECTIVE DISCUSSED WITH PATIENT:YES HCP SON GRABIEL MUNOZ [phone] YARSANI [id number] PRESBYTERIAN MARITAL STATUS: . ALCOHOL SCREENING DID YOU HAVE A DRINK CONTAINING ALCOHOL IN THE PAST YEAR?YES HOW OFTEN DID YOU HAVE A DRINK CONTAINING ALCOHOL IN THE PAST YEAR?TWO TO FOUR TIMES A MONTH (2 POINTS) HOW MANY DRINKS DID YOU HAVE ON A TYPICAL DAY WHEN YOU WERE DRINKING IN THE PAST YEAR?1 OR 2 (0 POINTS) POINTS2 INTERPRETATIONNEGATIVE OCCUPATION: RETIRED. 07/23/18 REVIEWED WITH PT. RAVEN07/29/18 REVIEWED WITH PT NENAVIEWED WITH PATIENT 08/24/18 1440 JS09/02/18 REVIEWED WITH PT. RAVEN10/1718 REVIEWED WITH PT. RAVEN11/25/18 REVIEWED WITH ADRIÁN IRVIN. HOSPITALIZATION/MAJOR DIAGNOSTIC PROCEDURE ABOVE CHILD REVIEW OF SYSTEMS REVIEWED BY: PROVIDER: . CONSTITUTIONAL: ANY CHANGE IN YOUR MEDICAL CONDITION? NO . CHILLS NO . FEVER NO . INFECTION: DO YOU HAVE NEW INFECTIONS? NO . DO YOU HAVE HISTORY OF MRSA? NO . MUSCULOSKELETAL: ANY NEW PATTERNS OF PAIN OR NUMBNESS? NO . GASTROENTEROLOGY: ANY NEW CHANGE IN BOWEL CONTROL? NO . GENITOURINARY: ANY NEW CHANGE IN BLADDER CONTROL? NO . IS THERE A CHANCE YOU COULD BE ? NO . HEMATOLOGY/LYMPH: DO YOU TAKE ANY BLOOD THINNERS? (FOR EXAMPLE- COUMADIN, PLAVIX, AGGRENOX, PLATEL, PRADAXA, OR XARELTO) YES COUMADIN . WHEN WAS YOUR LAST DOSE? DATE:11/19/18 TIME: 1700 . NEUROLOGY: HAVE YOU FALLEN IN THE PAST 12 MONTHS? NO . ANY NEW EXTREMITY NUMBNESS OR WEAKNESS? NO . CARDIOLOGY: DO YOU HAVE A PACEMAKER OR DEFIBRILLATOR? NO . RESPIRATORY: HAVE YOU BEEN SICK IN THE PAST WEEK? NO . FEVER NO . FLU LIKE SYMPTOMS? NO . COUGH NO . INTEGUMENTARY: DO YOU HAVE ANY RASHES OR OPEN SORES? NO . ALLERGIC/IMMUNO: ARE YOU ALLERGIC TO IV DYE? UNSURE . ANY NEW ALLERGIES? NO . PSYCHIATRIC: DO YOU HAVE THOUGHTS OF HURTING YOURSELF OR SOMEONE ELSE? NO . ARE YOU ABUSED, NEGLECTED, OR IN AN UNSAFE ENVIRONMENT? NO . ENDOCRINOLOGY: ARE YOU DIABETIC? NO . OTHER: DO YOU NEED ANY PRESCRIPTIONS? NO . IF YES, PLEASE LIST: ____ . ANY NEW PROBLEMS WITH YOUR MEDICATIONS? NO . WHEN DID YOU LAST EAT? ____ . WHEN DID YOU LAST DRINK? ____ . WHAT DID YOU LAST DRINK? ____ . NAME OF PERSON DRIVING YOU HOME? ____ . DO YOU HAVE ANY OTHER QUESTIONS OR CONCERNS NO . VITAL SIGNS WT 142.8 LBS, HT 68 IN, BMI 21.71 INDEX, BP 169/77 MM HG, HR 65 /MIN, RR 16 /MIN, TEMP 97.8 F, OXYGEN SAT % 94%, SAFE IN ENV? (Y/N) YES, NA INITIALS AW 1304, REVIEWED BY: LAS. PARRA SPONDYLOSIS OF LUMBAR REGION WITHOUT MYELOPATHY OR RADICULOPATHY - M47.816 (PRIMARY) TREATMENT SPONDYLOSIS OF LUMBAR REGION WITHOUT MYELOPATHY OR RADICULOPATHY [facility] FACET BLOCK (PAIN)[id number] PROCEDURES PN LUMBAR FACET BLOCK THERAPEUTIC PRE PROCEDURE DIAGNOSIS LUMBAR SPONDYLOSIS POST PROCEDURE DIAGNOSIS LUMBAR SPONDYLOSIS PROCEDURE BILATERAL L1-L2 AND BILATERAL L2-L3 LUMBAR FACET THERAPEUTIC BLOCK SURGEON DR. SHERIE GAO GEOLOGIST PETROLEUM NONE ANESTHESIA LOCAL PRE PROCEDURE NOTE THE PATIENT HAS A HISTORY OF CHRONIC LOW BACK PAIN. I EVALUATE THE PATIENT AND REVIEWED THE CHART. I WENT OVER THE RISKS, ALTERNATIVES, AND BENEFITS ASSOCIATED WITH THIS PROCEDURE. THE PATIENT WOULD LIKE TO PROCEED AND GIVE CONSENT TO PERFORMED THE PROCEDURE. THE PATIENT DENIES UNEXPLAINABLE WEIGHT LOSS, FEVER, CHILLS, OR NEW CHANGES IN URINARY OR BOWEL CONTROL DESCRIPTION OF PROCEDURE THE PATIENT WAS BROUGHT TO THE PROCEDURE ROOM AND PLACED IN THE PRONE POSITION. THE LUMBOSACRAL AREA WAS CLEANED WITH CHLORAPREP SOLUTION AND DRAPED ASEPTICALLY. THE PROCEDURE WAS DONE UNDER STERILE CONDITIONS. I CHECKED LATERALITY AND THE LEVEL WHERE THE PROCEDURE WAS GOING TO BE PERFORMED WITH THE PATIENT AND THE SUPPORTING STAFF AT THE MOMENT OF THE TIME OUT IN THE PROCEDURE ROOM. UNDER FLUOROSCOPIC GUIDANCE, THE TARGET POINT WAS SELECTED AT THE RIGHT AND LEFT L1-L2 AND RIGHT AND LEFT L2-L3 FACET JOINT. TARGET POINT WAS SELECTED AFTER LATERAL ROTATION AND TILT OF THE MAGNIFIER OF THE C-ARM. LIDOCAINE 0.5% WAS USED TO NUMB THE SKIN AND THE SUBCUTANEOUS TISSUE BELOW IT. SPINAL NEEDLES, 22-GAUGE, WERE ADVANCED UNDER FLUOROSCOPIC GUIDANCE AND FOLLOWING PATIENT FEEDBACK UNTIL THE TARGETS WERE TOUCHED. THE POSITION OF THE NEEDLES WAS VERIFIED WITH AP AND LATERAL VIEWS. AFTER PROPER POSITION OF THE NEEDLES WAS ACHIEVED, ISOVUE M-200 WAS INJECTED SHOWING ADEQUATE SPREAD OF THE DYE. THEN A SOLUTION OF 1.9 ML OF BUPIVACAINE 0.125% OF KENALOG 10 MG WAS INJECTED AT EACH SITE. THERE WAS NO EVIDENCE OF BLOOD, PARESTHESIA OR CEREBROSPINAL FLUID DURING THE PROCEDURE. THE PATIENT WAS SENT TO THE RECOVERY ROOM. THE PATIENT WAS MOVING THE EXTREMITIES AND DOING WELL. THERE WAS NO COMPLICATION DURING THE PROCEDURE. FLUOROSCOPY TIME WAS 51 SECONDS POST PROCEDURE NOTE THE PATIENT WILL BE SEEN IN A FOLLOW UP IN THE NEXT FEW WEEKS. INSTRUCTIONS WERE GIVEN, QUESTIONS WERE ANSWERED, AND THE PATIENT EXPRESSED UNDERSTANDING AND AGREES WITH THE PLAN. I, DU TORRES, DOCUMENTED THE ABOVE INFORMATION ACTING A SCRIBE FOR DR. GAO. I HAVE REVIEWED THE ABOVE DOCUMENT, WRITTEN BY DU KAUFMANIBGiacomo AND I VERIFY THAT IT IS ACCURATE. PROCEDURE CODES 6045F RADXPS IN END [id number] PXD [id number] INJ PARAVERT F JNT L/S 1 LEV, MODIFIERS: 50 [id number] INJ PARAVERT F JNT L/S 2 LEV, MODIFIERS: 50 DISPOSITION & COMMUNICATION FOLLOW UP 3 WEEKS ELECTRONICALLY SIGNED BY SHERIE GAO MD, MD ON 12/09/2018 AT 11:56 AM EDT DISCLAIMER : THIS IS A VISIT SUMMARY EXTRACTED FROM THE [employer] CHART. IT IS NOT A COPY OF THE [employer] PROGRESS NOTE. MTDD
== END ==
LOC: M PAIN 13:15
PROVIDERS: ATTEND Anesthesiology
DX: M47.816 Spondylosis without myelopathy or radiculopathy, lumbar region (principal); I10 Essential (primary) hypertension; E03.9 Hypothyroidism, unspecified; Z79.01 Long term (current) use of anticoagulants; Z79.891 Long term (current) use of opiate analgesic; Z79.899 Other long term (current) drug therapy; Z88.0 Allergy status to penicillin; Z88.1 Allergy status to other antibiotic agents; Z88.8 Allergy status to other drugs, medicaments and biological substances; Z91.018 Allergy to other foods
CPT/HCPCS: 36415; 64493; 64494; 85610; J3301; Q9966

== ENCOUNTER → 2018-11-25 | Outpatient (CLI) | payer MEDICARE ==
[~2018-11-25] MED LIST changes: -BUPIVACAINE HCL 0.25% 30 ML VIAL As Ordered ONE; -ISOVUE-M 200 41% 20ML VIAL (Q9966) As Ordered ONE; -LIDOCAINE 1% SDV INJ 30 ML VIAL As Ordered ONE; -TRIAMCINOLONE ACETONIDE SUSP 40 MG/ML VIAL (J3301) As Ordered ONE; -diazePAM 5 MG TAB As Ordered ONE; -oxyCODONE 5MG TAB As Ordered ONE
[2018-11-25 13:58] LABS: INR 1.15; PROTHROMBIN TIME 14.4 SECONDS (11.8-14.0)
== END ==
LOC: M LAB 12:31
PROVIDERS: ATTEND Anesthesiology
DX: M47.816 Spondylosis without myelopathy or radiculopathy, lumbar region (principal)

== ENCOUNTER → 2019-01-01 | Outpatient (CLI) | payer MEDICARE ==
--- NOTE | 2019-01-15 01:58 | ECWPNPC ---
PATIENT NAME: GAL MUNOZ : 1935 GENDER: FEMALE VISIT DATE: 01/01/2019 DISCHARGE DATE: 01/01/19 1514 VISIT LOCKED DATE TIME: PHYSICIAN: SHERIE GAO MD RESOURCE: SHERIE GAO MD REASON FOR APPOINTMENT 1. POST PROC HISTORY OF PRESENT ILLNESS HISTORY OF PRESENT ILLNESS: PAIN THE PATIENT DESCRIBES THE PAIN... 83 YEAR OLD FEMALE PATIENT WITH A HISTORY OF CHRONIC LOW BACK AND THORACIC PAIN. THE PATIENT DESCRIBES THE PAIN ACHING, SHARP, STABBING, DAILY, AND INTERMITTENT WITH A PAIN SCORE OF 1-6/10 DEPENDING ON PHYSICAL ACTIVITY. THE PATIENT STATES HER BACK PAIN STARTED IN APRIL OF THIS YEAR AFTER SHE HAD TWISTED HER BACK. THE PATIENT SAYS HER PAIN INCREASES WITH ACTIVITIES SUCH BENDING AND WALKING, AND NEEDS TO TAKE BREAKS OFTEN. THE PATIENT RECEIVED A BILATERAL LUMBAR THERAPEUTIC FACET BLOCK ON 11/25/2018, WHICH SHE SAYS IS HELPING WITH HER PAIN. THE PATIENT IS USING TRAMADOL 2-3 TABLETS DAILY AND ONE SOMA AT NIGHT THAT SHE SAYS IS HELPING WITH HER PAIN AND SLEEP. PATIENT DENIES UNEXPLAINABLE WEIGHT LOSS, FEVER, CHILLS, NEW CHANGES ON HER URINARY OR BOWEL CONTROL. FALL RISK SCREENING: SCREENING :NO FALLS REPORTED IN THE LAST YEAR CURRENT MEDICATIONS TAKING WARFARIN SODIUM 4 MG TABLET 5 DAYS A WEEK AND 2 MG 2 DAYS A WEEK ORALLY ONCE A DAY, NOTES: 11/19/18 1900 TAKING METOPROLOL TARTRATE 50 MG TABLET 1 TABLET WITH FOOD ORALLY TWICE A DAY, NOTES: 11/25/18 08 TAKING LEVOTHYROXINE SODIUM 100 MCG TABLET 1 TABLET ON AN EMPTY STOMACH IN THE MORNING ORALLY ONCE A DAY, NOTES: 11/25/18 08 TAKING OMEPRAZOLE 40 MG CAPSULE DELAYED RELEASE 1 CAPSULE ORALLY ONCE A DAY, NOTES: 11/25/18 08 TAKING COLACE 100 MG CAPSULE 1 CAPSULE NEEDED ORALLY BID, NOTES: 11/22/18 TAKING VITAMIN C 500 MG TABLET 1 TABLET ORALLY ONCE A DAY, NOTES: 11/24/18 0800 TAKING CARISOPRODOL 350 MG TABLET 1 TABLET NEEDED ORALLY FOR SPASMS AND PAIN AT BEDTIME, NOTES: 11/24/18 TAKING TRAMADOL HCL 50 MG TABLET 1 TABLET NEEDED ORALLY ONCE A DAY NOT-TAKING OXYCODONE HCL 5 MG TABLET 1 TABLET NEEDED ORALLY EVERY 6 HRS PRN MDD4, NOTES: 11/24/18 2100 NOT-TAKING VENTOLIN HFA 108 (90 BASE) MCG/ACT AEROSOL SOLUTION 2 PUFFS NEEDED INHALATION EVERY 4 HRS NEEDED, NOTES: NONE RECENTLY MEDICATION LIST REVIEWED AND RECONCILED WITH THE PATIENT PAST MEDICAL HISTORY HTN PAROXYSMAL A. FIB. 11/28/2015 TACHYCARDIA TO 150BPM, DR. SAHNI DID FIND PVC'S ON EKG, 2004 S/P ABLATION C DR. 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 LORENZ 11/2014 GALBLADDER COLIC, STONE RECTAL BLEED 01/31, COLON POLYP ON COLONOSCOPY NAFLD C ELEVATED LFTS ASYMPTOMATIC 06/2015 C OF HEAD, 09/2015 MRI BOTH C SMALL VESS. DIS. 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 PAIN - SIDE EFFECTS SURGICAL HISTORY PARTIAL HYSTERECTOMY-[facility] 1983 L BREAST LUMPECTOMY-[facility] 1991 HEART ABLATION-JOSEF 2003 B CATARACT [id number]. SANNI 2011 TONSILLECTOMY AGE 9 FAMILY HISTORY FATHER: 72 YRS MOTHER: 89 YRS DAUGHTER(S): ALIVE, ARTHRITIS CROHNS 2 SON(S) , 1 DAUGHTER(S) . FATHER-ANEURYSM, STROKE, ?HTN, ?HL; WAS A SMOKER QUIT C CVA AGE 61\\\\\\\\\\\\\\\\\\\\\\\\\\\\\\\\\\\\\\\\\\\\\\\\\\\\\\\\\\\\\\\ NMOTHER-HEART DIS., A. FIB.\\\\\\\\\\\\\\\\N. SOCIAL HISTORY GENERAL: TOBACCO USE ARE YOU A:NONSMOKER OTHERS AT HOME: LIVES ALONG. EDUCATION LEVEL OF EDUCATION:FINISHED COLLEGE DIET: REGULAR. LANGUAGE LANGUAGES SPOKEN:[place] CITIZEN DOMESTIC VIOLENCE DO YOU FEEL SAFE IN YOUR ENVIRONMENT?YES RECREATIONAL DRUG USE DRUG USE?NO NONE EXERCISE: WALKS. LEARNING BARRIERS / SPECIAL NEEDS BARRIERS TO LEARNING?NO HEARING IMPAIRED?NO VISION IMPAIRED?YES COGNITIVELY IMPAIRED?NO :CORRECTIVE LENSES READING GLASSES READINESS TO LEARN?YES LEARNING PREFERENCES?NO LEARNING CAPABILITIES PRESENT?YES EMOTIONAL BARRIERS?NO SPECIAL DEVICES?YES HAS A WALKER AND CANE FOR SAFETY NOT USING CHIEF SCIENCE OFFICER NEEDED?NO PAIN CLINIC PFS, CLERGY, PUBLIC HEALTH REFERRALS WAS THE PROVIDER NOTIFIED OF ANY PERTINENT INFO?YES HAS THE PATIENT BEEN EDUCATED REGARDING HIS/HER PLAN OF CARE?YES HAS THE PATIENT BEEN EDUCATED REGARDING PAIN, THE RISK FOR PAIN, THE IMPORTANCE OF EFFECTIVE PAIN MANAGEMENT, AND THE PAIN ASSESSMENT PROCESS?YES LATEX QUESTIONNAIRE LATEX ALLERGY : HAVE YOU EVER DEVELOPED ANY TYPE OF REACTION AFTER HANDLING LATEX PRODUCTS SUCH RUBBER GLOVES, CONDOMS, DIAPHRAGMS, BALLOONS, SOCKS, OR UNDERWEAR?NO LATEX ALLERGY : HAVE YOU EVER DEVELOPED ANY TYPE OF REACTION DURING OR AFTER DENTAL APPOINTMENT, VAGINAL/RECTAL EXAMINATION, SURGICAL PROCEDURE, OR ANY OTHER EXPOSURE?NO DATE ASKED : 11/18/2018 LATEX RISK : HAVE YOU EVER HAD ANY DIFFICULTY BREATHING OR HIVES AFTER EATING OR HANDLING ANY FRUITS, OR VEGETABLES; SUCH KIWI, BANANAS, STONE FRUITS, OR CHESTNUTSNO LATEX RISK : DO YOU HAVE A PREVIOUS PERSONAL HISTORY OF MORE THAN NINE SURGERIES, SPINA BIFIDA, OR REPEATED CATHERIZATIONS? NO LATEX RISK : ARE YOU FREQUENTLY EXPOSED TO LATEX PRODUCTS IN YOUR OCCUPATION?NO CAFFEINE CAFFEINE USE?YES USUALLY DRINKJS DECAF..DOES HAVE A CUP OCCASIONAL ADVANCE DIRECTIVE ADVANCE DIRECTIVE DISCUSSED WITH PATIENT:YES HCP SON GRABIEL MUNOZ [phone] [employer] [id number] PRESBYTERIAN MARITAL STATUS: . ALCOHOL SCREENING DID YOU HAVE A DRINK CONTAINING ALCOHOL IN THE PAST YEAR?YES HOW MANY DRINKS DID YOU HAVE ON A TYPICAL DAY WHEN YOU WERE DRINKING IN THE PAST YEAR?1 OR 2 (0 POINTS) HOW OFTEN DID YOU HAVE A DRINK CONTAINING ALCOHOL IN THE PAST YEAR?TWO TO FOUR TIMES A MONTH (2 POINTS) POINTS2 INTERPRETATIONNEGATIVE OCCUPATION: RETIRED. 07/23/18 REVIEWED WITH PT. AD07/29/18 REVIEWED WITH PT LASREVIEWED WITH PATIENT 08/24/18 1440 JS5/8/19 REVIEWED WITH PT. AD/1718 REVIEWED WITH PT. AD01/01/19 REVIEWED WITH PATIENT LAS11/25/18 REVIEWED WITH PT LAS. HOSPITALIZATION/MAJOR DIAGNOSTIC PROCEDURE ABOVE CHILD REVIEW OF SYSTEMS REVIEWED BY: PROVIDER: SHERIE GAO MD . CONSTITUTIONAL: ANY CHANGE IN YOUR MEDICAL CONDITION? NO . CHILLS NO . FEVER NO . INFECTION: DO YOU HAVE NEW INFECTIONS? NO . DO YOU HAVE HISTORY OF MRSA? NO . MUSCULOSKELETAL: ANY NEW PATTERNS OF PAIN OR NUMBNESS? PT REPORTS INCREASED PAIN WITH ANY ACTIVITY. SHE HAD BILATERAL LUMBAR FACET BLOCKS DONE 11/25/18, WITH GOOD RESULTS FOR SEVERAL WEEKS, NOW PAIN IS RETURNING . GASTROENTEROLOGY: ANY NEW CHANGE IN BOWEL CONTROL? NO . GENITOURINARY: ANY NEW CHANGE IN BLADDER CONTROL? NO . IS THERE A CHANCE YOU COULD BE ? NO . HEMATOLOGY/LYMPH: DO YOU TAKE ANY BLOOD THINNERS? (FOR EXAMPLE- COUMADIN, PLAVIX, AGGRENOX, PLATEL, PRADAXA, OR XARELTO) YES . WHEN WAS YOUR LAST DOSE? DATE: TIME: . NEUROLOGY: HAVE YOU FALLEN IN THE PAST 12 MONTHS? NO . ANY NEW EXTREMITY NUMBNESS OR WEAKNESS? NO . CARDIOLOGY: DO YOU HAVE A PACEMAKER OR DEFIBRILLATOR? NO . RESPIRATORY: HAVE YOU BEEN SICK IN THE PAST WEEK? NO . FEVER NO . FLU LIKE SYMPTOMS? NO . COUGH NO . INTEGUMENTARY: DO YOU HAVE ANY RASHES OR OPEN SORES? NO . ALLERGIC/IMMUNO: ARE YOU ALLERGIC TO IV DYE? YES . ANY NEW ALLERGIES? NO . PSYCHIATRIC: DO YOU HAVE THOUGHTS OF HURTING YOURSELF OR SOMEONE ELSE? NO . ARE YOU ABUSED, NEGLECTED, OR IN AN UNSAFE ENVIRONMENT? NO . ENDOCRINOLOGY: ARE YOU DIABETIC? NO . OTHER: DO YOU NEED ANY PRESCRIPTIONS? YES . IF YES, PLEASE LIST: ____SOMA . ANY NEW PROBLEMS WITH YOUR MEDICATIONS? NO . WHEN DID YOU LAST EAT? ____ . WHEN DID YOU LAST DRINK? ____ . WHAT DID YOU LAST DRINK? ____ . NAME OF PERSON DRIVING YOU HOME? ____ . DO YOU HAVE ANY OTHER QUESTIONS OR CONCERNS YES PT IS WONDERING IF PHYSICAL THERAPY MIGHT HELP HER. . VITAL SIGNS WT 139 LBS, HT 68 IN, BMI 21.13 INDEX, BP 193/84 MM HG, REPEAT BP 162/80 MANUAL, HR 65 /MIN, RR 16 /MIN, TEMP 96.6 F, OXYGEN SAT % 98%, SAFE IN ENV? (Y/N) YES, NA INITIALS AW 1324, REVIEWED BY: ALBARO. EXAMINATION GENERAL EXAMINATION: PATIENT IS ALERT O X 3 AND COOPERATIVE. TENDERNESS IN THE THORACOLUMBAR AREA. ANTALGIC WALK, ISSUES WITH BALANCE. PATIENT IS USING A WALKER. MRI OF THE THORACIC SPINE DONE ON 11/07/2018 SHOWS FACET ARTHROPATHY CHANGES AND COMPRESSION FRACTURES. MRI OF THE LUMBAR SPINE DONE ON 05/07/2018 SHOWS FACET ARTHROPATHY CHANGES. 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 MUNOZ'S PAIN MANAGEMENT CASE. THE PATIENT IS DOING WELL SINCE HER BILATERAL LUMBAR THERAPEUTIC FACET BLOCK DONE ON 11/25/2018 AND WE AGREED TO HOLD OFF ON INJECTION THERAPY FOR NOW. THE PATIENT IS USING UP TO 3 TABLETS DAILY OF TRAMADOL, AND HAS ENOUGH OF THE PRESCRIPTION SO NOW REFILL IS NEEDED TODAY. I DISCUSSED THE RISKS ASSOCIATED WITH THE USE OF OPIOIDS INCLUDING THE POSSIBLE DEVELOPMENT OF ADDICTION OR TOLERANCE AND THE PATIENT VERBALIZED UNDERSTANDING. I DISCUSSED WITH THE PATIENT ABOUT SWITCHING HER SOMA MEDICATION TO TIZANIDINE, AND THE PATIENT AGREES TO TRY. THEREFORE, I WILL START THE PATIENT ON TIZANIDINE 2 MG 1-2 TABLETS EACH NIGHT TO HELP WITH HER PAIN AND SLEEP. THE PATIENT WAS REMINDED TO BRING HER MEDICATION IN THEIR ORIGINAL BOTTLES TO EACH VISIT. I AM REQUESTING FOR THE PATIENT TO START PHYSICAL THERAPY TO HELP WITH HER THORACIC AND LOW BACK PAIN. THE PATIENT IS ADVISED TO FOLLOW UP WITH HER PRIMARY CARE REGARDING SOME CALCIUM REDUCTION LEVELS AND THE PATIENT UNDERSTANDS AND AGREES. URINE TOXICOLOGY WILL BE PERFORMED TODAY. I WAS WITH THE PATIENT FOR MORE THAN 30 MINUTES AND MORE THAN HALF OF THAT TIME WAS SPENT DISCUSSING MEDICATION MANAGEMENT AND ADDRESSING ANY QUESTIONS. THE PATIENT WILL FOLLOW UP WITH THE NURSE PRACTITIONER IN 1 MONTH. INSTRUCTIONS WERE GIVEN, QUESTIONS WERE ANSWERED, PATIENT REPORTS UNDERSTANDING AND AGREES WITH THE PLAN. I, RAMAN PEGUERO, DOCUMENTED THE ABOVE INFORMATION ACTING A SCRIBE FOR DR. GAO. I HAVE REVIEWED THE ABOVE DOCUMENT, WRITTEN BY RAMAN PEGUERO SCRIBE AND I VERIFY THAT IT IS ACCURATE. . 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 IT IS NOT A COPY OF THE [employer] PROGRESS NOTE. IVYD
== END ==
LOC: M PAIN 13:15
PROVIDERS: ATTEND Anesthesiology
DX: M47.816 Spondylosis without myelopathy or radiculopathy, lumbar region (principal); M47.817 Spondylosis without myelopathy or radiculopathy, lumbosacral region; M47.814 Spondylosis without myelopathy or radiculopathy, thoracic region; M47.815 Spondylosis without myelopathy or radiculopathy, thoracolumbar region; M85.88 Other specified disorders of bone density and structure, other site; I10 Essential (primary) hypertension; I48.0 Paroxysmal atrial fibrillation; E03.9 Hypothyroidism, unspecified; H35.30 Unspecified macular degeneration; K75.81 Nonalcoholic steatohepatitis (NASH); M53.3 Sacrococcygeal disorders, not elsewhere classified; M50.30 Other cervical disc degeneration, unspecified cervical region; G62.9 Polyneuropathy, unspecified; Z79.01 Long term (current) use of anticoagulants; Z79.891 Long term (current) use of opiate analgesic; Z79.899 Other long term (current) drug therapy; Z88.0 Allergy status to penicillin; Z88.1 Allergy status to other antibiotic agents; Z88.8 Allergy status to other drugs, medicaments and biological substances; Z91.018 Allergy to other foods

== ENCOUNTER → 2019-02-03 | Outpatient (CLI) | payer MEDICARE ==
--- NOTE | 2019-02-23 03:28 | ECWPNPC ---
PATIENT NAME: GAL MUNOZ : 1935 GENDER: FEMALE VISIT DATE: 02/03/2019 DISCHARGE DATE: 02/03/19 1224 VISIT LOCKED DATE TIME: PHYSICIAN: BERNARDA GILL RESOURCE: BERNARDA GILL DISCLAIMER : THIS IS A VISIT SUMMARY EXTRACTED FROM THE [employer] CHART. IT IS NOT A COPY OF THE [employer] PROGRESS NOTE. MIKI
== END ==
LOC: M PAIN 11:30
PROVIDERS: ATTEND Nurse Practitioner Family
DX: M47.816 Spondylosis without myelopathy or radiculopathy, lumbar region (principal); M48.07 Spinal stenosis, lumbosacral region; G89.29 Other chronic pain; I10 Essential (primary) hypertension; E03.9 Hypothyroidism, unspecified; Z88.0 Allergy status to penicillin; Z88.1 Allergy status to other antibiotic agents; Z88.8 Allergy status to other drugs, medicaments and biological substances; Z91.02 Food additives allergy status; Z79.01 Long term (current) use of anticoagulants; Z79.899 Other long term (current) drug therapy

== ENCOUNTER → 2019-05-11 | Outpatient (REF) | payer MEDICARE | LOC: M LAB REF 16:43 | PROVIDERS: ATTEND Nurse Practitioner Adult Health | DX: L30.9 Dermatitis, unspecified (principal) ==

== ENCOUNTER → 2019-05-18 | Outpatient (CLI) | payer MEDICARE ==
--- NOTE | 2019-06-02 01:58 | ECWPNPC ---
PATIENT NAME: GAL MUNOZ : 1935 GENDER: FEMALE VISIT DATE: 05/18/2019 DISCHARGE DATE: 05/18/19 1200 VISIT LOCKED DATE TIME: PHYSICIAN: BERNARDA GILL RESOURCE: BERNARDA GILL REASON FOR APPOINTMENT 1. 3 MONTHS HISTORY OF PRESENT ILLNESS HISTORY OF PRESENT ILLNESS: HERE FOR F/U OF CHRONIC MID AND LBP.DOING VERY WELL TODAY.ATTENDING PT AND WALKING ON A REGULAR BASIS.REPORTING IMPROVED ACTIVITY TOLERANCE AND NO NEED FOR PAIN MEDICATION.RATING PAIN VAS 1-2/10. PAIN THE PATIENT DESCRIBES THE PAIN... FALL RISK SCREENING: SCREENING :NO FALLS REPORTED IN THE LAST YEAR CURRENT MEDICATIONS TAKING TRAMADOL HCL 50 MG TABLET 1 TABLET NEEDED ORALLY ONCE A DAY TAKING WARFARIN SODIUM 4 MG TABLET 5 DAYS A WEEK AND 2 MG 2 DAYS A WEEK ORALLY ONCE A DAY TAKING METOPROLOL TARTRATE 50 MG TABLET 1 TABLET WITH FOOD ORALLY TWICE A DAY TAKING LEVOTHYROXINE SODIUM 100 MCG TABLET 1 TABLET ON AN EMPTY STOMACH IN THE MORNING ORALLY ONCE A DAY TAKING OMEPRAZOLE 40 MG CAPSULE DELAYED RELEASE 1 CAPSULE ORALLY ONCE A DAY TAKING COLACE 100 MG CAPSULE 1 CAPSULE NEEDED ORALLY BID TAKING VITAMIN C 500 MG TABLET 1 TABLET ORALLY ONCE A DAY TAKING MIRTAZAPINE 15 MG TABLET 1 TABLET AT BEDTIME ORALLY ONCE A DAY TAKING TIZANIDINE HCL 2 MG TABLET 1 TABLET NEEDED ORALLY FOR SPASMS AND PAIN BEFORE BEDTIME MAY REPEAT IN 4 HRS MDD2 NOT-TAKING CARISOPRODOL 350 MG TABLET 1 TABLET NEEDED ORALLY FOR SPASMS AND PAIN AT BEDTIME NOT-TAKING OXYCODONE HCL 5 MG TABLET 1 TABLET NEEDED ORALLY EVERY 6 HRS PRN MDD4 NOT-TAKING VENTOLIN HFA 108 (90 BASE) MCG/ACT AEROSOL SOLUTION 2 PUFFS NEEDED INHALATION EVERY 4 HRS NEEDED MEDICATION LIST REVIEWED AND RECONCILED WITH THE PATIENT PAST MEDICAL HISTORY HTN PAROXYSMAL A. FIB. 11/28/2015 TACHYCARDIA TO 150BPM, DR. SAHNI DID FIND PVC'S ON EKG, 2003 S/P ABLATION C DR. 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 LORENZ 11/2014 GALBLADDER COLIC, STONE RECTAL BLEED 01/31, COLON POLYP ON COLONOSCOPY NAFLD C ELEVATED LFTS ASYMPTOMATIC 06/2015 C OF HEAD, 09/2015 MRI BOTH C SMALL VESS. DIS. 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 PAIN - SIDE EFFECTS SURGICAL HISTORY PARTIAL HYSTERECTOMY-[facility] 1983 L BREAST LUMPECTOMY-[facility] 1991 HEART ABLATION-JOSEF 2003 B CATARACT [id number]. SANNI 2011 TONSILLECTOMY AGE 9 FAMILY HISTORY FATHER: 72 YRS MOTHER: 89 YRS DAUGHTER(S): ALIVE, ARTHRITIS CROHNS 2 SON(S) , 1 DAUGHTER(S) . FATHER-ANEURYSM, STROKE, ?HTN, ?HL; WAS A SMOKER QUIT C CVA AGE 61\\\\\\\\\\\\\\\\\\\\\\\\\\\\\\\\\\\\\\\\\\\\\\\\\\\\\\\\\\\\\\\ NMOTHER-HEART DIS., A. FIB.\\\\\\\\\\\\\\\\N. SOCIAL HISTORY GENERAL: TOBACCO USE ARE YOU A:NONSMOKER OTHERS AT HOME: LIVES ALONG. EDUCATION LEVEL OF EDUCATION:FINISHED COLLEGE DIET: REGULAR. LANGUAGE LANGUAGES SPOKEN:[place] DOMESTIC VIOLENCE DO YOU FEEL SAFE IN YOUR ENVIRONMENT?YES RECREATIONAL DRUG USE DRUG USE?NO NONE EXERCISE: WALKS. LEARNING BARRIERS / SPECIAL NEEDS BARRIERS TO LEARNING?NO HEARING IMPAIRED?NO VISION IMPAIRED?YES COGNITIVELY IMPAIRED?NO :CORRECTIVE LENSES READING GLASSES READINESS TO LEARN?YES LEARNING PREFERENCES?NO LEARNING CAPABILITIES PRESENT?YES EMOTIONAL BARRIERS?NO SPECIAL DEVICES?YES HAS A WALKER AND CANE FOR SAFETY NOT USING INTERIOR DESIGN PROFESSIONAL NEEDED?NO PAIN CLINIC PFS, CLERGY, PUBLIC HEALTH REFERRALS WAS THE PROVIDER NOTIFIED OF ANY PERTINENT INFO?YES HAS THE PATIENT BEEN EDUCATED REGARDING HIS/HER PLAN OF CARE?YES HAS THE PATIENT BEEN EDUCATED REGARDING PAIN, THE RISK FOR PAIN, THE IMPORTANCE OF EFFECTIVE PAIN MANAGEMENT, AND THE PAIN ASSESSMENT PROCESS?YES LATEX QUESTIONNAIRE LATEX ALLERGY : HAVE YOU EVER DEVELOPED ANY TYPE OF REACTION AFTER HANDLING LATEX PRODUCTS SUCH RUBBER GLOVES, CONDOMS, DIAPHRAGMS, BALLOONS, SOCKS, OR UNDERWEAR?NO LATEX ALLERGY : HAVE YOU EVER DEVELOPED ANY TYPE OF REACTION DURING OR AFTER DENTAL APPOINTMENT, VAGINAL/RECTAL EXAMINATION, SURGICAL PROCEDURE, OR ANY OTHER EXPOSURE?NO LATEX RISK : HAVE YOU EVER HAD ANY DIFFICULTY BREATHING OR HIVES AFTER EATING OR HANDLING ANY FRUITS, OR VEGETABLES; SUCH KIWI, BANANAS, STONE FRUITS, OR CHESTNUTSNO LATEX RISK : DO YOU HAVE A PREVIOUS PERSONAL HISTORY OF MORE THAN NINE SURGERIES, SPINA BIFIDA, OR REPEATED CATHERIZATIONS? NO LATEX RISK : ARE YOU FREQUENTLY EXPOSED TO LATEX PRODUCTS IN YOUR OCCUPATION?NO DATE ASKED : 11/18/2018 CAFFEINE CAFFEINE USE?YES USUALLY DRINKJS DECAF..DOES HAVE A CUP OCCASIONAL ADVANCE DIRECTIVE ADVANCE DIRECTIVE DISCUSSED WITH PATIENT:YES HCP SON GRABIEL MUNOZ [phone] HINDU [id number] PRESBYTER[facility] MARITAL STATUS: . ALCOHOL SCREENING DID YOU HAVE A DRINK CONTAINING ALCOHOL IN THE PAST YEAR?YES HOW MANY DRINKS DID YOU HAVE ON A TYPICAL DAY WHEN YOU WERE DRINKING IN THE PAST YEAR?1 OR 2 (0 POINTS) HOW OFTEN DID YOU HAVE A DRINK CONTAINING ALCOHOL IN THE PAST YEAR?TWO TO FOUR TIMES A MONTH (2 POINTS) POINTS2 INTERPRETATIONNEGATIVE OCCUPATION: RETIRED. 07/23/18 REVIEWED WITH PT. AD07/29/18 REVIEWED WITH PT LASREVIEWED WITH PATIENT 08/24/18 1440 JS09/02/18 REVIEWED WITH PT. RAVEN10/1718 REVIEWED WITH PT. AD01/01/19 REVIEWED WITH PATIENT 11/25/18 REVIEWED WITH PT LASREVIEWED WITH PATIENT 02/03/19 1158 NLJ. HOSPITALIZATION/MAJOR DIAGNOSTIC PROCEDURE ABOVE CHILD REVIEW OF SYSTEMS REVIEWED BY: PROVIDER: BERNARDA CARBAJAL . CONSTITUTIONAL: ANY CHANGE IN YOUR MEDICAL CONDITION? NO . CHILLS NO . FEVER NO . INFECTION: DO YOU HAVE NEW INFECTIONS? NO . DO YOU HAVE HISTORY OF MRSA? NO . MUSCULOSKELETAL: ANY NEW PATTERNS OF PAIN OR NUMBNESS? NO . GASTROENTEROLOGY: ANY NEW CHANGE IN BOWEL CONTROL? NO . GENITOURINARY: ANY NEW CHANGE IN BLADDER CONTROL? NO . IS THERE A CHANCE YOU COULD BE ? NO . HEMATOLOGY/LYMPH: DO YOU TAKE ANY BLOOD THINNERS? (FOR EXAMPLE- COUMADIN, PLAVIX, AGGRENOX, PLATEL, PRADAXA, OR XARELTO) YES - WARFARIN . WHEN WAS YOUR LAST DOSE? DATE: TIME: . NEUROLOGY: HAVE YOU FALLEN IN THE PAST 12 MONTHS? NO . ANY NEW EXTREMITY NUMBNESS OR WEAKNESS? NO . CARDIOLOGY: DO YOU HAVE A PACEMAKER OR DEFIBRILLATOR? NO . RESPIRATORY: HAVE YOU BEEN SICK IN THE PAST WEEK? NO . FEVER NO . FLU LIKE SYMPTOMS? NO . COUGH NO . INTEGUMENTARY: DO YOU HAVE ANY RASHES OR OPEN SORES? NO . ALLERGIC/IMMUNO: ARE YOU ALLERGIC TO IV DYE? YES . ANY NEW ALLERGIES? NO . PSYCHIATRIC: DO YOU HAVE THOUGHTS OF HURTING YOURSELF OR SOMEONE ELSE? NO . ARE YOU ABUSED, NEGLECTED, OR IN AN UNSAFE ENVIRONMENT? NO . ENDOCRINOLOGY: ARE YOU DIABETIC? NO . OTHER: DO YOU NEED ANY PRESCRIPTIONS? NO . IF YES, PLEASE LIST: ____ . ANY NEW PROBLEMS WITH YOUR MEDICATIONS? NO . WHEN DID YOU LAST EAT? ____ . WHEN DID YOU LAST DRINK? ____ . WHAT DID YOU LAST DRINK? ____ . NAME OF PERSON DRIVING YOU HOME? ____ . DO YOU HAVE ANY OTHER QUESTIONS OR CONCERNS NO . VITAL SIGNS WT 148.8 LBS, HT 68 IN, BMI 22.62 INDEX, BP 185/82 MM HG, HR 61 /MIN, RR 16 /MIN, TEMP 97.3 F, OXYGEN SAT % 99, REVIEWED BY: YANNI. EXAMINATION GENERAL EXAMINATION: GENERAL AWAKE,ALERT ,PLEASANT . PSYCH AFFECT NORMAL . LUNGS: LUNG ARMAS ARE CLEAR TO AUSCULTATION BILATERALLY. GOOD MOVEMENT OF AIR . HEART: S1, S2 IN A REGULAR RATE AND RHYTHM. NO SIGNIFICANT MURMURS, RUBS OR GALLOPS NOTED . ASSESSMENTS SPONDYLOSIS OF LUMBAR REGION WITHOUT MYELOPATHY OR RADICULOPATHY - M47.816 (PRIMARY) LUMBOSACRAL SPINAL STENOSIS - M48.07 TREATMENT SPONDYLOSIS OF LUMBAR REGION WITHOUT MYELOPATHY OR RADICULOPATHY NOTES: CONTINUE HOME EXERCISE AND STRETCHING. PROCEDURE CODES FA211 ESTABILISHED PATIENT [facility] CHARGE DISPOSITION & COMMUNICATION FOLLOW UP PATIENT WILL CALL IF NECESSARY ELECTRONICALLY SIGNED BY RAVEN JOHANSEN ON 06/01/2019 AT 04:31 PM EST DISCLAIMER : THIS IS A VISIT SUMMARY EXTRACTED FROM THE [employer] CHART. IT IS NOT A COPY OF THE [employer] PROGRESS NOTE. MIKI
== END ==
LOC: M PAIN 10:45
PROVIDERS: ATTEND Nurse Practitioner Family
DX: M47.816 Spondylosis without myelopathy or radiculopathy, lumbar region (principal); M48.07 Spinal stenosis, lumbosacral region; G89.29 Other chronic pain; I10 Essential (primary) hypertension; E03.9 Hypothyroidism, unspecified; Z88.0 Allergy status to penicillin; Z88.1 Allergy status to other antibiotic agents; Z88.8 Allergy status to other drugs, medicaments and biological substances; Z91.02 Food additives allergy status; Z79.01 Long term (current) use of anticoagulants; Z79.899 Other long term (current) drug therapy

== ENCOUNTER → 2019-05-27 | Outpatient (REF) | payer MEDICARE | LOC: M LAB REF 16:43 | PROVIDERS: ATTEND Nurse Practitioner Adult Health | DX: E87.1 Hypo-osmolality and hyponatremia (principal); I10 Essential (primary) hypertension ==

== ENCOUNTER 2020-01-30 20:36 | Emergency (ER) | payer MEDICARE ==
[~2020-01-30] VITALS: Ht 167.6 cm; Wt 69.5 kg
[~2020-01-30 20:36] MED LIST changes: -COUM1TAB14 PO; +COUM4TAB8 PO
[2020-01-30] MEDS ORDERED: OMEP-221 (20:59)
[2020-01-30] MEDS ORDERED: ALLE1TAB23 (20:59)
[2020-01-30] MEDS ORDERED: PRED10TA2 (20:59)
[2020-01-30] MEDS ORDERED: HYDR-3363 (20:59)
[2020-01-30 21:59] LABS: BASO % 0.6 % (0.0-1.0); EOS # 0.2 10^3/uL (0.0-0.5); EOS % 3.1 % (0.0-3.0); HEMATOCRIT 40.9 % (36.0-47.0); HEMOGLOBIN 13.6 g/dl (12.0-15.5); LYMPH # 2.2 10^3/uL (1.5-5.0); LYMPH % 34.7 % (24.0-44.0); MEAN CORPUSCULAR HGB CONC 33.3 g/dl (32.0-36.5); MEAN CORPUSCULAR VOLUME 90.3 fl (80.0-96.0); MONO # 0.7 10^3/uL (0.0-0.8); MONO % 10.3 % (0.0-5.0); NEUTROPHILS # 3.3 10^3/uL (1.5-8.5); PLATELET COUNT, AUTOMATED 127 10^3/uL (150-450); RED BLOOD COUNT 4.53 10^6/uL (4.00-5.40); WHITE BLOOD COUNT 6.4 10^3/uL (4.0-10.0)
[2020-01-30] MEDS ORDERED: METOPROLOL TART 25 MG TABLET PO ONE (22:00)
[2020-01-30] MEDS ORDERED: ASPIRIN 81 MG CHEW TABLET PO ONE (22:00)
[2020-01-30 22:02] LABS: INR 2.67
[2020-01-30 22:14] LABS: ALBUMIN 3.3 GM/DL (3.2-5.2); ALT/SGPT 46 U/L (12-78); BILIRUBIN,DIRECT 0.1 MG/DL (0.0-0.2); BILIRUBIN,TOTAL 0.4 MG/DL (0.2-1.0); BLOOD UREA NITROGEN 9 MG/DL (7-18); CALCIUM LEVEL 8.2 MG/DL (8.8-10.2); CARBON DIOXIDE LEVEL 28 MEQ/L (21-32); CHLORIDE LEVEL 100 MEQ/L (98-107); CK-MB VALUE MASS 2.6 NG/ML (<3.6); CPK CREATINE PHOSPHOKINASE 60 U/L (26-192); CREATININE FOR GFR 0.57 MG/DL (0.55-1.30); GLOMERULAR FILTRATION RATE > 60.0 (>32); GLUCOSE, FASTING 90 MG/DL (70-100); LIPASE 162 U/L (73-393); MB/CK RELATIVE INDEX 4.33 (< OR =4); POTASSIUM SERUM 4.1 MEQ/L (3.5-5.1); SODIUM LEVEL 134 MEQ/L (136-145); TOTAL PROTEIN 6.4 GM/DL (6.4-8.2); TROPONIN I < 0.02 NG/ML (< 0.10)
--- NOTE | 2020-01-30 22:20 | REPVR ---
PROCEDURE INFORMATION: Exam: XR Chest, 1 View Exam date and time: 01/30/2020 10:14 PM Age: 84 years old Clinical indication: Chest pain; Type not specified TECHNIQUE: Imaging protocol: XR of the chest Views: 1 view. COMPARISON: CR Chest, 1 view 07/11/2015 11:50 AM FINDINGS: Lungs: Unremarkable. No consolidation. Pleural space: Unremarkable. No pleural effusion. No pneumothorax. Heart/Mediastinum: Unremarkable. No cardiomegaly. Vasculature: Uncoiled thoracic aorta. Bones/joints: Osteoporosis. IMPRESSION: No acute findings. Electronically signed by: Darnell Maloney On 01/30/2020 22:19:36 PM
[2020-01-30] MEDS: METOPROLOL 5 MG/5 ML VIAL IV SCH ×3 (23:11→23:25)
[2020-01-30 23:25] VITALS: BP 180/80
[2020-01-30] MEDS ORDERED: ACETAMINOPHEN 325 MG TAB PO ONE (23:45)
[2020-01-31] VITALS: BP 158/60
--- NOTE | 2020-01-31 06:28 | ECGEPIP ---
[facility] - ED Test Date: 2020-01-30 Pat Name: GAL MUNOZ Department: Room: - Gender: Female Solution Advisor: RAKAN : 1935 Requested By: MARILUZ Rodriguez Order Number: [id number] Reading MD: Freddy Pacheco Measurements Intervals [place] Rate: 68 P: 89 CT: 209 QRS: 1 QRSD: 97 T: 31 QT: 430 QTc: 458 Interpretive Statements SINUS RHYTHM PRIOR INFERIOR INFARCT, NEW COMPERD TO 07/09/18 POOR R WAVE PROGRESSION Electronically Signed on 01-31-2020 6:27:43 EDT by Freddy Pacheco
== END 2020-01-31 00:41 | disposition home or self-care (01) ==
LOC: M ED 20:36
DX: I10 Essential (primary) hypertension (principal); J45.909 Unspecified asthma, uncomplicated; K21.9 Gastro-esophageal reflux disease without esophagitis; E07.9 Disorder of thyroid, unspecified; Z79.01 Long term (current) use of anticoagulants; Z79.899 Other long term (current) drug therapy; Z88.0 Allergy status to penicillin; Z88.2 Allergy status to sulfonamides; Z88.8 Allergy status to other drugs, medicaments and biological substances; Z91.89 Other specified personal risk factors, not elsewhere classified

== ENCOUNTER → 2020-03-03 | Outpatient (CLI) | payer MEDICARE ==
[~2020-03-03] MED LIST changes: +ALLE1TAB23; +HYDR-3363; +OMEP-221; +PRED10TA2
--- NOTE | 2020-03-06 23:11 | ECWPNPC ---
PATIENT NAME: GAL MUNOZ : 1935 GENDER: FEMALE VISIT DATE: 03/03/2020 DISCHARGE DATE: 03/03/20 1144 VISIT LOCKED DATE TIME: PHYSICIAN: BERNARDA GILL RESOURCE: BERNARDA GILL REASON FOR APPOINTMENT 1. F/U HISTORY OF PRESENT ILLNESS GENERAL: PATIENT RETURNS FOR FOLLOW-UP OF CHRONIC LOW BACK PAIN. IT HAS BEEN SEVERAL MONTHS SINCE HER LAST VISIT. WAS DOING VERY WELL AFTER LUMBAR FACET BLOCK DONE HERE APPROXIMATELY ONE YEAR AGO BUT PAIN HAS BEGUN TO RETURN. PAIN IS LOCATED ACROSS HER LOWER BACK. USES TRAMADOL INFREQUENTLY FOR SEVERE PAIN EPISODES WITH GOOD RESULTS. STATES SHE DID NOT HAVE TO TAKE ANY PAIN MEDICATION UNTIL RECENTLY. REVIEWED MRI OF THE LS-SPINE AND DISCUSSED TREATMENT PLAN. -. FALL RISK SCREENING: SCREENING :NO FALLS REPORTED IN THE LAST YEAR PAIN SCREENING: PATIENT HAS A COMPLAINT OF ACUTE OR CHRONIC PAIN :YES LOCATION OF PAIN:MID BACK INTENSITY OF PAIN (SCALE OF 1 TO 10):3 WHAT DOES YOUR PAIN FEEL LIKE:ACHING, CONTINOUS DURATION:CONTINOUS PAIN IS INCREASED BY:ACTIVITIES PAIN IS DECREASED BY:OTHERS HEATING PAD NURSING NOTE: -. PAIN CENTER INTAKE QUESTIONS: DO YOU HAVE A HISTORY OF MRSA? :NO DO YOU TAKE A BLOOD THINNERS? :YES WARAFARIN DAILY DO YOU HAVE ANY BLEEDING DISORDERS? :NO ANY NEW NUMBNESS OR WEAKNESS IN YOUR LEGS OR ARMS? :NO ANY PACEMAKER,DEFIBRILLATOR, OR DORSAL COLUMN STIMULATOR? :NO DO YOU HAVE ANY RASHES OR OPEN SORES? :NO ARE YOU ALLERGIC TO IV DYE? :YES QUESTIONABLE ALLERGY ARE YOU DIABETIC? :NO ANY NEW PROBLEMS WITH YOUR MEDICATIONS? :NO HAVE YOU RECEIVED A VACCINE IN THE PAST 30 DAYS? :NO DO YOU PLAN TO RECEIVE A VACCINE IN THE NEXT 21 DAYS? :NO DO YOU NEED ANY PRESCRIPTION? :YES HAS QUESTIONS ABOUT HER TRAMADOL DO YOU TAKE ANY IMMUNOSUPPRESSIVE MEDICATIONS? :NO ANY HISTORY OF SEIZURES? :NO ANY HISTORY OF CARDIAC ISSUES OR EVENTS? :YES HAS HAD A CARDIAC ABLATION- TAKES COUMADIN DAILY DO YOU HAVE SLEEP APNEA? :NO ANY RECENT HEAD INJURY? :NO DO YOU HAVE ANY NEW INFECTIONS? :NO IS THERE A CHANCE YOU COULD BE ? :NO ARE YOU BREAST FEEDING? :NO DO YOU HAVE ANY OTHER QUESTIONS OR CONCERNS? : PATIENT STATES SHE HAS HAD INCREASED MID BACK PAIN AND WOULD LIKE TO SPEAK WITH YOU ABOUT HER TRAMADOL CURRENT MEDICATIONS TAKING TRAMADOL HCL 50 MG TABLET 1 TABLET NEEDED ORALLY ONCE A DAY TAKING WARFARIN SODIUM 4 MG TABLET 5 DAYS A WEEK AND 2 MG 2 DAYS A WEEK ORALLY ONCE A DAY TAKING METOPROLOL TARTRATE 50 MG TABLET 3 TABS DAILY ORALLY TWICE A DAY TAKING LEVOTHYROXINE SODIUM 100 MCG TABLET 1 TABLET ON AN EMPTY STOMACH IN THE MORNING ORALLY ONCE A DAY TAKING OMEPRAZOLE 40 MG CAPSULE DELAYED RELEASE 1 CAPSULE ORALLY ONCE A DAY TAKING VITAMIN C 500 MG TABLET 1 TABLET ORALLY BID TAKING FEXOFENADINE HCL 180 MG TABLET 1 TABLET ORALLY ONCE A DAY TAKING HYDROXYZINE HCL 25 MG TABLET 1 TABLET NEEDED ORALLY EVERY 8 HRS TAKING LEVOCETIRIZINE DIHYDROCHLORIDE _ TABLET 1 TABLET IN THE EVENING ORALLY 50 MG ONCE A DAY TAKING VENTOLIN HFA 108 (90 BASE) MCG/ACT AEROSOL SOLUTION 1 PUFF NEEDED INHALATION EVERY 4 HRS NOT-TAKING COLACE 100 MG CAPSULE 1 CAPSULE NEEDED ORALLY BID NOT-TAKING MIRTAZAPINE 15 MG TABLET 1 TABLET AT BEDTIME ORALLY ONCE A DAY NOT-TAKING TIZANIDINE HCL 2 MG TABLET 1 TABLET NEEDED ORALLY FOR SPASMS AND PAIN BEFORE BEDTIME MAY REPEAT IN 4 HRS MDD2 NOT-TAKING CARISOPRODOL 350 MG TABLET 1 TABLET NEEDED ORALLY FOR SPASMS AND PAIN AT BEDTIME NOT-TAKING OXYCODONE HCL 5 MG TABLET 1 TABLET NEEDED ORALLY EVERY 6 HRS PRN MDD4 NOT-TAKING VENTOLIN HFA 108 (90 BASE) MCG/ACT AEROSOL SOLUTION 2 PUFFS NEEDED INHALATION EVERY 4 HRS NEEDED MEDICATION LIST REVIEWED AND RECONCILED WITH THE PATIENT PAST MEDICAL HISTORY HTN PAROXYSMAL A. FIB. 11/28/2015 TACHYCARDIA TO 150BPM, DR. SAHNI DID FIND PVC'S ON EKG, 2003 S/P ABLATION C DR. 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 LORENZ 11/2014 GALBLADDER COLIC, STONE RECTAL BLEED 01/31, COLON POLYP ON COLONOSCOPY NAFLD C ELEVATED LFTS ASYMPTOMATIC 06/2015 C OF HEAD, 09/2015 MRI BOTH C SMALL VESS. DIS. 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 LORDOSIS, NARROW EPIDURAL SPACE FORAMEN NARROEWD R C4-6, L C5-6 FREQUENT UTI'S GROUP HOME USE OF ANTICOAGULANT IDIOPATHIC PERIPHERAL NEUROPATHY ELEVATED LFTS SACROILIITIS ALLERGIES PENICILLIN (FOR ALLERGIES USE ONLY): HIVES - ALLERGY AUGMENTIN: RASH - ALLERGY LEVOFLOXACIN: RASH - ALLERGY AMBIEN: PASSED OUT - ALLERGY PREDNISONE: HYPER - SIDE EFFECTS THEOPHYLLINE: PASSED OUT - ALLERGY FOOD ADDITIVES: ASTHMA ATTACK - ALLERGY CIPRO: SEVERE ABD. PAIN - SIDE EFFECTS SURGICAL HISTORY PARTIAL HYSTERECTOMY-[facility] 1983 L BREAST LUMPECTOMY-[facility] 1991 HEART ABLATION-JOSEF 2003 B CATARACT [id number]. SANNI 2011 TONSILLECTOMY AGE 9 FAMILY HISTORY FATHER: 72 YRS MOTHER: 89 YRS DAUGHTER(S): ALIVE, ARTHRITIS CROHNS 2 SON(S) , 1 DAUGHTER(S) . FATHER-ANEURYSM, STROKE, ?HTN, ?HL; WAS A SMOKER QUIT C CVA AGE 61\\\\\\\\\\\\\\\\\\\\\\\\\\\\\\\\\\\\\\\\\\\\\\\\\\\\\\\\\\\\\\\ NMOTHER-HEART DIS., A. FIB.\\\\\\\\\\\\\\\\N. SOCIAL HISTORY GENERAL: TOBACCO USE ARE YOU A:NONSMOKER LATEX QUESTIONNAIRE LATEX ALLERGY : HAVE YOU EVER DEVELOPED ANY TYPE OF REACTION AFTER HANDLING LATEX PRODUCTS SUCH RUBBER GLOVES, CONDOMS, DIAPHRAGMS, BALLOONS, SOCKS, OR UNDERWEAR?NO LATEX ALLERGY : HAVE YOU EVER DEVELOPED ANY TYPE OF REACTION DURING OR AFTER DENTAL APPOINTMENT, VAGINAL/RECTAL EXAMINATION, SURGICAL PROCEDURE, OR ANY OTHER EXPOSURE?NO LATEX RISK : HAVE YOU EVER HAD ANY DIFFICULTY BREATHING OR HIVES AFTER EATING OR HANDLING ANY FRUITS, OR VEGETABLES; SUCH KIWI, BANANAS, STONE FRUITS, OR CHESTNUTSNO LATEX RISK : DO YOU HAVE A PREVIOUS PERSONAL HISTORY OF MORE THAN NINE SURGERIES, SPINA BIFIDA, OR REPEATED CATHERIZATIONS? NO LATEX RISK : ARE YOU FREQUENTLY EXPOSED TO LATEX PRODUCTS IN YOUR OCCUPATION?NO DATE ASKED : 03/03/2020 ALCOHOL SCREENING DID YOU HAVE A DRINK CONTAINING ALCOHOL IN THE PAST YEAR?YES HOW MANY DRINKS DID YOU HAVE ON A TYPICAL DAY WHEN YOU WERE DRINKING IN THE PAST YEAR?1 OR 2 (0 POINTS) HOW OFTEN DID YOU HAVE A DRINK CONTAINING ALCOHOL IN THE PAST YEAR?TWO TO FOUR TIMES A MONTH (2 POINTS) POINTS2 INTERPRETATIONNEGATIVE RECREATIONAL DRUG USE DRUG USE?NO NONE CAFFEINE CAFFEINE USE?YES USUALLY DRINKJS DECAF..DOES HAVE A CUP OCCASIONAL JUDAISM [id number] [facility] L[facility] LANGUAGES SPOKEN:ALBANIAN EDUCATION LEVEL OF EDUCATION:FINISHED COLLEGE LEARNING BARRIERS / SPECIAL NEEDS BARRIERS TO LEARNING?NO HEARING IMPAIRED?NO VISION IMPAIRED?YES COGNITIVELY IMPAIRED?NO :CORRECTIVE LENSES READING GLASSES READINESS TO LEARN?YES LEARNING PREFERENCES?NO LEARNING CAPABILITIES PRESENT?YES EMOTIONAL BARRIERS?NO SPECIAL DEVICES?YES HAS A WALKER AND CANE FOR SAFETY NOT USING CARDIOVASCULAR INVASIVE SPECIALIST NEEDED?NO DOMESTIC VIOLENCE DO YOU FEEL SAFE IN YOUR ENVIRONMENT?YES OCCUPATION: RETIRED. DIET: REGULAR. EXERCISE: WALKS. MARITAL STATUS: . OTHERS AT HOME: LIVES ALONG. PAIN CLINIC PFS, CLERGY, PUBLIC HEALTH REFERRALS WAS THE PROVIDER NOTIFIED OF ANY PERTINENT INFO?YES HAS THE PATIENT BEEN EDUCATED REGARDING HIS/HER PLAN OF CARE?YES HAS THE PATIENT BEEN EDUCATED REGARDING PAIN, THE RISK FOR PAIN, THE IMPORTANCE OF EFFECTIVE PAIN MANAGEMENT, AND THE PAIN ASSESSMENT PROCESS?YES ADVANCE DIRECTIVE ADVANCE DIRECTIVE DISCUSSED WITH PATIENT:YES HCP SON GRABIEL MUNOZ [phone] 07/23/18 REVIEWED WITH PT. AD07/29/18 REVIEWED WITH PT LASREVIEWED WITH PATIENT 08/24/18 1440 JS09/02/18 REVIEWED WITH PT. AD10/1718 REVIEWED WITH PT. AD01/01/19 REVIEWED WITH PATIENT 11/25/18 REVIEWED WITH PT LASREVIEWED WITH PATIENT 02/03/19 1158 NLJ. HOSPITALIZATION/MAJOR DIAGNOSTIC PROCEDURE ABOVE CHILD REVIEW OF SYSTEMS CONSTITUTIONAL: ANY RECENT FEVER NO . CHILLS NO . WEIGHT CHANGE OF UNKNOWN REASONS NO . GASTROENTEROLOGY: NEW UNEXPLAINABLE CHANGES IN BOWEL CONTROL NO . CONSTIPATION NO . GENITOURINARY: ANY NEW CHANGE IN BLADDER CONTROL? NO . NEUROLOGY: NEW ONSET DIZZINESS OR NEUROLOGICAL CHANGES NOT MENTIONED NO . NEW NUMBNESS OR PAIN PATTERNS NOT MENTIONED AND PERTINENT TO TODAY'S VISIT NO . CARDIOLOGY: NEW CHEST PRESSURE NO . NEW CHEST PAIN NO . RESPIRATORY: UNEXPLAINABLE COUGH NO . NEW SHORTNESS OF BREATH NO . VITAL SIGNS WT 160.8 LBS, HT 68 IN, BMI 24.45 INDEX, BP 156/70 MM HG, HR 65 /MIN, RR 18 /MIN, TEMP 97.8 F, OXYGEN SAT % 97%, SAFE IN ENV? (Y/N) YES, NA INITIALS AW 1048REVIEWED N LANE, RN. EXAMINATION GENERAL EXAMINATION: GENERAL AWAKE,ALERT ,PLEASANT . PSYCH AFFECT NORMAL . LUNGS: LUNG ARMAS ARE CLEAR TO AUSCULTATION BILATERALLY. GOOD MOVEMENT OF AIR . HEART:PANSYSTOLIC MURMUR NOTED IN A REGULAR RATE AND RHYTHM.. LUMBAR:SPECIFIC POINT TENDERNESS OVER LUMBAR FACETS WITH FACET LOADING L3-4, L4-5, L5-S1. NEUROLOGIC EXAM: NORMAL SENSATION LIGHT TOUCH BILAT. LOWER EXTREMITIES . DIAGNOSTIC:MRI L/S SPINE 2019 . ASSESSMENTS SPONDYLOSIS OF LUMBAR REGION WITHOUT MYELOPATHY OR RADICULOPATHY - M47.816 (PRIMARY) TREATMENT SPONDYLOSIS OF LUMBAR REGION WITHOUT MYELOPATHY OR RADICULOPATHY NOTES: BILATERAL L3-4, L4-5, L5-S1 THERAPEUTIC LUMBAR FACET BLOCK, HOLD MEDICATION WAIT SEND STOP COUMADIN LETTER TO DR. TYLER AND SCHEDULE ONCE WE RECEIVE OKAY TO HOLD COUMADIN X5 DAYS PREPROCEDURE ADVISED TO CONTINUE USE OF TRAMADOL 50 MG A HALF A TABLET TO 1 WHOLE TABLET NEEDED FOR SEVERE PAIN EPISODES #45 TABLETS FOR 30 DAY SUPPLY. PATIENT IS NOT IN NEED OF REFILLS TODAY BUT MAY CALL IN THE FUTURE FOR REFILL. WE WILL FOLLOW EVERY 3 MONTHS FOR MEDICATION MANAGEMENT FOR CHRONIC PAIN. PROCEDURE CODES FA211 ESTABILISHED PATIENT [facility] CHARGE DISPOSITION & COMMUNICATION FOLLOW UP POST PROCEDURE (REASON: BILATERAL L3-4, L4-5, L5-S1 THERAPEUTIC LUMBAR FACET BLOCK, HOLD MEDICATION WAIT) ELECTRONICALLY SIGNED BY RAVEN JOHANSEN ON 03/06/2020 AT 03:12 PM EST DISCLAIMER : THIS IS A VISIT SUMMARY EXTRACTED FROM THE [employer] CHART. IT IS NOT A COPY OF THE [employer] PROGRESS NOTE. MIKI
== END ==
LOC: M PAIN 10:45
PROVIDERS: ATTEND Nurse Practitioner Family
DX: M47.816 Spondylosis without myelopathy or radiculopathy, lumbar region (principal); I10 Essential (primary) hypertension; I48.0 Paroxysmal atrial fibrillation; E03.9 Hypothyroidism, unspecified; H35.30 Unspecified macular degeneration; K76.0 Fatty (change of) liver, not elsewhere classified; Z79.01 Long term (current) use of anticoagulants; Z79.891 Long term (current) use of opiate analgesic; Z79.899 Other long term (current) drug therapy; Z88.0 Allergy status to penicillin; Z88.1 Allergy status to other antibiotic agents; Z88.8 Allergy status to other drugs, medicaments and biological substances; Z91.018 Allergy to other foods

== ENCOUNTER → 2020-03-25 | Outpatient (CLI) | payer MEDICARE | LOC: M LABSMTC 10:41 | PROVIDERS: ATTEND Anesthesiology | DX: Z20.828 Contact with and (suspected) exposure to other viral communicable diseases (principal) ==

== ENCOUNTER → 2020-03-29 | Outpatient (CLI) | payer MEDICARE ==
[~2020-03-29] MED LIST changes: +diazePAM 5MG TABLET As Ordered ONE; +oxyCODONE 5MG TAB As Ordered ONE
[2020-03-29 12:06] LABS: INR 1.2; PROTHROMBIN TIME 15.5 SECONDS (12.5-14.3)
--- NOTE | 2020-03-29 16:16 | REP ---
INDICATION: BILATERAL FACET BLOCK THERAPEUTIC LUMBAR L3/L4; L4/L5; L5/S1. COMPARISON: None. TECHNIQUE: Two views. 27.9 seconds of fluoroscopy time is reported. FINDINGS: A sequence of 2 last image hold fluoroscopically obtained spot radiograph(s) of the lumbar spine document(s) needle position(s) and contrast injection associated with injection procedure. IMPRESSION: Procedural imaging. <Electronically signed by Davis Carrasco > 03/29/20 [id number]
--- NOTE | 2020-04-05 04:25 | ECWPNPC ---
PATIENT NAME: GAL MUNOZ : 1935 GENDER: FEMALE VISIT DATE: 03/29/2020 DISCHARGE DATE: 03/29/20 143 VISIT LOCKED DATE TIME: PHYSICIAN: SHERIE GAO MD RESOURCE: SHERIE GAO MD REASON FOR APPOINTMENT 1. BILATERAL FACET BLOCK THERAPEUTIC LUMBAR L3-L4, L4-L5, L5-S1 HISTORY OF PRESENT ILLNESS GENERAL: -. FALL RISK SCREENING: SCREENING :NO FALLS REPORTED IN THE LAST YEAR PAIN SCREENING: PATIENT HAS A COMPLAINT OF ACUTE OR CHRONIC PAIN :YES LOCATION OF PAIN: LOW BACK; LEFT LEG INTENSITY OF PAIN (SCALE OF 1 TO 10):7 PATIENT REPORTS GOOD DAY AND PAIN 3/10 BUT CAN RANGE UP TO A 7 WHAT DOES YOUR PAIN FEEL LIKE:ACHING DURATION:TRANSIENT, CONTINOUS PAIN IS INCREASED BY:ACTIVITIES, PROLONGED STANDING PAIN IS DECREASED BY:USE OF PAIN MEDICATIONS, SITTING PLAN/GOALS/TREATMENT/INTERVENTION/FOLLOW UP:SEE PLAN NURSING NOTE: UNABLE TO LOAD SOCIAL HISTORY AT THIS TIME, ISSUE ESCALATED TO MIS. PATIENT DENIES ANY LATEX ALLERGIES, NONSMOKER, DENIES ALCOHOL/ILLICIT DRUGS. PAIN CENTER INTAKE QUESTIONS: DO YOU HAVE A HISTORY OF MRSA? :NO DO YOU TAKE A BLOOD THINNERS? :YES COUMADIN/WARFARIN DO YOU HAVE ANY BLEEDING DISORDERS? :NO ANY NEW NUMBNESS OR WEAKNESS IN YOUR LEGS OR ARMS? :NO ANY PACEMAKER,DEFIBRILLATOR, OR DORSAL COLUMN STIMULATOR? :NO DO YOU HAVE ANY RASHES OR OPEN SORES? :NO ARE YOU ALLERGIC TO IV DYE? :YES ARE YOU DIABETIC? :NO ANY NEW PROBLEMS WITH YOUR MEDICATIONS? :NO HAVE YOU RECEIVED A VACCINE IN THE PAST 30 DAYS? :NO DO YOU PLAN TO RECEIVE A VACCINE IN THE NEXT 21 DAYS? :NO DO YOU TAKE ANY IMMUNOSUPPRESSIVE MEDICATIONS? :NO ANY HISTORY OF SEIZURES? :NO ANY HISTORY OF CARDIAC ISSUES OR EVENTS? :NO DO YOU HAVE SLEEP APNEA? :NO ANY RECENT HEAD INJURY? :NO DO YOU HAVE ANY NEW INFECTIONS? :NO IS THERE A CHANCE YOU COULD BE ? :NO ARE YOU BREAST FEEDING? :NO WHEN DID YOU LAST EAT? : 03/28/20 2200 WHEN DID YOU LAST DRINK? : 03/29/20 0800 WHAT DID YOU LAST DRINK? : WATER NAME OF PERSON DRIVING YOU HOME? : SHIRLEY (FRIEND) DO YOU HAVE ANY OTHER QUESTIONS OR CONCERNS? : NO CURRENT MEDICATIONS TAKING TRAMADOL HCL 50 MG TABLET 1 TABLET NEEDED ORALLY ONCE A DAY, NOTES: 03/28/202029 (1/2 TABLET) TAKING WARFARIN SODIUM 4 MG TABLET 5 DAYS A WEEK AND 2 MG 2 DAYS A WEEK ORALLY ONCE A DAY, NOTES: 03/24/20 TAKING METOPROLOL TARTRATE 50 MG TABLET 3 TABS DAILY ORALLY TWICE A DAY, NOTES: 03/29/20 0800 TAKING LEVOTHYROXINE SODIUM 100 MCG TABLET 1 TABLET ON AN EMPTY STOMACH IN THE MORNING ORALLY ONCE A DAY, NOTES: 03/29/20 08 TAKING OMEPRAZOLE 40 MG CAPSULE DELAYED RELEASE 1 CAPSULE ORALLY ONCE A DAY, NOTES: 03/28/20 08 TAKING VITAMIN C 500 MG TABLET 1 TABLET ORALLY BID, NOTES: 03/28/20 08 TAKING FEXOFENADINE HCL 180 MG TABLET 1 TABLET ORALLY ONCE A DAY, NOTES: 03/28/20 08 TAKING HYDROXYZINE HCL 25 MG TABLET 1 TABLET NEEDED ORALLY EVERY 8 HRS, NOTES: 03/28/20 08 TAKING LEVOCETIRIZINE DIHYDROCHLORIDE _ TABLET 1 TABLET IN THE EVENING ORALLY 50 MG ONCE A DAY, NOTES: 03/28/20 08 TAKING VENTOLIN HFA 108 (90 BASE) MCG/ACT AEROSOL SOLUTION 1 PUFF NEEDED INHALATION EVERY 4 HRS, NOTES: 03/28/20 08 NOT-TAKING COLACE 100 MG CAPSULE 1 CAPSULE NEEDED ORALLY BID NOT-TAKING MIRTAZAPINE 15 MG TABLET 1 TABLET AT BEDTIME ORALLY ONCE A DAY NOT-TAKING TIZANIDINE HCL 2 MG TABLET 1 TABLET NEEDED ORALLY FOR SPASMS AND PAIN BEFORE BEDTIME MAY REPEAT IN 4 HRS MDD2 NOT-TAKING CARISOPRODOL 350 MG TABLET 1 TABLET NEEDED ORALLY FOR SPASMS AND PAIN AT BEDTIME NOT-TAKING OXYCODONE HCL 5 MG TABLET 1 TABLET NEEDED ORALLY EVERY 6 HRS PRN MDD4 NOT-TAKING VENTOLIN HFA 108 (90 BASE) MCG/ACT AEROSOL SOLUTION 2 PUFFS NEEDED INHALATION EVERY 4 HRS NEEDED MEDICATION LIST REVIEWED AND RECONCILED WITH THE PATIENT PAST MEDICAL HISTORY HTN PAROXYSMAL A. FIB. 11/28/2015 TACHYCARDIA TO 150BPM, DR. SAHNI DID FIND PVC'S ON EKG, 2004 S/P ABLATION C DR. 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 LORENZ 11/2014 GALBLADDER COLIC, STONE RECTAL BLEED 01/31, COLON POLYP ON COLONOSCOPY NAFLD C ELEVATED LFTS ASYMPTOMATIC 06/2015 C OF HEAD, 09/2015 MRI BOTH C SMALL VESS. DIS. 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 LORDOSIS, NARROW EPIDURAL SPACE FORAMEN NARROEWD R C4-6, L C5-6 FREQUENT UTI'S BOOM STORAGE USE OF ANTICOAGULANT IDIOPATHIC PERIPHERAL NEUROPATHY ELEVATED LFTS SACROILIITIS ALLERGIES PENICILLIN (FOR ALLERGIES USE ONLY): HIVES - ALLERGY AUGMENTIN: RASH - ALLERGY LEVOFLOXACIN: RASH - ALLERGY AMBIEN: PASSED OUT - ALLERGY PREDNISONE: HYPER - SIDE EFFECTS THEOPHYLLINE: PASSED OUT - ALLERGY FOOD ADDITIVES: ASTHMA ATTACK - ALLERGY CIPRO: SEVERE ABD. PAIN - SIDE EFFECTS IV DYE: DYSPNEA - ALLERGY - ONSET DATE 03/29/2020 SURGICAL HISTORY PARTIAL HYSTERECTOMY-[facility] 1983 L BREAST LUMPECTOMY-[facility] 1991 HEART ABLATION-JOSEF 2003 B CATARACT [id number]. SANNI 2011 TONSILLECTOMY AGE 9 FAMILY HISTORY FATHER: 72 YRS MOTHER: 89 YRS DAUGHTER(S): ALIVE, ARTHRITIS CROHNS 2 SON(S) , 1 DAUGHTER(S) . FATHER-ANEURYSM, STROKE, ?HTN, ?HL; WAS A SMOKER QUIT C CVA AGE 61 NMOTHER-HEART DIS., A. FIB. HOSPITALIZATION/MAJOR DIAGNOSTIC PROCEDURE ABOVE CHILD VITAL SIGNS WT 158.6 LBS, HT 68 IN, BMI 24.11 INDEX, BP 164/72 MM HG, HR 60 /MIN, RR 18 /MIN, TEMP 97.2 F, OXYGEN SAT % 98%, SAFE IN ENV? (Y/N) YES, NA INITIALS SC 10:42, REVIEWED BY: ALEENA MITCHELL CONCENTRATOR OPERATOR. EXAMINATION GENERAL EXAMINATION: THE PATIENT IS ALERT, ORIENTED TIMES THREE AND COOPERATIVE. HEART SHOWS REGULAR RHYTHM, NO MURMURS AND NO GALLOPS. LUNGS ARE CLEAR TO AUSCULTATION. ASSESSMENTS SPONDYLOSIS OF LUMBAR REGION WITHOUT MYELOPATHY OR RADICULOPATHY - M47.816 (PRIMARY), RISK: (NULL) SPONDYLOSIS OF LUMBOSACRAL REGION WITHOUT MYELOPATHY OR RADICULOPATHY - M47.817, RISK: (NULL) TREATMENT SPONDYLOSIS OF LUMBAR REGION WITHOUT MYELOPATHY OR RADICULOPATHY [facility] FACET BLOCK (PAIN)[id number] MEDICATION: VALIUM TAB 5MG ORALLY (DIAZEPAM)SONIA CUETO 03/29/2020 12:41:29 PM > VERIFIED JERAMY HANSON RN 03/29/2020 12:43:56 PM > LOT #[id number]. EXPIRES 11/15. JERAMY HANSON RN 03/29/2020 12:48:11 PM > ADMINISTERED. MEDICATION: OXYCODONE HCL TAB 10MG ORALLYALEJANDRO CUETOEN 03/29/2020 12:41:46 PM > VERIFIED JERAMY HANSON RN 03/29/2020 12:44:47 PM > LOT# [id number]. EXP 05/2021. JERAMY HANSON RN 03/29/2020 12:48:32 PM > ADMINISTERED. SPONDYLOSIS OF LUMBOSACRAL REGION WITHOUT MYELOPATHY OR RADICULOPATHY [facility] FACET BLOCK (PAIN)[id number] PROCEDURES PAIN NURSING RECORD PRE-PROCEDURE IV SITE N/A, PRE-PROCEDURE ORAL MEDICATIONS YES PER MD ORDER. PROCEDURE IN ROOM 1250, PHYSICIAN IN ROOM 1326, START 1337, FINISH 1341, PHYSICIAN OUT OF ROOM 1343, OUT OF ROOM 1350 TO AND FROM PROCEDURE ROOM VIA STRETCHER DUE TO GAIT, STEROID KENALOG, O2 RA, ECG NORMAL SINUS, PATIENT SHIELDED YES, SAFETY STRAP YES, PREP CHLOROPREP Fely MITCHELL RN, IV INFUSED N/A, DRESSING TEGADERM DR. GAO LOC: ESTHER MITCHELL 03/29/2020 12:50:04 PM > 1. ALERT, ORIENTED PAULAESTHER 03/29/2020 1:35:33 PM > 2. DROWSY, RESPONDS APPROPRIATELY PAULAESTHER 03/29/2020 1:41:37 PM > 1. ALERT, ORIENTED RESP: ESTHER MITCHELL 03/29/2020 12:50:04 PM > 1. REGULAR, NO DYSPNEA COLOR: ESTHER MITCHELL 03/29/2020 12:50:04 PM > 1. PINK SKIN: ESTHER MITCHELL 03/29/2020 12:50:04 PM > 1. WARM, DRY POSITION: PAULAESTHER 03/29/2020 12:50:04 PM > 1. PRONE VITALS: ESTHER MITCHELL 03/29/2020 12:55:34 PM > 159/94, 57, 100% RA, 18. ESTHER MITCHELL 03/29/2020 1:13:11 PM > 186/90, 58, 100% RA, 18. ESTHER MITCHELL 03/29/2020 1:15:11 PM > 199/93, 60, 100% RA, 18. ESTHER MITCHELL 03/29/2020 1:28:32 PM > 174/78, 58, 99% RA, 18. ESTHER MITCHELL 03/29/2020 1:45:14 PM > 182/83, 59, 98% RA, 18. ESTHER MITCHELL 03/29/2020 2:05:44 PM > POST PROCEDURE 193/92, 64, 97% RA, 18. NOTES ESTHER MITCHELL 03/29/2020 11:32:39 AM > PATIENT REGULARLY TAKES COUMADIN, LABS NOT DRAWN PRIOR TO TODAYS PROCEDURE, [facility]. PATIENT DRAWN BY LAB AT 1128. DR. GAO GIVEN COPY OF INR/PTT, GREEN LIGHT TO PROCEED WITH PROCEDURE. NO IV DYE USED DUE TO KNOWN ALLERGY. DISCHARGE: POST PAIN 07/05, DRESSING SITE DRY AND INTACT, IV N/A, GAIT WHEELCHAIR USES CANE AT BASELINE, BROUGHT TO VEHICLE BY STAFF DUE TO UNSTEADINESS AT BASELINE AND INCLEMENT ROAD CONDITIONS. LISA RODRIGUEZ NOTIFIED TO ASSIST PATIENT INTO RESIDENCE., TEACHING COMPLETED, PATIENT ACKNOWLEDGES UNDERSTANDING YES, PATIENT DISCHARGED AT 1445 PN LUMBAR FACET BLOCK THERAPEUTIC PRE PROCEDURE DIAGNOSIS LUMBAR SPONDYLOSIS POST PROCEDURE DIAGNOSIS LUMBAR SPONDYLOSIS PROCEDURE BILATERAL L3-L4 AND BILATEARL L4-L5 LUMBAR FACET THERAPEUTIC BLOCK SURGEON DR. SHERIE GAO TRANSPLANT COORDINATOR NONE ANESTHESIA LOCAL PRE PROCEDURE NOTE THE PATIENT HAS A HISTORY OF CHRONIC LOW BACK PAIN. I EVALUATED THE PATIENT AND REVIEWED THE CHART. I WENT OVER THE RISKS, ALTERNATIVES, AND BENEFITS ASSOCIATED WITH THIS PROCEDURE. I DISCUSSED THAT THE USE OF STEROIDS MAY CONTRIBUTE TO IMMUNOSUPPRESSION OF THE PATIENT'S BODY AGAINST INFECTIONS SUCH COVID-19. THE PATIENT IS AWARE OF THE POTENTIAL COMPLICATIONS ASSOCIATED WITH THIS VIRUS, INCLUDING, BUT NOT LIMITED TO, . THE PATIENT WOULD LIKE TO PROCEED AND GIVES CONSENT TO PERFORM THE PROCEDURE. THE PATIENT DENIES UNEXPLAINABLE WEIGHT LOSS, FEVER, CHILLS, OR NEW CHANGES IN URINARY OR BOWEL CONTROL. THE PATIENT IS COVID-19 NEGATIVE DESCRIPTION OF PROCEDURE THE PATIENT WAS BROUGHT TO THE PROCEDURE ROOM AND PLACED IN THE PRONE POSITION. THE LUMBOSACRAL AREA WAS CLEANED WITH CHLORAPREP SOLUTION AND DRAPED ASEPTICALLY. THE PROCEDURE WAS DONE UNDER STERILE CONDITIONS. A TIMEOUT WAS PERFORMED WHERE LATERALITY AND THE SITE OF THE PROCEDURE WERE CHECKED AND CONFIRMED WITH EVERYONE IN THE ROOM. UNDER FLUOROSCOPIC GUIDANCE, THE TARGET POINT WAS SELECTED AT THE RIGHT AND LEFT L3-L4 AND RIGHT AND LEFT L4-L5 FACET JOINTS. TARGET POINT WAS SELECTED AFTER LATERAL ROTATION AND TILT OF THE MAGNIFIER OF THE C-ARM. I CONFIRMED AGAIN WITH EVERYONE IN THE ROOM THE LATERALITY OF THE TARGET AT 1338. LIDOCAINE 0.5% WAS USED TO NUMB THE SKIN AND THE SUBCUTANEOUS TISSUE BELOW IT. SPINAL NEEDLES, 22-GAUGE, WERE ADVANCED UNDER FLUOROSCOPIC GUIDANCE AND FOLLOWING PATIENT FEEDBACK UNTIL THE TARGETS WERE TOUCHED. THE POSITION OF THE NEEDLES WAS VERIFIED WITH AP AND LATERAL VIEWS. THE PATIENT HAS AN ALLERGY TO DYE SO NO ISOVUE-M DYE WAS USED. KENALOG 20 MG WAS INJECTED AT EACH SITE. THEN, A SOLUTION OF 1.0 ML OF BUPIVACAINE 0.125% OF WAS USED TO FLUSH EACH SITE. THE MEDICATION WAS VERIFIED WITH THE NURSE. THERE WAS NO EVIDENCE OF BLOOD, PARESTHESIA OR CEREBROSPINAL FLUID DURING THE PROCEDURE. THE PATIENT WAS SENT TO THE RECOVERY ROOM. THE PATIENT WAS MOVING THE EXTREMITIES AND DOING WELL. THERE WERE NO COMPLICATIONS DURING THE PROCEDURE. ESTIMATED BLOOD LOSS WAS LESS THAN 5 ML. FLUOROSCOPY TIME WAS 27 SECONDS POST PROCEDURE NOTE THE PATIENT WILL BE SEEN IN A FOLLOW UP IN THE NEXT FEW WEEKS. I AM LOOKING FOR LONG LASTING RELIEF FOR THE PATIENT WITH THIS INTERVENTION. INSTRUCTIONS WERE GIVEN, QUESTIONS WERE ANSWERED, AND THE PATIENT EXPRESSED UNDERSTANDING AND AGREES WITH THE PLAN. I, ANNI RADFORD, DOCUMENTED THE ABOVE INFORMATION ACTING A SCRIBE FOR DR. GAO. I HAVE REVIEWED THE ABOVE DOCUMENT, WRITTEN BY ANNI RADFORD, HEAD LINEMAN, AND I VERIFY THAT IT IS ACCURATE PROCEDURE CODES 39447 INJ PARAVERT F JNT L/S 1 LEV, MODIFIERS: [id number] INJ PARAVERT F JNT L/S 2 LEV, MODIFIERS: 50 DISPOSITION & COMMUNICATION FOLLOW UP FOLLOW UP WITH APPRAISER OIL AND WATER (REASON: POST BILATERAL FACET BLOCK THERAPEUTIC L3-L4, L4-L5, L5-S1) ELECTRONICALLY SIGNED BY SHERIE GAO MD, MD ON 04/04/2020 AT 12:37 PM EST DISCLAIMER : THIS IS A VISIT SUMMARY EXTRACTED FROM THE [employer] CHART. IT IS NOT A COPY OF THE [employer] PROGRESS NOTE. MIKI
== END ==
LOC: M PAIN 10:30
PROVIDERS: ATTEND Anesthesiology
DX: M47.816 Spondylosis without myelopathy or radiculopathy, lumbar region (principal); M47.817 Spondylosis without myelopathy or radiculopathy, lumbosacral region; I10 Essential (primary) hypertension; I48.0 Paroxysmal atrial fibrillation; E03.9 Hypothyroidism, unspecified; H35.30 Unspecified macular degeneration; K76.0 Fatty (change of) liver, not elsewhere classified; G62.9 Polyneuropathy, unspecified; Z79.01 Long term (current) use of anticoagulants; Z79.899 Other long term (current) drug therapy; Z88.0 Allergy status to penicillin; Z88.1 Allergy status to other antibiotic agents; Z88.8 Allergy status to other drugs, medicaments and biological substances; Z91.041 Radiographic dye allergy status; Z91.018 Allergy to other foods

== ENCOUNTER → 2020-04-11 | Outpatient (CLI) | payer MEDICARE ==
[~2020-04-11] MED LIST changes: -diazePAM 5MG TABLET As Ordered ONE; -oxyCODONE 5MG TAB As Ordered ONE
--- NOTE | 2020-04-13 00:39 | ECWPNPC ---
PATIENT NAME: GAL MUNOZ : 1935 GENDER: FEMALE VISIT DATE: 04/11/2020 DISCHARGE DATE: 04/11/20 1245 VISIT LOCKED DATE TIME: PHYSICIAN: BERNARDA GILL RESOURCE: BERNARDA GILL REASON FOR APPOINTMENT 1. POST BILATERAL FACET BLOCK THERAPEUTIC L3-L4, L4-L5, L5-S1 HISTORY OF PRESENT ILLNESS GENERAL: HERE FOR POST PROCEDURE F/U. HAD BILATERAL L3-4, L4-5, L5-S1 THERAPEUTIC LUMBAR FACET BLOCK ON 03/29/2020. REPORTING IMPROVEMENT IN HER PAIN POST PROCEDURE. COMPLAINING OF TWO-WEEK HISTORY OF LEFT HIP PAIN. NO PAIN AT REST. PAIN IS WHEN SHE PUTS WEIGHT ON HER LEG. DENIES INJURY. -. FALL RISK SCREENING: SCREENING :NO FALLS REPORTED IN THE LAST YEAR PAIN SCREENING: PATIENT HAS A COMPLAINT OF ACUTE OR CHRONIC PAIN :YES LOCATION OF PAIN:LOW BACK INTENSITY OF PAIN (SCALE OF 1 TO 10):2 WHAT DOES YOUR PAIN FEEL LIKE:INTERMITTENT PAIN IS INCREASED BY:ACTIVITIES PAIN IS DECREASED BY:OTHERS BETTER WHEN RESTING NURSING NOTE: - PT IS STAING SHE HAS NEW PAIN IN LEFT HIP "QUITE PAINFUL". PAIN CENTER INTAKE QUESTIONS: DO YOU HAVE A HISTORY OF MRSA? :NO DO YOU TAKE A BLOOD THINNERS? :YES COUMADIN DO YOU HAVE ANY BLEEDING DISORDERS? :NO ANY NEW NUMBNESS OR WEAKNESS IN YOUR LEGS OR ARMS? :NO ANY PACEMAKER,DEFIBRILLATOR, OR DORSAL COLUMN STIMULATOR? :NO DO YOU HAVE ANY RASHES OR OPEN SORES? :NO ARE YOU ALLERGIC TO IV DYE? :YES ARE YOU DIABETIC? :NO ANY NEW PROBLEMS WITH YOUR MEDICATIONS? :NO HAVE YOU RECEIVED A VACCINE IN THE PAST 30 DAYS? :NO DO YOU PLAN TO RECEIVE A VACCINE IN THE NEXT 21 DAYS? :NO DO YOU NEED ANY PRESCRIPTION? :NO DO YOU TAKE ANY IMMUNOSUPPRESSIVE MEDICATIONS? :NO IS THERE A CHANCE YOU COULD BE ? :NO ARE YOU BREAST FEEDING? :NO CURRENT MEDICATIONS TAKING WARFARIN SODIUM 4 MG TABLET 5 DAYS A WEEK AND 2 MG 2 DAYS A WEEK ORALLY ONCE A DAY TAKING METOPROLOL TARTRATE 50 MG TABLET 3 TABS DAILY ORALLY TWICE A DAY TAKING LEVOTHYROXINE SODIUM 100 MCG TABLET 1 TABLET ON AN EMPTY STOMACH IN THE MORNING ORALLY ONCE A DAY TAKING OMEPRAZOLE 40 MG CAPSULE DELAYED RELEASE 1 CAPSULE ORALLY ONCE A DAY TAKING VITAMIN C 500 MG TABLET 1 TABLET ORALLY BID TAKING FEXOFENADINE HCL 180 MG TABLET 1 TABLET ORALLY ONCE A DAY TAKING HYDROXYZINE HCL 25 MG TABLET 1 TABLET NEEDED ORALLY EVERY 8 HRS TAKING LEVOCETIRIZINE DIHYDROCHLORIDE _ TABLET 1 TABLET IN THE EVENING ORALLY 50 MG ONCE A DAY TAKING VENTOLIN HFA 108 (90 BASE) MCG/ACT AEROSOL SOLUTION 1 PUFF NEEDED INHALATION EVERY 4 HRS TAKING TRAMADOL HCL 50 MG TABLET 1 TABLET NEEDED ORALLY ONCE A DAY PRN PAIN MDD1 3 MOS SUPPLY CATD CHRONIC PAIN NOT-TAKING COLACE 100 MG CAPSULE 1 CAPSULE NEEDED ORALLY BID NOT-TAKING MIRTAZAPINE 15 MG TABLET 1 TABLET AT BEDTIME ORALLY ONCE A DAY NOT-TAKING TIZANIDINE HCL 2 MG TABLET 1 TABLET NEEDED ORALLY FOR SPASMS AND PAIN BEFORE BEDTIME MAY REPEAT IN 4 HRS MDD2 NOT-TAKING CARISOPRODOL 350 MG TABLET 1 TABLET NEEDED ORALLY FOR SPASMS AND PAIN AT BEDTIME NOT-TAKING OXYCODONE HCL 5 MG TABLET 1 TABLET NEEDED ORALLY EVERY 6 HRS PRN MDD4 NOT-TAKING VENTOLIN HFA 108 (90 BASE) MCG/ACT AEROSOL SOLUTION 2 PUFFS NEEDED INHALATION EVERY 4 HRS NEEDED MEDICATION LIST REVIEWED AND RECONCILED WITH THE PATIENT PAST MEDICAL HISTORY HTN PAROXYSMAL A. FIB. 11/28/2015 TACHYCARDIA TO 150BPM, DR. SAHNI DID FIND PVC'S ON EKG, 2004 S/P ABLATION C DR. 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 LORENZ 11/2014 GALBLADDER COLIC, STONE RECTAL BLEED 01/31, COLON POLYP ON COLONOSCOPY NAFLD C ELEVATED LFTS ASYMPTOMATIC 06/2015 C OF HEAD, 09/2015 MRI BOTH C SMALL VESS. DIS. 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 LORDOSIS, NARROW EPIDURAL SPACE FORAMEN NARROEWD R C4-6, L C5-6 FREQUENT UTI'S [facility] USE OF ANTICOAGULANT IDIOPATHIC PERIPHERAL NEUROPATHY ELEVATED LFTS SACROILIITIS ALLERGIES PENICILLIN (FOR ALLERGIES USE ONLY): HIVES - ALLERGY AUGMENTIN: RASH - ALLERGY LEVOFLOXACIN: RASH - ALLERGY AMBIEN: PASSED OUT - ALLERGY PREDNISONE: HYPER - SIDE EFFECTS THEOPHYLLINE: PASSED OUT - ALLERGY FOOD ADDITIVES: ASTHMA ATTACK - ALLERGY CIPRO: SEVERE ABD. PAIN - SIDE EFFECTS IV DYE: DYSPNEA - ALLERGY - ONSET DATE 03/29/2020 SURGICAL HISTORY PARTIAL HYSTERECTOMY-[facility] 1983 L BREAST LUMPECTOMY-[facility] 1991 HEART ABLATION-JOSEF 2003 B CATARACT [id number]. SANNI 2012 TONSILLECTOMY AGE 9 FAMILY HISTORY FATHER: 72 YRS MOTHER: 89 YRS DAUGHTER(S): ALIVE, ARTHRITIS CROHNS 2 SON(S) , 1 DAUGHTER(S) . FATHER-ANEURYSM, STROKE, ?HTN, ?HL; WAS A SMOKER QUIT C CVA AGE 61 NMOTHER-HEART DIS., A. FIB. SOCIAL HISTORY GENERAL: TOBACCO USE ARE YOU A:NONSMOKER LATEX QUESTIONNAIRE LATEX ALLERGY : HAVE YOU EVER DEVELOPED ANY TYPE OF REACTION AFTER HANDLING LATEX PRODUCTS SUCH RUBBER GLOVES, CONDOMS, DIAPHRAGMS, BALLOONS, SOCKS, OR UNDERWEAR?NO LATEX ALLERGY : HAVE YOU EVER DEVELOPED ANY TYPE OF REACTION DURING OR AFTER DENTAL APPOINTMENT, VAGINAL/RECTAL EXAMINATION, SURGICAL PROCEDURE, OR ANY OTHER EXPOSURE?NO DATE ASKED : 03/03/2020 LATEX RISK : HAVE YOU EVER HAD ANY DIFFICULTY BREATHING OR HIVES AFTER EATING OR HANDLING ANY FRUITS, OR VEGETABLES; SUCH KIWI, BANANAS, STONE FRUITS, OR CHESTNUTSNO LATEX RISK : DO YOU HAVE A PREVIOUS PERSONAL HISTORY OF MORE THAN NINE SURGERIES, SPINA BIFIDA, OR REPEATED CATHERIZATIONS? NO LATEX RISK : ARE YOU FREQUENTLY EXPOSED TO LATEX PRODUCTS IN YOUR OCCUPATION?NO ALCOHOL SCREENING DID YOU HAVE A DRINK CONTAINING ALCOHOL IN THE PAST YEAR?YES HOW MANY DRINKS DID YOU HAVE ON A TYPICAL DAY WHEN YOU WERE DRINKING IN THE PAST YEAR?1 OR 2 (0 POINTS) HOW OFTEN DID YOU HAVE A DRINK CONTAINING ALCOHOL IN THE PAST YEAR?TWO TO FOUR TIMES A MONTH (2 POINTS) POINTS2 INTERPRETATIONNEGATIVE RECREATIONAL DRUG USE DRUG USE?NO NONE CAFFEINE CAFFEINE USE?YES USUALLY DRINKJS DECAF..DOES HAVE A CUP OCCASIONAL ANABAPTISM [id number] [employer] LANG[employer] LANGUAGES SPOKEN:SLOVENIAN EDUCATION LEVEL OF EDUCATION:FINISHED COLLEGE LEARNING BARRIERS / SPECIAL NEEDS BARRIERS TO LEARNING?NO HEARING IMPAIRED?NO VISION IMPAIRED?YES COGNITIVELY IMPAIRED?NO :CORRECTIVE LENSES READING GLASSES READINESS TO LEARN?YES LEARNING PREFERENCES?NO LEARNING CAPABILITIES PRESENT?YES EMOTIONAL BARRIERS?NO SPECIAL DEVICES?YES HAS A WALKER AND CANE FOR SAFETY NOT USING METEOROLOGY INSTRUCTOR NEEDED?NO DOMESTIC VIOLENCE DO YOU FEEL SAFE IN YOUR ENVIRONMENT?YES OCCUPATION: RETIRED. DIET: REGULAR. EXERCISE: WALKS. MARITAL STATUS: . OTHERS AT HOME: LIVES ALONG. PAIN CLINIC PFS, CLERGY, PUBLIC HEALTH REFERRALS WAS THE PROVIDER NOTIFIED OF ANY PERTINENT INFO?YES HAS THE PATIENT BEEN EDUCATED REGARDING HIS/HER PLAN OF CARE?YES HAS THE PATIENT BEEN EDUCATED REGARDING PAIN, THE RISK FOR PAIN, THE IMPORTANCE OF EFFECTIVE PAIN MANAGEMENT, AND THE PAIN ASSESSMENT PROCESS?YES ADVANCE DIRECTIVE ADVANCE DIRECTIVE DISCUSSED WITH PATIENT:YES HCP SON GRABIEL MUNOZ [phone] HOSPITALIZATION/MAJOR DIAGNOSTIC PROCEDURE ABOVE CHILD REVIEW OF SYSTEMS CONSTITUTIONAL: ANY RECENT FEVER NO . CHILLS NO . WEIGHT CHANGE OF UNKNOWN REASONS NO . GASTROENTEROLOGY: NEW UNEXPLAINABLE CHANGES IN BOWEL CONTROL NO . CONSTIPATION NO . GENITOURINARY: ANY NEW CHANGE IN BLADDER CONTROL? NO . NEUROLOGY: NEW ONSET DIZZINESS OR NEUROLOGICAL CHANGES NOT MENTIONED NO . NEW NUMBNESS OR PAIN PATTERNS NOT MENTIONED AND PERTINENT TO TODAY'S VISIT NO . CARDIOLOGY: NEW CHEST PRESSURE NO . NEW CHEST PAIN NO . RESPIRATORY: UNEXPLAINABLE COUGH NO . NEW SHORTNESS OF BREATH NO . VITAL SIGNS WT 155.4 LBS, HT 68 IN, BMI 23.63 INDEX, BP 190/83 MM HG, HR 64 /MIN, RR 18 /MIN, TEMP 97.2 F, OXYGEN SAT % 97%, NA INITIALS SC 11:29. EXAMINATION GENERAL EXAMINATION: GENERAL AWAKE,ALERT ,PLEASANT . PSYCH AFFECT NORMAL . LUNGS: LUNG ARMAS ARE CLEAR TO AUSCULTATION BILATERALLY. GOOD MOVEMENT OF AIR . HEART: S1, S2 IN A REGULAR RATE AND RHYTHM. NO SIGNIFICANT MURMURS, RUBS OR GALLOPS NOTED . MUSCULOSKELETAL:TENDERNESS WITH PALPATION OVER LEFT HIP . ASSESSMENTS OTHER CHRONIC PAIN - G89.29 (PRIMARY) SPONDYLOSIS OF LUMBAR REGION WITHOUT MYELOPATHY OR RADICULOPATHY - M47.816 CHRONIC PRESCRIPTION OPIATE USE - Z79.891 TREATMENT OTHER CHRONIC PAIN CONTINUE TRAMADOL HCL TABLET, 50 MG, 1 TABLET NEEDED, ORALLY, ONCE A DAY PRN PAIN MDD1 3 MOS SUPPLY CATD CHRONIC PAIN PAIN PROCEDURE LOGDATE OF ACDVNTESD15/02/2020PROCEDURE:BILATERAL LUMBAR FACET THERAPEUTIC L3-4 L4-5AMOUNT OF PRE SEDATE5 MG VALIUM 10 MG OXYCODONERESULT:REPORTS MARKED IMPROVEMENT IN PAIN POST PROCEDURE NOTES: ISTOP REGISTRY REVIEWED AND DEMONSTRATES COMPLLIANCE. URINE TOXICOLOGY TODAY , [facility] NARCOTIC AGREEMENT WAS REVIEWED AND SIGNED TODAY BY THE PATIENT. SEE ATTACHED DOCUMENT FOR FULL DETAILS; SPECIFIC ISSUES WERE REVIEWED: 1) KEEP PAIN MEDS IN THEIR ORIGINAL BOTTLES AND ANY WEEKLY PLANNERS ARE TO BE BROUGHT TO THE PAIN CENTER AT EVERY VISIT. 2) THE PATIENT IS NOT TO INCREASE DOSING OR TIMING OF THEIR PAIN MEDICATION WITHOUT SPECIFIC DIRECTION OF THEIR PAIN CENTERPROVIDER (NOT ER OR OTHER PROVIDERS). 3) ALL PAIN MEDS ARE TO BE KEPT SECURED, IN A LOCKED BOX. 4) NO PAIN MEDS ARE TO BE SHARED WITH ANY OTHER PERSON FOR ANY REASON. 5) NO PAIN MEDS MAY BE TAKEN FROM ANY FRIENDS OR RELATIVES FOR ANY REASON 6) NO MEDS OR SUBSTANCES WHICH ARE NOT LEGAL ARE TO BE USED- NO MARIJUANA, NO COCAINE, AMPHETAMINES, HEROIN, OR OTHERS ARE EVER TO BE USED. 7)URINE TESTING IS DONE TO ACCOUNT FOR MEDS AND SUBSTANCES BEING TAKEN AND WILL BE DONE RANDOMLY. , RISKS OF NARCOTIC/OPIOD MEDICATIONS INCLUDES BUT IS NOT LIMITED TO RISK OF DEPENDANCE/DEVELOPMENT OF ADDICTION, MOOD DISTURBANCE AND DEPRESSION, OSTEOPOROSIS, HORMONAL AND LABIDAL CHANGES, RESPIRATORY DEPRESSION AND . PATIENT IS ADVISED NOT TO DRIVE OR DRINK ALCOHOL WHILE ON THESE MEDICATIONS. DISPOSITION & COMMUNICATION FOLLOW UP 3 MONTHS (REASON: LOW BACK PAIN/MEDICATION MANAGEMENT) ELECTRONICALLY SIGNED BY RAVEN JOHANSEN ON 04/12/2020 AT 02:55 PM EST DISCLAIMER : THIS IS A VISIT SUMMARY EXTRACTED FROM THE [employer] CHART. IT IS NOT A COPY OF THE [employer] PROGRESS NOTE. MIKI
== END ==
LOC: M PAIN 11:15
PROVIDERS: ATTEND Nurse Practitioner Family
DX: G89.29 Other chronic pain (principal); M47.816 Spondylosis without myelopathy or radiculopathy, lumbar region; I10 Essential (primary) hypertension; I48.0 Paroxysmal atrial fibrillation; E03.9 Hypothyroidism, unspecified; H35.30 Unspecified macular degeneration; K76.0 Fatty (change of) liver, not elsewhere classified; G62.9 Polyneuropathy, unspecified; Z79.01 Long term (current) use of anticoagulants; Z79.891 Long term (current) use of opiate analgesic; Z79.899 Other long term (current) drug therapy; Z88.0 Allergy status to penicillin; Z88.1 Allergy status to other antibiotic agents; Z88.8 Allergy status to other drugs, medicaments and biological substances; Z91.041 Radiographic dye allergy status

== ENCOUNTER → 2020-07-10 | Outpatient (CLI) | payer MEDICARE ==
--- NOTE | 2020-07-12 07:01 | ECWPNPC ---
PATIENT NAME: GAL MUNOZ : 1935 GENDER: FEMALE VISIT DATE: 07/10/2020 DISCHARGE DATE: 07/10/20 1237 VISIT LOCKED DATE TIME: PHYSICIAN: BERNARDA GILL RESOURCE: BERNARDA GILL REASON FOR APPOINTMENT 1. 3 MONTH F/U HISTORY OF PRESENT ILLNESS GENERAL: HERE FOR FOLLOW-UP OF CHRONIC LOW BACK PAIN/MID BACK PAIN. CONTINUES TO BE MOST BOTHERED BY LEFT HIP PAIN. THIS BEGAN 3 OR 4 MONTHS AGO WITHOUT PRECIPITATING EVENT. AT HER LAST PAIN CLINIC VISIT I ADVISED HER THAT THIS WOULD NEED TO BE EVALUATED BY PRIMARY CARE. WE ARE HERE TO DEAL WITH CHRONIC PAIN ISSUES. PATIENT IS RATING LEFT HIP PAIN A 10 OVER 10. WHEN ASKED TO POINT WHERE THIS HURTS IT'S MORE ANTERIOR PELVIC REGION ON THE LEFT SIDE. SHE APPEARS COMFORTABLE. -. FALL RISK SCREENING: SCREENING : NO FALLS REPORTED IN THE LAST YEAR. PAIN SCREENING: PATIENT HAS A COMPLAINT OF ACUTE OR CHRONIC PAIN :YES LOCATION OF PAIN: MID BACK, LEFT HIP INTENSITY OF PAIN (SCALE OF 1 TO 10):8 WHAT DOES YOUR PAIN FEEL LIKE:ACHING, CONTINOUS PATIENT REPORTS PUTTING SOCKS ON ABOUT THREE WEEKS AGO AND HEARING A "POP" IN LEFT HIP WITHOUT RELIEF, PATIENT HAS NOT SOUGHT MEDICAL ATTENTION. DURATION:CONTINOUS, BRIEF PATIENT REPORTS PAIN IN UNBEARABLE IN MORNING, CAUSING DIFFICULTY IN GETTING UP. PAIN IS INCREASED BY:ACTIVITIES PAIN IS DECREASED BY:SITTING PAIN HAS INTERFERED WITH THE FOLLOWING:BATHING/DRESSING, WALKING ABILITY, SLEEP PLAN/GOALS/TREATMENT/INTERVENTION/FOLLOW UP:SEE PLAN NURSING NOTE: -. PAIN CENTER INTAKE QUESTIONS: DO YOU HAVE A HISTORY OF MRSA? :NO DO YOU TAKE A BLOOD THINNERS? :YES COUMADIN DO YOU HAVE ANY BLEEDING DISORDERS? :NO ANY NEW NUMBNESS OR WEAKNESS IN YOUR LEGS OR ARMS? :NO ANY PACEMAKER,DEFIBRILLATOR, OR DORSAL COLUMN STIMULATOR? :NO DO YOU HAVE ANY RASHES OR OPEN SORES? :NO ARE YOU ALLERGIC TO IV DYE? :YES ARE YOU DIABETIC? :NO ANY NEW PROBLEMS WITH YOUR MEDICATIONS? :NO HAVE YOU RECEIVED A VACCINE IN THE PAST 30 DAYS? :NO DO YOU PLAN TO RECEIVE A VACCINE IN THE NEXT 21 DAYS? :NO DO YOU NEED ANY PRESCRIPTION? :NO DO YOU TAKE ANY IMMUNOSUPPRESSIVE MEDICATIONS? :NO IS THERE A CHANCE YOU COULD BE ? :NO ARE YOU BREAST FEEDING? :NO CURRENT MEDICATIONS TAKING WARFARIN SODIUM 4 MG TABLET 5 DAYS A WEEK AND 2 MG 2 DAYS A WEEK ORALLY ONCE A DAY TAKING METOPROLOL TARTRATE 50 MG TABLET 3 TABS DAILY ORALLY TWICE A DAY TAKING LEVOTHYROXINE SODIUM 100 MCG TABLET 1 TABLET ON AN EMPTY STOMACH IN THE MORNING ORALLY ONCE A DAY TAKING OMEPRAZOLE 40 MG CAPSULE DELAYED RELEASE 1 CAPSULE ORALLY ONCE A DAY TAKING VITAMIN C 500 MG TABLET 1 TABLET ORALLY BID TAKING FEXOFENADINE HCL 180 MG TABLET 1 TABLET ORALLY ONCE A DAY TAKING HYDROXYZINE HCL 25 MG TABLET 1 TABLET NEEDED ORALLY EVERY 8 HRS TAKING LEVOCETIRIZINE DIHYDROCHLORIDE _ TABLET 1 TABLET IN THE EVENING ORALLY 50 MG ONCE A DAY TAKING VENTOLIN HFA 108 (90 BASE) MCG/ACT AEROSOL SOLUTION 1 PUFF NEEDED INHALATION EVERY 4 HRS TAKING TRAMADOL HCL 50 MG TABLET 1 TABLET NEEDED ORALLY TWICE A DAY MAXIMUM DAILY DOSE OF 2 NOT-TAKING COLACE 100 MG CAPSULE 1 CAPSULE NEEDED ORALLY BID NOT-TAKING MIRTAZAPINE 15 MG TABLET 1 TABLET AT BEDTIME ORALLY ONCE A DAY NOT-TAKING TIZANIDINE HCL 2 MG TABLET 1 TABLET NEEDED ORALLY FOR SPASMS AND PAIN BEFORE BEDTIME MAY REPEAT IN 4 HRS MDD2 NOT-TAKING CARISOPRODOL 350 MG TABLET 1 TABLET NEEDED ORALLY FOR SPASMS AND PAIN AT BEDTIME NOT-TAKING OXYCODONE HCL 5 MG TABLET 1 TABLET NEEDED ORALLY EVERY 6 HRS PRN MDD4 NOT-TAKING VENTOLIN HFA 108 (90 BASE) MCG/ACT AEROSOL SOLUTION 2 PUFFS NEEDED INHALATION EVERY 4 HRS NEEDED MEDICATION LIST REVIEWED AND RECONCILED WITH THE PATIENT PAST MEDICAL HISTORY HTN PAROXYSMAL A. FIB. 11/28/2015 TACHYCARDIA TO 150BPM, DR. SAHNI DID FIND PVC'S ON EKG, 2004 S/P ABLATION C DR. 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 LORENZ 11/2014 GALBLADDER COLIC, STONE RECTAL BLEED 01/31, COLON POLYP ON COLONOSCOPY NAFLD C ELEVATED LFTS ASYMPTOMATIC 06/2015 C OF HEAD, 09/2015 MRI BOTH C SMALL VESS. DIS. 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 LORDOSIS, NARROW EPIDURAL SPACE FORAMEN NARROEWD R C4-6, L C5-6 FREQUENT UTI'S CARE HOME USE OF ANTICOAGULANT IDIOPATHIC PERIPHERAL NEUROPATHY ELEVATED LFTS SACROILIITIS ALLERGIES PENICILLIN (FOR ALLERGIES USE ONLY): HIVES - ALLERGY AUGMENTIN: RASH - ALLERGY LEVOFLOXACIN: RASH - ALLERGY AMBIEN: PASSED OUT - ALLERGY PREDNISONE: HYPER - SIDE EFFECTS THEOPHYLLINE: PASSED OUT - ALLERGY FOOD ADDITIVES: ASTHMA ATTACK - ALLERGY CIPRO: SEVERE ABD. PAIN - SIDE EFFECTS IV DYE: DYSPNEA - ALLERGY - ONSET DATE 03/29/2020 SOCIAL HISTORY GENERAL: TOBACCO USE ARE YOU A:NONSMOKER LATEX QUESTIONNAIRE LATEX ALLERGY : HAVE YOU EVER DEVELOPED ANY TYPE OF REACTION AFTER HANDLING LATEX PRODUCTS SUCH RUBBER GLOVES, CONDOMS, DIAPHRAGMS, BALLOONS, SOCKS, OR UNDERWEAR?NO LATEX ALLERGY : HAVE YOU EVER DEVELOPED ANY TYPE OF REACTION DURING OR AFTER DENTAL APPOINTMENT, VAGINAL/RECTAL EXAMINATION, SURGICAL PROCEDURE, OR ANY OTHER EXPOSURE?NO LATEX RISK : HAVE YOU EVER HAD ANY DIFFICULTY BREATHING OR HIVES AFTER EATING OR HANDLING ANY FRUITS, OR VEGETABLES; SUCH KIWI, BANANAS, STONE FRUITS, OR CHESTNUTSNO LATEX RISK : DO YOU HAVE A PREVIOUS PERSONAL HISTORY OF MORE THAN NINE SURGERIES, SPINA BIFIDA, OR REPEATED CATHERIZATIONS? NO LATEX RISK : ARE YOU FREQUENTLY EXPOSED TO LATEX PRODUCTS IN YOUR OCCUPATION?NO DATE ASKED : 07/10/2020 ALCOHOL SCREENING DID YOU HAVE A DRINK CONTAINING ALCOHOL IN THE PAST YEAR?YES HOW MANY DRINKS DID YOU HAVE ON A TYPICAL DAY WHEN YOU WERE DRINKING IN THE PAST YEAR?1 OR 2 (0 POINTS) HOW OFTEN DID YOU HAVE A DRINK CONTAINING ALCOHOL IN THE PAST YEAR?TWO TO FOUR TIMES A MONTH (2 POINTS) POINTS2 INTERPRETATIONNEGATIVE RECREATIONAL DRUG USE DRUG USE?NO NONE CAFFEINE CAFFEINE USE?YES USUALLY DRINKJS DECAF..DOES HAVE A CUP OCCASIONAL AMISH [id number] [employer]ANG[employer]AGE LANGUAGES SPOKEN:CITIZEN OF [place] EDUCATION LEVEL OF EDUCATION:FINISHED COLLEGE LEARNING BARRIERS / SPECIAL NEEDS BARRIERS TO LEARNING?NO HEARING IMPAIRED?NO VISION IMPAIRED?YES COGNITIVELY IMPAIRED?NO :CORRECTIVE LENSES READING GLASSES READINESS TO LEARN?YES LEARNING PREFERENCES?NO LEARNING CAPABILITIES PRESENT?YES EMOTIONAL BARRIERS?NO SPECIAL DEVICES?YES HAS A WALKER AND CANE FOR SAFETY NOT USING FILLING HAULER NEEDED?NO DOMESTIC VIOLENCE DO YOU FEEL SAFE IN YOUR ENVIRONMENT?YES OCCUPATION: RETIRED. DIET: REGULAR. EXERCISE: WALKS. MARITAL STATUS: . OTHERS AT HOME: LIVES ALONG. - WAS THE PROVIDER NOTIFIED OF ANY PERTINENT INFO?YES HAS THE PATIENT BEEN EDUCATED REGARDING HIS/HER PLAN OF CARE?YES HAS THE PATIENT BEEN EDUCATED REGARDING PAIN, THE RISK FOR PAIN, THE IMPORTANCE OF EFFECTIVE PAIN MANAGEMENT, AND THE PAIN ASSESSMENT PROCESS?YES ADVANCE DIRECTIVE ADVANCE DIRECTIVE DISCUSSED WITH PATIENT:YES HCP SON GRABIEL MUNOZ [phone] REVIEW OF SYSTEMS CONSTITUTIONAL: ANY RECENT FEVER NO . CHILLS NO . WEIGHT CHANGE OF UNKNOWN REASONS NO . GASTROENTEROLOGY: NEW UNEXPLAINABLE CHANGES IN BOWEL CONTROL NO . CONSTIPATION NO . GENITOURINARY: ANY NEW CHANGE IN BLADDER CONTROL? NO . NEUROLOGY: NEW ONSET DIZZINESS OR NEUROLOGICAL CHANGES NOT MENTIONED NO . NEW NUMBNESS OR PAIN PATTERNS NOT MENTIONED AND PERTINENT TO TODAY'S VISIT NO . CARDIOLOGY: NEW CHEST PRESSURE NO . PATIENT DENIES NO . RESPIRATORY: UNEXPLAINABLE COUGH NO . NEW SHORTNESS OF BREATH NO . VITAL SIGNS WT 158.8 LBS, HT 68 IN, BMI 24.14 INDEX, BP 166/77 MM HG, HR 66 /MIN, RR 18 /MIN, TEMP 97.6 F, OXYGEN SAT % 97% RA, SAFE IN ENV? (Y/N) YES, NA INITIALS MT 1156, REVIEWED BY: Fely MITCHELL RN BSN. EXAMINATION GENERAL EXAMINATION: GENERAL AWAKE,ALERT ,PLEASANT . PSYCH AFFECT NORMAL . LUNGS: LUNG ARMAS ARE CLEAR TO AUSCULTATION BILATERALLY. GOOD MOVEMENT OF AIR . HEART: S1, S2 IN A REGULAR RATE AND RHYTHM. NO SIGNIFICANT MURMURS, RUBS OR GALLOPS NOTED . MUSCULOSKELETAL:TENDERNESS WITH PALPATION OVER LEFT HIP . ASSESSMENTS SPONDYLOSIS OF LUMBAR REGION WITHOUT MYELOPATHY OR RADICULOPATHY - M47.816 (PRIMARY) TREATMENT SPONDYLOSIS OF LUMBAR REGION WITHOUT MYELOPATHY OR RADICULOPATHY CONTINUE TRAMADOL HCL TABLET, 50 MG, 1 TABLET NEEDED, ORALLY, TWICE A DAY MAXIMUM DAILY DOSE OF 2 NOTES: PLEASE HAVE NEW ONSET OF LEFT HIP PAIN EVALUATED AND TREATED BY PRIMARY CARE(THIS BEGAN [facility] 3 MONTHS AGO) BRING MEDICATION-TRAMADOL TO ALL PAIN CLINIC APPOINTMENTS. PROCEDURE CODES FA211 ESTABILISHED PATIENT [facility] CHARGE DISPOSITION & COMMUNICATION FOLLOW UP 2 MONTHS (REASON: MED MGMNT /URINE TOX) ELECTRONICALLY SIGNED BY RAVEN JOHANSEN ON 07/11/2020 AT 11:30 AM EDT DISCLAIMER : THIS IS A VISIT SUMMARY EXTRACTED FROM THE [employer] CHART. IT IS NOT A COPY OF THE [employer] PROGRESS NOTE. MIKI
== END ==
LOC: M PAIN 11:15
PROVIDERS: ATTEND Nurse Practitioner Family
DX: M47.816 Spondylosis without myelopathy or radiculopathy, lumbar region (principal); G89.29 Other chronic pain; E03.9 Hypothyroidism, unspecified; Z88.0 Allergy status to penicillin; Z88.1 Allergy status to other antibiotic agents; Z88.8 Allergy status to other drugs, medicaments and biological substances; Z91.02 Food additives allergy status; Z91.041 Radiographic dye allergy status; Z79.01 Long term (current) use of anticoagulants; Z79.899 Other long term (current) drug therapy

== ENCOUNTER → 2020-07-11 | Outpatient (CLI) | payer MEDICARE ==
--- NOTE | 2020-07-11 12:30 | REP ---
INDICATION: PAIN AND SWELLING LEFT LEG. COMPARISON: Comparison study 05 May 2019.. TECHNIQUE: Left lower extremity duplex venous ultrasound. FINDINGS: The deep veins are anechoic and fully compressible from the groin to the popliteal fossa in the left lower extremity. Color flow imaging is homogeneous. Spectral Doppler interrogation demonstrates intact respiratory variation in flow and normal manual augmentation of flow. There is no evidence of deep vein thrombosis. IMPRESSION: Negative left lower extremity duplex venous ultrasound. No evidence of deep vein thrombosis. <Electronically signed by Davis Carrasco > 07/11/20 1278
--- NOTE | 2020-07-11 13:08 | REP ---
INDICATION: INCREASED PAIN W/ROM COMPARISON: None. TECHNIQUE: There are two views of the mid and distal femur. FINDINGS: There is no fracture. There are no lytic, blastic or destructive changes. There are no calcifications or foreign bodies. There is osteoarthritis in the medial and lateral compartments of the knee. IMPRESSION: Osteoarthritis of the lateral and medial compartments of the knee. No fracture, calcification or foreign body. <Electronically signed by Pawan Holcomb > 07/11/20 [id number]
--- NOTE | 2020-07-11 13:10 | REP ---
INDICATION: INCREASED PAIN W/ROM. COMPARISON: None. TECHNIQUE: There are two views of the left hip. FINDINGS: There is no fracture or dislocation. There is joint space narrowing compatible with osteoarthritis. There is no flattening or deformity of the femoral head. There are small calcifications in the pelvis, likely phleboliths. IMPRESSION: Femoroacetabular osteoarthritis. No fracture or dislocation. <Electronically signed by Pawan Holcomb > 07/11/20 1831
[2020-07-11 16:42] LABS: INR 3.58; PROTHROMBIN TIME 36.6 SECONDS (12.5-14.3)
== END ==
LOC: M RAD 11:49
PROVIDERS: ATTEND Internal Medicine
DX: I48.0 Paroxysmal atrial fibrillation (principal); Z79.01 Long term (current) use of anticoagulants; M16.12 Unilateral primary osteoarthritis, left hip; M79.605 Pain in left leg

== ENCOUNTER → 2020-07-11 | Outpatient (REF) | payer MEDICARE | LOC: M LAB REF 17:14 | PROVIDERS: ATTEND Internal Medicine | DX: M25.552 Pain in left hip (principal) ==

== ENCOUNTER → 2020-09-04 | Outpatient (CLI) | payer MEDICARE ==
--- NOTE | 2020-09-07 05:22 | ECWPNPC ---
PATIENT NAME: GAL MUNOZ : 1935 GENDER: FEMALE VISIT DATE: 09/04/2020 DISCHARGE DATE: 09/04/20 1437 VISIT LOCKED DATE TIME: PHYSICIAN: BERNARDA GILL RESOURCE: BERNARDA GILL REASON FOR APPOINTMENT 1. MED MGMNT /URINE TOX HISTORY OF PRESENT ILLNESS DEPRESSION SCREENING: PHQ-2 (2015 EDITION) LITTLE INTEREST OR PLEASURE IN DOING THINGS?NOT AT ALL FEELING DOWN, DEPRESSED, OR HOPELESS?NOT AT ALL TOTAL SCORE0 GENERAL: HERE FOR FOLLOW-UP OF CHRONIC LOW BACK PAIN. HAS HAD EVALUATION AT [facility] AND HAD INJECTION INTO HER LEFT HIP THAT WASN'T HELPFUL. STATES HE DIAGNOSED HER WITH TENDINITIS. SHE DOES NOT WISH TO GO BACK THERE. COMPLAINS OF SEVERE PAIN AND LOWER EXTREMITY NUMBNESS WITH WALKING OR STANDING. MRI OF THE LUMBAR SACRAL SPINE IS REVIEWED SHOWING SEVERE SPINAL STENOSIS. SHE HAS SYMPTOMS OF NEUROGENIC CLAUDICATION IN HER LEGS WITH WALKING OR PROLONGED STANDING. USING TRAMADOL 50 MG TABLET UP TO TWICE A DAY FOR SEVERE PAIN EPISODES WITH SOME IMPROVEMENT. DENIES ADVERSE SIDE EFFECTS OF MEDICATION. -. FALL RISK SCREENING: SCREENING : NO FALLS REPORTED IN THE LAST YEAR. PAIN SCREENING: PATIENT HAS A COMPLAINT OF ACUTE OR CHRONIC PAIN :YES LOCATION OF PAIN:LOW BACK INTENSITY OF PAIN (SCALE OF 1 TO 10):2 WHAT DOES YOUR PAIN FEEL LIKE:ACHING DURATION:MAINLY DURING THE DAY, ONLY WITH SPECIFIC ACTIVITIES PAIN IS INCREASED BY:ACTIVITIES PAIN IS DECREASED BY:USE OF PAIN MEDICATIONS NURSING NOTE: -. PAIN CENTER INTAKE QUESTIONS: DO YOU HAVE A HISTORY OF MRSA? :NO DO YOU TAKE A BLOOD THINNERS? :YES COUMADIN DO YOU HAVE ANY BLEEDING DISORDERS? :NO ANY NEW NUMBNESS OR WEAKNESS IN YOUR LEGS OR ARMS? :YES PAIN IN THE UPPER THIGH/ GROIN AREA ANY PACEMAKER,DEFIBRILLATOR, OR DORSAL COLUMN STIMULATOR? :NO DO YOU HAVE ANY RASHES OR OPEN SORES? :NO ARE YOU ALLERGIC TO IV DYE? :YES ARE YOU DIABETIC? :NO ANY NEW PROBLEMS WITH YOUR MEDICATIONS? :NO HAVE YOU RECEIVED A VACCINE IN THE PAST 30 DAYS? :NO DO YOU PLAN TO RECEIVE A VACCINE IN THE NEXT 21 DAYS? :NO DO YOU NEED ANY PRESCRIPTION? :NO DO YOU TAKE ANY IMMUNOSUPPRESSIVE MEDICATIONS? :NO IS THERE A CHANCE YOU COULD BE ? :NO ARE YOU BREAST FEEDING? :NO CURRENT MEDICATIONS TAKING WARFARIN SODIUM 4 MG TABLET 5 DAYS A WEEK AND 2 MG 2 DAYS A WEEK ORALLY ONCE A DAY TAKING METOPROLOL TARTRATE 50 MG TABLET 3 TABS DAILY ORALLY TWICE A DAY TAKING LEVOTHYROXINE SODIUM 100 MCG TABLET 1 TABLET ON AN EMPTY STOMACH IN THE MORNING ORALLY ONCE A DAY TAKING OMEPRAZOLE 40 MG CAPSULE DELAYED RELEASE 1 CAPSULE ORALLY ONCE A DAY TAKING VITAMIN C 500 MG TABLET 1 TABLET ORALLY BID TAKING FEXOFENADINE HCL 180 MG TABLET 1 TABLET ORALLY ONCE A DAY TAKING HYDROXYZINE HCL 25 MG TABLET 1 TABLET NEEDED ORALLY EVERY 8 HRS TAKING LEVOCETIRIZINE DIHYDROCHLORIDE _ TABLET 1 TABLET IN THE EVENING ORALLY 50 MG ONCE A DAY TAKING VENTOLIN HFA 108 (90 BASE) MCG/ACT AEROSOL SOLUTION 1 PUFF NEEDED INHALATION EVERY 4 HRS TAKING TRAMADOL HCL 50 MG TABLET 1 TABLET NEEDED ORALLY TWICE A DAY MAXIMUM DAILY DOSE OF 2 NOT-TAKING COLACE 100 MG CAPSULE 1 CAPSULE NEEDED ORALLY BID NOT-TAKING MIRTAZAPINE 15 MG TABLET 1 TABLET AT BEDTIME ORALLY ONCE A DAY NOT-TAKING TIZANIDINE HCL 2 MG TABLET 1 TABLET NEEDED ORALLY FOR SPASMS AND PAIN BEFORE BEDTIME MAY REPEAT IN 4 HRS MDD2 NOT-TAKING CARISOPRODOL 350 MG TABLET 1 TABLET NEEDED ORALLY FOR SPASMS AND PAIN AT BEDTIME NOT-TAKING OXYCODONE HCL 5 MG TABLET 1 TABLET NEEDED ORALLY EVERY 6 HRS PRN MDD4 NOT-TAKING VENTOLIN HFA 108 (90 BASE) MCG/ACT AEROSOL SOLUTION 2 PUFFS NEEDED INHALATION EVERY 4 HRS NEEDED MEDICATION LIST REVIEWED AND RECONCILED WITH THE PATIENT PAST MEDICAL HISTORY HTN PAROXYSMAL A. FIB. 11/28/2015 TACHYCARDIA TO 150BPM, DR. SAHNI DID FIND PVC'S ON EKG, 2004 S/P ABLATION C DR. 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 LORENZ 11/2014 GALBLADDER COLIC, STONE RECTAL BLEED 01/31, COLON POLYP ON COLONOSCOPY NAFLD C ELEVATED LFTS ASYMPTOMATIC 06/2015 C OF HEAD, 09/2015 MRI BOTH C SMALL VESS. DIS. 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 PAIN - SIDE EFFECTS IV DYE: DYSPNEA - ALLERGY - ONSET DATE 03/29/2020 SOCIAL HISTORY GENERAL: TOBACCO USE ARE YOU A:NONSMOKER LATEX QUESTIONNAIRE LATEX ALLERGY : HAVE YOU EVER DEVELOPED ANY TYPE OF REACTION AFTER HANDLING LATEX PRODUCTS SUCH RUBBER GLOVES, CONDOMS, DIAPHRAGMS, BALLOONS, SOCKS, OR UNDERWEAR?NO LATEX ALLERGY : HAVE YOU EVER DEVELOPED ANY TYPE OF REACTION DURING OR AFTER DENTAL APPOINTMENT, VAGINAL/RECTAL EXAMINATION, SURGICAL PROCEDURE, OR ANY OTHER EXPOSURE?NO LATEX RISK : HAVE YOU EVER HAD ANY DIFFICULTY BREATHING OR HIVES AFTER EATING OR HANDLING ANY FRUITS, OR VEGETABLES; SUCH KIWI, BANANAS, STONE FRUITS, OR CHESTNUTSNO LATEX RISK : DO YOU HAVE A PREVIOUS PERSONAL HISTORY OF MORE THAN NINE SURGERIES, SPINA BIFIDA, OR REPEATED CATHERIZATIONS? NO LATEX RISK : ARE YOU FREQUENTLY EXPOSED TO LATEX PRODUCTS IN YOUR OCCUPATION?NO DATE ASKED : 09/04/2020 ALCOHOL USE: YES,OCC. ALCOHOL SCREENING DID YOU HAVE A DRINK CONTAINING ALCOHOL IN THE PAST YEAR?YES HOW MANY DRINKS DID YOU HAVE ON A TYPICAL DAY WHEN YOU WERE DRINKING IN THE PAST YEAR?1 OR 2 (0 POINTS) HOW OFTEN DID YOU HAVE A DRINK CONTAINING ALCOHOL IN THE PAST YEAR?TWO TO FOUR TIMES A MONTH (2 POINTS) POINTS2 INTERPRETATIONNEGATIVE RECREATIONAL DRUG USE DRUG USE?NO NONE CAFFEINE CAFFEINE USE?YES USUALLY DRINKJS DECAF..DOES HAVE A CUP OCCASIONAL GNOSTICISM [id number] [employer] LANG[employer]AGE LANGUAGES SPOKEN:CITIZ[place] OF [place] EDUCATION LEVEL OF EDUCATION:FINISHED COLLEGE LEARNING BARRIERS / SPECIAL NEEDS BARRIERS TO LEARNING?NO HEARING IMPAIRED?NO VISION IMPAIRED?YES :CORRECTIVE LENSES READING GLASSES COGNITIVELY IMPAIRED?NO READINESS TO LEARN?YES LEARNING PREFERENCES?NO LEARNING CAPABILITIES PRESENT?YES EMOTIONAL BARRIERS?NO SPECIAL DEVICES?YES HAS A WALKER AND CANE FOR SAFETY NOT USING :CANE, 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 DIET: REGULAR. EXERCISE: WALKS. MARITAL STATUS: . OTHERS AT HOME: LIVES ALONG. - WAS THE PROVIDER NOTIFIED OF ANY PERTINENT INFO?YES HAS THE PATIENT BEEN EDUCATED REGARDING HIS/HER PLAN OF CARE?YES HAS THE PATIENT BEEN EDUCATED REGARDING PAIN, THE RISK FOR PAIN, THE IMPORTANCE OF EFFECTIVE PAIN MANAGEMENT, AND THE PAIN ASSESSMENT PROCESS?YES ADVANCE DIRECTIVE ADVANCE DIRECTIVE DISCUSSED WITH PATIENT:YES HCP SON GRABIEL MUNOZ [phone] REVIEW OF SYSTEMS CONSTITUTIONAL: ANY RECENT FEVER NO . CHILLS NO . WEIGHT CHANGE OF UNKNOWN REASONS NO . GASTROENTEROLOGY: NEW UNEXPLAINABLE CHANGES IN BOWEL CONTROL NO . CONSTIPATION NO . GENITOURINARY: ANY NEW CHANGE IN BLADDER CONTROL? NO . NEUROLOGY: NEW ONSET DIZZINESS OR NEUROLOGICAL CHANGES NOT MENTIONED NO . NEW NUMBNESS OR PAIN PATTERNS NOT MENTIONED AND PERTINENT TO TODAY'S VISIT NO . CARDIOLOGY: NEW CHEST PRESSURE NO . PATIENT DENIES NO . RESPIRATORY: UNEXPLAINABLE COUGH NO . NEW SHORTNESS OF BREATH NO . VITAL SIGNS WT 159.8 LBS, HT 68 IN, BMI 24.29 INDEX, BP 193/75 MM HG, HR 67 /MIN, RR 18 /MIN, TEMP 97.2 F, OXYGEN SAT % 94%, SAFE IN ENV? (Y/N) YES, NA INITIALS AW [id number].LUIGI PLATA, PATIENT STATED THAT SHE HAD DECAF COFFEE ON HE WAY HERE FOR HER APPOINTMENT. EXAMINATION GENERAL EXAMINATION: GENERAL AWAKE,ALERT ,PLEAASANT . PSYCH AFFECT NORMAL . LUNGS: LUNG ARMAS ARE CLEAR TO AUSCULTATION BILATERALLY. GOOD MOVEMENT OF AIR . HEART: S1, S2 IN A REGULAR RATE AND RHYTHM. NO SIGNIFICANT MURMURS, RUBS OR GALLOPS NOTED . LUMBAR:PALPATION:TENDER OVER BILAT. L4/5-L5/S1 LUMBAR FACETS WITH FACET LOADING.. DIAGNOSTIC TESTS REVIEWED MRI L/S SPINE04/2018. 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 PROCEDURE CODES FA211 ESTABILISHED PATIENT [facility] CHARGE DISPOSITION & COMMUNICATION FOLLOW UP POST (REASON: BILATERAL THERAPEUTIC LUMBAR FACET BLOCK L4-5,L5-S1 MED HOLD) ELECTRONICALLY SIGNED BY RAVEN JOHANSEN ON 09/06/2020 AT 08:52 AM EDT DISCLAIMER : THIS IS A VISIT SUMMARY EXTRACTED FROM THE [employer] CHART. IT IS NOT A COPY OF THE [employer] PROGRESS NOTE. MTDD
== END ==
LOC: M PAIN 13:30
PROVIDERS: ATTEND Nurse Practitioner Family
DX: M47.816 Spondylosis without myelopathy or radiculopathy, lumbar region (principal); M48.062 Spinal stenosis, lumbar region with neurogenic claudication; G89.29 Other chronic pain; E03.9 Hypothyroidism, unspecified; Z88.0 Allergy status to penicillin; Z88.1 Allergy status to other antibiotic agents; Z88.8 Allergy status to other drugs, medicaments and biological substances; Z91.018 Allergy to other foods; Z91.041 Radiographic dye allergy status; Z79.01 Long term (current) use of anticoagulants; Z79.899 Other long term (current) drug therapy

== ENCOUNTER → 2020-09-14 | Outpatient (CLI) | payer MEDICARE | LOC: M LABSMTC 12:51 | PROVIDERS: ATTEND Anesthesiology | DX: Z20.822 Contact with and (suspected) exposure to COVID-19 (principal) ==

== ENCOUNTER → 2020-09-19 | Outpatient (CLI) | payer MEDICARE ==
[2020-09-19 12:38] LABS: INR 1.37; PROTHROMBIN TIME 17.2 SECONDS (12.5-14.3)
== END ==
LOC: M LAB 11:21
PROVIDERS: ATTEND Nurse Practitioner Family
DX: M47.816 Spondylosis without myelopathy or radiculopathy, lumbar region (principal)

== ENCOUNTER → 2020-09-19 | Outpatient (CLI) | payer MEDICARE ==
[~2020-09-19] MED LIST changes: +BUPIVACAINE HCL 0.25% 30ML VIAL As Ordered ONE; +LIDOCAINE 1% SDV 30ML VIAL As Ordered ONE; +TRIAMCINOLONE ACETONIDE SUSP 40 MG/ML VIAL (J3301) As Ordered ONE; +diazePAM 5MG TABLET As Ordered ONE; +oxyCODONE 5MG TAB As Ordered ONE
--- NOTE | 2020-09-19 16:51 | REP ---
INDICATION: BILAT LFBT. COMPARISON: None. TECHNIQUE: Intraoperative fluoroscopic imaging using portable C-arm technique. FINDINGS: Catheters overlying lumbar facet joints consistent with facet block. Total fluoroscopic time 7 seconds. IMPRESSION: Findings consistent with lumbar facet block. <Electronically signed by Omid Dennis > 09/19/20 [id number]
--- NOTE | 2020-09-22 00:02 | ECWPNPC ---
PATIENT NAME: GAL MUNOZ : 1935 GENDER: FEMALE VISIT DATE: 09/19/2020 DISCHARGE DATE: 09/19/201534 VISIT LOCKED DATE TIME: PHYSICIAN: SHERIE GAO MD RESOURCE: SHERIE GAO MD REASON FOR APPOINTMENT 1. BILATERAL THERAPEUTIC LUMBAR FACET BLOCK L4-L5, L5-S1 HISTORY OF PRESENT ILLNESS GENERAL: -. FALL RISK SCREENING: SCREENING : NO FALLS REPORTED IN THE LAST YEAR. PAIN SCREENING: PATIENT HAS A COMPLAINT OF ACUTE OR CHRONIC PAIN :YES LOCATION OF PAIN:LOW BACK, LEG(S) INTENSITY OF PAIN (SCALE OF 1 TO 10):8 WHAT DOES YOUR PAIN FEEL LIKE: GRABBING DURATION:CONTINOUS PAIN IS INCREASED BY:ACTIVITIES PAIN IS DECREASED BY: HEAT AND LYING DOWN NURSING NOTE: -. PAIN CENTER INTAKE QUESTIONS: DO YOU HAVE A HISTORY OF MRSA? :NO DO YOU TAKE A BLOOD THINNERS? :YES COUMADIN 09/13/20 FOR PAROXSYSMAL A-FIB DO YOU HAVE ANY BLEEDING DISORDERS? :NO ANY NEW NUMBNESS OR WEAKNESS IN YOUR LEGS OR ARMS? :YES LEFT LEG NUMBNESS ANY PACEMAKER,DEFIBRILLATOR, OR DORSAL COLUMN STIMULATOR? :NO DO YOU HAVE ANY RASHES OR OPEN SORES? :NO ARE YOU ALLERGIC TO IV DYE? :YES ARE YOU DIABETIC? :NO ANY NEW PROBLEMS WITH YOUR MEDICATIONS? :NO HAVE YOU RECEIVED A VACCINE IN THE PAST 30 DAYS? :NO DO YOU PLAN TO RECEIVE A VACCINE IN THE NEXT 21 DAYS? :NO DO YOU TAKE ANY IMMUNOSUPPRESSIVE MEDICATIONS? :NO ANY HISTORY OF SEIZURES? :NO ANY HISTORY OF CARDIAC ISSUES OR EVENTS? :NO DO YOU HAVE ANY KIDNEY OR LIVER DISEASE? :NO DO YOU HAVE SLEEP APNEA? :NO ANY RECENT HEAD INJURY? :NO DO YOU HAVE ANY NEW INFECTIONS? :NO IS THERE A CHANCE YOU COULD BE ? :NO ARE YOU BREAST FEEDING? :NO WHEN DID YOU LAST EAT? : 09/18/20 WHEN DID YOU LAST DRINK? : 09/19/20 1000 WHAT DID YOU LAST DRINK? : WATER NAME OF PERSON DRIVING YOU HOME? : NICHELLE DO YOU HAVE ANY OTHER QUESTIONS OR CONCERNS? : - CURRENT MEDICATIONS TAKING WARFARIN SODIUM 4 MG TABLET 5 DAYS A WEEK AND 2 MG 2 DAYS A WEEK ORALLY ONCE A DAY, NOTES: 09/13/20 TAKING METOPROLOL TARTRATE 50 MG TABLET 3 TABS DAILY ORALLY TWICE A DAY, NOTES: 09/19/20 TAKING LEVOTHYROXINE SODIUM 100 MCG TABLET 1 TABLET ON AN EMPTY STOMACH IN THE MORNING ORALLY ONCE A DAY TAKING OMEPRAZOLE 40 MG CAPSULE DELAYED RELEASE 1 CAPSULE ORALLY ONCE A DAY TAKING VITAMIN C 500 MG TABLET 1 TABLET ORALLY BID TAKING HYDROXYZINE HCL 25 MG TABLET 1 TABLET NEEDED ORALLY EVERY 8 HRS TAKING VENTOLIN HFA 108 (90 BASE) MCG/ACT AEROSOL SOLUTION 1 PUFF NEEDED INHALATION EVERY 4 HRS TAKING TRAMADOL HCL 50 MG TABLET 1 TABLET NEEDED ORALLY TWICE A DAY MAXIMUM DAILY DOSE OF 2, NOTES: NONE LATELY TAKING GABAPENTIN 100 MG CAPSULE 1 CAPSULE ORALLY BID, NOTES: 09/19/20 TAKING OXYCODONE HCL 5 MG TABLET 1 TABLET NEEDED ORALLY 3X DAILY MDD3, NOTES: 09/19/20 NOT-TAKING FEXOFENADINE HCL 180 MG TABLET 1 TABLET ORALLY ONCE A DAY NOT-TAKING LEVOCETIRIZINE DIHYDROCHLORIDE _ TABLET 1 TABLET IN THE EVENING ORALLY 50 MG ONCE A DAY NOT-TAKING HYDROCODONE-ACETAMINOPHEN 5-325 MG TABLET 1 TABLET NEEDED ORALLY EVERY 6 HRS MDD4 NOT-TAKING OXYCODONE HCL 5 MG TABLET 1 TABLET NEEDED ORALLY 3X A DAY X 10 DAYS MDD3 NOT-TAKING GABAPENTIN 100 MG CAPSULE 1 CAPSULE ORALLY BID NOT-TAKING COLACE 100 MG CAPSULE 1 CAPSULE NEEDED ORALLY BID NOT-TAKING MIRTAZAPINE 15 MG TABLET 1 TABLET AT BEDTIME ORALLY ONCE A DAY NOT-TAKING TIZANIDINE HCL 2 MG TABLET 1 TABLET NEEDED ORALLY FOR SPASMS AND PAIN BEFORE BEDTIME MAY REPEAT IN 4 HRS MDD2 NOT-TAKING CARISOPRODOL 350 MG TABLET 1 TABLET NEEDED ORALLY FOR SPASMS AND PAIN AT BEDTIME NOT-TAKING OXYCODONE HCL 5 MG TABLET 1 TABLET NEEDED ORALLY EVERY 6 HRS PRN MDD4 NOT-TAKING VENTOLIN HFA 108 (90 BASE) MCG/ACT AEROSOL SOLUTION 2 PUFFS NEEDED INHALATION EVERY 4 HRS NEEDED MEDICATION LIST REVIEWED AND RECONCILED WITH THE PATIENT PAST MEDICAL HISTORY HTN PAROXYSMAL A. FIB. 11/28/2015 TACHYCARDIA TO 150BPM, DR. SAHNI DID FIND PVC'S ON EKG, 2004 S/P ABLATION C DR. 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 LORENZ 11/2014 GALBLADDER COLIC, STONE RECTAL BLEED 01/31, COLON POLYP ON COLONOSCOPY NAFLD C ELEVATED LFTS ASYMPTOMATIC 06/2015 C OF HEAD, 09/2015 MRI BOTH C SMALL VESS. DIS. 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 LORDOSIS, NARROW EPIDURAL SPACE FORAMEN NARROEWD R C4-6, L C5-6 FREQUENT UTI'S SKILLED NURSING USE OF ANTICOAGULANT IDIOPATHIC PERIPHERAL NEUROPATHY ELEVATED LFTS SACROILIITIS ALLERGIES PENICILLIN (FOR ALLERGIES USE ONLY): HIVES - ALLERGY AUGMENTIN: RASH - ALLERGY LEVOFLOXACIN: RASH - ALLERGY AMBIEN: PASSED OUT - ALLERGY PREDNISONE: HYPER - SIDE EFFECTS THEOPHYLLINE: PASSED OUT - ALLERGY FOOD ADDITIVES: ASTHMA ATTACK - ALLERGY CIPRO: SEVERE ABD. PAIN - SIDE EFFECTS IV DYE: DYSPNEA - ALLERGY - ONSET DATE 03/29/2020 SOCIAL HISTORY GENERAL: TOBACCO USE ARE YOU A:NONSMOKER LATEX QUESTIONNAIRE LATEX ALLERGY : HAVE YOU EVER DEVELOPED ANY TYPE OF REACTION AFTER HANDLING LATEX PRODUCTS SUCH RUBBER GLOVES, CONDOMS, DIAPHRAGMS, BALLOONS, SOCKS, OR UNDERWEAR?NO LATEX ALLERGY : HAVE YOU EVER DEVELOPED ANY TYPE OF REACTION DURING OR AFTER DENTAL APPOINTMENT, VAGINAL/RECTAL EXAMINATION, SURGICAL PROCEDURE, OR ANY OTHER EXPOSURE?NO DATE ASKED : 09/04/2020 LATEX RISK : HAVE YOU EVER HAD ANY DIFFICULTY BREATHING OR HIVES AFTER EATING OR HANDLING ANY FRUITS, OR VEGETABLES; SUCH KIWI, BANANAS, STONE FRUITS, OR CHESTNUTSNO LATEX RISK : DO YOU HAVE A PREVIOUS PERSONAL HISTORY OF MORE THAN NINE SURGERIES, SPINA BIFIDA, OR REPEATED CATHERIZATIONS? NO LATEX RISK : ARE YOU FREQUENTLY EXPOSED TO LATEX PRODUCTS IN YOUR OCCUPATION?NO ALCOHOL USE: YES,OCC. ALCOHOL SCREENING DID YOU HAVE A DRINK CONTAINING ALCOHOL IN THE PAST YEAR?YES HOW MANY DRINKS DID YOU HAVE ON A TYPICAL DAY WHEN YOU WERE DRINKING IN THE PAST YEAR?1 OR 2 (0 POINTS) HOW OFTEN DID YOU HAVE A DRINK CONTAINING ALCOHOL IN THE PAST YEAR?TWO TO FOUR TIMES A MONTH (2 POINTS) POINTS2 INTERPRETATIONNEGATIVE RECREATIONAL DRUG USE DRUG USE?NO NONE CAFFEINE CAFFEINE USE?YES USUALLY DRINKJS DECAF..DOES HAVE A CUP OCCASIONAL ADVENTISM [id number] [facility] LANGUAGE LANGUAGES SPOKEN:[place]ET[place]ESE EDUCATION LEVEL OF EDUCATION:FINISHED COLLEGE LEARNING BARRIERS / SPECIAL NEEDS BARRIERS TO LEARNING?NO HEARING IMPAIRED?NO VISION IMPAIRED?YES COGNITIVELY IMPAIRED?NO :CORRECTIVE LENSES READING GLASSES READINESS TO LEARN?YES LEARNING PREFERENCES?NO LEARNING CAPABILITIES PRESENT?YES EMOTIONAL BARRIERS?NO SPECIAL DEVICES?YES HAS A WALKER AND CANE FOR SAFETY NOT USING :CANE, 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 DIET: REGULAR. EXERCISE: WALKS. MARITAL STATUS: . OTHERS AT HOME: LIVES ALONG. - WAS THE PROVIDER NOTIFIED OF ANY PERTINENT INFO?YES HAS THE PATIENT BEEN EDUCATED REGARDING HIS/HER PLAN OF CARE?YES HAS THE PATIENT BEEN EDUCATED REGARDING PAIN, THE RISK FOR PAIN, THE IMPORTANCE OF EFFECTIVE PAIN MANAGEMENT, AND THE PAIN ASSESSMENT PROCESS?YES ADVANCE DIRECTIVE ADVANCE DIRECTIVE DISCUSSED WITH PATIENT:YES HCP SON GRABIEL MUNOZ [phone] VITAL SIGNS WT 159.8 LBS, HT 68 IN, BMI 24.29 INDEX, BP 198/97 MM HG, HR 63 /MIN, RR 18 /MIN, TEMP 97.2 F, OXYGEN SAT % 99%, SAFE IN ENV? (Y/N) Y, NA INITIALS SC 12:09, REVIEWED BY: SANDRA. EXAMINATION GENERAL: A HISTORY AND PHYSICAL EXAM ON THE PATIENT WAS DONE ON 09/04/2020 (DATE OF ORIGINAL ASSESSMENT) IN PREPARATION OF SURGERY/PROCEDURE. I HAVE NOW REASSESSED THIS PATIENT'S HEALTH STATUS AND PERFORMED AN UPDATED EXAM TODAY. ALL CHANGES IN THE PATIENT'S HISTORY, PHYSICAL EXAM, PRE-EXISTING CONDITONS, AND INDICATIONS/CONTRAINDICATIONS TO THE PLANNED PROCEDURE AND ANESTHESIA ARE DOCUMENTED AND EVALUATED BELOW. I ATTEST TO THE ADEQUACY AND APPROPRIATENESS OF MY ASSESSMENT, AND CONFIRM THE NECESSITY FOR THE PLANNED PROCEDURE. THE PATIENT IS ALERT, ORIENTED TIMES THREE AND COOPERATIVE. LUNGS ARE CLEAR TO AUSCULTATION. HEART SHOWS REGULAR RHYTHM, NO MURMURS AND NO GALLOPS. ASSESSMENTS SPONDYLOSIS OF LUMBAR REGION WITHOUT MYELOPATHY OR RADICULOPATHY - M47.816 (PRIMARY) SPONDYLOSIS WITHOUT MYELOPATHY OR RADICULOPATHY, LUMBOSACRAL REGION - M47.817 TREATMENT SPONDYLOSIS OF LUMBAR REGION WITHOUT MYELOPATHY OR RADICULOPATHY LAB: PT-INR [facility] FACET BLOCK (PAIN)[id number] COMPLETION OF PROCEDURAL VISIT WHEN MEETS CRITERIAMIKAELA KOROMA 09/19/2020 3:40:00 PM > CRITERIA MET MEDICATION: VALIUM TAB 5MG ORALLY (DIAZEPAM)RO JOYNER 09/19/2020 1:07:22 PM > VERIFIED MIKAELA KOROMA 09/19/2020 1:15:31 PM > ADMINISTERED MEDICATION: OXYCODONE HCL TAB 10MG ORALLYDERO HERRON 09/19/2020 1:07:41 PM > VERIFIED MIKAELA KOROMA 09/19/2020 1:15:47 PM > ADMINISTERED PROCEDURES PAIN NURSING RECORD PROCEDURE IN ROOM 1330, PHYSICIAN IN ROOM 1406, START 1414, FINISH 1420, PHYSICIAN OUT OF ROOM 1421, OUT OF ROOM 1430, ECG NORMAL SINUS, PATIENT SHIELDED YES, SAFETY STRAP YES, PREP CHLOROPREP Kush KOROMA RN, DRESSING TEGADERM DR. GAO LOC: 1. ALERT, ORIENTED, MIKAELA KOROMA 09/19/2020 2:15:08 PM > RESP: 1. REGULAR, NO DYSPNEA, MIKAELA KOROMA 09/19/2020 2:15:12 PM > COLOR: 1. PINK, MIKAELA KOROMA 09/19/2020 2:15:17 PM > SKIN: 1. WARM, DRY, MIKAELA KOROMA 09/19/2020 2:15:21 PM > POSITION: 1. PRONE, MIKAELA KOROMA 09/19/2020 2:15:26 PM > VITALS: 199/90, 64, 16, 100%, JACQUELINE KOROMABETH 09/19/2020 1:51:17 PM > 180/86, 63, 16, 100% MIKAELA KOROMA 09/19/2020 2:00:53 PM > , 182/88, 62, 16, 100%, GAJACQUELINE VOGTBETH 09/19/2020 2:16:00 PM > 181/86, 63, 16, 100%, MIKAELA KOROMA 09/19/2020 2:35:25 PM > NOTES Kush KOROMA RN COMPLETION OF PROCEDURE APPOINTMENT: POST PAIN 8, DRESSING SITE DRY AND INTACT, IV N/A, GAIT WHEELCHAIR, TEACHING COMPLETED, PATIENT ACKNOWLEDGES UNDERSTANDING YES, PROCEDURE APPOINTMENT COMPLETED AT 1535 : PT IS ALLERGIC TO IV DYE, SO NO ISOVUE WAS USED FOR THIS PROCEDURE. PT TAKES COUMADIN, STAT PT/INR WAS DRAWN PRE PROCEDURE AND RESULTS GIVEN TO DR GAO, OK TO PROCEED. PT 17.2, INR 1.37, GAMIKAELA 09/19/2020 1:58:48 PM > POST PROCEDURE, PT NEEDS MORE TIME TO SIT UP, EAT CRACKERS AND REPOSITION HERSELF., MIKAELA KOROMA 09/19/2020 2:57:30 PM > POST PROCEDURE, PT REQUESTED GUIDANCE OF HOW TO TAKE MEDS AT HOME SHE HAS OXYCODONE X 10DAYS, SPOKE WITH BERNARDA WHO ADVISED TO TAKE OXYCODONE TID AND CALL SCRIPT LINE BEFORE SHE RUNS OUT, PT HAS APPT WITH BERNARDA 10/03/20. INFORMED PT OF THE ABOVE. PT THEN STATES SHE WANTS TO TALK TO THE DR ABOUT HER PAIN. DR GAO IS IN A MEETING WITH WANDA, SIGN SAYS DND. SPOKE WITH BERNARDA, ASKED HER TO SPEAK WITH PT. BERNARDA SPOKE WITH PT, ANSWERED HER QUESTIONS RE ASSURED HER TO CALL US FOR PAIN RELIEF, GIVE THE INJECTIONS TIME TO WORK, GO HOME AND REST. PT SEEMED TO CALM DOWN WITH THIS ADVISE AND AGREED TO GO HOME, PT DISCHARGED HOME IN WHEELCHAIR SHE ARRIVED IN., MIKAELA KOROMA 09/19/2020 3:39:36 PM > PN LUMBAR FACET BLOCK THERAPEUTIC PRE PROCEDURE DIAGNOSIS LUMBAR SPONDYLOSIS, LUMBOSACRAL SPONDYLOSIS POST PROCEDURE DIAGNOSIS LUMBAR SPONDYLOSIS, LUMBOSACRAL SPONDYLOSIS PROCEDURE BILATERAL L4-L5 AND BILATERAL L5-S1 LUMBAR FACET THERAPEUTIC BLOCK SURGEON DR. SHERIE GAO TARIFF COMPILING CLERK NONE ANESTHESIA LOCAL PRE PROCEDURE NOTE THE PATIENT HAS A HISTORY OF CHRONIC LOW BACK PAIN. I EVALUATED THE PATIENT AND REVIEWED THE CHART. I WENT OVER THE RISKS, ALTERNATIVES, AND BENEFITS ASSOCIATED WITH THIS PROCEDURE. THE PATIENT WOULD LIKE TO PROCEED AND GIVES CONSENT TO PERFORM THE PROCEDURE. THE PATIENT DENIES UNEXPLAINABLE WEIGHT LOSS, FEVER, CHILLS, OR NEW CHANGES IN URINARY OR BOWEL CONTROL. THE PATIENT IS COVID-19 NEGATIVE DESCRIPTION OF PROCEDURE THE PATIENT WAS BROUGHT TO THE PROCEDURE ROOM AND PLACED IN THE PRONE POSITION. THE LUMBOSACRAL AREA WAS CLEANED WITH CHLORAPREP SOLUTION AND DRAPED ASEPTICALLY. THE PROCEDURE WAS DONE UNDER STERILE CONDITIONS. A TIMEOUT WAS PERFORMED WHERE THE CONSENTED SITE WAS VERIFIED WITH EVERYONE IN THE ROOM. UNDER FLUOROSCOPIC GUIDANCE, THE TARGET POINT WAS SELECTED AT THE RIGHT AND LEFT L4-L5 AND RIGHT AND LEFT L5-S1 FACET JOINTS. TARGET POINT WAS SELECTED AFTER LATERAL ROTATION AND TILT OF THE MAGNIFIER OF THE C-ARM. I CONFIRMED AGAIN THE SITE OF TARGET. LIDOCAINE 0.5% WAS USED TO NUMB THE SKIN AND THE SUBCUTANEOUS TISSUE BELOW IT. SPINAL NEEDLES, 22-GAUGE, WERE ADVANCED UNDER FLUOROSCOPIC GUIDANCE AND FOLLOWING PATIENT FEEDBACK UNTIL THE TARGETS WERE TOUCHED. THE POSITION OF THE NEEDLES WAS VERIFIED WITH AP AND LATERAL VIEWS. THE PATIENT HAS AN ALLERY TO DYE SO NO ISOVUE-M DYE WAS USED. KENALOG 10 MG WAS INJECTED AT EACH SITE. THEN, A SOLUTION OF 1.0 ML OF BUPIVACAINE 0.125% OF WAS USED TO FLUSH EACH SITE. THE MEDICATION WAS VERIFIED WITH THE NURSE. THERE WAS NO EVIDENCE OF BLOOD, PARESTHESIA OR CEREBROSPINAL FLUID DURING THE PROCEDURE. THE PATIENT WAS SENT TO THE RECOVERY ROOM. THE PATIENT WAS MOVING THE EXTREMITIES AND DOING WELL. THERE WERE NO COMPLICATIONS DURING THE PROCEDURE. ESTIMATED BLOOD LOSS WAS LESS THAN 5 ML. FLUOROSCOPY TIME WAS 36 SECONDS POST PROCEDURE NOTE I DID THE PROCEDURE COUNTING FROM THE TOP, T12-L1 DOWN. DEPENDING ON THE RESULTS, CONSIDER A NEW MRI. THE LAST ONE WAS DONE IN 2019. NO FURTHER INJECTIONS SHOULD BE DONE WITHOUT AN UPDATED MRI. IDEALLY, THIS MRI SHOULD BE DONE WITH CONSTRAST BUT THE PATIENT HAS AN ALLERGY TO DYE. PLEASE DISCUSS THE CASE WITH ME. THE PATIENT WILL BE SEEN IN A FOLLOW UP IN THE NEXT FEW WEEKS. I AM LOOKING FOR LONG LASTING RELIEF FOR THE PATIENT WITH THIS INTERVENTION. INSTRUCTIONS WERE GIVEN, QUESTIONS WERE ANSWERED, AND THE PATIENT EXPRESSED UNDERSTANDING AND AGREES WITH THE PLAN. I, ANNI RADFORD, DOCUMENTED THE ABOVE INFORMATION ACTING A SCRIBE FOR DR. GAO. I HAVE REVIEWED THE ABOVE DOCUMENT, WRITTEN BY MANDI RADFORD, HOUSEHOLD COORDINATOR, AND I VERIFY THAT IT IS ACCURATE PROCEDURE CODES 11257 INJ PARAVERT F JNT L/S 1 LEV, MODIFIERS: 50 [id number] INJ PARAVERT F JNT L/S 2 LEV, MODIFIERS: 50 DISPOSITION & COMMUNICATION FOLLOW UP FOLLOW UP WITH BRICK AND BLOCK MASON (REASON: POST BILATERAL THERAPEUTIC LUMBAR FACET BLOCK L4-L5, L5-S1) ELECTRONICALLY SIGNED BY SHERIE GAO MD, MD ON 09/21/2020 AT 05:18 PM EDT DISCLAIMER : THIS IS A VISIT SUMMARY EXTRACTED FROM THE [employer] CHART. IT IS NOT A COPY OF THE [employer] PROGRESS NOTE. MTDD
== END ==
LOC: M PAIN 11:40
PROVIDERS: ATTEND Anesthesiology
DX: M47.816 Spondylosis without myelopathy or radiculopathy, lumbar region (principal); M47.817 Spondylosis without myelopathy or radiculopathy, lumbosacral region; E03.9 Hypothyroidism, unspecified; Z88.0 Allergy status to penicillin; Z88.1 Allergy status to other antibiotic agents; Z88.8 Allergy status to other drugs, medicaments and biological substances; Z91.02 Food additives allergy status; Z91.041 Radiographic dye allergy status; Z79.01 Long term (current) use of anticoagulants; Z79.899 Other long term (current) drug therapy
CPT/HCPCS: 36415; 64493; 64494; 85610; J3301

== ENCOUNTER → 2020-10-03 | Outpatient (CLI) | payer MEDICARE ==
[~2020-10-03] MED LIST changes: -BUPIVACAINE HCL 0.25% 30ML VIAL As Ordered ONE; -LIDOCAINE 1% SDV 30ML VIAL As Ordered ONE; -TRIAMCINOLONE ACETONIDE SUSP 40 MG/ML VIAL (J3301) As Ordered ONE; -diazePAM 5MG TABLET As Ordered ONE; -oxyCODONE 5MG TAB As Ordered ONE
--- NOTE | 2020-10-06 02:10 | ECWPNPC ---
PATIENT NAME: GAL MUNOZ : 1935 GENDER: FEMALE VISIT DATE: 10/03/2020 DISCHARGE DATE: 10/03/20 1452 VISIT LOCKED DATE TIME: PHYSICIAN: BERNARDA GILL RESOURCE: BERNARDA GILL REASON FOR APPOINTMENT 1. POST BILATERAL THERAPEUTIC LUMBAR FACET BLOCK L4-5,L5-S1 HISTORY OF PRESENT ILLNESS GENERAL: HERE FOR POST PROCEDURE F/U.HAD BILATERAL THERAPEUTIC LUMBAR FACET BLOCK L4-L5.REPORTING NO IMPROVEMENT IN PAIN POST PROCEDURE.PATIENT IS HAVING HER SON LISTEN IN ON CONVERSATION TODAY.FINDING OXYCODONE SOMEWHAT HELPFUL AT REDUCING PAIN. SON VOICES CONCERN OVER HIS MOM BEING ALONE AND ON PAIN MEDICATION. PATIENT IS ADMITTING TO DIZZINESS WITH BOTH GABAPENTIN AND SOMA. PATIENT WAS SEEN BY [facility] FOR HER HIP PAIN AND PATIENT STATES THEY DID AN INJECTION IN HER THIGH THAT WAS SUPPOSED TO HELP WITH HER HIP. THEY ALSO DISCUSSED HIP REPLACEMENT. PATIENT DOES NOT WANT TO GO BACK THERE. INFORMED SON THAT WE HAVE ADVISED HER TO GO TO THE EMERGENCY ROOM AND SHE REFUSES.HAS BEEN ADVISED TO GO TO PRIMARY CARE REGARDING STOMACH PAIN BUT SHE HAS NOT MADE APPOINTMENT.STATES SHE WANTS TO SWITCH PRIMARY CARE PROVIDER. REVIEWED DR. GAO'S PROCEDURE NOTE. HE WOULD LIKE PATIENT TO HAVE AN MRI. HAS ALLERGY TO IVP DYE SO NO CONTRAST WILL BE ORDERED. -. FALL RISK SCREENING: SCREENING : ONE FALLS REPORTED IN THE LAST YEAR WITH INJURY TO LEFT FOREARM. PAIN SCREENING: PATIENT HAS A COMPLAINT OF ACUTE OR CHRONIC PAIN :YES LOCATION OF PAIN:LOW BACK INTENSITY OF PAIN (SCALE OF 1 TO 10): 7-10/10 WHAT DOES YOUR PAIN FEEL LIKE:ACHING, BURNING, SHARP, STABBING, THROBBING, SHOOTING DURATION:CONTINOUS, CONSTANT PAIN IS INCREASED BY:ACTIVITIES PAIN IS DECREASED BY:USE OF PAIN MEDICATIONS NURSING NOTE: -. PAIN CENTER INTAKE QUESTIONS: DO YOU HAVE A HISTORY OF MRSA? :NO DO YOU TAKE A BLOOD THINNERS? :YES COUMADIN DO YOU HAVE ANY BLEEDING DISORDERS? :NO ANY NEW NUMBNESS OR WEAKNESS IN YOUR LEGS OR ARMS? :YES PAIN IN THE UPPER THIGH/ GROIN AREA ANY PACEMAKER,DEFIBRILLATOR, OR DORSAL COLUMN STIMULATOR? :NO DO YOU HAVE ANY RASHES OR OPEN SORES? :NO ARE YOU ALLERGIC TO IV DYE? :YES ARE YOU DIABETIC? :NO ANY NEW PROBLEMS WITH YOUR MEDICATIONS? :NO HAVE YOU RECEIVED A VACCINE IN THE PAST 30 DAYS? :NO DO YOU PLAN TO RECEIVE A VACCINE IN THE NEXT 21 DAYS? :NO DO YOU NEED ANY PRESCRIPTION? :YES REFILL OXYCODONE DO YOU TAKE ANY IMMUNOSUPPRESSIVE MEDICATIONS? :NO IS THERE A CHANCE YOU COULD BE ? :NO ARE YOU BREAST FEEDING? :NO CURRENT MEDICATIONS TAKING WARFARIN SODIUM 4 MG TABLET 5 DAYS A WEEK AND 2 MG 2 DAYS A WEEK ORALLY ONCE A DAY TAKING METOPROLOL TARTRATE 50 MG TABLET 3 TABS DAILY ORALLY TWICE A DAY TAKING LEVOTHYROXINE SODIUM 100 MCG TABLET 1 TABLET ON AN EMPTY STOMACH IN THE MORNING ORALLY ONCE A DAY TAKING OMEPRAZOLE 40 MG CAPSULE DELAYED RELEASE 1 CAPSULE ORALLY ONCE A DAY TAKING VITAMIN C 500 MG TABLET 1 TABLET ORALLY BID TAKING HYDROXYZINE HCL 25 MG TABLET 1 TABLET NEEDED ORALLY EVERY 8 HRS TAKING VENTOLIN HFA 108 (90 BASE) MCG/ACT AEROSOL SOLUTION 1 PUFF NEEDED INHALATION EVERY 4 HRS TAKING TRAMADOL HCL 50 MG TABLET 1 TABLET NEEDED ORALLY TWICE A DAY MAXIMUM DAILY DOSE OF 2 TAKING GABAPENTIN 100 MG CAPSULE 1 CAPSULE ORALLY BID TAKING OXYCODONE HCL 5 MG TABLET 1 TABLET NEEDED ORALLY 3X DAILY MDD3 TAKING SOMA 350 MG TABLET 1 TABLET NEEDED ORALLY BID NOT-TAKING FEXOFENADINE HCL 180 MG TABLET 1 TABLET ORALLY ONCE A DAY NOT-TAKING LEVOCETIRIZINE DIHYDROCHLORIDE _ TABLET 1 TABLET IN THE EVENING ORALLY 50 MG ONCE A DAY NOT-TAKING HYDROCODONE-ACETAMINOPHEN 5-325 MG TABLET 1 TABLET NEEDED ORALLY EVERY 6 HRS MDD4 NOT-TAKING OXYCODONE HCL 5 MG TABLET 1 TABLET NEEDED ORALLY 3X A DAY X 10 DAYS MDD3 NOT-TAKING GABAPENTIN 100 MG CAPSULE 1 CAPSULE ORALLY BID NOT-TAKING COLACE 100 MG CAPSULE 1 CAPSULE NEEDED ORALLY BID NOT-TAKING MIRTAZAPINE 15 MG TABLET 1 TABLET AT BEDTIME ORALLY ONCE A DAY NOT-TAKING TIZANIDINE HCL 2 MG TABLET 1 TABLET NEEDED ORALLY FOR SPASMS AND PAIN BEFORE BEDTIME MAY REPEAT IN 4 HRS MDD2 NOT-TAKING CARISOPRODOL 350 MG TABLET 1 TABLET NEEDED ORALLY FOR SPASMS AND PAIN AT BEDTIME NOT-TAKING OXYCODONE HCL 5 MG TABLET 1 TABLET NEEDED ORALLY EVERY 6 HRS PRN MDD4 NOT-TAKING VENTOLIN HFA 108 (90 BASE) MCG/ACT AEROSOL SOLUTION 2 PUFFS NEEDED INHALATION EVERY 4 HRS NEEDED MEDICATION LIST REVIEWED AND RECONCILED WITH THE PATIENT PAST MEDICAL HISTORY HTN PAROXYSMAL A. FIB. 11/28/2015 TACHYCARDIA TO 150BPM, DR. SAHNI DID FIND PVC'S ON EKG, 2004 S/P ABLATION C DR. 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 LORENZ 11/2014 GALBLADDER COLIC, STONE RECTAL BLEED 01/31, COLON POLYP ON COLONOSCOPY NAFLD C ELEVATED LFTS ASYMPTOMATIC 06/2015 C OF HEAD, 09/2015 MRI BOTH C SMALL VESS. DIS. 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 PAIN - SIDE EFFECTS IV DYE: DYSPNEA - ALLERGY - ONSET DATE 03/29/2020 SOCIAL HISTORY GENERAL: TOBACCO USE ARE YOU A:NONSMOKER LATEX QUESTIONNAIRE LATEX ALLERGY : HAVE YOU EVER DEVELOPED ANY TYPE OF REACTION AFTER HANDLING LATEX PRODUCTS SUCH RUBBER GLOVES, CONDOMS, DIAPHRAGMS, BALLOONS, SOCKS, OR UNDERWEAR?NO LATEX ALLERGY : HAVE YOU EVER DEVELOPED ANY TYPE OF REACTION DURING OR AFTER DENTAL APPOINTMENT, VAGINAL/RECTAL EXAMINATION, SURGICAL PROCEDURE, OR ANY OTHER EXPOSURE?NO DATE ASKED : 09/04/2020 LATEX RISK : HAVE YOU EVER HAD ANY DIFFICULTY BREATHING OR HIVES AFTER EATING OR HANDLING ANY FRUITS, OR VEGETABLES; SUCH KIWI, BANANAS, STONE FRUITS, OR CHESTNUTSNO LATEX RISK : DO YOU HAVE A PREVIOUS PERSONAL HISTORY OF MORE THAN NINE SURGERIES, SPINA BIFIDA, OR REPEATED CATHERIZATIONS? NO LATEX RISK : ARE YOU FREQUENTLY EXPOSED TO LATEX PRODUCTS IN YOUR OCCUPATION?NO ALCOHOL USE: YES,OCC. ALCOHOL SCREENING DID YOU HAVE A DRINK CONTAINING ALCOHOL IN THE PAST YEAR?YES HOW MANY DRINKS DID YOU HAVE ON A TYPICAL DAY WHEN YOU WERE DRINKING IN THE PAST YEAR?1 OR 2 (0 POINTS) HOW OFTEN DID YOU HAVE A DRINK CONTAINING ALCOHOL IN THE PAST YEAR?TWO TO FOUR TIMES A MONTH (2 POINTS) POINTS2 INTERPRETATIONNEGATIVE RECREATIONAL DRUG USE DRUG USE?NO NONE CAFFEINE CAFFEINE USE?YES USUALLY DRINKJS DECAF..DOES HAVE A CUP OCCASIONAL YARSANISM [id number] [employer] L[employer]UAGES SPOKEN:MONEGASQUE EDUCATION LEVEL OF EDUCATION:FINISHED COLLEGE LEARNING BARRIERS / SPECIAL NEEDS BARRIERS TO LEARNING?NO HEARING IMPAIRED?NO VISION IMPAIRED?YES COGNITIVELY IMPAIRED?NO :CORRECTIVE LENSES READING GLASSES READINESS TO LEARN?YES LEARNING PREFERENCES?NO LEARNING CAPABILITIES PRESENT?YES EMOTIONAL BARRIERS?NO SPECIAL DEVICES?YES HAS A WALKER AND CANE FOR SAFETY NOT USING :CANE, WALKER 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 DIET: REGULAR. EXERCISE: WALKS. MARITAL STATUS: . OTHERS AT HOME: LIVES ALONG. - WAS THE PROVIDER NOTIFIED OF ANY PERTINENT INFO?YES HAS THE PATIENT BEEN EDUCATED REGARDING HIS/HER PLAN OF CARE?YES HAS THE PATIENT BEEN EDUCATED REGARDING PAIN, THE RISK FOR PAIN, THE IMPORTANCE OF EFFECTIVE PAIN MANAGEMENT, AND THE PAIN ASSESSMENT PROCESS?YES ADVANCE DIRECTIVE ADVANCE DIRECTIVE DISCUSSED WITH PATIENT:YES HCP SON GRABIEL MUNOZ [phone] REVIEW OF SYSTEMS CONSTITUTIONAL: ANY RECENT FEVER NO . CHILLS NO . WEIGHT CHANGE OF UNKNOWN REASONS NO . GASTROENTEROLOGY: NEW UNEXPLAINABLE CHANGES IN BOWEL CONTROL NO . CONSTIPATION NO . GENITOURINARY: ANY NEW CHANGE IN BLADDER CONTROL? NO . NEUROLOGY: NEW ONSET DIZZINESS OR NEUROLOGICAL CHANGES NOT MENTIONED NO . NEW NUMBNESS OR PAIN PATTERNS NOT MENTIONED AND PERTINENT TO TODAY'S VISIT NO . CARDIOLOGY: NEW CHEST PRESSURE NO . PATIENT DENIES NO . RESPIRATORY: UNEXPLAINABLE COUGH NO . NEW SHORTNESS OF BREATH NO . VITAL SIGNS WT 147.8 LBS, HT 68 IN, BMI 22.47 INDEX, BP 201/94 RA, REPEAT BP 202/91 LA, HR 60 /MIN, RR 18 /MIN, TEMP 97.9 F, OXYGEN SAT % 98%, SAFE IN ENV? (Y/N) Y, NA INITIALS OH 13:44, REVIEWED BY: [id number] MANUAL, BERNARDA GILL AWARE. EM. EXAMINATION GENERAL EXAMINATION: GENERAL ALERT,NO DISTRESS,RELAXED APPEARANCE. PSYCHAPPROPRIATE MOOD AND AFFECT . LUNGS:CLEAR TO AUSCULTATION BILATERALLY, NO WHEEZES, RHONCHI, RALES. HEART:NO MURMURS, REGULAR RATE AND RHYTHM. MUSCULOSKELETAL: MUSCLE STRENGTH TESTING 4/5 BILATERAL LOWER EXTREMITIES. NEUROLOGIC EXAM: NORMAL SENSATION TO LIGHT TOUCH LOWER EXTREMITIES. WALKS WITH ASSISTIVE WALKER WITH A SLOW STEADY GAIT. ASSESSMENTS OTHER CHRONIC PAIN - G89.29 (PRIMARY) SPONDYLOSIS OF LUMBAR REGION WITHOUT MYELOPATHY OR RADICULOPATHY - M47.816 TREATMENT OTHER CHRONIC PAIN STOP OXYCODONE HCL TABLET, 5 MG, 1 TABLET NEEDED, ORALLY, 3X DAILY MDD3 STOP TRAMADOL HCL TABLET, 50 MG, 1 TABLET NEEDED, ORALLY, TWICE A DAY MAXIMUM DAILY DOSE OF 2 STOP CARISOPRODOL TABLET, 350 MG, 1 TABLET NEEDED, ORALLY FOR SPASMS AND PAIN, AT BEDTIME START HYDROCODONE-ACETAMINOPHEN TABLET, 5-325 MG, 1 TABLET NEEDED, ORALLY, EVERY 6 HRS NEEDED MAX DOSE 4, 10 DAY(S), 40 PAIN PROCEDURE LOGDATE OF PROCEDURE1PROCEDURE:BILATERAL THERAPEUTIC LUMBAR FACET BLOCK L4-L5,L5-[id number] OF PRE SEDATEVALIUM 5MG, OXYCODONE 10MGRESULT:NO IMPROVEMENT NOTES: PATIENT IS ADVISED TO MAKE APPOINTMENT WITH PRIMARY CARE IN REGARDS TO HER CURRENT COMPROMISED CONDITION AND CONTINUED COMPLAINTS OF ABDOMINAL PAIN.INFORMED PATIENT THAT I WAS CONCERNED ABOUT HER ABILITY TO STAY ALONE SAFELY.ADVISED TO STOP OXYCODONE AND SOMA.START HYDROCODONE 5/325 1 TAB EVERY 4-6HRS WITH MAX 4 PER DAY.ADVISED TO TAKE COLACE 100MG TWICE DAILY TO PREVENT SEVERE CONSTIPATION ASSOCIATED WITH HYDROCODONE USE. MEDICATION DESTRUCTION FORM WAS FILLED OUT FOR PT, PT DID NOT BRING PILLS WITH HER, SO NO QUANTITY OR INFORMATION FROM PILL BOTTLES WAS COMPLETED. FORM WAS REVIEWED WITH PT AND SHE WAS INSTRUCTED TO BRING THAT FORM WITH HER PRESCRIPTIONS TO BE DESTROYED TO [facility], AND THEN THE COMPLETED FORM NEEDS TO BE RETURNED TO US. PT EXPRESSED UNDERSTANDING. 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 SPONDYLOSIS OF LUMBAR REGION WITHOUT MYELOPATHY OR RADICULOPATHY [facility] [facility] MRI SPINE, L.S. WITHOUT [id number] PROCEDURE CODES FA211 ESTABILISHED PATIENT [facility] FACILITY CHARGE DISPOSITION & COMMUNICATION FOLLOW UP F/U W DR Felipe-REVIEW MRI L/S SPINE (REASON: WORSENING LOW BACK PAIN) ELECTRONICALLY SIGNED BY RAVEN JOHANSEN ON 10/05/2020 AT 09:55 AM EDT DISCLAIMER : THIS IS A VISIT SUMMARY EXTRACTED FROM THE [employer] CHART. IT IS NOT A COPY OF THE [employer] PROGRESS NOTE. MIKI
== END ==
LOC: M PAIN 13:30
PROVIDERS: ATTEND Nurse Practitioner Family
DX: M47.816 Spondylosis without myelopathy or radiculopathy, lumbar region (principal); G89.29 Other chronic pain; E03.9 Hypothyroidism, unspecified; Z88.0 Allergy status to penicillin; Z88.1 Allergy status to other antibiotic agents; Z88.8 Allergy status to other drugs, medicaments and biological substances; Z91.02 Food additives allergy status; Z91.041 Radiographic dye allergy status; Z79.01 Long term (current) use of anticoagulants; Z79.899 Other long term (current) drug therapy

== ENCOUNTER → 2020-10-18 | Outpatient (CLI) | payer MEDICARE ==
--- NOTE | 2020-10-18 15:50 | REPVR ---
PROCEDURE INFORMATION: Exam: MR Lumbar Spine Without Contrast Exam date and time: 10/18/2020 12:45 PM Age: 85 years old Clinical indication: Low back pain; Patient HX: Chronic worsening pain, ; additional info: Spondylosis lumbar region TECHNIQUE: Imaging protocol: Multiplanar magnetic resonance images of the lumbar spine without intravenous contrast. COMPARISON: 1. MRI-Spine, L.S. without con 05/07/2018 6:25 PM 2. CR Spine. Lumbosacral, complete 07/09/2018 2:27 PM FINDINGS: Vertebrae: There is marked diffuse osteopenia. Examination reveals an acute osteoporotic compression fracture involving the L1 vertebral body with a loss of height of approximately 50%. There is increased T2 signal on STIR images reflecting acute nature of the injury. There are chronic osteoporotic compression fractures involving the T11, T12 and L2 vertebral bodies with a loss of height of approximately 70, 60 and 50% respectively. No significant retropulsion is seen. These fractures are however new since the previous MRI of 2018. Remainder of the lumbar vertebral bodies are normal in height, alignment and signal intensity. Spinal cord: The conus medullaris is normal. L1-L2: There is no significant degenerative disc herniation.The spinal canal and neural foramina are patent and without significant stenosis. L2-L3: Markedly reduced in height and T2 signal indicating degeneration. Moderate degenerative endplate changes. Small diffuse posterior herniation. There is diffuse endplate spurring.The facet joints demonstrate moderate degenerative narrowing and sclerosis. There is no evidence of spinal canal narrowing. There is mild bilateral foraminal stenosis. L3-L4: Markedly reduced in height and T2 signal indicating degeneration. Moderate degenerative endplate changes. Moderate diffuse posterior herniation. Moderate facet arthropathy.There is moderate spinal canal stenosis, with an AP canal dimension of 8 mm. There is mild compression on the adjacent thecal sac.There is severe bilateral foraminal stenosis. There is compression on the exiting nerve root. L4-L5: Small diffuse posterior herniation. Severe facet arthropathy.There is thickening of the ligamentum flavum.There is severe spinal canal stenosis, with an AP canal dimension of 6 mm. There is compression on the thecal sac and crowding of the cauda equina nerve roots at this level.There is moderate bilateral lateral recess and foraminal stenosis. L5-S1: There is a mild diffuse posterior bulge causing mild effacement of the thecal sac.The facet joints demonstrate marked degenerative narrowing and sclerosis. There is thickening of the ligamentum flavum.There is severe spinal canal stenosis, with an AP canal dimension of 6 mm. There is compression on the thecal sac and crowding of the cauda equina nerve roots at this level.There is mild left foraminal stenosis. There is moderate right foraminal stenosis. Soft tissues: The prevertebral soft tissues appear normal. IMPRESSION: 1. There is marked diffuse osteopenia. 2. Examination reveals an acute osteoporotic compression fracture involving the L1 vertebral body with a loss of height of approximately 50%. There is increased T2 signal on STIR images reflecting acute nature of the injury. 3. There are chronic osteoporotic compression fractures involving the T11, T12 and L2 vertebral bodies with a loss of height of approximately 70, 60 and 50% respectively. No significant retropulsion is seen. These fractures are however new since the previous MRI of 2019. Electronically signed by: Anatoliy Richardson On 10/18/2020 15:49:58 PM
== END ==
LOC: M PLARAD 11:50
PROVIDERS: ATTEND Nurse Practitioner Family
DX: M47.816 Spondylosis without myelopathy or radiculopathy, lumbar region (principal); M85.88 Other specified disorders of bone density and structure, other site; M51.26 Other intervertebral disc displacement, lumbar region; M80.08XA Age-related osteoporosis with current pathological fracture, vertebra(e), initial encounter for fracture; M48.061 Spinal stenosis, lumbar region without neurogenic claudication

== ENCOUNTER → 2020-10-27 | Outpatient (CLI) | payer MEDICARE ==
--- NOTE | 2020-11-01 02:13 | ECWPNPC ---
PATIENT NAME: GAL MUNOZ : 1935 GENDER: FEMALE VISIT DATE: 10/27/2020 DISCHARGE DATE: 10/27/20 1519 VISIT LOCKED DATE TIME: PHYSICIAN: SHERIE GAO MD RESOURCE: SHERIE GAO MD REASON FOR APPOINTMENT 1. MRI REVIEW WITH DR. SIMA MENCHACA HISTORY OF PRESENT ILLNESS GENERAL: 85-YEAR-OLD FEMALE PATIENT WITH A HISTORY OF CHRONIC LOW BACK PAIN. THE PATIENT DESCRIBES THE PAIN SEVERE AND ACHING WITH A PAIN SCORE RANGING FROM 2-10/10. THE PAIN INCREASES WITH ACTIVITIES. WE DID A FACET BLOCK A FEW MONTHS AGO IN THE LOWER BACK AND THE PATIENT FEELS BETTER WITH THAT. OVER THE PAST FEW MONTHS, SHE HAS NOTICED PAIN IN THE ABDOMEN AREA. SHE HAS BEEN TAKING HYDROCODONE ON A PRN BASIS AND SHE FEELS THAT THE MEDICATION IS HELPING. FALL RISK SCREENING: SCREENING : NO FALLS REPORTED IN THE LAST YEAR. PAIN SCREENING: PATIENT HAS A COMPLAINT OF ACUTE OR CHRONIC PAIN :YES LOCATION OF PAIN:MID BACK, LOW BACK INTENSITY OF PAIN (SCALE OF 1 TO 10):2 WHAT DOES YOUR PAIN FEEL LIKE:ACHING, CONTINOUS DURATION:CONTINOUS, CONSTANT, ALL DAY PAIN IS INCREASED BY:ACTIVITIES, PROLONGED STANDING PAIN IS DECREASED BY:USE OF PAIN MEDICATIONS, SITTING, OTHERS RESTING NURSING NOTE: -PATIENT STATED THAT SHE FORGOT TO BRING VERIFICATION FOR WASTED MEDS FROM [facility], PATIENT WAS GIVEN PHONE NUMBER FOR MEDICAL RECORDS- VINAY PLATA. PAIN CENTER INTAKE QUESTIONS: DO YOU HAVE A HISTORY OF MRSA? :NO DO YOU TAKE A BLOOD THINNERS? :YES COUMADIN DO YOU HAVE ANY BLEEDING DISORDERS? :NO ANY NEW NUMBNESS OR WEAKNESS IN YOUR LEGS OR ARMS? :YES PAIN IN THE UPPER THIGH/ GROIN AREA ANY PACEMAKER,DEFIBRILLATOR, OR DORSAL COLUMN STIMULATOR? :NO DO YOU HAVE ANY RASHES OR OPEN SORES? :NO ARE YOU ALLERGIC TO IV DYE? :YES ARE YOU DIABETIC? :NO ANY NEW PROBLEMS WITH YOUR MEDICATIONS? :NO HAVE YOU RECEIVED A VACCINE IN THE PAST 30 DAYS? :NO DO YOU PLAN TO RECEIVE A VACCINE IN THE NEXT 21 DAYS? :NO DO YOU NEED ANY PRESCRIPTION? :YES REFILL OXYCODONE DO YOU TAKE ANY IMMUNOSUPPRESSIVE MEDICATIONS? :NO IS THERE A CHANCE YOU COULD BE ? :NO ARE YOU BREAST FEEDING? :NO CURRENT MEDICATIONS TAKING WARFARIN SODIUM 4 MG TABLET 5 DAYS A WEEK AND 2 MG 2 DAYS A WEEK ORALLY ONCE A DAY TAKING METOPROLOL TARTRATE 50 MG TABLET 3 TABS DAILY ORALLY TWICE A DAY TAKING LEVOTHYROXINE SODIUM 100 MCG TABLET 1 TABLET ON AN EMPTY STOMACH IN THE MORNING ORALLY ONCE A DAY TAKING OMEPRAZOLE 40 MG CAPSULE DELAYED RELEASE 1 CAPSULE ORALLY ONCE A DAY TAKING VITAMIN C 500 MG TABLET 1 TABLET ORALLY BID TAKING HYDROXYZINE HCL 25 MG TABLET 1 TABLET NEEDED ORALLY EVERY 8 HRS TAKING VENTOLIN HFA 108 (90 BASE) MCG/ACT AEROSOL SOLUTION 1 PUFF NEEDED INHALATION EVERY 4 HRS TAKING SOMA 350 MG TABLET 1 TABLET NEEDED ORALLY BID TAKING HYDROCODONE-ACETAMINOPHEN 5-325 MG TABLET 1 TABLET NEEDED ORALLY EVERY 6 HRS NEEDED MAX DOSE 4 NOT-TAKING GABAPENTIN 100 MG CAPSULE 1 CAPSULE ORALLY BID NOT-TAKING FEXOFENADINE HCL 180 MG TABLET 1 TABLET ORALLY ONCE A DAY NOT-TAKING LEVOCETIRIZINE DIHYDROCHLORIDE _ TABLET 1 TABLET IN THE EVENING ORALLY 50 MG ONCE A DAY NOT-TAKING HYDROCODONE-ACETAMINOPHEN 5-325 MG TABLET 1 TABLET NEEDED ORALLY EVERY 6 HRS MDD4 NOT-TAKING OXYCODONE HCL 5 MG TABLET 1 TABLET NEEDED ORALLY 3X A DAY X 10 DAYS MDD3 NOT-TAKING GABAPENTIN 100 MG CAPSULE 1 CAPSULE ORALLY BID NOT-TAKING COLACE 100 MG CAPSULE 1 CAPSULE NEEDED ORALLY BID NOT-TAKING MIRTAZAPINE 15 MG TABLET 1 TABLET AT BEDTIME ORALLY ONCE A DAY NOT-TAKING TIZANIDINE HCL 2 MG TABLET 1 TABLET NEEDED ORALLY FOR SPASMS AND PAIN BEFORE BEDTIME MAY REPEAT IN 4 HRS MDD2 NOT-TAKING OXYCODONE HCL 5 MG TABLET 1 TABLET NEEDED ORALLY EVERY 6 HRS PRN MDD4 NOT-TAKING VENTOLIN HFA 108 (90 BASE) MCG/ACT AEROSOL SOLUTION 2 PUFFS NEEDED INHALATION EVERY 4 HRS NEEDED MEDICATION LIST REVIEWED AND RECONCILED WITH THE PATIENT PAST MEDICAL HISTORY HTN PAROXYSMAL A. FIB. 11/28/2015 TACHYCARDIA TO 150BPM, DR. SAHNI DID FIND PVC'S ON EKG, 2003 S/P ABLATION C DR. 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 LORENZ 11/2014 GALBLADDER COLIC, STONE RECTAL BLEED 01/31, COLON POLYP ON COLONOSCOPY NAFLD C ELEVATED LFTS ASYMPTOMATIC 06/2015 C OF HEAD, 09/2015 MRI BOTH C SMALL VESS. DIS. 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 PAIN - SIDE EFFECTS IV DYE: DYSPNEA - ALLERGY - ONSET DATE 03/29/2020 SURGICAL HISTORY PARTIAL HYSTERECTOMY-[facility] 1983 L BREAST LUMPECTOMY-[facility] 1991 HEART ABLATION-JOSEF 2003 B CATARACT [id number]. SANNI 2011 TONSILLECTOMY AGE 9 FRATURE L1 SOCIAL HISTORY GENERAL: TOBACCO USE ARE YOU A:NONSMOKER LATEX QUESTIONNAIRE LATEX ALLERGY : HAVE YOU EVER DEVELOPED ANY TYPE OF REACTION AFTER HANDLING LATEX PRODUCTS SUCH RUBBER GLOVES, CONDOMS, DIAPHRAGMS, BALLOONS, SOCKS, OR UNDERWEAR?NO LATEX ALLERGY : HAVE YOU EVER DEVELOPED ANY TYPE OF REACTION DURING OR AFTER DENTAL APPOINTMENT, VAGINAL/RECTAL EXAMINATION, SURGICAL PROCEDURE, OR ANY OTHER EXPOSURE?NO LATEX RISK : HAVE YOU EVER HAD ANY DIFFICULTY BREATHING OR HIVES AFTER EATING OR HANDLING ANY FRUITS, OR VEGETABLES; SUCH KIWI, BANANAS, STONE FRUITS, OR CHESTNUTSYES - PLEASE INDICATE : CHESTNUTS JUST NUTS LATEX RISK : DO YOU HAVE A PREVIOUS PERSONAL HISTORY OF MORE THAN NINE SURGERIES, SPINA BIFIDA, OR REPEATED CATHERIZATIONS? NO LATEX RISK : ARE YOU FREQUENTLY EXPOSED TO LATEX PRODUCTS IN YOUR OCCUPATION?NO DATE ASKED : 10/27/2020 ALCOHOL USE: YES,OCC. ALCOHOL SCREENING DID YOU HAVE A DRINK CONTAINING ALCOHOL IN THE PAST YEAR?YES HOW MANY DRINKS DID YOU HAVE ON A TYPICAL DAY WHEN YOU WERE DRINKING IN THE PAST YEAR?1 OR 2 (0 POINTS) HOW OFTEN DID YOU HAVE A DRINK CONTAINING ALCOHOL IN THE PAST YEAR?TWO TO FOUR TIMES A MONTH (2 POINTS) POINTS2 INTERPRETATIONNEGATIVE RECREATIONAL DRUG USE DRUG USE?NO NONE CAFFEINE CAFFEINE USE?YES USUALLY DRINKJS DECAF..DOES HAVE A CUP OCCASIONAL HINDUISM [id number] [facility] LANGUAGE LANGUAGES SPOKEN:[place] EDUCATION LEVEL OF EDUCATION:FINISHED COLLEGE LEARNING BARRIERS / SPECIAL NEEDS BARRIERS TO LEARNING?NO HEARING IMPAIRED?YES : SOMETIMES VISION IMPAIRED?YES :CORRECTIVE LENSES READING GLASSES COGNITIVELY IMPAIRED?NO READINESS TO LEARN?YES LEARNING PREFERENCES?NO LEARNING CAPABILITIES PRESENT?YES EMOTIONAL BARRIERS?NO SPECIAL DEVICES?YES HAS A WALKER AND CANE FOR SAFETY NOT USING :CANE, WALKER TRAVELING ACCOUNTANT NEEDED?NO DOMESTIC VIOLENCE DO YOU FEEL SAFE IN YOUR ENVIRONMENT?YES OCCUPATION: RETIRED. DIET: REGULAR. EXERCISE: WALKS. MARITAL STATUS: . OTHERS AT HOME: LIVES ALONG. - WAS THE PROVIDER NOTIFIED OF ANY PERTINENT INFO?YES HAS THE PATIENT BEEN EDUCATED REGARDING HIS/HER PLAN OF CARE?YES HAS THE PATIENT BEEN EDUCATED REGARDING PAIN, THE RISK FOR PAIN, THE IMPORTANCE OF EFFECTIVE PAIN MANAGEMENT, AND THE PAIN ASSESSMENT PROCESS?YES ADVANCE DIRECTIVE ADVANCE DIRECTIVE DISCUSSED WITH PATIENT:YES HCP SON GRABIEL MUNOZ [phone] HOSPITALIZATION/MAJOR DIAGNOSTIC PROCEDURE ABOVE CHILD REVIEW OF SYSTEMS CONSTITUTIONAL: ANY RECENT FEVER NO . CHILLS NO . WEIGHT CHANGE OF UNKNOWN REASONS NO . GASTROENTEROLOGY: NEW UNEXPLAINABLE CHANGES IN BOWEL CONTROL NO . CONSTIPATION NO . GENITOURINARY: ANY NEW CHANGE IN BLADDER CONTROL? NO . NEUROLOGY: NEW ONSET DIZZINESS OR NEUROLOGICAL CHANGES NOT MENTIONED NO . NEW NUMBNESS OR PAIN PATTERNS NOT MENTIONED AND PERTINENT TO TODAY'S VISIT NO . CARDIOLOGY: NEW CHEST PRESSURE NO . PATIENT DENIES NO . RESPIRATORY: UNEXPLAINABLE COUGH NO . NEW SHORTNESS OF BREATH NO . VITAL SIGNS WT 150 LBS, HT 68 IN, BMI 22.80 INDEX, BP 138/66 MM HG, HR 54 /MIN, RR 18 /MIN, TEMP 97.9 F, OXYGEN SAT % 99%, SAFE IN ENV? (Y/N) [email or web address] PLATA. EXAMINATION GENERAL EXAMINATION: THE PATIENT IS ALERT, ORIENTED TIMES THREE AND COOPERATIVE. LUNGS ARE CLEAR TO AUSCULTATION. HEART SHOWS REGULAR RHYTHM, NO MURMURS AND NO GALLOPS. THERE IS PAIN IN THE LOWER BACK IN THE PARASPINAL MUSCLE GROUP. HER MAIN COMPLAINT IS IN THE THORACOLUMAR AREA. WHEN I APPLY PRESSURE THERE, THE PATIENT COMPLAINS MORE OF PAIN IN THE FRONT OF HER ABDOMEN. LUMBAR MRI SHOWS SEVERE STENOSIS AT L4-L5. THERE IS AN ACUTE FRACTURE AT L1. ASSESSMENTS SPONDYLOSIS OF LUMBAR REGION WITHOUT MYELOPATHY OR RADICULOPATHY - M47.816 (PRIMARY) LUMBAR FACET ARTHROPATHY - M47.816 LUMBAR SPINAL STENOSIS - M48.061 LUMBAR DISC DISEASE - M51.9 ABDOMINAL PAIN - R10.9 ACTUE FRACTURE AT L1. TREATMENT SPONDYLOSIS OF LUMBAR REGION WITHOUT MYELOPATHY OR RADICULOPATHY LAB: URINE TEST GROUP BETTY MEYERS 10/27/2020 3:33:52 PM > LAST DOSE: SOMA 10/25/2020 , HYDROCODONE 10/27/2020 NOTES: PER DR GAO, DISCUSSED PATIENT'S CURRENT ISSUES TO REINFORCE DR GAO'S VISIT WITH PATIENT. DISCUSSED WAS POSSIBLE EPIDURAL L4-L5 L5-S1, PATIENT REPORT OF PAIN AT L1 COMPRESSION FRACTURE AND POSSIBLE OPTIONS INCLUDING BUT NOT LIMITED TO FACET BLOCK, REPORTED ABDOMINAL PAIN AND POSSIBLE SOURCES. PATIENT WAS ALSO ADVISED TO SEE DR. MASTERS TO EVALUATE HER FOR HER ABDOMINAL PAIN AND FOR THE POSSIBILITY OF OSTEOPENIA OR OTHER POSSIBLE CAUSES FOR HER COMPRESSION FRACTURE IN THE INTEREST OF LIMITING SUBSEQUENT FRACTURES. Eddy ORDONEZ. CLINICAL NOTES: I DISCUSSED ALTERNATIVES WITH MS. MUNOZ. IN TERMS OF CHRONIC PAIN CONDITIONS, SHE IS STABLE AND THERE IS NOT SEVERE PAIN AT THE MOMENT. IF THE PAIN COMES BACK IN THE LOWER BACK, I WILL CONSIDER A DIAGNOSTIC FACET BLOCK TO CONSIDER RADIOFREQUENCY. IF THE PAIN IS MORE IN THE LOWER BACK AND DOWN THE LEG, WE CAN DO AN EPIDURAL. IN TERMS OF THE ACUTE FRACTURE AT L1, IT SEEMS THAT IT IS HEALING THE PAIN IS GETTING BETTER. THE PATIENT IS COMPLAINING OF ABDOMINAL PAIN. SHE NEEDS TO TALK TO DR. MASTERS ABOUT THE ABDOMINAL PAIN. THE OTHER ISSUE THAT SHE NEEDS TO TALK TO DR. MASTERS ABOUT IS OSTEOPENIA AND THE CALCIUM LEVELS TO AVOID FUTURE FRACTURES. I EXPLAINED TO GAL, THAT IN THE FUTURE, IT WOULD BE GREAT IF ONE OF HER RELATIVES CAN BE ON THE PHONE DURING HER VISITS. MY PLAN FOR THE MOMENT IS TO HAVE HER FOLLOW UP IN 2 MONTHS. IF SHE HAS AN INCREASE IN HER PAIN, I TOLD HER TO CALL HERE AND ASK FOR ME AND I WILL MAKE A DECISION ABOUT AN INJECTION. THE PATIENT WILL CONTINUE TO USE HER CURRENT MEDICATION AND WE HAD A DISCUSSION ABOUT IT. THE PATIENT IS DUE FOR A URINE TOXICOLOGY SO WE WILL DO ONE TODAY. THE PATIENT WAS CHANGED FROM OXYCODONE TO HYDROCODONE. SHE WAS SUPPOSE TO DESTROY THE OXYCODONE. THE NURSE WILL CLARIFY WITH HER TODAY TO SEE IF THAT WAS COMPLETED. THE PATIENT REPORTS UNDERSTANDING AND AGREES WITH THE PLAN. I, ANNI RADFORD, DOCUMENTED THE ABOVE INFORMATION ACTING A SCRIBE FOR DR. GAO. I HAVE REVIEWED THE ABOVE DOCUMENT, WRITTEN BY ANNI RADFORD, CHIEF PRIVACY OFFICER, AND I VERIFY THAT IT IS ACCURATE. PROCEDURE CODES FA211 ESTABILISHED PATIENT [facility] CHARGE [id number] OFFICE/OUTPATIENT VISIT EST DISPOSITION & COMMUNICATION FOLLOW UP FOLLOW UP IN 2 MONTHS (REASON: REEVALUATE PAIN) ELECTRONICALLY SIGNED BY SHERIE GAO MD, MD ON 10/31/2020 AT 11:33 AM EDT DISCLAIMER : THIS IS A VISIT SUMMARY EXTRACTED FROM THE [employer] CHART. IT IS NOT A COPY OF THE [employer] PROGRESS NOTE. MIKI
== END ==
LOC: M PAIN 13:30
PROVIDERS: ATTEND Anesthesiology
DX: M47.816 Spondylosis without myelopathy or radiculopathy, lumbar region (principal); M48.061 Spinal stenosis, lumbar region without neurogenic claudication; M51.9 Unspecified thoracic, thoracolumbar and lumbosacral intervertebral disc disorder; G89.29 Other chronic pain; R10.9 Unspecified abdominal pain; E03.9 Hypothyroidism, unspecified; Z88.0 Allergy status to penicillin; Z88.1 Allergy status to other antibiotic agents; Z88.8 Allergy status to other drugs, medicaments and biological substances; Z91.02 Food additives allergy status; Z91.041 Radiographic dye allergy status; Z79.01 Long term (current) use of anticoagulants; Z79.899 Other long term (current) drug therapy

== ENCOUNTER → 2020-11-06 | Outpatient (CLI) | payer MEDICARE ==
--- NOTE | 2020-11-09 23:46 | ECWPNPC ---
PATIENT NAME: GAL MUNOZ : 1935 GENDER: FEMALE VISIT DATE: 11/06/2020 DISCHARGE DATE: 11/06/20 1249 VISIT LOCKED DATE TIME: PHYSICIAN: SHERIE GAO MD RESOURCE: SHERIE GAO MD REASON FOR APPOINTMENT 1. INCREASED PAIN HISTORY OF PRESENT ILLNESS GENERAL: 85-YEAR-OLD FEMALE PATIENT WITH A HISTORY OF CHRONIC LOW BACK PAIN. THE PATIENT DESCRIBES THE PAIN ACHING AND CONTINUOUS WITH A PAIN SCORE RANGING FROM 6-10/10 OVER THE LUMBAR AREA MORE OVER THE LEFT SIDE. THE PATIENT IS USING HYDROCODONE THAT IS HELPING HER BUT THE PAIN INCREASED TO THE EXTENT THAT SHE DECIDED TO CALL US AND WE ARE SEEING HER IN THE OFFICE. FALL RISK SCREENING: SCREENING : 1 FALLS REPORTED IN THE LAST YEAR - STATES 5-6 WEEKS AGO; LOST BALANCE AND FELL BACK BUT CAUGHT HERSELF ON CHAIR - BRUISES TO ARM. PAIN SCREENING: PATIENT HAS A COMPLAINT OF ACUTE OR CHRONIC PAIN :YES LOCATION OF PAIN:LOW BACK LEFT > RIGHT INTENSITY OF PAIN (SCALE OF 1 TO 10):9 WHAT DOES YOUR PAIN FEEL LIKE:CONTINOUS, SHARP, STABBING DURATION:CONTINOUS, ALL DAY PAIN IS INCREASED BY:ACTIVITIES, PROLONGED STANDING PAIN IS DECREASED BY:USE OF PAIN MEDICATIONS, OTHERS HEAT, LAYING DOWN IN RECLINER NURSING NOTE: -. PAIN CENTER INTAKE QUESTIONS: DO YOU HAVE A HISTORY OF MRSA? :NO DO YOU TAKE A BLOOD THINNERS? :YES WARFARIN DO YOU HAVE ANY BLEEDING DISORDERS? :NO ANY NEW NUMBNESS OR WEAKNESS IN YOUR LEGS OR ARMS? :NO ANY PACEMAKER,DEFIBRILLATOR, OR DORSAL COLUMN STIMULATOR? :NO DO YOU HAVE ANY RASHES OR OPEN SORES? :NO ARE YOU ALLERGIC TO IV DYE? :YES ARE YOU DIABETIC? :NO ANY NEW PROBLEMS WITH YOUR MEDICATIONS? :NO HAVE YOU RECEIVED A VACCINE IN THE PAST 30 DAYS? :NO DO YOU PLAN TO RECEIVE A VACCINE IN THE NEXT 21 DAYS? :NO DO YOU NEED ANY PRESCRIPTION? :NO DO YOU TAKE ANY IMMUNOSUPPRESSIVE MEDICATIONS? :NO DO YOU HAVE ANY KIDNEY OR LIVER DISEASE? :NO IS THERE A CHANCE YOU COULD BE ? :NO ARE YOU BREAST FEEDING? :NO CURRENT MEDICATIONS TAKING WARFARIN SODIUM 4 MG TABLET 6 DAYS A WEEK AND 2 MG 1 DAY A WEEK ORALLY ONCE A DAY TAKING METOPROLOL TARTRATE 50 MG TABLET 1.5 TABS ORALLY TWICE A DAY TAKING LEVOTHYROXINE SODIUM 100 MCG TABLET 1 TABLET ON AN EMPTY STOMACH IN THE MORNING ORALLY ONCE A DAY TAKING OMEPRAZOLE 40 MG CAPSULE DELAYED RELEASE 1 CAPSULE ORALLY ONCE A DAY TAKING VITAMIN C 500 MG TABLET 1 TABLET ORALLY BID TAKING HYDROXYZINE HCL 25 MG TABLET 1 TABLET NEEDED ORALLY EVERY 8 HRS TAKING VENTOLIN HFA 108 (90 BASE) MCG/ACT AEROSOL SOLUTION 1 PUFF NEEDED INHALATION EVERY 4 HRS TAKING HYDROCODONE-ACETAMINOPHEN 5-325 MG TABLET 1 TABLET NEEDED ORALLY EVERY 6 HRS NEEDED MAX DOSE 4 NOT-TAKING SOMA 350 MG TABLET 1 TABLET NEEDED ORALLY BID NOT-TAKING GABAPENTIN 100 MG CAPSULE 1 CAPSULE ORALLY BID NOT-TAKING FEXOFENADINE HCL 180 MG TABLET 1 TABLET ORALLY ONCE A DAY NOT-TAKING LEVOCETIRIZINE DIHYDROCHLORIDE _ TABLET 1 TABLET IN THE EVENING ORALLY 50 MG ONCE A DAY NOT-TAKING HYDROCODONE-ACETAMINOPHEN 5-325 MG TABLET 1 TABLET NEEDED ORALLY EVERY 6 HRS MDD4 NOT-TAKING OXYCODONE HCL 5 MG TABLET 1 TABLET NEEDED ORALLY 3X A DAY X 10 DAYS MDD3 NOT-TAKING GABAPENTIN 100 MG CAPSULE 1 CAPSULE ORALLY BID NOT-TAKING COLACE 100 MG CAPSULE 1 CAPSULE NEEDED ORALLY BID NOT-TAKING MIRTAZAPINE 15 MG TABLET 1 TABLET AT BEDTIME ORALLY ONCE A DAY NOT-TAKING TIZANIDINE HCL 2 MG TABLET 1 TABLET NEEDED ORALLY FOR SPASMS AND PAIN BEFORE BEDTIME MAY REPEAT IN 4 HRS MDD2 NOT-TAKING OXYCODONE HCL 5 MG TABLET 1 TABLET NEEDED ORALLY EVERY 6 HRS PRN MDD4 NOT-TAKING VENTOLIN HFA 108 (90 BASE) MCG/ACT AEROSOL SOLUTION 2 PUFFS NEEDED INHALATION EVERY 4 HRS NEEDED MEDICATION LIST REVIEWED AND RECONCILED WITH THE PATIENT PAST MEDICAL HISTORY HTN PAROXYSMAL A. FIB. 11/28/2015 TACHYCARDIA TO 150BPM, DR. SAHNI DID FIND PVC'S ON EKG, 2004 S/P ABLATION C DR. 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 LORENZ 11/2014 GALBLADDER COLIC, STONE RECTAL BLEED 01/31, COLON POLYP ON COLONOSCOPY NAFLD C ELEVATED LFTS ASYMPTOMATIC 06/2015 C OF HEAD, 09/2015 MRI BOTH C SMALL VESS. DIS. 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 PAIN - SIDE EFFECTS IV DYE: DYSPNEA - ALLERGY - ONSET DATE 03/29/2020 SOCIAL HISTORY GENERAL: TOBACCO USE ARE YOU A:NONSMOKER LATEX QUESTIONNAIRE LATEX ALLERGY : HAVE YOU EVER DEVELOPED ANY TYPE OF REACTION AFTER HANDLING LATEX PRODUCTS SUCH RUBBER GLOVES, CONDOMS, DIAPHRAGMS, BALLOONS, SOCKS, OR UNDERWEAR?NO LATEX ALLERGY : HAVE YOU EVER DEVELOPED ANY TYPE OF REACTION DURING OR AFTER DENTAL APPOINTMENT, VAGINAL/RECTAL EXAMINATION, SURGICAL PROCEDURE, OR ANY OTHER EXPOSURE?NO LATEX RISK : HAVE YOU EVER HAD ANY DIFFICULTY BREATHING OR HIVES AFTER EATING OR HANDLING ANY FRUITS, OR VEGETABLES; SUCH KIWI, BANANAS, STONE FRUITS, OR CHESTNUTSYES - PLEASE INDICATE : CHESTNUTS JUST NUTS LATEX RISK : DO YOU HAVE A PREVIOUS PERSONAL HISTORY OF MORE THAN NINE SURGERIES, SPINA BIFIDA, OR REPEATED CATHERIZATIONS? NO LATEX RISK : ARE YOU FREQUENTLY EXPOSED TO LATEX PRODUCTS IN YOUR OCCUPATION?NO DATE ASKED : 10/27/2020 ALCOHOL USE: YES,OCC. ALCOHOL SCREENING DID YOU HAVE A DRINK CONTAINING ALCOHOL IN THE PAST YEAR?YES HOW MANY DRINKS DID YOU HAVE ON A TYPICAL DAY WHEN YOU WERE DRINKING IN THE PAST YEAR?1 OR 2 (0 POINTS) HOW OFTEN DID YOU HAVE A DRINK CONTAINING ALCOHOL IN THE PAST YEAR?TWO TO FOUR TIMES A MONTH (2 POINTS) POINTS2 INTERPRETATIONNEGATIVE RECREATIONAL DRUG USE DRUG USE?NO NONE CAFFEINE CAFFEINE USE?YES USUALLY DRINKJS DECAF..DOES HAVE A CUP OCCASIONAL CONFUCIANISM [id number] [employer] LANG[employer] LANGUAGES SPOKEN:DIVEHI EDUCATION LEVEL OF EDUCATION:FINISHED COLLEGE LEARNING BARRIERS / SPECIAL NEEDS CHANGE FROM LAST VISIT?NO BARRIERS TO LEARNING?NO HEARING IMPAIRED?YES : SOMETIMES VISION IMPAIRED?YES :CORRECTIVE LENSES READING GLASSES COGNITIVELY IMPAIRED?NO READINESS TO LEARN?YES LEARNING PREFERENCES?NO LEARNING CAPABILITIES PRESENT?YES EMOTIONAL BARRIERS?NO SPECIAL DEVICES?YES HAS A WALKER AND CANE FOR SAFETY NOT USING :CANE, 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 DIET: REGULAR. EXERCISE: WALKS. MARITAL STATUS: . OTHERS AT HOME: LIVES ALONG. - WAS THE PROVIDER NOTIFIED OF ANY PERTINENT INFO?YES HAS THE PATIENT BEEN EDUCATED REGARDING HIS/HER PLAN OF CARE?YES HAS THE PATIENT BEEN EDUCATED REGARDING PAIN, THE RISK FOR PAIN, THE IMPORTANCE OF EFFECTIVE PAIN MANAGEMENT, AND THE PAIN ASSESSMENT PROCESS?YES ADVANCE DIRECTIVE ADVANCE DIRECTIVE DISCUSSED WITH PATIENT:YES HCP SON GRABIEL MUNOZ [phone] REVIEW OF SYSTEMS CONSTITUTIONAL: ANY RECENT FEVER NO . CHILLS NO . WEIGHT CHANGE OF UNKNOWN REASONS NO . GASTROENTEROLOGY: NEW UNEXPLAINABLE CHANGES IN BOWEL CONTROL NO . CONSTIPATION NO . GENITOURINARY: ANY NEW CHANGE IN BLADDER CONTROL? NO . NEUROLOGY: NEW ONSET DIZZINESS OR NEUROLOGICAL CHANGES NOT MENTIONED NO . NEW NUMBNESS OR PAIN PATTERNS NOT MENTIONED AND PERTINENT TO TODAY'S VISIT NO . CARDIOLOGY: NEW CHEST PRESSURE NO . PATIENT DENIES NO . RESPIRATORY: UNEXPLAINABLE COUGH NO . NEW SHORTNESS OF BREATH NO . VITAL SIGNS WT 150 LBS, HT 68 IN, BMI 22.80 INDEX, BP 160/102 MM HG, REPEAT BP 142/78 MANUAL, HR 59 /MIN, RR 18 /MIN, TEMP 98.5 F, OXYGEN SAT % 97%, SAFE IN ENV? (Y/N) YES, NA INITIALS WA 11:46, REVIEWED BY: Bandar CARMONA, RNRN IS AWEAR OF PT.S BP. AND WILL DO A MANUAL. EXAMINATION GENERAL: THE PATIENT IS ALERT, ORIENTED TIMES THREE AND COOPERATIVE. LUNGS ARE CLEAR TO AUSCULTATION. HEART SHOWS REGULAR RHYTHM, NO MURMURS AND NO GALLOPS. THERE IS TENDERNESS IN THE LUMBAR AREA IN THE THORACOLUMBAR AREA IN THE MIDDLE AND SOME BANDS OF TISSUE WITH PRESENCE OF TRIGGER POINTS AND RESTRICTION OF MOVEMENT. MRI OF THE LUMBAR SPINE DATED 10/18/2020 SHOWS OSTEOARTHRITIC FRACTURE AT L1, ACUTE, SOME FACET ARTHROPATHY CHANGES. 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 TREATMENT MYALGIA CLINICAL NOTES: I DISCUSSED ALTERNATIVES WITH MS. MUNOZ. I WILL REQUEST AUTHORIZATION FOR TRIGGER POINT INJECTIONS TO BE DONE WITHOUT STEROIDS AND TO BE DONE SOON POSSIBLE. IF THE TRIGGER POINTS DO NOT HELP WITHOUT STEROIDS, I WILL CONSIDER WITH STEROIDS. I WILL SEND HER TO DR. NELSON TO CONSIDER A KYPHOPLASTY OR VERTEBROPLASTY AT L1. DEPENDING ON THAT EVALUATION, WE CAN CONSIDER OTHER OPTIONS. THE PATIENT REPORTS UNDERSTANDING AND AGREES WITH THE PLAN. I, ANNI RADFORD, DOCUMENTED THE ABOVE INFORMATION ACTING A SCRIBE FOR DR. GAO. I HAVE REVIEWED THE ABOVE DOCUMENT, WRITTEN BY ANNI RADFORD, SILVERER, AND I VERIFY THAT IT IS ACCURATE. OTHERS NOTES: TRIGGER POINT INJECTION MATERIAL WAS PRINTED. PROCEDURE CODES FA211 ESTABILISHED PATIENT [facility] CHARGE [id number] OFFICE/OUTPATIENT VISIT EST DISPOSITION & COMMUNICATION FOLLOW UP REQUEST AUTH FOR TRIGGER POINT INJECTIONS BILATERAL THORACIC AND BILATERAL LUMBAR (REASON: REQUEST AUTH FOR TRIGGER POINT INJECTIONS BILATERAL THORACIC AND BILATERAL LUMBAR) ELECTRONICALLY SIGNED BY SHERIE GAO MD, ON 11/09/2020 AT 02:17 PM EDT DISCLAIMER : THIS IS A VISIT SUMMARY EXTRACTED FROM THE [employer] CHART. IT IS NOT A COPY OF THE [employer] PROGRESS NOTE. IVYD
== END ==
LOC: M PAIN 11:30
PROVIDERS: ATTEND Anesthesiology
DX: M79.10 Myalgia, unspecified site (principal); M47.816 Spondylosis without myelopathy or radiculopathy, lumbar region; E03.9 Hypothyroidism, unspecified; Z88.0 Allergy status to penicillin; Z88.1 Allergy status to other antibiotic agents; Z88.8 Allergy status to other drugs, medicaments and biological substances; Z91.02 Food additives allergy status; Z91.041 Radiographic dye allergy status; Z79.01 Long term (current) use of anticoagulants; Z79.899 Other long term (current) drug therapy

== ENCOUNTER → 2020-11-20 | Outpatient (CLI) | payer MEDICARE | LOC: M LABSMTC 11:38 | PROVIDERS: ATTEND Anesthesiology | DX: Z01.812 Encounter for preprocedural laboratory examination (principal); Z20.822 Contact with and (suspected) exposure to COVID-19 ==

== ENCOUNTER → 2020-11-24 | Outpatient (CLI) | payer MEDICARE ==
[~2020-11-24] MED LIST changes: +BUPIVACAINE HCL 0.25% 10ML VIAL As Ordered ONE; +BUPIVACAINE HCL 0.25% 30ML VIAL As Ordered ONE; +TRIAMCINOLONE ACETONIDE SUSP 40 MG/ML VIAL (J3301) As Ordered ONE; +oxyCODONE 5MG TAB As Ordered ONE
--- NOTE | 2020-11-28 01:37 | ECWPNPC ---
PATIENT NAME: GAL MUNOZ : 1935 GENDER: FEMALE VISIT DATE: 11/24/2020 DISCHARGE DATE: 11/24/20 1054 VISIT LOCKED DATE TIME: PHYSICIAN: SHERIE GAO MD RESOURCE: SHERIE GAO MD REASON FOR APPOINTMENT 1. TRIGGER POINT INJECTIONS BILATERAL THORACIC AND BILATERAL LUMBAR HISTORY OF PRESENT ILLNESS GENERAL: -. FALL RISK SCREENING: SCREENING :YES. PAIN SCREENING: PATIENT HAS A COMPLAINT OF ACUTE OR CHRONIC PAIN :YES LOCATION OF PAIN:LOW BACK INTENSITY OF PAIN (SCALE OF 1 TO 10):5 WHAT DOES YOUR PAIN FEEL LIKE:ACHING, SHARP, OTHER NUMBNESS DOWN LEGS AT TIMES DURATION:CONSTANT PAIN IS INCREASED BY:ACTIVITIES, PROLONGED STANDING PAIN IS DECREASED BY:SITTING NURSING NOTE: -. PAIN CENTER INTAKE QUESTIONS: DO YOU HAVE A HISTORY OF MRSA? :NO DO YOU TAKE A BLOOD THINNERS? :YES WARFARIN DO YOU HAVE ANY BLEEDING DISORDERS? :NO ANY NEW NUMBNESS OR WEAKNESS IN YOUR LEGS OR ARMS? :NO ANY PACEMAKER,DEFIBRILLATOR, OR DORSAL COLUMN STIMULATOR? :NO DO YOU HAVE ANY RASHES OR OPEN SORES? :NO ARE YOU ALLERGIC TO IV DYE? :YES ARE YOU DIABETIC? :NO ANY NEW PROBLEMS WITH YOUR MEDICATIONS? :NO HAVE YOU RECEIVED A VACCINE IN THE PAST 30 DAYS? :NO DO YOU PLAN TO RECEIVE A VACCINE IN THE NEXT 21 DAYS? :NO DO YOU TAKE ANY IMMUNOSUPPRESSIVE MEDICATIONS? :NO ANY HISTORY OF SEIZURES? :NO ANY HISTORY OF CARDIAC ISSUES OR EVENTS? :YES A FIB DO YOU HAVE ANY KIDNEY OR LIVER DISEASE? :NO DO YOU HAVE SLEEP APNEA? :NO ANY RECENT HEAD INJURY? :NO DO YOU HAVE ANY NEW INFECTIONS? :NO IS THERE A CHANCE YOU COULD BE ? :NO ARE YOU BREAST FEEDING? :NO WHEN DID YOU LAST EAT? : 11/23/20 1800 WHEN DID YOU LAST DRINK? : 0500 WHAT DID YOU LAST DRINK? : WATER NAME OF PERSON DRIVING YOU HOME? : -SON OR DAUGHTER DO YOU HAVE ANY OTHER QUESTIONS OR CONCERNS? : -DENIES CURRENT MEDICATIONS TAKING WARFARIN SODIUM 2 MG TABLET DIRECTED ORALLY ONCE A DAY, NOTES: 11/23/20 2100 TAKING METOPROLOL TARTRATE 50 MG TABLET 1.5 TABS ORALLY TWICE A DAY, NOTES: 0600 TAKING LEVOTHYROXINE SODIUM 100 MCG TABLET 1 TABLET ON AN EMPTY STOMACH IN THE MORNING ORALLY ONCE A DAY TAKING OMEPRAZOLE 40 MG CAPSULE DELAYED RELEASE 1 CAPSULE ORALLY ONCE A DAY TAKING HYDROXYZINE HCL 25 MG TABLET 1 TABLET NEEDED ORALLY EVERY 8 HRS TAKING VENTOLIN HFA 108 (90 BASE) MCG/ACT AEROSOL SOLUTION 1 PUFF NEEDED INHALATION EVERY 4 HRS TAKING HYDROCODONE-ACETAMINOPHEN 5-325 MG TABLET 1 TABLET NEEDED ORALLY EVERY 6 HRS NEEDED MAX DOSE 4, NOTES: 11/23/20 2230 NOT-TAKING VITAMIN C 500 MG TABLET 1 TABLET ORALLY BID NOT-TAKING SOMA 350 MG TABLET 1 TABLET NEEDED ORALLY BID NOT-TAKING GABAPENTIN 100 MG CAPSULE 1 CAPSULE ORALLY BID NOT-TAKING FEXOFENADINE HCL 180 MG TABLET 1 TABLET ORALLY ONCE A DAY NOT-TAKING LEVOCETIRIZINE DIHYDROCHLORIDE _ TABLET 1 TABLET IN THE EVENING ORALLY 50 MG ONCE A DAY NOT-TAKING HYDROCODONE-ACETAMINOPHEN 5-325 MG TABLET 1 TABLET NEEDED ORALLY EVERY 6 HRS MDD4 NOT-TAKING OXYCODONE HCL 5 MG TABLET 1 TABLET NEEDED ORALLY 3X A DAY X 10 DAYS MDD3 NOT-TAKING GABAPENTIN 100 MG CAPSULE 1 CAPSULE ORALLY BID NOT-TAKING COLACE 100 MG CAPSULE 1 CAPSULE NEEDED ORALLY BID NOT-TAKING MIRTAZAPINE 15 MG TABLET 1 TABLET AT BEDTIME ORALLY ONCE A DAY NOT-TAKING TIZANIDINE HCL 2 MG TABLET 1 TABLET NEEDED ORALLY FOR SPASMS AND PAIN BEFORE BEDTIME MAY REPEAT IN 4 HRS MDD2 NOT-TAKING OXYCODONE HCL 5 MG TABLET 1 TABLET NEEDED ORALLY EVERY 6 HRS PRN MDD4 NOT-TAKING VENTOLIN HFA 108 (90 BASE) MCG/ACT AEROSOL SOLUTION 2 PUFFS NEEDED INHALATION EVERY 4 HRS NEEDED MEDICATION LIST REVIEWED AND RECONCILED WITH THE PATIENT PAST MEDICAL HISTORY HTN PAROXYSMAL A. FIB. 11/28/2015 TACHYCARDIA TO 150BPM, DR. SAHNI DID FIND PVC'S ON EKG, 2004 S/P ABLATION C DR. 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 LORENZ 11/2014 GALBLADDER COLIC, STONE RECTAL BLEED 01/31, COLON POLYP ON COLONOSCOPY NAFLD C ELEVATED LFTS ASYMPTOMATIC 06/2015 C OF HEAD, 09/2015 MRI BOTH C SMALL VESS. DIS. 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 PAIN - SIDE EFFECTS IV DYE: DYSPNEA - ALLERGY - ONSET DATE 03/29/2020 SURGICAL HISTORY PARTIAL [facility]STERECTOMY-[facility] 1983 L BREAST LUMPECTOMY-[facility] 1991 HEART ABLATION-JOSEF 2004 B CATARACT LWPLEIA-OZA-UB. SANNI 2012 TONSILLECTOMY AGE 9 FRATURE L1 SOCIAL HISTORY GENERAL: TOBACCO USE ARE YOU A:NONSMOKER LATEX QUESTIONNAIRE LATEX ALLERGY : HAVE YOU EVER DEVELOPED ANY TYPE OF REACTION AFTER HANDLING LATEX PRODUCTS SUCH RUBBER GLOVES, CONDOMS, DIAPHRAGMS, BALLOONS, SOCKS, OR UNDERWEAR?NO LATEX ALLERGY : HAVE YOU EVER DEVELOPED ANY TYPE OF REACTION DURING OR AFTER DENTAL APPOINTMENT, VAGINAL/RECTAL EXAMINATION, SURGICAL PROCEDURE, OR ANY OTHER EXPOSURE?NO LATEX RISK : HAVE YOU EVER HAD ANY DIFFICULTY BREATHING OR HIVES AFTER EATING OR HANDLING ANY FRUITS, OR VEGETABLES; SUCH KIWI, BANANAS, STONE FRUITS, OR CHESTNUTSYES - PLEASE INDICATE : CHESTNUTS JUST NUTS LATEX RISK : DO YOU HAVE A PREVIOUS PERSONAL HISTORY OF MORE THAN NINE SURGERIES, SPINA BIFIDA, OR REPEATED CATHERIZATIONS? NO LATEX RISK : ARE YOU FREQUENTLY EXPOSED TO LATEX PRODUCTS IN YOUR OCCUPATION?NO DATE ASKED : 10/27/2020 ALCOHOL USE: YES,OCC. ALCOHOL SCREENING HOW MANY DRINKS DID YOU HAVE ON A TYPICAL DAY WHEN YOU WERE DRINKING IN THE PAST YEAR?1 OR 2 (0 POINTS) POINTS2 INTERPRETATIONNEGATIVE DID YOU HAVE A DRINK CONTAINING ALCOHOL IN THE PAST YEAR?YES HOW OFTEN DID YOU HAVE A DRINK CONTAINING ALCOHOL IN THE PAST YEAR?TWO TO FOUR TIMES A MONTH (2 POINTS) RECREATIONAL DRUG USE DRUG USE?NO NONE CAFFEINE CAFFEINE USE?YES USUALLY DRINKJS DECAF..DOES HAVE A CUP OCCASIONAL HINDUISM [id number] [employer] L[employer]AGES SPOKEN:BULGARIAN EDUCATION LEVEL OF EDUCATION:FINISHED COLLEGE LEARNING BARRIERS / SPECIAL NEEDS CHANGE FROM LAST VISIT?NO BARRIERS TO LEARNING?NO HEARING IMPAIRED?YES : SOMETIMES VISION IMPAIRED?YES :CORRECTIVE LENSES READING GLASSES COGNITIVELY IMPAIRED?NO READINESS TO LEARN?YES LEARNING PREFERENCES?NO LEARNING CAPABILITIES PRESENT?YES EMOTIONAL BARRIERS?NO SPECIAL DEVICES?YES HAS A WALKER AND CANE FOR SAFETY NOT USING :CANE, WALKER SOFTWARE APPLICATION TESTER NEEDED?NO DOMESTIC VIOLENCE DO YOU FEEL SAFE IN YOUR ENVIRONMENT?YES OCCUPATION: RETIRED. DIET: REGULAR. EXERCISE: WALKS. MARITAL STATUS: . OTHERS AT HOME: LIVES ALONG. - HAS THE PATIENT BEEN EDUCATED REGARDING PAIN, THE RISK FOR PAIN, THE IMPORTANCE OF EFFECTIVE PAIN MANAGEMENT, AND THE PAIN ASSESSMENT PROCESS?YES WAS THE PROVIDER NOTIFIED OF ANY PERTINENT INFO?YES HAS THE PATIENT BEEN EDUCATED REGARDING HIS/HER PLAN OF CARE?YES ADVANCE DIRECTIVE ADVANCE DIRECTIVE DISCUSSED WITH PATIENT:YES HCP SON GRABIEL MUNOZ [phone] HOSPITALIZATION/MAJOR DIAGNOSTIC PROCEDURE ABOVE CHILD VITAL SIGNS WT 149.2 LBS, HT 68 IN, BMI 22.68 INDEX, BP 201/91 MM HG, REPEAT BP 170/90 MANUAL, HR 60 /MIN, RR 18 /MIN, TEMP 97.7 F, OXYGEN SAT % 100%, SAFE IN ENV? (Y/N) YES, NA INITIALS AW 0852, REVIEWED BY: [facility] NURSE KNOW ABOUT BPDR. GAO AWARE ON ELVATED BP- Clare BYRD,SHASHA. EXAMINATION GENERAL EXAMINATION: THE PATIENT IS ALERT, ORIENTED TIMES THREE AND COOPERATIVE. LUNGS ARE CLEAR TO AUSCULTATION. HEART SHOWS REGULAR RHYTHM, NO MURMURS AND NO GALLOPS. ASSESSMENTS MYALGIA - M79.10 (PRIMARY) TREATMENT MYALGIA MEDICATION: PAIN OXYCODONE HCL TAB 5MG ORALLY [id number] KOROMA 11/24/2020 10:01:44 AM > VERIFIED SANDRA BYRD 11/24/2020 10:03:43 AM > ADMINISTERED COMPLETION OF PROCEDURAL VISIT WHEN MEETS [id number],[id number] R 11/24/2020 10:47:21 AM > CRITERIA MET OTHERS NOTES: PAT COMPLETED TBRADLEYRN. PROCEDURES PAIN NURSING RECORD PROCEDURE IN ROOM 0845, PHYSICIAN IN ROOM 1020, START 1024, FINISH 1027, PHYSICIAN OUT OF ROOM 1028, OUT OF ROOM 1049, ECG N/A, PATIENT SHIELDED N/A, SAFETY STRAP N/A, PREP ALCOHOL DR. GAO, DRESSING TEGADERM Clare BYRD RN LOC: SANDRA BYRD 11/24/2020 10:24:39 AM > , 1. ALERT, ORIENTED RESP: SANDRA BYRD 11/24/2020 10:24:44 AM > , 1. REGULAR, NO DYSPNEA COLOR: SANDRA BYRD 11/24/2020 10:24:47 AM > , 1. PINK SKIN: SANDRA BYRD 11/24/2020 10:24:49 AM > , 1. WARM, DRY POSITION: SANDRA BYRD 11/24/2020 10:24:52 AM > , 5. SITTING VITALS: SANDRA BYRD 11/24/2020 10:44:28 AM > 186/92, 59, 18, 99% DR GAO MADE AWARE OF CONTINUED ELEVATE BP. PATIENT REMAINS ASYMPTOMATIC. PATIENT INSTRUCTED TO MONITOR BP AT HOME AND IF IT REMAINS ELEVATED TO CONTACT PRIMARY CARE DOCTOR. COMPLETION OF PROCEDURE APPOINTMENT: POST PAIN 2, DRESSING SITE DRY AND INTACT, IV N/A, GAIT STEADY WITH ROLLING WALKER- BASELINE, TEACHING COMPLETED, PATIENT ACKNOWLEDGES UNDERSTANDING YES, PROCEDURE APPOINTMENT COMPLETED AT 1049 BY: Clare BYRD RN PN TRIGGER POINT INJECTION NO STEROIDS PRE PROCEDURE DIAGNOSIS 1. MYALGIA 2. PAIN AT BILATERAL THORACIC AREA AND BILATERAL LOW BACK AREA POST PROCEDURE DIAGNOSIS 1. MYALGIA 2. PAIN AT BILATERAL THORACIC AREA AND BILATERAL LOW BACK AREA PROCEDURE TRIGGER POINT INJECTION AT BILATERAL THORACIC AREA AND BILATERAL LOW BACK AREA SURGEON DR. SHERIE GAO CRAS NONE ANESTHESIA LOCAL PRE PROCEDURE NOTE PATIENT WITH HISTORY OF CHRONIC PAIN AT RIGHT AND LEFT THORACIC AREA AND RIGHT AND LEFT LOW BACK AREA. I EVALUATED THE PATIENT AND REVIEWED THE CHART. THERE IS EVIDENCE OF BANDS OF TISSUE WITH RESTRICTION OF MOVEMENT AND PRESENCE OF TRIGGER POINT AT THE RIGHT AND LEFT THORACIC AREA AND RIGHT AND LEFT LOW BACK AREA. I WENT OVER THE RISKS, ALTERNATIVES, AND BENEFITS ASSOCIATED WITH THIS PROCEDURE. THE PATIENT WOULD LIKE TO PROCEED AND GAVE CONSENT TO PERFORM THE PROCEDURE. THE PATIENT DENIES UNEXPLAINABLE WEIGHT LOSS, FEVER, CHILLS, OR NEW CHANGES IN URINARY OR BOWEL CONTROL. THE PATIENT IS COVID-19 NEGATIVE DESCRIPTION OF PROCEDURE THE PATIENT WAS BROUGHT TO THE PROCEDURE ROOM AND PLACED IN THE SITTING POSITION. THE AREA WAS CLEANED WITH ALCOHOL. THE PROCEDURE WAS DONE USING ASEPTIC STERILE TECHNIQUES. A TIMEOUT WAS PERFORMED WHERE THE CONSENTED SITE WAS VERIFIED WITH EVERYONE IN THE ROOM. USING A 25-GAUGE NEEDLE, TRIGGER POINTS WERE INJECTED INTO THE RIGHT AND LEFT THORACIC AREA AND RIGHT AND LEFT LOW BACK AREA WITH A TOTAL OF 40 ML OF BUPIVACAINE 0.25%. AGREED WITH THE PATIENT THE PROCEDURE WAS DONE WITHOUT STEROIDS. THERE WAS NO EVIDENCE OF BLOOD, PARESTHESIA OR CEREBROSPINAL FLUID DURING THE PROCEDURE. THE PATIENT WAS SENT TO THE RECOVERY ROOM. THE PATIENT WAS MOVING THE EXTREMITIES AND DOING WELL. THERE WAS NO COMPLICATION DURING THE PROCEDURE. EBL LESS THAN 5 ML. POST PROCEDURE NOTE DEPENDING ON THE RESULTS, WE MAY CONSIDER REPEATING THE PROCEDURE WITH STEROIDS. THE PROCEDURE DONE WAS DISCUSSED WITH THE PATIENT. THE PATIENT WILL BE SEEN IN A FOLLOW UP IN THE NEXT FEW WEEKS. I AM LOOKING FOR LONG LASTING PAIN RELIEF FOR THE PATIENT WITH THIS INTERVENTION. INSTRUCTIONS WERE GIVEN, QUESTIONS WERE ANSWERED, AND THE PATIENT EXPRESSED UNDERSTANDING AND AGREES WITH THE PLAN. I, ANNI RADFORD, DOCUMENTED THE ABOVE INFORMATION ACTING A SCRIBE FOR DR. GAO. I HAVE REVIEWED THE ABOVE DOCUMENT, WRITTEN BY ANNI RADFORD, TRANSPORTER DRIVER, AND I VERIFY THAT IT IS ACCURATE PROCEDURE CODES [id number] INJECT TRIGGER POINTS 3/> DISPOSITION & COMMUNICATION FOLLOW UP FOLLOW UP WITH PULP DRIER (REASON: POST TRIGGER POINT INJECTION BILATERAL THORACIC AND BILATERAL LOW BACK) ELECTRONICALLY SIGNED BY SHERIE GAO MD, MD ON 11/27/2020 AT 05:29 PM EDT DISCLAIMER : THIS IS A VISIT SUMMARY EXTRACTED FROM THE [employer] CHART. IT IS NOT A COPY OF THE [employer] PROGRESS NOTE. MIKI
== END ==
LOC: M PAIN 08:30
PROVIDERS: ATTEND Anesthesiology
DX: M79.18 Myalgia, other site (principal); E03.9 Hypothyroidism, unspecified; Z88.0 Allergy status to penicillin; Z88.1 Allergy status to other antibiotic agents; Z88.8 Allergy status to other drugs, medicaments and biological substances; Z91.02 Food additives allergy status; Z91.041 Radiographic dye allergy status; Z79.01 Long term (current) use of anticoagulants; Z79.899 Other long term (current) drug therapy

== ENCOUNTER → 2020-12-07 | Outpatient (CLI) | payer MEDICARE ==
[~2020-12-07] MED LIST changes: -BUPIVACAINE HCL 0.25% 10ML VIAL As Ordered ONE; -BUPIVACAINE HCL 0.25% 30ML VIAL As Ordered ONE; -TRIAMCINOLONE ACETONIDE SUSP 40 MG/ML VIAL (J3301) As Ordered ONE; -oxyCODONE 5MG TAB As Ordered ONE
== END ==
LOC: M PAIN 11:30
PROVIDERS: ATTEND Anesthesiology
DX: M79.18 Myalgia, other site (principal); E03.9 Hypothyroidism, unspecified; Z88.0 Allergy status to penicillin; Z88.1 Allergy status to other antibiotic agents; Z88.8 Allergy status to other drugs, medicaments and biological substances; Z91.02 Food additives allergy status; Z91.041 Radiographic dye allergy status; Z79.01 Long term (current) use of anticoagulants; Z79.899 Other long term (current) drug therapy

== ENCOUNTER → 2021-01-12 | Outpatient (CLI) | payer MEDICARE | LOC: M PAIN 08:30 | PROVIDERS: ATTEND Anesthesiology | DX: M79.18 Myalgia, other site (principal); I10 Essential (primary) hypertension; I48.0 Paroxysmal atrial fibrillation; E03.9 Hypothyroidism, unspecified; H35.30 Unspecified macular degeneration; K76.0 Fatty (change of) liver, not elsewhere classified; G62.9 Polyneuropathy, unspecified; Z79.891 Long term (current) use of opiate analgesic; Z79.899 Other long term (current) drug therapy; Z79.01 Long term (current) use of anticoagulants; Z88.0 Allergy status to penicillin; Z88.1 Allergy status to other antibiotic agents; Z88.8 Allergy status to other drugs, medicaments and biological substances; Z91.02 Food additives allergy status ==

== ENCOUNTER → 2021-01-17 | Outpatient (CLI) | payer MEDICARE | LOC: M LABSMTC 11:51 | PROVIDERS: ATTEND Anesthesiology | DX: Z01.812 Encounter for preprocedural laboratory examination (principal); Z20.822 Contact with and (suspected) exposure to COVID-19 ==

== ENCOUNTER → 2021-01-22 | Outpatient (CLI) | payer MEDICARE ==
[~2021-01-22] MED LIST changes: +BUPIVACAINE HCL 0.25% 10ML VIAL As Ordered ONE; +BUPIVACAINE HCL 0.25% 30ML VIAL As Ordered ONE; +TRIAMCINOLONE ACETONIDE SUSP 40 MG/ML VIAL (J3301) As Ordered ONE; +diphenhydrAMINE 25MG CAP As Ordered ONE; +oxyCODONE 5MG TAB As Ordered ONE
== END ==
LOC: M PAIN 11:20
PROVIDERS: ATTEND Anesthesiology
DX: M79.18 Myalgia, other site (principal); I10 Essential (primary) hypertension; I48.0 Paroxysmal atrial fibrillation; E03.9 Hypothyroidism, unspecified; H35.30 Unspecified macular degeneration; G62.9 Polyneuropathy, unspecified; Z79.01 Long term (current) use of anticoagulants; Z79.891 Long term (current) use of opiate analgesic; Z79.899 Other long term (current) drug therapy; Z88.0 Allergy status to penicillin; Z88.1 Allergy status to other antibiotic agents; Z88.8 Allergy status to other drugs, medicaments and biological substances; Z91.041 Radiographic dye allergy status
CPT/HCPCS: 20552; J3301

== ENCOUNTER → 2021-02-12 | Outpatient (CLI) | payer MEDICARE ==
[~2021-02-12] MED LIST changes: -BUPIVACAINE HCL 0.25% 10ML VIAL As Ordered ONE; -BUPIVACAINE HCL 0.25% 30ML VIAL As Ordered ONE; -TRIAMCINOLONE ACETONIDE SUSP 40 MG/ML VIAL (J3301) As Ordered ONE; -diphenhydrAMINE 25MG CAP As Ordered ONE; -oxyCODONE 5MG TAB As Ordered ONE
--- NOTE | 2021-02-12 10:39 | REP ---
INDICATION: EVAL FOR BILIARY COLIC COMPARISON: 08/25/2011 TECHNIQUE: Real time rizvi scale ultrasound examination using curved array transducer. FINDINGS: Liver demonstrates coarsened echotexture and subtle nodular contour suggesting cirrhosis. No focal hepatic lesions are identified. Pancreas is incompletely evaluated due to interposed bowel gas. The gallbladder a 13 mm echogenic non focusing structures identified along the posterior gallbladder wall which may represent polyp. Previous examination suggested similar finding measuring 9 mm. No wall thickening or pericholecystic fluid. No biliary ductal dilatation is appreciated and the common bile duct measures 3.8 mm diameter. Right kidney is normal in reniform shape without hydronephrosis and measures 10.8 x 4.8 x 3.6 cm. No ascites in the visualized right upper quadrant. IMPRESSION: 1. Findings suggesting hepatocellular disease/cirrhosis and correlation is recommended. 2. 13 mm suspected gallbladder polyp along the posterior wall which is increased from 9 mm on examination dated 2011. While this likely represents a benign finding, surgical consultation may be warranted. <Electronically signed by Omid Dennis > 02/12/21 1036
== END ==
LOC: M RAD 09:30
PROVIDERS: ATTEND Internal Medicine
DX: R10.13 Epigastric pain (principal); K82.8 Other specified diseases of gallbladder

== ENCOUNTER → 2021-02-13 | Outpatient (CLI) | payer MEDICARE | LOC: M PAIN 15:15 | PROVIDERS: ATTEND Nurse Practitioner Family | DX: M79.18 Myalgia, other site (principal); E03.9 Hypothyroidism, unspecified; Z88.0 Allergy status to penicillin; Z88.1 Allergy status to other antibiotic agents; Z88.8 Allergy status to other drugs, medicaments and biological substances; Z91.02 Food additives allergy status; Z91.041 Radiographic dye allergy status; Z79.01 Long term (current) use of anticoagulants; Z79.899 Other long term (current) drug therapy ==

== ENCOUNTER → 2021-02-15 | Outpatient (REF) | payer MEDICARE | LOC: M LAB REF 16:48 | PROVIDERS: ATTEND Internal Medicine | DX: N39.0 Urinary tract infection, site not specified (principal) ==

== ENCOUNTER → 2021-03-21 | Outpatient (CLI) | payer MEDICARE | LOC: M LABSMTC 11:37 | PROVIDERS: ATTEND Anesthesiology | DX: Z01.812 Encounter for preprocedural laboratory examination (principal); Z20.822 Contact with and (suspected) exposure to COVID-19 ==

== ENCOUNTER → 2021-03-27 | Outpatient (CLI) | payer MEDICARE ==
[~2021-03-27] MED LIST changes: +BUPIVACAINE HCL 0.25% 10ML VIAL As Ordered ONE; +BUPIVACAINE HCL 0.25% 30ML VIAL As Ordered ONE; -OMEP-221; +OMEP40CA5; +TRIAMCINOLONE ACETONIDE SUSP 40 MG/ML VIAL (J3301) As Ordered ONE; +diphenhydrAMINE 25MG CAP As Ordered ONE; +oxyCODONE 5MG TAB As Ordered ONE
== END ==
LOC: M PAIN 09:15
PROVIDERS: ATTEND Anesthesiology
DX: M79.18 Myalgia, other site (principal); E03.9 Hypothyroidism, unspecified; Z88.0 Allergy status to penicillin; Z88.1 Allergy status to other antibiotic agents; Z88.8 Allergy status to other drugs, medicaments and biological substances; Z91.02 Food additives allergy status; Z91.041 Radiographic dye allergy status; Z79.01 Long term (current) use of anticoagulants; Z79.899 Other long term (current) drug therapy
CPT/HCPCS: 20552; J3301

== ENCOUNTER → 2021-04-11 | Outpatient (CLI) | payer MEDICARE ==
[~2021-04-11] MED LIST changes: -BUPIVACAINE HCL 0.25% 10ML VIAL As Ordered ONE; -BUPIVACAINE HCL 0.25% 30ML VIAL As Ordered ONE; +OMEP-221; -OMEP40CA5; -TRIAMCINOLONE ACETONIDE SUSP 40 MG/ML VIAL (J3301) As Ordered ONE; -diphenhydrAMINE 25MG CAP As Ordered ONE; -oxyCODONE 5MG TAB As Ordered ONE
== END ==
LOC: M PAIN 13:30
PROVIDERS: ATTEND Anesthesiology
DX: G89.29 Other chronic pain (principal); M79.18 Myalgia, other site; I10 Essential (primary) hypertension; I48.0 Paroxysmal atrial fibrillation; Z85.3 Personal history of malignant neoplasm of breast; H35.30 Unspecified macular degeneration; I44.0 Atrioventricular block, first degree; G62.9 Polyneuropathy, unspecified; M53.3 Sacrococcygeal disorders, not elsewhere classified; K76.0 Fatty (change of) liver, not elsewhere classified; Z79.891 Long term (current) use of opiate analgesic; Z79.899 Other long term (current) drug therapy; Z88.0 Allergy status to penicillin; Z88.1 Allergy status to other antibiotic agents; Z88.8 Allergy status to other drugs, medicaments and biological substances; Z91.041 Radiographic dye allergy status; Z91.02 Food additives allergy status

== ENCOUNTER → 2021-07-11 | Outpatient (CLI) | payer MEDICARE ==
[~2021-07-11] MED LIST changes: -OMEP-221; +OMEP40CA5
== END ==
LOC: M PAIN 11:00
PROVIDERS: ATTEND Anesthesiology
DX: M54.9 Dorsalgia, unspecified (principal); M79.18 Myalgia, other site; E03.9 Hypothyroidism, unspecified; Z88.0 Allergy status to penicillin; Z88.1 Allergy status to other antibiotic agents; Z88.8 Allergy status to other drugs, medicaments and biological substances; Z91.02 Food additives allergy status; Z91.041 Radiographic dye allergy status; Z79.01 Long term (current) use of anticoagulants; Z79.899 Other long term (current) drug therapy

== ENCOUNTER → 2021-08-09 | Outpatient (CLI) | payer MEDICARE | LOC: M WHC 13:05 | PROVIDERS: ATTEND Internal Medicine | DX: M81.0 Age-related osteoporosis without current pathological fracture (principal); M85.88 Other specified disorders of bone density and structure, other site ==

== ENCOUNTER → 2021-10-10 | Outpatient (CLI) | payer MEDICARE | LOC: M PAIN 11:00 | PROVIDERS: ATTEND Anesthesiology | DX: M54.9 Dorsalgia, unspecified (principal); M79.10 Myalgia, unspecified site; E03.9 Hypothyroidism, unspecified; Z88.0 Allergy status to penicillin; Z88.1 Allergy status to other antibiotic agents; Z88.8 Allergy status to other drugs, medicaments and biological substances; Z91.02 Food additives allergy status; Z91.041 Radiographic dye allergy status; Z79.01 Long term (current) use of anticoagulants; Z79.899 Other long term (current) drug therapy ==

== ENCOUNTER 2021-11-24 19:57 | Inpatient (IN) | payer MEDICARE ==
[~2021-11-24] VITALS: Ht 162.6 cm; Wt 63.6 kg
[~2021-11-24 19:57] MED LIST changes: -OMEP40CA5; +OMEP40CA5 PO
[2021-11-24] MEDS ORDERED: ONDANSETRON 4MG 2ML VIAL IV ONE (20:30)
[2021-11-24] MEDS ORDERED: fentaNYL 100 MCG/2 ML INJECTION IV PRN (20:30)
[2021-11-24] MEDS ORDERED: METO50TA7 PO ×2 (20:32→23:41)
[2021-11-24] MEDS ORDERED: HYDR-3713 PO (20:32)
[2021-11-24] MEDS ORDERED: BOOSTRIX/ADACEL VACCINE (DIPHTH/PERTUSS/ACELL/TETANUS) 0.5ML SYR IM.IMMUN ONE (20:40)
[2021-11-24 21:36] LABS: HEMATOCRIT 38.6 % (36.0-47.0); HEMOGLOBIN 13.3 g/dl (12.0-15.5); MEAN CORPUSCULAR HEMOGLOBIN 32.6 pg (27.0-33.0); MEAN CORPUSCULAR HGB CONC 34.5 g/dl (32.0-36.5); MEAN CORPUSCULAR VOLUME 94.6 fl (80.0-96.0); PLATELET COUNT, AUTOMATED 130 10^3/uL (150-450); RED BLOOD COUNT 4.08 10^6/uL (4.00-5.40); WHITE BLOOD COUNT 10.1 10^3/uL (4.0-10.0)
[2021-11-24 21:45] LABS: INR 4.27; PROTHROMBIN TIME 41.2 SECONDS (12.7-14.5)
[2021-11-24 21:53] LABS: BLOOD UREA NITROGEN 8 MG/DL (7-18); CARBON DIOXIDE LEVEL 26 MEQ/L (21-32); CHLORIDE LEVEL 99 MEQ/L (98-107); GLOMERULAR FILTRATION RATE > 60.0 (>32); GLUCOSE, FASTING 139 MG/DL (70-100); SODIUM LEVEL 134 MEQ/L (136-145)
[2021-11-24] MEDS ORDERED: LIDOCAINE W/EPINEPHRINE 1% 20ML VIAL SC ONE (21:55)
[2021-11-24 22:11] LABS: RSV AMPLIFICATION NEGATIVE (NEGATIVE)
[2021-11-24] MEDS ORDERED: PHYTONADIONE 5 MG TAB PO ONE (23:00)
[2021-11-24] MEDS ORDERED: METO1TAB7 PO (23:17)
[2021-11-24] MEDS ORDERED: WARF-20 PO ×2 (23:17)
[2021-11-24] MEDS ORDERED: [UNRECOGNIZED DRUG - OTHER] (23:17)
[2021-11-24] MEDS ORDERED: CVS1CAP2 PO (23:19)
[2021-11-24] MEDS ORDERED: HOME MED LIST COMPLETE! XX SCH (23:20)
[2021-11-25] MEDS: METOPROLOL TART 50 MG TAB PO SCH ×2 (01:32→20:57)
[2021-11-25] MEDS: HYDROMORPHONE HCL 0.5 MG/ 0.5 ML SYRINGE (J1170 PER 1) IV PRN ×3 (01:44→10:30)
[2021-11-25 06:00] VITALS: BP 167/82
[2021-11-25] MEDS: LEVOTHYROXINE 100MCG TABLET (0.1MG) PO SCH (06:18)
[2021-11-25 06:31] LABS: BASO % 0.1 % (0.0-1.0); HEMATOCRIT 36.8 % (36.0-47.0); HEMOGLOBIN 12.6 g/dl (12.0-15.5); LYMPH # 2.3 10^3/uL (1.5-5.0); MEAN CORPUSCULAR HEMOGLOBIN 32.2 pg (27.0-33.0); MEAN CORPUSCULAR HGB CONC 34.2 g/dl (32.0-36.5); MEAN CORPUSCULAR VOLUME 94.1 fl (80.0-96.0); MONO # 1.1 10^3/uL (0.0-0.8); MONO % 8.5 % (2.0-8.0); PLATELET COUNT, AUTOMATED 146 10^3/uL (150-450); RED BLOOD COUNT 3.91 10^6/uL (4.00-5.40); WHITE BLOOD COUNT 13.5 10^3/uL (4.0-10.0)
[2021-11-25 06:46] LABS: INR 3.5; PROTHROMBIN TIME 35.4 SECONDS (12.7-14.5)
[2021-11-25 06:51] LABS: BLOOD UREA NITROGEN 11 MG/DL (7-18); CALCIUM LEVEL 8.8 MG/DL (8.8-10.2); CARBON DIOXIDE LEVEL 27 MEQ/L (21-32); CHLORIDE LEVEL 98 MEQ/L (98-107); GLOMERULAR FILTRATION RATE > 60.0 (>32); GLUCOSE, FASTING 146 MG/DL (70-100); POTASSIUM SERUM 4.2 MEQ/L (3.5-5.1); SODIUM LEVEL 132 MEQ/L (136-145)
[2021-11-25] MEDS ORDERED: PHYTONADIONE 5 MG TAB PO ONE (07:00)
[2021-11-25] MEDS: OMEPRAZOLE 20MG CAP PO SCH (08:58)
[2021-11-25] MEDS: METOPROLOL TARTRATE 100MG TAB PO SCH (08:58)
[2021-11-25] MEDS ORDERED: METOPROLOL SUCC (TopROL XL) 50MG **XL** TAB PO SCH (09:00)
[2021-11-25 10:00] VITALS: BP 165/81
[2021-11-25 10:17] LABS: INR 3.03; PROTHROMBIN TIME 31.7 SECONDS (12.7-14.5)
[2021-11-25] MEDS ORDERED: CYCLOBENZAPRINE 5MG TABLET PO PRN (10:40)
[2021-11-25 14:00] VITALS: BP 160/80
[2021-11-25] MEDS ORDERED: ONDANSETRON 4MG 2ML VIAL IV PRN (14:50)
[2021-11-25] MEDS: MORPHINE 4 MG/ML 1ML VIAL/SYRINGE IV PRN ×3 (15:04→22:02)
[2021-11-25 18:00] VITALS: BP 162/83
[2021-11-25 19:08] LABS: INR 1.96; PROTHROMBIN TIME 22.7 SECONDS (12.7-14.5)
[2021-11-25 20:55] VITALS: BP 156/81
[2021-11-26 02:00] VITALS: BP 159/78
[2021-11-26] MEDS: MORPHINE 4 MG/ML 1ML VIAL/SYRINGE IV PRN ×4 (02:22→16:02)
[2021-11-26] MEDS: LEVOTHYROXINE 100MCG TABLET (0.1MG) PO SCH (04:39)
[2021-11-26 06:00] VITALS: BP 156/77
[2021-11-26] MEDS ORDERED: MORPHINE 2 MG/ML 1ML VIAL IV ONE (07:55)
[2021-11-26 08:53] LABS: BASO # 0.1 10^3/uL (0.0-0.2); BASO % 0.6 % (0.0-1.0); EOS # 0.1 10^3/uL (0.0-0.5); EOS % 0.6 % (0.0-3.0); HEMATOCRIT 33.4 % (36.0-47.0); HEMOGLOBIN 11.6 g/dl (12.0-15.5); LYMPH # 3.9 10^3/uL (1.5-5.0); LYMPH % 30.4 % (24.0-44.0); MEAN CORPUSCULAR HEMOGLOBIN 33.4 pg (27.0-33.0); MEAN CORPUSCULAR HGB CONC 34.7 g/dl (32.0-36.5); MEAN CORPUSCULAR VOLUME 96.3 fl (80.0-96.0); MONO % 14.3 % (2.0-8.0); NEUTROPHILS # 6.8 10^3/uL (1.5-8.5); NEUTROPHILS % 53.5 % (36.0-66.0); PLATELET COUNT, AUTOMATED 119 10^3/uL (150-450); RED BLOOD COUNT 3.47 10^6/uL (4.00-5.40); WHITE BLOOD COUNT 12.7 10^3/uL (4.0-10.0)
[2021-11-26 08:58] LABS: MONO # 1.8 10^3/uL (0.0-0.8)
[2021-11-26] MEDS: METOPROLOL TARTRATE 100MG TAB PO SCH (09:00)
[2021-11-26] MEDS: OMEPRAZOLE 20MG CAP PO SCH (09:00)
[2021-11-26 09:13] LABS: BLOOD UREA NITROGEN 13 MG/DL (7-18); CALCIUM LEVEL 8.5 MG/DL (8.8-10.2); CARBON DIOXIDE LEVEL 29 MEQ/L (21-32); CHLORIDE LEVEL 98 MEQ/L (98-107); CREATININE FOR GFR 0.56 MG/DL (0.55-1.30); GLOMERULAR FILTRATION RATE > 60.0 (>32); GLUCOSE, FASTING 103 MG/DL (70-100); POTASSIUM SERUM 4.2 MEQ/L (3.5-5.1); SODIUM LEVEL 132 MEQ/L (136-145)
[2021-11-26 09:15] LABS: INR 1.39; PROTHROMBIN TIME 17.5 SECONDS (12.7-14.5)
[2021-11-26 10:00] VITALS: BP 126/62
[2021-11-26 14:00] VITALS: BP 145/75
[2021-11-26] MEDS ORDERED: LIDOCAINE 2% 100MG/5ML SDV (FOR ANES.) As Ordered ONE (18:34)
[2021-11-26] MEDS ORDERED: propofoL 200 MG/20 ML VIAL As Ordered ONE (18:34)
[2021-11-26] MEDS ORDERED: fentaNYL 100 MCG/2 ML INJECTION As Ordered ONE (18:34)
[2021-11-26] MEDS ORDERED: ROCURONIUM BROMIDE 50 MG/5 ML VIAL As Ordered ONE (18:35)
[2021-11-26] MEDS ORDERED: ceFAZolin 2 GM/D5W 50 ML IV BAG (J0690 PER 500MG) As Ordered ONE (19:03)
[2021-11-26] MEDS ORDERED: TRANEXAMIC ACID 100 MG/ML 10ML VIAL As Ordered ONE (19:03)
[2021-11-26] MEDS ORDERED: PHENYLEPHRINE 10MG/ML 1ML VIAL (J2370 PER 1) As Ordered ONE (19:03)
[2021-11-26] MEDS ORDERED: dexameTHASONE 4 MG/ML 1ML VIAL (J1100 PER 1MG) As Ordered ONE (19:43)
[2021-11-26] MEDS ORDERED: ONDANSETRON 4MG 2ML VIAL As Ordered ONE (19:43)
[2021-11-26] MEDS ORDERED: ACETAMINOPHEN 1000MG 100ML IV BTL (OFIRMEV) (J0131 PER 10MG) As Ordered ONE (19:44)
[2021-11-26] MEDS ORDERED: SUGAMMADEX SODIUM 500 MG/5 ML VIAL (BRIDION) As Ordered ONE (20:10)
[2021-11-26] MEDS ORDERED: BUPIVACAINE LIPOSOME/PF 1.3% 20ML VIAL (13.3MG/ML)(EXPAREL) As Ordered ONE (20:18)
[2021-11-26] MEDS ORDERED: BUPIVACAINE HCL 0.25% 10ML VIAL As Ordered ONE (20:18)
[2021-11-26] MEDS ORDERED: ONDANSETRON 4MG 2ML VIAL IV PRN (20:25)
[2021-11-26] MEDS ORDERED: fentaNYL 100 MCG/2 ML INJECTION IV PRN (20:25)
[2021-11-26] MEDS ORDERED: oxyCODONE 5MG TAB PO PRN (20:25)
[2021-11-26] MEDS ORDERED: LR 1,000 ML IV SCH ×2 (20:25→22:20)
[2021-11-26] MEDS: METOPROLOL TART 50 MG TAB PO SCH (21:48)
[2021-11-26 22:12] VITALS: BP 156/82
[2021-11-26 23:00] VITALS: BP 127/71
[2021-11-27 01:00] VITALS: BP 129/72
[2021-11-27 03:15] VITALS: BP 140/78
[2021-11-27] MEDS: MORPHINE 4 MG/ML 1ML VIAL/SYRINGE IV PRN ×3 (03:24→16:25)
[2021-11-27] MEDS: LEVOTHYROXINE 100MCG TABLET (0.1MG) PO SCH (05:48)
[2021-11-27 06:00] VITALS: BP 140/78
[2021-11-27 06:18] LABS: BASO % 0.1 % (0.0-1.0); HEMOGLOBIN 10.6 g/dl (12.0-15.5); LYMPH # 1.4 10^3/uL (1.5-5.0); LYMPH % 16.2 % (24.0-44.0); MEAN CORPUSCULAR HEMOGLOBIN 31.9 pg (27.0-33.0); MEAN CORPUSCULAR HGB CONC 33.1 g/dl (32.0-36.5); MEAN CORPUSCULAR VOLUME 96.4 fl (80.0-96.0); MONO % 11.7 % (2.0-8.0); NEUTROPHILS # 6.1 10^3/uL (1.5-8.5); NEUTROPHILS % 71.4 % (36.0-66.0); PLATELET COUNT, AUTOMATED 106 10^3/uL (150-450); RED BLOOD COUNT 3.32 10^6/uL (4.00-5.40); WHITE BLOOD COUNT 8.5 10^3/uL (4.0-10.0)
[2021-11-27 06:28] LABS: INR 1.28; PROTHROMBIN TIME 16.4 SECONDS (12.7-14.5)
[2021-11-27 06:46] LABS: BLOOD UREA NITROGEN 12 MG/DL (7-18); CALCIUM LEVEL 8.1 MG/DL (8.8-10.2); CARBON DIOXIDE LEVEL 30 MEQ/L (21-32); CHLORIDE LEVEL 97 MEQ/L (98-107); CREATININE FOR GFR 0.53 MG/DL (0.55-1.30); GLOMERULAR FILTRATION RATE > 60.0 (>32); GLUCOSE, FASTING 153 MG/DL (70-100); POTASSIUM SERUM 4.7 MEQ/L (3.5-5.1); SODIUM LEVEL 131 MEQ/L (136-145)
[2021-11-27] MEDS: OMEPRAZOLE 20MG CAP PO SCH (08:00)
[2021-11-27] MEDS: METOPROLOL TARTRATE 100MG TAB PO SCH (08:01)
[2021-11-27 10:00] VITALS: BP 120/58
[2021-11-27 14:00] VITALS: BP 121/61
[2021-11-27] MEDS ORDERED: WARFARIN SOD 5MG TAB PO SCH (17:00)
[2021-11-27 18:00] VITALS: BP 118/61
[2021-11-27] MEDS ORDERED: MOM 30ML SUSPENSION UDC PO PRN (18:10)
[2021-11-27] MEDS ORDERED: ACETAMINOPHEN TAB 650MG DOSE (2X325MG) PO PRN (18:20)
[2021-11-27] MEDS ORDERED: KETOROLAC 30 MG/ML 1ML VIAL IV PRN (21:45)
[2021-11-27] MEDS: METOPROLOL TART 50 MG TAB PO SCH (22:40)
[2021-11-28 05:39] VITALS: BP 138/66
[2021-11-28] MEDS: LEVOTHYROXINE 100MCG TABLET (0.1MG) PO SCH (05:58)
[2021-11-28 06:06] LABS: BASO # 0.1 10^3/uL (0.0-0.2); BASO % 0.5 % (0.0-1.0); EOS # 0.3 10^3/uL (0.0-0.5); EOS % 2.4 % (0.0-3.0); HEMATOCRIT 28.3 % (36.0-47.0); HEMOGLOBIN 9.6 g/dl (12.0-15.5); LYMPH # 2.9 10^3/uL (1.5-5.0); LYMPH % 27.1 % (24.0-44.0); MEAN CORPUSCULAR HEMOGLOBIN 32.4 pg (27.0-33.0); MEAN CORPUSCULAR HGB CONC 33.9 g/dl (32.0-36.5); MEAN CORPUSCULAR VOLUME 95.6 fl (80.0-96.0); MONO # 1.4 10^3/uL (0.0-0.8); MONO % 12.9 % (2.0-8.0); NEUTROPHILS % 56.4 % (36.0-66.0); PLATELET COUNT, AUTOMATED 127 10^3/uL (150-450); RED BLOOD COUNT 2.96 10^6/uL (4.00-5.40); WHITE BLOOD COUNT 10.7 10^3/uL (4.0-10.0)
[2021-11-28 06:16] LABS: INR 1.24; PROTHROMBIN TIME 16.1 SECONDS (12.7-14.5)
[2021-11-28 06:39] LABS: BLOOD UREA NITROGEN 17 MG/DL (7-18); CALCIUM LEVEL 7.9 MG/DL (8.8-10.2); CARBON DIOXIDE LEVEL 28 MEQ/L (21-32); CHLORIDE LEVEL 96 MEQ/L (98-107); CREATININE FOR GFR 0.62 MG/DL (0.55-1.30); GLOMERULAR FILTRATION RATE > 60.0 (>32); GLUCOSE, FASTING 100 MG/DL (70-100); POTASSIUM SERUM 4.4 MEQ/L (3.5-5.1); SODIUM LEVEL 129 MEQ/L (136-145)
[2021-11-28] MEDS: OMEPRAZOLE 20MG CAP PO SCH ×2 (08:35→08:39)
[2021-11-28 08:36] VITALS: BP 130/64
[2021-11-28] MEDS: METOPROLOL TARTRATE 100MG TAB PO SCH (08:36)
[2021-11-28] MEDS ORDERED: DOCUSATE SODIUM 100MG CAPSULE PO SCH (09:00)
== END 2021-11-28 10:29 | DRG 481 ==
LOC: EDBD 19:57 → M ED 19:57 → M ED INP 23:01 → ENRESERV 11-25 02:33 → M MSPAV 11-25 04:51
PROVIDERS: ADMIT Internal Medicine; ATTEND Internal Medicine
PROC: BQ10ZZZ Fluoroscopy of Right Hip (ICD-10-PCS; 2021-11-26)
PROC: 0QS606Z Reposition Right Upper Femur with Intramedullary Internal Fixation Device, Open Approach (ICD-10-PCS; principal; 2021-11-26 15:30)
DX: S72.141A Displaced intertrochanteric fracture of right femur, initial encounter for closed fracture (principal); M48.54XA Collapsed vertebra, not elsewhere classified, thoracic region, initial encounter for fracture; M48.56XA Collapsed vertebra, not elsewhere classified, lumbar region, initial encounter for fracture; Z66 Do not resuscitate; I48.0 Paroxysmal atrial fibrillation; I10 Essential (primary) hypertension; E03.9 Hypothyroidism, unspecified; Z85.3 Personal history of malignant neoplasm of breast; Z92.3 Personal history of irradiation; H35.30 Unspecified macular degeneration; K21.9 Gastro-esophageal reflux disease without esophagitis; S40.012A Contusion of left shoulder, initial encounter; D72.829 Elevated white blood cell count, unspecified; S01.81XA Laceration without foreign body of other part of head, initial encounter; W01.0XXA Fall on same level from slipping, tripping and stumbling without subsequent striking against object, initial encounter; Y92.009 Unspecified place in unspecified non-institutional (private) residence as the place of occurrence of the external cause; Z79.01 Long term (current) use of anticoagulants; Z79.899 Other long term (current) drug therapy; Z88.0 Allergy status to penicillin; Z88.1 Allergy status to other antibiotic agents; Z88.2 Allergy status to sulfonamides; Z88.8 Allergy status to other drugs, medicaments and biological substances; Z91.048 Other nonmedicinal substance allergy status; K76.0 Fatty (change of) liver, not elsewhere classified

== ENCOUNTER 2021-11-27 10:29 | Inpatient (IN) | payer MEDICARE ==
[~2021-11-27] VITALS: Ht 162.6 cm; Wt 66.6 kg
[~2021-11-27 10:29] MED LIST changes: +CVS1CAP2 PO; +HYDR-3713 PO; +METO1TAB7 PO; +METO50TA7 PO; +WARF-20 PO; +[UNRECOGNIZED DRUG - OTHER]
[2021-11-28 10:45] VITALS: BP 132/65
[2021-11-28 12:57] LABS: APPEARANCE, URINE HAZY (CLEAR); BACTERIA, URINE AUTO 1+ (NEGATIVE); BILIRUBIN, URINE AUTO NEGATIVE (NEGATIVE); BLOOD, URINE BLOOD NEGATIVE (NEGATIVE); COLOR, URINE YELLOW (YELLOW); GLUCOSE, URINE (UA) AUTO NEGATIVE (NEGATIVE); KETONE, URINE AUTO NEGATIVE (NEGATIVE); LEUKOCYTE ESTERASE, URINE AUTO 3+ (NEGATIVE); MUCUS, URINE SMALL (NEGATIVE); NITRITE, URINE AUTO NEGATIVE (NEGATIVE); PROTEIN, URINE AUTO NEGATIVE (NEGATIVE); RBC, URINE AUTO 5 /HPF (0-3); SPECIFIC GRAVITY URINE AUTO 1.016 (1.002-1.035); SQUAMOUS EPITHELIAL CELL UR AU 1 /HPF (0-6); UROBILINOGEN, URINE AUTO 0.2 mg/dL (0.0-2.0); WBC, URINE AUTO TNTC /HPF (0-3)
[2021-11-28] MEDS ORDERED: BISACODYL 10 MG SUPP PR PRN (13:40)
[2021-11-28] MEDS ORDERED: MIRALAX *UNIT DOSE* 17GM PACKET PO PRN (13:40)
[2021-11-28 14:00] VITALS: BP 166/74
[2021-11-28] MEDS ORDERED: HOME MED LIST COMPLETE! XX SCH (14:10)
[2021-11-28] MEDS: ACETAMINOPHEN 500 MG TAB PO SCH ×2 (16:00→21:43)
[2021-11-28] MEDS: REMEDY PHYTOPLEX Z-GUARD PASTE 113GM TUBE (FROM STOREROOM PRODUCT) TOP SCH ×2 (16:46→21:44)
[2021-11-28] MEDS: traMADol 50 MG TAB PO PRN ×2 (16:49→21:42)
[2021-11-28] MEDS ORDERED: WARFARIN SOD 3MG TAB PO SCH (17:00)
[2021-11-28 18:00] VITALS: BP 133/63
[2021-11-28 20:00] VITALS: BP 154/70
[2021-11-28] MEDS: SENNA 8.6 MG TAB (SENOKOT) PO SCH (21:43)
[2021-11-28] MEDS: DOCUSATE SODIUM 100MG CAPSULE PO SCH (21:43)
[2021-11-28] MEDS: METOPROLOL TART 50 MG TAB PO SCH (21:43)
[2021-11-29] MEDS: traMADol 50 MG TAB PO PRN ×2 (02:35→06:27)
[2021-11-29 06:00] VITALS: BP 158/78
[2021-11-29] MEDS: LEVOTHYROXINE 100MCG TABLET (0.1MG) PO SCH (06:27)
[2021-11-29 06:30] LABS: BASO # 0.1 10^3/uL (0.0-0.2); BASO % 0.7 % (0.0-1.0); EOS # 0.6 10^3/uL (0.0-0.5); EOS % 6.4 % (0.0-3.0); HEMATOCRIT 27.7 % (36.0-47.0); HEMOGLOBIN 9.6 g/dl (12.0-15.5); LYMPH # 2.8 10^3/uL (1.5-5.0); LYMPH % 31.2 % (24.0-44.0); MEAN CORPUSCULAR HEMOGLOBIN 33.3 pg (27.0-33.0); MEAN CORPUSCULAR HGB CONC 34.7 g/dl (32.0-36.5); MEAN CORPUSCULAR VOLUME 96.2 fl (80.0-96.0); MONO # 1.1 10^3/uL (0.0-0.8); NEUTROPHILS # 4.3 10^3/uL (1.5-8.5); NEUTROPHILS % 48.6 % (36.0-66.0); PLATELET COUNT, AUTOMATED 135 10^3/uL (150-450); RED BLOOD COUNT 2.88 10^6/uL (4.00-5.40); WHITE BLOOD COUNT 8.9 10^3/uL (4.0-10.0)
[2021-11-29 06:58] LABS: ALBUMIN 2.5 GM/DL (3.2-5.2); ALT/SGPT 27 U/L (12-78); BILIRUBIN,TOTAL 1.2 MG/DL (0.2-1.0); BLOOD UREA NITROGEN 12 MG/DL (7-18); CALCIUM LEVEL 7.8 MG/DL (8.8-10.2); CARBON DIOXIDE LEVEL 27 MEQ/L (21-32); CHLORIDE LEVEL 95 MEQ/L (98-107); CREATININE FOR GFR 0.46 MG/DL (0.55-1.30); GLOMERULAR FILTRATION RATE > 60.0 (>32); GLUCOSE, FASTING 91 MG/DL (70-100); POTASSIUM SERUM 4.2 MEQ/L (3.5-5.1); SODIUM LEVEL 127 MEQ/L (136-145); TOTAL PROTEIN 5.4 GM/DL (6.4-8.2)
[2021-11-29 07:00] LABS: INR 1.27; PROTHROMBIN TIME 16.4 SECONDS (12.7-14.5)
[2021-11-29] MEDS: LACTOBACILLUS ACIDOPHILUS CAP (BACID) PO SCH (07:44)
[2021-11-29] MEDS: OMEPRAZOLE 20MG CAP PO SCH (07:44)
[2021-11-29] MEDS: METOPROLOL TARTRATE 100MG TAB PO SCH (07:44)
[2021-11-29] MEDS: DOCUSATE SODIUM 100MG CAPSULE PO SCH ×2 (07:44→20:27)
[2021-11-29] MEDS: ACETAMINOPHEN 500 MG TAB PO SCH ×3 (07:45→20:27)
[2021-11-29] MEDS: REMEDY PHYTOPLEX Z-GUARD PASTE 113GM TUBE (FROM STOREROOM PRODUCT) TOP SCH ×3 (07:45→20:27)
[2021-11-29 09:25] VITALS: BP 125/64
[2021-11-29] MEDS: traMADol 50 MG TAB PO SCH ×3 (12:57→20:26)
[2021-11-29 14:00] VITALS: BP 137/65
[2021-11-29] MEDS: WARFARIN SOD 5MG TAB PO SCH (16:06)
[2021-11-29] MEDS: WARFARIN SOD 2MG TAB PO SCH (16:06)
[2021-11-29] MEDS ORDERED: WARFARIN SOD 3MG TAB PO SCH (17:00)
[2021-11-29 20:00] VITALS: BP 147/70
[2021-11-29] MEDS: METOPROLOL TART 50 MG TAB PO SCH (20:26)
[2021-11-29] MEDS: SENNA 8.6 MG TAB (SENOKOT) PO SCH (20:27)
[2021-11-30] MEDS: LEVOTHYROXINE 100MCG TABLET (0.1MG) PO SCH (05:27)
[2021-11-30 06:00] VITALS: BP 160/82
[2021-11-30] MEDS: LACTOBACILLUS ACIDOPHILUS CAP (BACID) PO SCH ×2 (07:06→09:05)
[2021-11-30] MEDS: traMADol 50 MG TAB PO SCH ×4 (07:06→20:12)
[2021-11-30] MEDS ORDERED: ONDANSETRON 4MG ORAL DISINTEGRATING TAB PO ONE (08:20)
[2021-11-30 08:40] LABS: BASO # 0.1 10^3/uL (0.0-0.2); BASO % 0.7 % (0.0-1.0); EOS # 0.5 10^3/uL (0.0-0.5); HEMATOCRIT 31.9 % (36.0-47.0); HEMOGLOBIN 10.8 g/dl (12.0-15.5); LYMPH # 2.7 10^3/uL (1.5-5.0); LYMPH % 29.8 % (24.0-44.0); MEAN CORPUSCULAR HGB CONC 33.9 g/dl (32.0-36.5); MEAN CORPUSCULAR VOLUME 94.7 fl (80.0-96.0); MONO # 0.8 10^3/uL (0.0-0.8); MONO % 8.9 % (2.0-8.0); NEUTROPHILS # 4.9 10^3/uL (1.5-8.5); PLATELET COUNT, AUTOMATED 191 10^3/uL (150-450); RED BLOOD COUNT 3.37 10^6/uL (4.00-5.40)
[2021-11-30] MEDS: REMEDY PHYTOPLEX Z-GUARD PASTE 113GM TUBE (FROM STOREROOM PRODUCT) TOP SCH ×3 (09:05→20:13)
[2021-11-30] MEDS: DOCUSATE SODIUM 100MG CAPSULE PO SCH ×2 (09:05→20:12)
[2021-11-30] MEDS: OMEPRAZOLE 20MG CAP PO SCH (09:05)
[2021-11-30] MEDS: METOPROLOL TARTRATE 100MG TAB PO SCH (09:05)
[2021-11-30] MEDS: ACETAMINOPHEN 500 MG TAB PO SCH ×3 (09:06→20:12)
[2021-11-30 09:11] LABS: INR 1.51; PROTHROMBIN TIME 18.6 SECONDS (12.7-14.5)
[2021-11-30 09:23] LABS: BLOOD UREA NITROGEN 8 MG/DL (7-18); CARBON DIOXIDE LEVEL 27 MEQ/L (21-32); CHLORIDE LEVEL 90 MEQ/L (98-107); CREATININE FOR GFR 0.44 MG/DL (0.55-1.30); GLOMERULAR FILTRATION RATE > 60.0 (>32); GLUCOSE, FASTING 122 MG/DL (70-100); POTASSIUM SERUM 4.1 MEQ/L (3.5-5.1); SODIUM LEVEL 125 MEQ/L (136-145)
[2021-11-30] MEDS ORDERED: FUROSEMIDE 20 MG TAB PO SCH (09:50)
[2021-11-30 14:00] VITALS: BP 154/62
[2021-11-30] MEDS: ONDANSETRON 4MG ORAL DISINTEGRATING TAB SL PRN (14:54)
[2021-11-30] MEDS: WARFARIN SOD 2MG TAB PO SCH (16:38)
[2021-11-30] MEDS: WARFARIN SOD 5MG TAB PO SCH (16:38)
[2021-11-30 19:26] VITALS: BP 125/65
[2021-11-30] MEDS: SENNA 8.6 MG TAB (SENOKOT) PO SCH (20:12)
[2021-11-30] MEDS: DICLOFENAC EPOLAMINE 1.3 % PATCH TOP SCH (20:13)
[2021-11-30] MEDS: METOPROLOL TART 50 MG TAB PO SCH (20:14)
[2021-12-01 05:36] VITALS: BP 184/80
[2021-12-01 05:55] VITALS: BP 162/80
[2021-12-01] MEDS: LEVOTHYROXINE 100MCG TABLET (0.1MG) PO SCH (06:29)
[2021-12-01] MEDS: traMADol 50 MG TAB PO SCH ×4 (06:30→20:11)
[2021-12-01 07:23] LABS: INR 1.84; PROTHROMBIN TIME 21.6 SECONDS (12.7-14.5)
[2021-12-01 07:41] LABS: BLOOD UREA NITROGEN 6 MG/DL (7-18); CALCIUM LEVEL 8.2 MG/DL (8.8-10.2); CARBON DIOXIDE LEVEL 29 MEQ/L (21-32); CHLORIDE LEVEL 90 MEQ/L (98-107); CREATININE FOR GFR 0.36 MG/DL (0.55-1.30); GLOMERULAR FILTRATION RATE > 60.0 (>32); GLUCOSE, FASTING 101 MG/DL (70-100); MAGNESIUM LEVEL 1.7 MG/DL (1.8-2.4); POTASSIUM SERUM 3.9 MEQ/L (3.5-5.1); SODIUM LEVEL 124 MEQ/L (136-145)
[2021-12-01] MEDS: REMEDY PHYTOPLEX Z-GUARD PASTE 113GM TUBE (FROM STOREROOM PRODUCT) TOP SCH ×3 (09:00→20:14)
[2021-12-01] MEDS: LACTOBACILLUS ACIDOPHILUS CAP (BACID) PO SCH (09:49)
[2021-12-01] MEDS: ONDANSETRON 4MG ORAL DISINTEGRATING TAB SL PRN (09:49)
[2021-12-01] MEDS: OMEPRAZOLE 20MG CAP PO SCH (09:49)
[2021-12-01] MEDS: DOCUSATE SODIUM 100MG CAPSULE PO SCH ×2 (09:49→20:12)
[2021-12-01] MEDS: METOPROLOL TARTRATE 100MG TAB PO SCH (09:49)
[2021-12-01] MEDS: ACETAMINOPHEN 500 MG TAB PO SCH ×3 (09:50→20:13)
[2021-12-01] MEDS: DICLOFENAC EPOLAMINE 1.3 % PATCH TOP SCH ×2 (09:51→20:13)
[2021-12-01 14:00] VITALS: BP 158/68
[2021-12-01] MEDS ORDERED: TOLVAPTAN 15 MG TAB (SAMSCA) PO ONE (15:00)
[2021-12-01] MEDS: WARFARIN SOD 5MG TAB PO SCH (16:08)
[2021-12-01] MEDS: WARFARIN SOD 2MG TAB PO SCH (16:08)
[2021-12-01 19:33] VITALS: BP 140/93
[2021-12-01] MEDS: METOPROLOL TART 50 MG TAB PO SCH (20:08)
[2021-12-01] MEDS: SENNA 8.6 MG TAB (SENOKOT) PO SCH (20:12)
[2021-12-02] MEDS: LEVOTHYROXINE 100MCG TABLET (0.1MG) PO SCH (06:02)
[2021-12-02] MEDS: traMADol 50 MG TAB PO SCH ×4 (06:02→21:13)
[2021-12-02 06:06] VITALS: BP 142/78
[2021-12-02 07:43] LABS: INR 2.54; PROTHROMBIN TIME 27.7 SECONDS (12.7-14.5)
[2021-12-02] MEDS: REMEDY PHYTOPLEX Z-GUARD PASTE 113GM TUBE (FROM STOREROOM PRODUCT) TOP SCH ×3 (09:00→21:00)
[2021-12-02] MEDS ORDERED: NITROFURANTOIN (MACROBID) 100 MG CAP PO SCH (09:00)
[2021-12-02 09:47] LABS: BLOOD UREA NITROGEN 5 MG/DL (7-18); CALCIUM LEVEL 8.4 MG/DL (8.8-10.2); CARBON DIOXIDE LEVEL 30 MEQ/L (21-32); CHLORIDE LEVEL 96 MEQ/L (98-107); CREATININE FOR GFR 0.41 MG/DL (0.55-1.30); GLOMERULAR FILTRATION RATE > 60.0 (>32); GLUCOSE, FASTING 104 MG/DL (70-100); POTASSIUM SERUM 3.8 MEQ/L (3.5-5.1); SODIUM LEVEL 131 MEQ/L (136-145)
[2021-12-02] MEDS: DOCUSATE SODIUM 100MG CAPSULE PO SCH ×2 (10:35→21:12)
[2021-12-02] MEDS: METOPROLOL TARTRATE 100MG TAB PO SCH (10:35)
[2021-12-02] MEDS: LACTOBACILLUS ACIDOPHILUS CAP (BACID) PO SCH (10:36)
[2021-12-02] MEDS: ACETAMINOPHEN 500 MG TAB PO SCH ×3 (10:36→21:15)
[2021-12-02] MEDS: OMEPRAZOLE 20MG CAP PO SCH (10:36)
[2021-12-02] MEDS: DICLOFENAC EPOLAMINE 1.3 % PATCH TOP SCH ×2 (10:37→21:00)
[2021-12-02 13:34] LABS: MAGNESIUM LEVEL 1.8 MG/DL (1.8-2.4)
[2021-12-02 14:00] VITALS: BP 128/63
[2021-12-02] MEDS ORDERED: FOSFOMYCIN TROMETHAMINE 3 GM POWDER PACKET (MONUROL) PO ONE (15:00)
[2021-12-02] MEDS: WARFARIN SOD 5MG TAB PO SCH (16:39)
[2021-12-02] MEDS: WARFARIN SOD 2MG TAB PO SCH (16:39)
[2021-12-02 20:00] VITALS: BP 137/65
[2021-12-02] MEDS: METOPROLOL TART 50 MG TAB PO SCH (21:12)
[2021-12-02] MEDS: SENNA 8.6 MG TAB (SENOKOT) PO SCH (21:12)
[2021-12-03 05:59] VITALS: BP 160/73
[2021-12-03] MEDS: LEVOTHYROXINE 100MCG TABLET (0.1MG) PO SCH (06:06)
[2021-12-03] MEDS: traMADol 50 MG TAB PO SCH ×4 (06:07→20:09)
[2021-12-03 07:18] LABS: BASO # 0.1 10^3/uL (0.0-0.2); BASO % 0.8 % (0.0-1.0); EOS # 0.3 10^3/uL (0.0-0.5); EOS % 2.9 % (0.0-3.0); HEMATOCRIT 35.5 % (36.0-47.0); HEMOGLOBIN 11.9 g/dl (12.0-15.5); LYMPH # 2.4 10^3/uL (1.5-5.0); LYMPH % 27.6 % (24.0-44.0); MEAN CORPUSCULAR HEMOGLOBIN 32.6 pg (27.0-33.0); MEAN CORPUSCULAR HGB CONC 33.5 g/dl (32.0-36.5); MEAN CORPUSCULAR VOLUME 97.3 fl (80.0-96.0); MONO # 0.9 10^3/uL (0.0-0.8); MONO % 10.1 % (2.0-8.0); NEUTROPHILS # 4.9 10^3/uL (1.5-8.5); NEUTROPHILS % 56.6 % (36.0-66.0); PLATELET COUNT, AUTOMATED 223 10^3/uL (150-450); RED BLOOD COUNT 3.65 10^6/uL (4.00-5.40); WHITE BLOOD COUNT 8.7 10^3/uL (4.0-10.0)
[2021-12-03 07:31] LABS: INR 3.4; PROTHROMBIN TIME 34.6 SECONDS (12.7-14.5)
[2021-12-03 07:55] LABS: BLOOD UREA NITROGEN 6 MG/DL (7-18); CALCIUM LEVEL 8.5 MG/DL (8.8-10.2); CARBON DIOXIDE LEVEL 30 MEQ/L (21-32); CHLORIDE LEVEL 97 MEQ/L (98-107); CREATININE FOR GFR 0.47 MG/DL (0.55-1.30); GLOMERULAR FILTRATION RATE > 60.0 (>32); GLUCOSE, FASTING 102 MG/DL (70-100); POTASSIUM SERUM 3.6 MEQ/L (3.5-5.1); SODIUM LEVEL 131 MEQ/L (136-145)
[2021-12-03] MEDS: ACETAMINOPHEN 500 MG TAB PO SCH ×3 (09:00→20:10)
[2021-12-03] MEDS: OMEPRAZOLE 20MG CAP PO SCH (09:50)
[2021-12-03] MEDS: LACTOBACILLUS ACIDOPHILUS CAP (BACID) PO SCH (09:50)
[2021-12-03] MEDS: DOCUSATE SODIUM 100MG CAPSULE PO SCH ×2 (09:50→20:07)
[2021-12-03] MEDS: METOPROLOL TARTRATE 100MG TAB PO SCH (09:50)
[2021-12-03] MEDS: DICLOFENAC EPOLAMINE 1.3 % PATCH TOP SCH ×2 (09:51→20:09)
[2021-12-03] MEDS: REMEDY PHYTOPLEX Z-GUARD PASTE 113GM TUBE (FROM STOREROOM PRODUCT) TOP SCH ×3 (09:56→20:10)
[2021-12-03 14:00] VITALS: BP 138/70
[2021-12-03] MEDS: WARFARIN SOD 5MG TAB PO SCH (16:11)
[2021-12-03] MEDS: WARFARIN SOD 2MG TAB PO SCH (16:11)
[2021-12-03 20:00] VITALS: BP 154/74
[2021-12-03] MEDS: SENNA 8.6 MG TAB (SENOKOT) PO SCH (20:07)
[2021-12-03] MEDS: METOPROLOL TART 50 MG TAB PO SCH (20:08)
[2021-12-04] MEDS: LEVOTHYROXINE 100MCG TABLET (0.1MG) PO SCH (05:05)
[2021-12-04 06:00] VITALS: BP 158/92
[2021-12-04 06:34] LABS: INR 3.09; PROTHROMBIN TIME 32.2 SECONDS (12.7-14.5)
[2021-12-04] MEDS: traMADol 50 MG TAB PO SCH ×4 (06:42→21:59)
[2021-12-04 06:51] LABS: BLOOD UREA NITROGEN 7 MG/DL (7-18); CALCIUM LEVEL 8.4 MG/DL (8.8-10.2); CARBON DIOXIDE LEVEL 25 MEQ/L (21-32); CHLORIDE LEVEL 99 MEQ/L (98-107); CREATININE FOR GFR 0.39 MG/DL (0.55-1.30); GLOMERULAR FILTRATION RATE > 60.0 (>32); GLUCOSE, FASTING 92 MG/DL (70-100); POTASSIUM SERUM 3.6 MEQ/L (3.5-5.1); SODIUM LEVEL 132 MEQ/L (136-145)
[2021-12-04] MEDS: ACETAMINOPHEN 500 MG TAB PO SCH ×3 (09:00→21:57)
[2021-12-04] MEDS: DOCUSATE SODIUM 100MG CAPSULE PO SCH ×2 (09:00→21:53)
[2021-12-04] MEDS: LACTOBACILLUS ACIDOPHILUS CAP (BACID) PO SCH (09:13)
[2021-12-04] MEDS: OMEPRAZOLE 20MG CAP PO SCH (09:13)
[2021-12-04] MEDS: DICLOFENAC EPOLAMINE 1.3 % PATCH TOP SCH ×2 (09:14→21:00)
[2021-12-04] MEDS: METOPROLOL TARTRATE 100MG TAB PO SCH (09:14)
[2021-12-04] MEDS: REMEDY PHYTOPLEX Z-GUARD PASTE 113GM TUBE (FROM STOREROOM PRODUCT) TOP SCH ×3 (09:15→21:00)
[2021-12-04] MEDS: WARFARIN SOD 5MG TAB PO SCH (12:36)
[2021-12-04 14:00] VITALS: BP 135/65
[2021-12-04] MEDS: WARFARIN SOD 2MG TAB PO SCH (17:06)
[2021-12-04 20:00] VITALS: BP 164/74
[2021-12-04] MEDS: SENNA 8.6 MG TAB (SENOKOT) PO SCH (21:53)
[2021-12-04] MEDS: METOPROLOL TART 50 MG TAB PO SCH (21:54)
[2021-12-05] MEDS ORDERED: **hydrALAZINE** 10 MG TAB PO PRN (05:35)
[2021-12-05 06:00] VITALS: BP 180/89
[2021-12-05] MEDS: LEVOTHYROXINE 100MCG TABLET (0.1MG) PO SCH (06:01)
[2021-12-05] MEDS: traMADol 50 MG TAB PO SCH ×4 (06:02→20:26)
[2021-12-05 06:38] VITALS: BP 154/64
[2021-12-05 07:26] LABS: INR 2.78; PROTHROMBIN TIME 29.7 SECONDS (12.7-14.5)
[2021-12-05 07:51] LABS: BLOOD UREA NITROGEN 7 MG/DL (7-18); CALCIUM LEVEL 8.3 MG/DL (8.8-10.2); CARBON DIOXIDE LEVEL 27 MEQ/L (21-32); CHLORIDE LEVEL 96 MEQ/L (98-107); CREATININE FOR GFR 0.43 MG/DL (0.55-1.30); GLOMERULAR FILTRATION RATE > 60.0 (>32); GLUCOSE, FASTING 83 MG/DL (70-100); POTASSIUM SERUM 3.8 MEQ/L (3.5-5.1); SODIUM LEVEL 129 MEQ/L (136-145)
[2021-12-05] MEDS: DOCUSATE SODIUM 100MG CAPSULE PO SCH ×2 (09:00→20:26)
[2021-12-05] MEDS: ACETAMINOPHEN 500 MG TAB PO SCH ×3 (09:00→20:26)
[2021-12-05] MEDS: REMEDY PHYTOPLEX Z-GUARD PASTE 113GM TUBE (FROM STOREROOM PRODUCT) TOP SCH ×3 (09:00→20:27)
[2021-12-05] MEDS: DICLOFENAC EPOLAMINE 1.3 % PATCH TOP SCH ×2 (09:15→20:24)
[2021-12-05] MEDS: METOPROLOL TARTRATE 100MG TAB PO SCH (09:15)
[2021-12-05] MEDS: LACTOBACILLUS ACIDOPHILUS CAP (BACID) PO SCH (09:15)
[2021-12-05] MEDS: OMEPRAZOLE 20MG CAP PO SCH (09:15)
[2021-12-05] MEDS ORDERED: FUROSEMIDE 20 MG TAB PO SCH (10:40)
[2021-12-05] MEDS ORDERED: FOSFOMYCIN TROMETHAMINE 3 GM POWDER PACKET (MONUROL) PO ONE (13:00)
[2021-12-05] MEDS ORDERED: TOLVAPTAN 7.5 MG HALF-TAB PO ONE (13:00)
[2021-12-05 14:00] VITALS: BP 182/65
[2021-12-05 14:04] LABS: BASO # 0.1 10^3/uL (0.0-0.2); BASO % 0.7 % (0.0-1.0); EOS # 0.2 10^3/uL (0.0-0.5); EOS % 1.8 % (0.0-3.0); HEMATOCRIT 35.1 % (36.0-47.0); HEMOGLOBIN 11.6 g/dl (12.0-15.5); LYMPH # 1.9 10^3/uL (1.5-5.0); LYMPH % 22.7 % (24.0-44.0); MEAN CORPUSCULAR HEMOGLOBIN 32.9 pg (27.0-33.0); MEAN CORPUSCULAR VOLUME 99.4 fl (80.0-96.0); MONO # 0.8 10^3/uL (0.0-0.8); MONO % 9.4 % (2.0-8.0); NEUTROPHILS # 5.3 10^3/uL (1.5-8.5); NEUTROPHILS % 63.5 % (36.0-66.0); PLATELET COUNT, AUTOMATED 229 10^3/uL (150-450); RED BLOOD COUNT 3.53 10^6/uL (4.00-5.40); WHITE BLOOD COUNT 8.4 10^3/uL (4.0-10.0)
[2021-12-05] MEDS ORDERED: **hydrALAZINE HCL** 25 MG TAB PO ONE (14:30)
[2021-12-05] MEDS: WARFARIN SOD 2MG TAB PO SCH (16:55)
[2021-12-05] MEDS ORDERED: **hydrALAZINE HCL** 25 MG TAB PO SCH (18:00)
[2021-12-05 19:26] VITALS: BP_SYST 146; BP_SYST 185; BP_DIAS 65; BP_DIAS 80
[2021-12-05 20:20] VITALS: BP 170/72
[2021-12-05] MEDS: METOPROLOL TART 50 MG TAB PO SCH (20:24)
[2021-12-05] MEDS: SENNA 8.6 MG TAB (SENOKOT) PO SCH (20:26)
[2021-12-05 21:34] VITALS: BP 130/62
[2021-12-05] MEDS: **hydrALAZINE HCL** 25 MG TAB PO SCH (23:07)
[2021-12-06] MEDS: **hydrALAZINE HCL** 25 MG TAB PO SCH ×4 (06:13→21:40)
[2021-12-06] MEDS: LEVOTHYROXINE 100MCG TABLET (0.1MG) PO SCH (06:13)
[2021-12-06] MEDS: traMADol 50 MG TAB PO SCH ×4 (06:14→21:40)
[2021-12-06 06:20] VITALS: BP 150/60
[2021-12-06] MEDS: REMEDY PHYTOPLEX Z-GUARD PASTE 113GM TUBE (FROM STOREROOM PRODUCT) TOP SCH ×3 (09:00→21:41)
[2021-12-06] MEDS: DICLOFENAC EPOLAMINE 1.3 % PATCH TOP SCH ×2 (09:00→21:41)
[2021-12-06] MEDS: DOCUSATE SODIUM 100MG CAPSULE PO SCH ×2 (09:00→21:40)
[2021-12-06 09:16] LABS: INR 2.79; PROTHROMBIN TIME 29.8 SECONDS (12.7-14.5)
[2021-12-06 09:19] LABS: BLOOD UREA NITROGEN 5 MG/DL (7-18); CALCIUM LEVEL 8.5 MG/DL (8.8-10.2); CARBON DIOXIDE LEVEL 28 MEQ/L (21-32); CHLORIDE LEVEL 99 MEQ/L (98-107); CREATININE FOR GFR 0.52 MG/DL (0.55-1.30); GLOMERULAR FILTRATION RATE > 60.0 (>32); GLUCOSE, FASTING 165 MG/DL (70-100); POTASSIUM SERUM 3.6 MEQ/L (3.5-5.1); SODIUM LEVEL 133 MEQ/L (136-145)
[2021-12-06] MEDS: LACTOBACILLUS ACIDOPHILUS CAP (BACID) PO SCH (09:24)
[2021-12-06] MEDS: OMEPRAZOLE 20MG CAP PO SCH (09:24)
[2021-12-06] MEDS: METOPROLOL TARTRATE 100MG TAB PO SCH (09:24)
[2021-12-06] MEDS: ACETAMINOPHEN 500 MG TAB PO SCH ×3 (09:25→21:39)
[2021-12-06 12:00] VITALS: BP 134/72
[2021-12-06 14:00] VITALS: BP 132/60
[2021-12-06] MEDS: WARFARIN SOD 2MG TAB PO SCH (17:07)
[2021-12-06 20:44] VITALS: BP 138/72
[2021-12-06] MEDS: METOPROLOL TART 50 MG TAB PO SCH (21:38)
[2021-12-06] MEDS: SENNA 8.6 MG TAB (SENOKOT) PO SCH (21:40)
[2021-12-07 06:14] VITALS: BP 142/70
[2021-12-07] MEDS: **hydrALAZINE HCL** 25 MG TAB PO SCH ×4 (06:16→22:30)
[2021-12-07] MEDS: LEVOTHYROXINE 100MCG TABLET (0.1MG) PO SCH (06:16)
[2021-12-07] MEDS: traMADol 50 MG TAB PO SCH ×4 (06:18→20:42)
[2021-12-07 07:19] LABS: BASO # 0.1 10^3/uL (0.0-0.2); BASO % 0.7 % (0.0-1.0); EOS # 0.2 10^3/uL (0.0-0.5); EOS % 2.7 % (0.0-3.0); HEMATOCRIT 37.5 % (36.0-47.0); HEMOGLOBIN 12.4 g/dl (12.0-15.5); LYMPH # 2.7 10^3/uL (1.5-5.0); LYMPH % 35.8 % (24.0-44.0); MEAN CORPUSCULAR HEMOGLOBIN 33.2 pg (27.0-33.0); MEAN CORPUSCULAR HGB CONC 33.1 g/dl (32.0-36.5); MEAN CORPUSCULAR VOLUME 100.3 fl (80.0-96.0); MONO # 0.8 10^3/uL (0.0-0.8); MONO % 10.4 % (2.0-8.0); NEUTROPHILS # 3.7 10^3/uL (1.5-8.5); NEUTROPHILS % 49.2 % (36.0-66.0); PLATELET COUNT, AUTOMATED 218 10^3/uL (150-450); RED BLOOD COUNT 3.74 10^6/uL (4.00-5.40); WHITE BLOOD COUNT 7.4 10^3/uL (4.0-10.0)
[2021-12-07 07:33] LABS: INR 3.19
[2021-12-07 07:52] LABS: BLOOD UREA NITROGEN 7 MG/DL (7-18); CALCIUM LEVEL 8.8 MG/DL (8.8-10.2); CARBON DIOXIDE LEVEL 27 MEQ/L (21-32); CHLORIDE LEVEL 98 MEQ/L (98-107); CREATININE FOR GFR 0.51 MG/DL (0.55-1.30); GLOMERULAR FILTRATION RATE > 60.0 (>32); GLUCOSE, FASTING 87 MG/DL (70-100); SODIUM LEVEL 130 MEQ/L (136-145)
[2021-12-07] MEDS: DOCUSATE SODIUM 100MG CAPSULE PO SCH ×2 (09:00→20:42)
[2021-12-07] MEDS: REMEDY PHYTOPLEX Z-GUARD PASTE 113GM TUBE (FROM STOREROOM PRODUCT) TOP SCH ×3 (09:00→20:43)
[2021-12-07] MEDS: OMEPRAZOLE 20MG CAP PO SCH (09:18)
[2021-12-07] MEDS: ACETAMINOPHEN 500 MG TAB PO SCH ×3 (09:19→20:41)
[2021-12-07] MEDS: DICLOFENAC EPOLAMINE 1.3 % PATCH TOP SCH ×2 (09:20→20:43)
[2021-12-07] MEDS: METOPROLOL TARTRATE 100MG TAB PO SCH (09:23)
[2021-12-07 14:00] VITALS: BP 108/57
[2021-12-07 20:00] VITALS: BP 129/64
[2021-12-07] MEDS: METOPROLOL TART 50 MG TAB PO SCH (20:42)
[2021-12-07] MEDS: SENNA 8.6 MG TAB (SENOKOT) PO SCH (20:42)
[2021-12-08] MEDS: **hydrALAZINE HCL** 25 MG TAB PO SCH ×4 (05:25→22:03)
[2021-12-08] MEDS: LEVOTHYROXINE 100MCG TABLET (0.1MG) PO SCH (05:25)
[2021-12-08 06:00] VITALS: BP 148/77
[2021-12-08] MEDS: traMADol 50 MG TAB PO SCH ×4 (06:04→20:50)
[2021-12-08] MEDS: DICLOFENAC EPOLAMINE 1.3 % PATCH TOP SCH ×2 (06:17→20:49)
[2021-12-08 06:47] LABS: INR 3.28; PROTHROMBIN TIME 33.7 SECONDS (12.7-14.5)
[2021-12-08 07:12] LABS: BLOOD UREA NITROGEN 6 MG/DL (7-18); CALCIUM LEVEL 8.3 MG/DL (8.8-10.2); CARBON DIOXIDE LEVEL 28 MEQ/L (21-32); CHLORIDE LEVEL 98 MEQ/L (98-107); CREATININE FOR GFR 0.38 MG/DL (0.55-1.30); GLOMERULAR FILTRATION RATE > 60.0 (>32); GLUCOSE, FASTING 90 MG/DL (70-100); POTASSIUM SERUM 3.7 MEQ/L (3.5-5.1); SODIUM LEVEL 130 MEQ/L (136-145)
[2021-12-08] MEDS: DOCUSATE SODIUM 100MG CAPSULE PO SCH ×2 (09:45→20:49)
[2021-12-08] MEDS: LACTOBACILLUS ACIDOPHILUS CAP (BACID) PO SCH (09:45)
[2021-12-08] MEDS: OMEPRAZOLE 20MG CAP PO SCH (09:46)
[2021-12-08] MEDS: METOPROLOL TARTRATE 100MG TAB PO SCH (09:46)
[2021-12-08] MEDS: REMEDY PHYTOPLEX Z-GUARD PASTE 113GM TUBE (FROM STOREROOM PRODUCT) TOP SCH ×3 (09:47→20:52)
[2021-12-08] MEDS: ACETAMINOPHEN 500 MG TAB PO SCH ×3 (09:47→20:50)
[2021-12-08 11:28] VITALS: BP 151/71
[2021-12-08 14:00] VITALS: BP 167/78
[2021-12-08] MEDS: WARFARIN SOD 3MG TAB PO SCH (16:09)
[2021-12-08 20:00] VITALS: BP 147/67
[2021-12-08] MEDS: SENNA 8.6 MG TAB (SENOKOT) PO SCH (20:49)
[2021-12-08] MEDS: METOPROLOL TART 50 MG TAB PO SCH (20:50)
[2021-12-09] MEDS: **hydrALAZINE HCL** 25 MG TAB PO SCH ×4 (05:23→22:23)
[2021-12-09] MEDS: LEVOTHYROXINE 100MCG TABLET (0.1MG) PO SCH (05:23)
[2021-12-09 06:00] VITALS: BP 132/61
[2021-12-09] MEDS: traMADol 50 MG TAB PO SCH ×4 (06:16→22:22)
[2021-12-09] MEDS: DICLOFENAC EPOLAMINE 1.3 % PATCH TOP SCH ×2 (06:27→20:47)
[2021-12-09 07:11] LABS: INR 2.49; PROTHROMBIN TIME 27.3 SECONDS (12.7-14.5)
[2021-12-09] MEDS: LACTOBACILLUS ACIDOPHILUS CAP (BACID) PO SCH (08:00)
[2021-12-09] MEDS: DOCUSATE SODIUM 100MG CAPSULE PO SCH ×2 (09:00→20:46)
[2021-12-09] MEDS: OMEPRAZOLE 20MG CAP PO SCH (09:35)
[2021-12-09] MEDS: METOPROLOL TARTRATE 100MG TAB PO SCH (09:36)
[2021-12-09] MEDS: ACETAMINOPHEN 500 MG TAB PO SCH ×3 (09:37→20:46)
[2021-12-09] MEDS: REMEDY PHYTOPLEX Z-GUARD PASTE 113GM TUBE (FROM STOREROOM PRODUCT) TOP SCH ×3 (09:37→20:48)
[2021-12-09 11:36] VITALS: BP 141/96
[2021-12-09 14:00] VITALS: BP 162/76
[2021-12-09] MEDS: WARFARIN SOD 3MG TAB PO SCH (16:38)
[2021-12-09 20:00] VITALS: BP 135/63
[2021-12-09] MEDS: METOPROLOL TART 50 MG TAB PO SCH (20:47)
[2021-12-09] MEDS: SENNA 8.6 MG TAB (SENOKOT) PO SCH (20:47)
[2021-12-10] MEDS: ONDANSETRON 4MG ORAL DISINTEGRATING TAB SL PRN (05:34)
[2021-12-10 06:00] VITALS: BP 143/75
[2021-12-10] MEDS: LEVOTHYROXINE 100MCG TABLET (0.1MG) PO SCH (06:08)
[2021-12-10] MEDS: **hydrALAZINE HCL** 25 MG TAB PO SCH ×4 (06:08→21:35)
[2021-12-10] MEDS: traMADol 50 MG TAB PO SCH ×4 (06:35→21:35)
[2021-12-10] MEDS: DICLOFENAC EPOLAMINE 1.3 % PATCH TOP SCH ×3 (06:36→21:39)
[2021-12-10 07:08] LABS: BASO # 0.1 10^3/uL (0.0-0.2); BASO % 0.9 % (0.0-1.0); EOS # 0.1 10^3/uL (0.0-0.5); EOS % 1.9 % (0.0-3.0); HEMATOCRIT 33.3 % (36.0-47.0); HEMOGLOBIN 11.2 g/dl (12.0-15.5); LYMPH # 1.7 10^3/uL (1.5-5.0); LYMPH % 29.7 % (24.0-44.0); MEAN CORPUSCULAR HEMOGLOBIN 33.4 pg (27.0-33.0); MEAN CORPUSCULAR HGB CONC 33.6 g/dl (32.0-36.5); MEAN CORPUSCULAR VOLUME 99.4 fl (80.0-96.0); MONO # 0.7 10^3/uL (0.0-0.8); MONO % 11.7 % (2.0-8.0); NEUTROPHILS # 3.2 10^3/uL (1.5-8.5); NEUTROPHILS % 55.1 % (36.0-66.0); PLATELET COUNT, AUTOMATED 179 10^3/uL (150-450); RED BLOOD COUNT 3.35 10^6/uL (4.00-5.40); WHITE BLOOD COUNT 5.8 10^3/uL (4.0-10.0)
[2021-12-10 07:27] LABS: INR 2.19; PROTHROMBIN TIME 24.7 SECONDS (12.7-14.5)
[2021-12-10 07:38] LABS: BLOOD UREA NITROGEN 6 MG/DL (7-18); CARBON DIOXIDE LEVEL 27 MEQ/L (21-32); CHLORIDE LEVEL 96 MEQ/L (98-107); GLOMERULAR FILTRATION RATE > 60.0 (>32); GLUCOSE, FASTING 86 MG/DL (70-100); POTASSIUM SERUM 3.6 MEQ/L (3.5-5.1); SODIUM LEVEL 129 MEQ/L (136-145)
[2021-12-10] MEDS: DOCUSATE SODIUM 100MG CAPSULE PO SCH ×3 (09:00→21:34)
[2021-12-10] MEDS: REMEDY PHYTOPLEX Z-GUARD PASTE 113GM TUBE (FROM STOREROOM PRODUCT) TOP SCH ×3 (09:00→21:00)
[2021-12-10] MEDS: ACETAMINOPHEN 500 MG TAB PO SCH ×3 (09:28→21:34)
[2021-12-10] MEDS: OMEPRAZOLE 20MG CAP PO SCH (09:29)
[2021-12-10] MEDS: LACTOBACILLUS ACIDOPHILUS CAP (BACID) PO SCH (09:29)
[2021-12-10] MEDS: METOPROLOL TARTRATE 100MG TAB PO SCH (09:29)
[2021-12-10 14:00] VITALS: BP 145/72
[2021-12-10] MEDS: WARFARIN SOD 3MG TAB PO SCH (17:20)
[2021-12-10 20:00] VITALS: BP 145/72
[2021-12-10 21:00] VITALS: BP 145/65
[2021-12-10] MEDS: METOPROLOL TART 50 MG TAB PO SCH (21:34)
[2021-12-10] MEDS: SENNA 8.6 MG TAB (SENOKOT) PO SCH (21:35)
[2021-12-11 06:28] VITALS: BP 148/72
[2021-12-11] MEDS: traMADol 50 MG TAB PO SCH ×4 (06:34→21:51)
[2021-12-11] MEDS: **hydrALAZINE HCL** 25 MG TAB PO SCH ×4 (06:34→21:51)
[2021-12-11] MEDS: LEVOTHYROXINE 100MCG TABLET (0.1MG) PO SCH (06:34)
[2021-12-11 06:56] LABS: INR 2.29; PROTHROMBIN TIME 25.6 SECONDS (12.7-14.5)
[2021-12-11] MEDS: REMEDY PHYTOPLEX Z-GUARD PASTE 113GM TUBE (FROM STOREROOM PRODUCT) TOP SCH ×3 (09:00→21:52)
[2021-12-11] MEDS: OMEPRAZOLE 20MG CAP PO SCH (09:09)
[2021-12-11] MEDS: DOCUSATE SODIUM 100MG CAPSULE PO SCH ×2 (09:09→21:51)
[2021-12-11] MEDS: LACTOBACILLUS ACIDOPHILUS CAP (BACID) PO SCH (09:09)
[2021-12-11] MEDS: DICLOFENAC EPOLAMINE 1.3 % PATCH TOP SCH ×2 (09:10→21:50)
[2021-12-11] MEDS: ACETAMINOPHEN 500 MG TAB PO SCH ×3 (09:10→21:51)
[2021-12-11] MEDS: METOPROLOL TARTRATE 100MG TAB PO SCH (09:12)
[2021-12-11] MEDS ORDERED: TOLVAPTAN 15 MG TAB (SAMSCA) PO ONE (11:00)
[2021-12-11 14:00] VITALS: BP 133/68
[2021-12-11] MEDS: WARFARIN SOD 3MG TAB PO SCH (17:00)
[2021-12-11 20:00] VITALS: BP 120/63
[2021-12-11] MEDS: METOPROLOL TART 50 MG TAB PO SCH (21:50)
[2021-12-11] MEDS: SENNA 8.6 MG TAB (SENOKOT) PO SCH (21:52)
[2021-12-12 05:06] VITALS: BP 139/82
[2021-12-12 06:19] LABS: BASO % 0.7 % (0.0-1.0); EOS # 0.1 10^3/uL (0.0-0.5); EOS % 1.8 % (0.0-3.0); HEMOGLOBIN 11.9 g/dl (12.0-15.5); LYMPH # 1.4 10^3/uL (1.5-5.0); MEAN CORPUSCULAR HEMOGLOBIN 33.5 pg (27.0-33.0); MEAN CORPUSCULAR HGB CONC 33.1 g/dl (32.0-36.5); MEAN CORPUSCULAR VOLUME 101.4 fl (80.0-96.0); MONO # 0.8 10^3/uL (0.0-0.8); MONO % 13.9 % (2.0-8.0); NEUTROPHILS # 3.3 10^3/uL (1.5-8.5); NEUTROPHILS % 57.9 % (36.0-66.0); PLATELET COUNT, AUTOMATED 180 10^3/uL (150-450); RED BLOOD COUNT 3.55 10^6/uL (4.00-5.40); WHITE BLOOD COUNT 5.6 10^3/uL (4.0-10.0)
[2021-12-12] MEDS: **hydrALAZINE HCL** 25 MG TAB PO SCH ×4 (06:26→21:14)
[2021-12-12] MEDS: LEVOTHYROXINE 100MCG TABLET (0.1MG) PO SCH (06:27)
[2021-12-12] MEDS: traMADol 50 MG TAB PO SCH ×4 (06:27→21:10)
[2021-12-12 06:29] LABS: INR 2.35; PROTHROMBIN TIME 26.1 SECONDS (12.7-14.5)
[2021-12-12 06:45] LABS: BLOOD UREA NITROGEN 6 MG/DL (7-18); CALCIUM LEVEL 8.7 MG/DL (8.8-10.2); CARBON DIOXIDE LEVEL 26 MEQ/L (21-32); CHLORIDE LEVEL 101 MEQ/L (98-107); GLOMERULAR FILTRATION RATE > 60.0 (>32); GLUCOSE, FASTING 97 MG/DL (70-100); SODIUM LEVEL 133 MEQ/L (136-145)
[2021-12-12] MEDS: FUROSEMIDE 10MG PER 1/2 TABLET PO SCH (09:00)
[2021-12-12] MEDS: DOCUSATE SODIUM 100MG CAPSULE PO SCH ×2 (09:00→21:08)
[2021-12-12] MEDS: OMEPRAZOLE 20MG CAP PO SCH (09:07)
[2021-12-12] MEDS: LACTOBACILLUS ACIDOPHILUS CAP (BACID) PO SCH (09:09)
[2021-12-12] MEDS: ACETAMINOPHEN 500 MG TAB PO SCH ×3 (09:09→21:10)
[2021-12-12] MEDS: METOPROLOL TARTRATE 100MG TAB PO SCH (09:10)
[2021-12-12] MEDS: DICLOFENAC EPOLAMINE 1.3 % PATCH TOP SCH ×2 (09:11→21:08)
[2021-12-12] MEDS: REMEDY PHYTOPLEX Z-GUARD PASTE 113GM TUBE (FROM STOREROOM PRODUCT) TOP SCH ×3 (09:27→21:14)
[2021-12-12 14:00] VITALS: BP 147/73
[2021-12-12 15:11] LABS: BACTERIA, URINE LARGE AMOUNT; SQUAMOUS EPITHELIAL CELL URINE NONE SEEN /hpf (SMALL AMT); WBC, URINE 20-30 /hpf (0-3)
[2021-12-12 15:12] LABS: HYALINE CAST, URINE NONE SEEN /lpf (0-1); RENAL EPITHELIAL CELLS, URINE SMALL AMOUNT /hpf
[2021-12-12] MEDS: WARFARIN SOD 3MG TAB PO SCH (16:04)
[2021-12-12 20:00] VITALS: BP 142/76
[2021-12-12] MEDS: SENNA 8.6 MG TAB (SENOKOT) PO SCH (21:08)
[2021-12-12] MEDS: METOPROLOL TART 50 MG TAB PO SCH (21:09)
[2021-12-13] MEDS: LEVOTHYROXINE 100MCG TABLET (0.1MG) PO SCH (05:09)
[2021-12-13] MEDS: **hydrALAZINE HCL** 25 MG TAB PO SCH ×4 (05:09→21:58)
[2021-12-13 06:00] VITALS: BP 143/66
[2021-12-13 06:38] LABS: INR 2.7
[2021-12-13] MEDS: traMADol 50 MG TAB PO SCH ×4 (06:58→21:57)
[2021-12-13] MEDS: REMEDY PHYTOPLEX Z-GUARD PASTE 113GM TUBE (FROM STOREROOM PRODUCT) TOP SCH ×3 (09:00→21:59)
[2021-12-13] MEDS ORDERED: diphenhydrAMINE 25MG CAP PO PRN (09:10)
[2021-12-13] MEDS: OMEPRAZOLE 20MG CAP PO SCH (09:17)
[2021-12-13] MEDS: DOCUSATE SODIUM 100MG CAPSULE PO SCH ×2 (09:17→21:57)
[2021-12-13] MEDS: FUROSEMIDE 10MG PER 1/2 TABLET PO SCH ×2 (09:18→09:30)
[2021-12-13] MEDS: DICLOFENAC EPOLAMINE 1.3 % PATCH TOP SCH ×2 (09:18→21:58)
[2021-12-13] MEDS: METOPROLOL TARTRATE 100MG TAB PO SCH (09:18)
[2021-12-13] MEDS: ACETAMINOPHEN 500 MG TAB PO SCH ×3 (09:20→21:57)
[2021-12-13] MEDS: LACTOBACILLUS ACIDOPHILUS CAP (BACID) PO SCH ×4 (09:24→21:56)
[2021-12-13] MEDS ORDERED: TRIAMCINOLONE ACETONIDE 0.025 % 80 GM CREAM TOP PRN (11:10)
[2021-12-13] MEDS: CEFDINIR 300 MG CAP (OMNICEF) PO SCH ×2 (11:47→21:57)
[2021-12-13 14:00] VITALS: BP 156/76
[2021-12-13] MEDS: WARFARIN SOD 3MG TAB PO SCH (17:46)
[2021-12-13 20:00] VITALS: BP 148/69
[2021-12-13] MEDS: SENNA 8.6 MG TAB (SENOKOT) PO SCH (21:57)
[2021-12-13] MEDS: METOPROLOL TART 50 MG TAB PO SCH (21:58)
[2021-12-14] MEDS: LEVOTHYROXINE 100MCG TABLET (0.1MG) PO SCH (05:44)
[2021-12-14] MEDS: **hydrALAZINE HCL** 25 MG TAB PO SCH ×4 (05:44→21:44)
[2021-12-14] MEDS: ONDANSETRON 4MG ORAL DISINTEGRATING TAB SL PRN (05:49)
[2021-12-14 06:00] VITALS: BP 130/63
[2021-12-14 06:10] LABS: BASO % 0.8 % (0.0-1.0); EOS # 0.1 10^3/uL (0.0-0.5); EOS % 2.7 % (0.0-3.0); HEMATOCRIT 33.7 % (36.0-47.0); HEMOGLOBIN 11.3 g/dl (12.0-15.5); LYMPH # 1.7 10^3/uL (1.5-5.0); LYMPH % 32.4 % (24.0-44.0); MEAN CORPUSCULAR HGB CONC 33.5 g/dl (32.0-36.5); MEAN CORPUSCULAR VOLUME 101.5 fl (80.0-96.0); MONO # 0.7 10^3/uL (0.0-0.8); MONO % 13.7 % (2.0-8.0); NEUTROPHILS # 2.6 10^3/uL (1.5-8.5); NEUTROPHILS % 49.8 % (36.0-66.0); PLATELET COUNT, AUTOMATED 165 10^3/uL (150-450); RED BLOOD COUNT 3.32 10^6/uL (4.00-5.40); WHITE BLOOD COUNT 5.2 10^3/uL (4.0-10.0)
[2021-12-14 06:24] LABS: INR 2.98; PROTHROMBIN TIME 31.3 SECONDS (12.7-14.5)
[2021-12-14 06:43] LABS: BLOOD UREA NITROGEN 5 MG/DL (7-18); CALCIUM LEVEL 8.5 MG/DL (8.8-10.2); CARBON DIOXIDE LEVEL 25 MEQ/L (21-32); CHLORIDE LEVEL 97 MEQ/L (98-107); CREATININE FOR GFR 0.42 MG/DL (0.55-1.30); GLOMERULAR FILTRATION RATE > 60.0 (>32); GLUCOSE, FASTING 88 MG/DL (70-100); POTASSIUM SERUM 3.9 MEQ/L (3.5-5.1); SODIUM LEVEL 128 MEQ/L (136-145)
[2021-12-14] MEDS: traMADol 50 MG TAB PO SCH ×4 (07:01→21:43)
[2021-12-14] MEDS: FUROSEMIDE 20 MG TAB PO SCH ×2 (09:00→10:53)
[2021-12-14] MEDS: ACETAMINOPHEN 500 MG TAB PO SCH ×3 (09:00→21:00)
[2021-12-14] MEDS: DOCUSATE SODIUM 100MG CAPSULE PO SCH ×3 (09:00→21:43)
[2021-12-14] MEDS ORDERED: FUROSEMIDE 10MG PER 1/2 TABLET PO ONE (09:00)
[2021-12-14] MEDS: CEFDINIR 300 MG CAP (OMNICEF) PO SCH ×2 (10:37→21:53)
[2021-12-14] MEDS: LACTOBACILLUS ACIDOPHILUS CAP (BACID) PO SCH ×4 (10:37→21:42)
[2021-12-14] MEDS: DICLOFENAC EPOLAMINE 1.3 % PATCH TOP SCH ×2 (10:37→21:42)
[2021-12-14] MEDS: OMEPRAZOLE 20MG CAP PO SCH (10:38)
[2021-12-14] MEDS: METOPROLOL TARTRATE 100MG TAB PO SCH (10:39)
[2021-12-14] MEDS: REMEDY PHYTOPLEX Z-GUARD PASTE 113GM TUBE (FROM STOREROOM PRODUCT) TOP SCH ×3 (10:41→21:00)
[2021-12-14 14:00] VITALS: BP 133/63
[2021-12-14 21:16] VITALS: BP 129/60
[2021-12-14] MEDS: SENNA 8.6 MG TAB (SENOKOT) PO SCH (21:42)
[2021-12-14] MEDS: METOPROLOL TART 50 MG TAB PO SCH (21:43)
[2021-12-15 06:21] VITALS: BP 125/58
[2021-12-15] MEDS: LEVOTHYROXINE 100MCG TABLET (0.1MG) PO SCH (06:25)
[2021-12-15] MEDS: **hydrALAZINE HCL** 25 MG TAB PO SCH ×4 (06:25→22:03)
[2021-12-15] MEDS: traMADol 50 MG TAB PO SCH ×4 (06:26→22:04)
[2021-12-15 07:56] LABS: INR 2.54; PROTHROMBIN TIME 27.7 SECONDS (12.7-14.5)
[2021-12-15] MEDS: CEFDINIR 300 MG CAP (OMNICEF) PO SCH ×2 (08:27→22:03)
[2021-12-15] MEDS: DICLOFENAC EPOLAMINE 1.3 % PATCH TOP SCH ×2 (08:27→22:04)
[2021-12-15] MEDS: OMEPRAZOLE 20MG CAP PO SCH (08:28)
[2021-12-15] MEDS: LACTOBACILLUS ACIDOPHILUS CAP (BACID) PO SCH ×4 (08:28→22:02)
[2021-12-15] MEDS: DOCUSATE SODIUM 100MG CAPSULE PO SCH ×2 (08:29→22:02)
[2021-12-15] MEDS: METOPROLOL TARTRATE 100MG TAB PO SCH (08:29)
[2021-12-15] MEDS: ACETAMINOPHEN 500 MG TAB PO SCH ×3 (08:29→21:00)
[2021-12-15] MEDS: REMEDY PHYTOPLEX Z-GUARD PASTE 113GM TUBE (FROM STOREROOM PRODUCT) TOP SCH ×3 (08:29→21:00)
[2021-12-15] MEDS: FUROSEMIDE 20 MG TAB PO SCH (08:29)
[2021-12-15 14:00] VITALS: BP 124/60
[2021-12-15] MEDS: WARFARIN SOD 2MG TAB PO SCH (17:09)
[2021-12-15 20:32] VITALS: BP 140/60
[2021-12-15] MEDS: SENNA 8.6 MG TAB (SENOKOT) PO SCH (22:02)
[2021-12-15] MEDS: METOPROLOL TART 50 MG TAB PO SCH (22:03)
[2021-12-16] MEDS: ONDANSETRON 4MG ORAL DISINTEGRATING TAB SL PRN (04:36)
[2021-12-16 06:00] VITALS: BP 150/72
[2021-12-16] MEDS: LEVOTHYROXINE 100MCG TABLET (0.1MG) PO SCH (06:13)
[2021-12-16] MEDS: **hydrALAZINE HCL** 25 MG TAB PO SCH ×4 (06:14→21:50)
[2021-12-16] MEDS: traMADol 50 MG TAB PO SCH ×4 (06:15→21:24)
[2021-12-16] MEDS: METOPROLOL TARTRATE 100MG TAB PO SCH (07:34)
[2021-12-16] MEDS: LACTOBACILLUS ACIDOPHILUS CAP (BACID) PO SCH ×4 (07:34→21:21)
[2021-12-16 07:35] LABS: INR 2.06; PROTHROMBIN TIME 23.6 SECONDS (12.7-14.5)
[2021-12-16] MEDS: OMEPRAZOLE 20MG CAP PO SCH (07:35)
[2021-12-16] MEDS: FUROSEMIDE 20 MG TAB PO SCH (07:36)
[2021-12-16] MEDS: ACETAMINOPHEN 500 MG TAB PO SCH ×3 (07:36→21:00)
[2021-12-16] MEDS: DOCUSATE SODIUM 100MG CAPSULE PO SCH ×2 (07:36→21:22)
[2021-12-16] MEDS: DICLOFENAC EPOLAMINE 1.3 % PATCH TOP SCH ×2 (07:36→21:23)
[2021-12-16] MEDS: REMEDY PHYTOPLEX Z-GUARD PASTE 113GM TUBE (FROM STOREROOM PRODUCT) TOP SCH ×3 (07:36→21:00)
[2021-12-16 07:44] LABS: BLOOD UREA NITROGEN 4 MG/DL (7-18); CALCIUM LEVEL 8.6 MG/DL (8.8-10.2); CARBON DIOXIDE LEVEL 26 MEQ/L (21-32); CHLORIDE LEVEL 95 MEQ/L (98-107); CREATININE FOR GFR 0.34 MG/DL (0.55-1.30); GLOMERULAR FILTRATION RATE > 60.0 (>32); GLUCOSE, FASTING 88 MG/DL (70-100); SODIUM LEVEL 127 MEQ/L (136-145)
[2021-12-16] MEDS ORDERED: TOLVAPTAN 15 MG TAB (SAMSCA) PO ONE (10:00)
[2021-12-16 14:00] VITALS: BP 167/70
[2021-12-16] MEDS: WARFARIN SOD 2MG TAB PO SCH (17:19)
[2021-12-16 20:00] VITALS: BP 181/82
[2021-12-16] MEDS: METOPROLOL TART 50 MG TAB PO SCH (21:22)
[2021-12-16] MEDS: SENNA 8.6 MG TAB (SENOKOT) PO SCH (21:22)
[2021-12-17 06:00] VITALS: BP 144/70
[2021-12-17] MEDS: LEVOTHYROXINE 100MCG TABLET (0.1MG) PO SCH (06:11)
[2021-12-17] MEDS: **hydrALAZINE HCL** 25 MG TAB PO SCH ×4 (06:12→20:32)
[2021-12-17] MEDS: traMADol 50 MG TAB PO SCH ×4 (06:13→20:33)
[2021-12-17] MEDS: ONDANSETRON 4MG ORAL DISINTEGRATING TAB SL PRN (06:17)
[2021-12-17 06:45] LABS: BASO % 0.8 % (0.0-1.0); EOS # 0.2 10^3/uL (0.0-0.5); HEMATOCRIT 34.6 % (36.0-47.0); HEMOGLOBIN 11.6 g/dl (12.0-15.5); LYMPH # 1.6 10^3/uL (1.5-5.0); LYMPH % 29.8 % (24.0-44.0); MEAN CORPUSCULAR HEMOGLOBIN 33.5 pg (27.0-33.0); MEAN CORPUSCULAR HGB CONC 33.5 g/dl (32.0-36.5); MONO # 0.8 10^3/uL (0.0-0.8); MONO % 15.6 % (2.0-8.0); NEUTROPHILS # 2.7 10^3/uL (1.5-8.5); NEUTROPHILS % 50.2 % (36.0-66.0); PLATELET COUNT, AUTOMATED 165 10^3/uL (150-450); RED BLOOD COUNT 3.46 10^6/uL (4.00-5.40); WHITE BLOOD COUNT 5.3 10^3/uL (4.0-10.0)
[2021-12-17 06:56] LABS: INR 1.98; PROTHROMBIN TIME 22.9 SECONDS (12.7-14.5)
[2021-12-17 07:20] LABS: BLOOD UREA NITROGEN 4 MG/DL (7-18); CALCIUM LEVEL 8.2 MG/DL (8.8-10.2); CARBON DIOXIDE LEVEL 30 MEQ/L (21-32); CHLORIDE LEVEL 99 MEQ/L (98-107); CREATININE FOR GFR 0.38 MG/DL (0.55-1.30); GLOMERULAR FILTRATION RATE > 60.0 (>32); GLUCOSE, FASTING 91 MG/DL (70-100); SODIUM LEVEL 134 MEQ/L (136-145)
[2021-12-17] MEDS: DOCUSATE SODIUM 100MG CAPSULE PO SCH ×2 (08:42→20:33)
[2021-12-17] MEDS: LACTOBACILLUS ACIDOPHILUS CAP (BACID) PO SCH ×4 (08:42→20:32)
[2021-12-17] MEDS: OMEPRAZOLE 20MG CAP PO SCH (08:42)
[2021-12-17] MEDS: ACETAMINOPHEN 500 MG TAB PO SCH ×3 (08:43→20:34)
[2021-12-17] MEDS: METOPROLOL TARTRATE 100MG TAB PO SCH (08:43)
[2021-12-17] MEDS: DICLOFENAC EPOLAMINE 1.3 % PATCH TOP SCH ×2 (08:43→20:35)
[2021-12-17] MEDS: REMEDY PHYTOPLEX Z-GUARD PASTE 113GM TUBE (FROM STOREROOM PRODUCT) TOP SCH ×3 (08:49→20:35)
[2021-12-17] MEDS ORDERED: TOLVAPTAN 15 MG TAB (SAMSCA) PO SCH (11:15)
[2021-12-17 14:00] VITALS: BP 115/60
[2021-12-17] MEDS ORDERED: WARFARIN SOD 2MG TAB PO SCH (17:00)
[2021-12-17 17:06] VITALS: BP 130/70
[2021-12-17 20:00] VITALS: BP 160/74
[2021-12-17] MEDS: SENNA 8.6 MG TAB (SENOKOT) PO SCH (20:33)
[2021-12-17] MEDS: METOPROLOL TART 50 MG TAB PO SCH (20:34)
[2021-12-18] MEDS: **hydrALAZINE HCL** 25 MG TAB PO SCH ×2 (05:31→12:11)
[2021-12-18] MEDS: LEVOTHYROXINE 100MCG TABLET (0.1MG) PO SCH (05:33)
[2021-12-18 06:00] VITALS: BP 112/56
[2021-12-18] MEDS: traMADol 50 MG TAB PO SCH ×2 (06:48→12:10)
[2021-12-18 07:35] LABS: INR 1.98; PROTHROMBIN TIME 22.9 SECONDS (12.7-14.5)
[2021-12-18] MEDS: OMEPRAZOLE 20MG CAP PO SCH (08:59)
[2021-12-18] MEDS: DOCUSATE SODIUM 100MG CAPSULE PO SCH (09:00)
[2021-12-18] MEDS: LACTOBACILLUS ACIDOPHILUS CAP (BACID) PO SCH ×2 (09:00→12:09)
[2021-12-18] MEDS: METOPROLOL TARTRATE 100MG TAB PO SCH (09:00)
[2021-12-18] MEDS: ACETAMINOPHEN 500 MG TAB PO SCH (09:00)
[2021-12-18] MEDS: DICLOFENAC EPOLAMINE 1.3 % PATCH TOP SCH (09:02)
[2021-12-18] MEDS: REMEDY PHYTOPLEX Z-GUARD PASTE 113GM TUBE (FROM STOREROOM PRODUCT) TOP SCH (09:03)
[2021-12-18] MEDS ORDERED: JANT2TAB PO (10:49)
[2021-12-18] MEDS ORDERED: TOLV15TAB PO (10:49)
[2021-12-18] MEDS ORDERED: TRAM50TA2 PO ×2 (10:49→12:16)
[2021-12-18] MEDS ORDERED: HYDR25TA PO (10:49)
[2021-12-18 12:11] VITALS: BP 122/62
== END 2021-12-18 13:20 | disposition home health service (06) | DRG 560 ==
LOC: M PM&R 11-28 10:35
PROVIDERS: ADMIT Physical Medicine & Rehabilitation; ATTEND Physical Medicine & Rehabilitation
DX: S72.141D Displaced intertrochanteric fracture of right femur, subsequent encounter for closed fracture with routine healing (principal); E87.1 Hypo-osmolality and hyponatremia; S42.292D Other displaced fracture of upper end of left humerus, subsequent encounter for fracture with routine healing; E03.9 Hypothyroidism, unspecified; I48.0 Paroxysmal atrial fibrillation; I10 Essential (primary) hypertension; Z85.3 Personal history of malignant neoplasm of breast; Z92.3 Personal history of irradiation; Z92.21 Personal history of antineoplastic chemotherapy; H35.30 Unspecified macular degeneration; K75.81 Nonalcoholic steatohepatitis (NASH); Z87.19 Personal history of other diseases of the digestive system; Z74.09 Other reduced mobility; Z74.1 Need for assistance with personal care; D72.829 Elevated white blood cell count, unspecified; D64.9 Anemia, unspecified; R39.15 Urgency of urination; Z79.01 Long term (current) use of anticoagulants; Z79.890 Hormone replacement therapy; Z79.899 Other long term (current) drug therapy; Z88.0 Allergy status to penicillin; Z88.1 Allergy status to other antibiotic agents; Z88.2 Allergy status to sulfonamides; Z88.8 Allergy status to other drugs, medicaments and biological substances; Z91.048 Other nonmedicinal substance allergy status; Z66 Do not resuscitate; T40.425A Adverse effect of tramadol, initial encounter; K21.9 Gastro-esophageal reflux disease without esophagitis; M25.571 Pain in right ankle and joints of right foot; M48.54XD Collapsed vertebra, not elsewhere classified, thoracic region, subsequent encounter for fracture with routine healing; M48.56XD Collapsed vertebra, not elsewhere classified, lumbar region, subsequent encounter for fracture with routine healing; S01.81XD Laceration without foreign body of other part of head, subsequent encounter

== ENCOUNTER → 2021-12-19 | Outpatient (CLI) | payer MEDICARE ==
[~2021-12-19] MED LIST changes: +BACITAB PO; +HYDR-3910 PO; +HYDR25TA PO; +JANT2TAB PO; +TOLV15TAB PO; +WARF-58 PO; +WARF4TAB51 PO
== END ==
LOC: M SOG 15:14
PROVIDERS: ATTEND Orthopaedic Surgery
DX: Z48.89 Encounter for other specified surgical aftercare (principal); M25.512 Pain in left shoulder; S32.501A Unspecified fracture of right pubis, initial encounter for closed fracture; X58.XXXA Exposure to other specified factors, initial encounter; Y92.9 Unspecified place or not applicable; Y93.9 Activity, unspecified; Y99.9 Unspecified external cause status; M16.12 Unilateral primary osteoarthritis, left hip; S72.001D Fracture of unspecified part of neck of right femur, subsequent encounter for closed fracture with routine healing; S42.202D Unspecified fracture of upper end of left humerus, subsequent encounter for fracture with routine healing

== ENCOUNTER → 2021-12-19 | Outpatient (CLI) | payer MEDICARE | LOC: M PAIN 11:30 | PROVIDERS: ATTEND Anesthesiology | DX: M54.50 Low back pain, unspecified (principal); S72.009D Fracture of unspecified part of neck of unspecified femur, subsequent encounter for closed fracture with routine healing; M51.9 Unspecified thoracic, thoracolumbar and lumbosacral intervertebral disc disorder; I10 Essential (primary) hypertension; I48.0 Paroxysmal atrial fibrillation; E03.9 Hypothyroidism, unspecified; Z85.3 Personal history of malignant neoplasm of breast; Z92.3 Personal history of irradiation; I44.0 Atrioventricular block, first degree; H35.30 Unspecified macular degeneration; K80.20 Calculus of gallbladder without cholecystitis without obstruction; K76.0 Fatty (change of) liver, not elsewhere classified; M50.30 Other cervical disc degeneration, unspecified cervical region; Z87.440 Personal history of urinary (tract) infections; G60.9 Hereditary and idiopathic neuropathy, unspecified; Z79.890 Hormone replacement therapy; Z79.01 Long term (current) use of anticoagulants; Z79.891 Long term (current) use of opiate analgesic; Z79.899 Other long term (current) drug therapy; Z88.0 Allergy status to penicillin; Z88.1 Allergy status to other antibiotic agents; Z88.8 Allergy status to other drugs, medicaments and biological substances ==

== ENCOUNTER 2021-12-20 15:14 | Inpatient (IN) | payer MEDICARE ==
[~2021-12-20] VITALS: Ht 167.6 cm; Wt 67.7 kg
[~2021-12-20 15:14] MED LIST changes: -BACITAB PO; -HYDR-3910 PO; -WARF-58 PO; -WARF4TAB51 PO
[2021-12-20] MEDS: NS 1,000 ML IV SCH (16:03)
[2021-12-20 16:34] LABS: BASO % 0.5 % (0.0-1.0); EOS # 0.1 10^3/uL (0.0-0.5); EOS % 0.8 % (0.0-3.0); HEMATOCRIT 38.8 % (36.0-47.0); LYMPH # 1.6 10^3/uL (1.5-5.0); LYMPH % 20.7 % (24.0-44.0); MEAN CORPUSCULAR HEMOGLOBIN 33.9 pg (27.0-33.0); MEAN CORPUSCULAR HGB CONC 33.5 g/dl (32.0-36.5); MEAN CORPUSCULAR VOLUME 101.3 fl (80.0-96.0); MONO # 0.9 10^3/uL (0.0-0.8); MONO % 12.5 % (2.0-8.0); NEUTROPHILS # 4.9 10^3/uL (1.5-8.5); NEUTROPHILS % 64.8 % (36.0-66.0); PLATELET COUNT, AUTOMATED 184 10^3/uL (150-450); RED BLOOD COUNT 3.83 10^6/uL (4.00-5.40); WHITE BLOOD COUNT 7.6 10^3/uL (4.0-10.0)
[2021-12-20 16:45] LABS: INR 1.87; PROTHROMBIN TIME 21.9 SECONDS (12.7-14.5)
[2021-12-20 16:46] LABS: PARTIAL THROMBOPLASTIN TIME 39.3 SECONDS (25.9-37.0)
[2021-12-20] MEDS ORDERED: WARFARIN SOD 3MG TAB PO SCH (17:00)
[2021-12-20 17:36] LABS: ALBUMIN 3.1 GM/DL (3.2-5.2); ALT/SGPT 34 U/L (12-78); BILIRUBIN,DIRECT 0.2 MG/DL (0.0-0.2); BILIRUBIN,TOTAL 0.7 MG/DL (0.2-1.0); BLOOD UREA NITROGEN 8 MG/DL (7-18); CALCIUM LEVEL 8.6 MG/DL (8.8-10.2); CARBON DIOXIDE LEVEL 28 MEQ/L (21-32); CHLORIDE LEVEL 92 MEQ/L (98-107); CREATININE FOR GFR 0.62 MG/DL (0.55-1.30); FREE T4 1.15 NG/DL (0.76-1.46); GLOMERULAR FILTRATION RATE > 60.0 (>32); GLUCOSE, FASTING 118 MG/DL (70-100); NT-PRO BNP 1854 PG/ML (<450); POTASSIUM SERUM 4.3 MEQ/L (3.5-5.1); SODIUM LEVEL 127 MEQ/L (136-145); TOTAL PROTEIN 6.4 GM/DL (6.4-8.2)
[2021-12-20] MEDS ORDERED: ACETAMINOPHEN TAB 650MG DOSE (2X325MG) PO PRN (22:05)
[2021-12-20 23:53] LABS: RSV AMPLIFICATION NEGATIVE (NEGATIVE)
[2021-12-21] MEDS ORDERED: WARF-58 PO (00:57)
[2021-12-21] MEDS ORDERED: TRAM50TA2 PO (00:57)
[2021-12-21] MEDS ORDERED: HYDR-3910 PO (00:57)
[2021-12-21] MEDS ORDERED: TOLV15TAB PO (00:57)
[2021-12-21] MEDS ORDERED: BACITAB PO (00:57)
[2021-12-21] MEDS ORDERED: WARF4TAB51 PO ×2 (00:58→13:01)
[2021-12-21] MEDS ORDERED: HOME MED LIST COMPLETE! XX SCH (01:00)
[2021-12-21] MEDS ORDERED: METOPROLOL TART 50 MG TAB PO ONE (02:00)
[2021-12-21] MEDS ORDERED: **hydrALAZINE HCL** 25 MG TAB PO ONE (02:00)
[2021-12-21 02:45] VITALS: BP 173/83
[2021-12-21] MEDS ORDERED: MAGNESIUM SULFATE 1GM/100ML D5W BAG (10MG/ML) As Ordered ONE (03:01)
[2021-12-21] MEDS: NS 1,000 ML IV SCH (03:13)
[2021-12-21] MEDS: MAG SULF 1GM/100ML (MAG RUN) 1 GM in IV 1 EA IV SCH ×2 (03:16→04:04)
[2021-12-21 04:00] VITALS: BP 150/72
[2021-12-21] MEDS ORDERED: LEVOTHYROXINE 100MCG TABLET (0.1MG) PO SCH (06:00)
[2021-12-21 06:10] LABS: BASO % 0.6 % (0.0-1.0); EOS # 0.1 10^3/uL (0.0-0.5); EOS % 1.7 % (0.0-3.0); HEMATOCRIT 37.9 % (36.0-47.0); HEMOGLOBIN 12.7 g/dl (12.0-15.5); LYMPH # 1.3 10^3/uL (1.5-5.0); LYMPH % 19.3 % (24.0-44.0); MEAN CORPUSCULAR HEMOGLOBIN 33.5 pg (27.0-33.0); MEAN CORPUSCULAR HGB CONC 33.5 g/dl (32.0-36.5); MONO # 0.8 10^3/uL (0.0-0.8); MONO % 11.6 % (2.0-8.0); NEUTROPHILS # 4.4 10^3/uL (1.5-8.5); NEUTROPHILS % 66.3 % (36.0-66.0); PLATELET COUNT, AUTOMATED 168 10^3/uL (150-450); RED BLOOD COUNT 3.79 10^6/uL (4.00-5.40); WHITE BLOOD COUNT 6.6 10^3/uL (4.0-10.0)
[2021-12-21 06:30] LABS: INR 1.79; PROTHROMBIN TIME 21.2 SECONDS (12.7-14.5)
[2021-12-21 06:31] LABS: PARTIAL THROMBOPLASTIN TIME 39.7 SECONDS (25.9-37.0)
[2021-12-21 06:39] LABS: BLOOD UREA NITROGEN 5 MG/DL (7-18); CALCIUM LEVEL 8.4 MG/DL (8.8-10.2); CARBON DIOXIDE LEVEL 26 MEQ/L (21-32); CHLORIDE LEVEL 99 MEQ/L (98-107); CREATININE FOR GFR 0.39 MG/DL (0.55-1.30); GLOMERULAR FILTRATION RATE > 60.0 (>32); GLUCOSE, FASTING 109 MG/DL (70-100); POTASSIUM SERUM 3.9 MEQ/L (3.5-5.1); SODIUM LEVEL 131 MEQ/L (136-145)
[2021-12-21 08:02] VITALS: BP 172/81
[2021-12-21] MEDS: **hydrALAZINE HCL** 25 MG TAB PO SCH ×2 (08:47→13:51)
[2021-12-21] MEDS ORDERED: TOLVAPTAN 15 MG TAB (SAMSCA) PO SCH (09:00)
[2021-12-21] MEDS ORDERED: OMEPRAZOLE 20MG CAP PO SCH (09:00)
[2021-12-21] MEDS ORDERED: traMADol 50 MG TAB PO SCH (09:00)
[2021-12-21] MEDS ORDERED: METOPROLOL TARTRATE 100MG TAB PO SCH (09:00)
[2021-12-21 12:00] VITALS: BP 147/71
[2021-12-21 13:51] VITALS: BP 147/71
[2021-12-21] MEDS ORDERED: WARFARIN SOD 4MG TAB PO SCH (17:00)
[2021-12-21] MEDS ORDERED: METOPROLOL TART 50 MG TAB PO SCH (21:00)
[2021-12-22] MEDS ORDERED: WARFARIN SOD 3MG TAB PO SCH (17:00)
== END 2021-12-21 16:54 | disposition home or self-care (01) | DRG 309 ==
LOC: EDBD 15:14 → M ED 15:14 → M ED INP 21:26 → M PCU 12-21 03:01
PROVIDERS: ADMIT Family Medicine; ATTEND Family Medicine
PROC: B246ZZZ Ultrasonography of Right and Left Heart (ICD-10-PCS; principal; 2021-12-21)
DX: I47.1 Supraventricular tachycardia (principal); I24.8 Other forms of acute ischemic heart disease; E87.1 Hypo-osmolality and hyponatremia; I48.91 Unspecified atrial fibrillation; Z66 Do not resuscitate; I10 Essential (primary) hypertension; E03.9 Hypothyroidism, unspecified; H35.30 Unspecified macular degeneration; K76.0 Fatty (change of) liver, not elsewhere classified; Z85.3 Personal history of malignant neoplasm of breast; Z92.3 Personal history of irradiation; Z90.49 Acquired absence of other specified parts of digestive tract; Z90.79 Acquired absence of other genital organ(s); Z79.01 Long term (current) use of anticoagulants; Z79.890 Hormone replacement therapy; Z79.899 Other long term (current) drug therapy; Z20.822 Contact with and (suspected) exposure to COVID-19; Z88.0 Allergy status to penicillin; Z88.1 Allergy status to other antibiotic agents; Z88.2 Allergy status to sulfonamides; Z88.8 Allergy status to other drugs, medicaments and biological substances; Z91.048 Other nonmedicinal substance allergy status; Z91.018 Allergy to other foods; R01.1 Cardiac murmur, unspecified

== ENCOUNTER → 2022-01-24 | Outpatient (CLI) | payer MEDICARE ==
[~2022-01-24] MED LIST changes: +BACITAB PO; +HYDR-3910 PO; +WARF-58 PO; +WARF4TAB51 PO
== END ==
LOC: M SOG 08:34
PROVIDERS: ATTEND Orthopaedic Surgery
DX: Z48.89 Encounter for other specified surgical aftercare (principal); M25.512 Pain in left shoulder; M16.0 Bilateral primary osteoarthritis of hip; S42.202D Unspecified fracture of upper end of left humerus, subsequent encounter for fracture with routine healing

== ENCOUNTER → 2022-02-08 | Outpatient (CLI) | payer MEDICARE | LOC: M SOG 14:58 | PROVIDERS: ATTEND Orthopaedic Surgery Adult Reconstructive Orthopaedic Surgery | DX: M25.551 Pain in right hip (principal); M94.8X5 Other specified disorders of cartilage, thigh ==

== ENCOUNTER → 2022-02-15 | Outpatient (CLI) | payer MEDICARE | LOC: M PAIN 15:00 | PROVIDERS: ATTEND Anesthesiology | DX: M25.559 Pain in unspecified hip (principal); M25.519 Pain in unspecified shoulder; G89.29 Other chronic pain; I10 Essential (primary) hypertension; E03.9 Hypothyroidism, unspecified; Z88.0 Allergy status to penicillin; Z88.1 Allergy status to other antibiotic agents; Z88.8 Allergy status to other drugs, medicaments and biological substances; Z91.02 Food additives allergy status; Z91.041 Radiographic dye allergy status; Z79.01 Long term (current) use of anticoagulants; Z79.890 Hormone replacement therapy; Z79.899 Other long term (current) drug therapy ==

== ENCOUNTER → 2022-03-27 | Outpatient (CLI) | payer MEDICARE | LOC: M SOG 07:57 | PROVIDERS: ATTEND Orthopaedic Surgery Adult Reconstructive Orthopaedic Surgery | DX: S72.141D Displaced intertrochanteric fracture of right femur, subsequent encounter for closed fracture with routine healing (principal); Z53.9 Procedure and treatment not carried out, unspecified reason ==

== ENCOUNTER → 2022-04-03 | Outpatient (CLI) | payer MEDICARE | LOC: M SOG 08:00 | PROVIDERS: ATTEND Orthopaedic Surgery Adult Reconstructive Orthopaedic Surgery | DX: S72.141D Displaced intertrochanteric fracture of right femur, subsequent encounter for closed fracture with routine healing (principal); M16.0 Bilateral primary osteoarthritis of hip ==

== ENCOUNTER → 2022-06-13 | Outpatient (CLI) | payer MEDICARE | LOC: M PAIN 11:15 | PROVIDERS: ATTEND Anesthesiology | DX: M54.50 Low back pain, unspecified (principal); M79.10 Myalgia, unspecified site; M25.559 Pain in unspecified hip; M79.18 Myalgia, other site; M25.519 Pain in unspecified shoulder; G60.9 Hereditary and idiopathic neuropathy, unspecified; G89.29 Other chronic pain; I10 Essential (primary) hypertension; I48.0 Paroxysmal atrial fibrillation; H35.30 Unspecified macular degeneration; E03.9 Hypothyroidism, unspecified; Z88.0 Allergy status to penicillin; Z88.1 Allergy status to other antibiotic agents; Z88.8 Allergy status to other drugs, medicaments and biological substances; Z91.02 Food additives allergy status; Z91.041 Radiographic dye allergy status; Z79.01 Long term (current) use of anticoagulants; Z79.890 Hormone replacement therapy; Z79.899 Other long term (current) drug therapy ==

== ENCOUNTER → 2022-06-24 | Outpatient (CLI) | payer MEDICARE | LOC: M PAIN 10:00 | PROVIDERS: ATTEND Anesthesiology | DX: M79.18 Myalgia, other site (principal); M70.61 Trochanteric bursitis, right hip; G89.29 Other chronic pain; I10 Essential (primary) hypertension; E03.9 Hypothyroidism, unspecified; Z85.3 Personal history of malignant neoplasm of breast; Z88.0 Allergy status to penicillin; Z88.1 Allergy status to other antibiotic agents; Z88.8 Allergy status to other drugs, medicaments and biological substances; Z91.02 Food additives allergy status; Z91.041 Radiographic dye allergy status; Z79.01 Long term (current) use of anticoagulants; Z79.890 Hormone replacement therapy; Z79.899 Other long term (current) drug therapy ==

== ENCOUNTER → 2022-07-03 | Outpatient (CLI) | payer MEDICARE | LOC: M SOG 12:34 | PROVIDERS: ATTEND Orthopaedic Surgery Adult Reconstructive Orthopaedic Surgery | DX: S72.141D Displaced intertrochanteric fracture of right femur, subsequent encounter for closed fracture with routine healing (principal) ==

== ENCOUNTER → 2022-07-04 | Outpatient (CLI) | payer MEDICARE | LOC: M LABSMTC 10:32 | PROVIDERS: ATTEND Anesthesiology | DX: Z01.812 Encounter for preprocedural laboratory examination (principal); Z20.822 Contact with and (suspected) exposure to COVID-19 ==

== ENCOUNTER → 2022-07-05 | Outpatient (CLI) | payer MEDICARE ==
[~2022-07-05] MED LIST changes: +BUPIVACAINE HCL 0.25% 10ML VIAL As Ordered ONE; +BUPIVACAINE HCL 0.25% 30ML VIAL As Ordered ONE; +TRIAMCINOLONE ACETONIDE SUSP 40MG/ML 1ML VIAL As Ordered ONE
== END ==
LOC: M PAIN 07:45
PROVIDERS: ATTEND Anesthesiology
DX: M79.10 Myalgia, unspecified site (principal); I10 Essential (primary) hypertension; I48.0 Paroxysmal atrial fibrillation; E03.9 Hypothyroidism, unspecified; H35.30 Unspecified macular degeneration; K76.0 Fatty (change of) liver, not elsewhere classified; M47.812 Spondylosis without myelopathy or radiculopathy, cervical region; M50.30 Other cervical disc degeneration, unspecified cervical region; Z87.442 Personal history of urinary calculi; G62.9 Polyneuropathy, unspecified; M46.1 Sacroiliitis, not elsewhere classified; Z79.01 Long term (current) use of anticoagulants; Z79.891 Long term (current) use of opiate analgesic; Z79.899 Other long term (current) drug therapy; Z79.890 Hormone replacement therapy; Z88.0 Allergy status to penicillin; Z88.1 Allergy status to other antibiotic agents; Z88.8 Allergy status to other drugs, medicaments and biological substances; Z91.02 Food additives allergy status; Z91.041 Radiographic dye allergy status
CPT/HCPCS: 20552; J3301

== ENCOUNTER → 2022-08-29 | Outpatient (CLI) | payer MEDICARE ==
[~2022-08-29] MED LIST changes: -BUPIVACAINE HCL 0.25% 10ML VIAL As Ordered ONE; -BUPIVACAINE HCL 0.25% 30ML VIAL As Ordered ONE; -TRIAMCINOLONE ACETONIDE SUSP 40MG/ML 1ML VIAL As Ordered ONE
== END ==
LOC: M PAIN 13:45
PROVIDERS: ATTEND Nurse Practitioner Family
DX: M79.10 Myalgia, unspecified site (principal); G89.29 Other chronic pain; I10 Essential (primary) hypertension; E03.9 Hypothyroidism, unspecified; Z88.0 Allergy status to penicillin; Z88.1 Allergy status to other antibiotic agents; Z88.8 Allergy status to other drugs, medicaments and biological substances; Z91.02 Food additives allergy status; Z91.041 Radiographic dye allergy status; Z79.01 Long term (current) use of anticoagulants; Z79.890 Hormone replacement therapy; Z79.899 Other long term (current) drug therapy

== ENCOUNTER → 2022-11-29 | Outpatient (CLI) | payer MEDICARE | LOC: M PAIN 11:00 | PROVIDERS: ATTEND Nurse Practitioner Family | DX: M79.10 Myalgia, unspecified site (principal); G89.29 Other chronic pain; I10 Essential (primary) hypertension; E03.9 Hypothyroidism, unspecified; Z88.0 Allergy status to penicillin; Z88.1 Allergy status to other antibiotic agents; Z88.8 Allergy status to other drugs, medicaments and biological substances; Z91.02 Food additives allergy status; Z91.041 Radiographic dye allergy status; Z79.01 Long term (current) use of anticoagulants; Z79.890 Hormone replacement therapy; Z79.899 Other long term (current) drug therapy ==

== ENCOUNTER → 2023-01-31 | Outpatient (CLI) | payer MEDICARE | LOC: M RAD 09:00 | PROVIDERS: ATTEND Internal Medicine | DX: R51.9 Headache, unspecified (principal) ==

== ENCOUNTER → 2023-03-04 | Outpatient (CLI) | payer MEDICARE | LOC: M PAIN 11:00 | PROVIDERS: ATTEND Nurse Practitioner Family | DX: M79.10 Myalgia, unspecified site (principal); G89.29 Other chronic pain; Z88.0 Allergy status to penicillin; Z88.1 Allergy status to other antibiotic agents; Z88.8 Allergy status to other drugs, medicaments and biological substances; Z91.02 Food additives allergy status; Z91.041 Radiographic dye allergy status; Z79.01 Long term (current) use of anticoagulants; Z79.899 Other long term (current) drug therapy ==

== ENCOUNTER → 2023-03-25 | Outpatient (CLI) | payer MEDICARE | LOC: M PAIN 17:30 | PROVIDERS: ATTEND Nurse Practitioner Family | DX: M25.551 Pain in right hip (principal); G89.29 Other chronic pain; Z85.3 Personal history of malignant neoplasm of breast; Z88.0 Allergy status to penicillin; Z88.1 Allergy status to other antibiotic agents; Z88.8 Allergy status to other drugs, medicaments and biological substances; Z91.02 Food additives allergy status; Z91.041 Radiographic dye allergy status; Z79.01 Long term (current) use of anticoagulants; Z79.899 Other long term (current) drug therapy ==

== ENCOUNTER → 2023-06-04 | Outpatient (CLI) | payer MEDICARE ==
[~2023-06-04] MED LIST changes: -ALLE1TAB23; +FEXO-157
== END ==
LOC: M PAIN 09:15
PROVIDERS: ATTEND Anesthesiology
DX: M79.10 Myalgia, unspecified site (principal); M54.2 Cervicalgia; Z85.3 Personal history of malignant neoplasm of breast; Z88.0 Allergy status to penicillin; Z88.1 Allergy status to other antibiotic agents; Z88.8 Allergy status to other drugs, medicaments and biological substances; Z91.02 Food additives allergy status; Z91.041 Radiographic dye allergy status; Z79.01 Long term (current) use of anticoagulants; Z79.899 Other long term (current) drug therapy

== ENCOUNTER → 2023-06-05 | Outpatient (CLI) | payer MEDICARE ==
[~2023-06-05] MED LIST changes: +TRIAMCINOLONE ACETONIDE SUSP 40MG/ML 1ML VIAL As Ordered ONE
== END ==
LOC: M PAIN 13:00
PROVIDERS: ATTEND Anesthesiology
DX: M79.12 Myalgia of auxiliary muscles, head and neck (principal); G89.29 Other chronic pain; I10 Essential (primary) hypertension; I48.0 Paroxysmal atrial fibrillation; E03.9 Hypothyroidism, unspecified; H35.30 Unspecified macular degeneration; Z79.01 Long term (current) use of anticoagulants; Z79.890 Hormone replacement therapy; Z79.891 Long term (current) use of opiate analgesic; Z79.899 Other long term (current) drug therapy; Z88.0 Allergy status to penicillin; Z88.1 Allergy status to other antibiotic agents; Z88.8 Allergy status to other drugs, medicaments and biological substances; Z91.041 Radiographic dye allergy status; Z91.02 Food additives allergy status
CPT/HCPCS: 20552; J0665; J3301

== ENCOUNTER → 2023-07-16 | Outpatient (CLI) | payer MEDICARE ==
[~2023-07-16] MED LIST changes: -HYDR-3910 PO; -HYDR25TA PO; +HYDR25TA87 PO; +HYDR25TA88 PO; -TRIAMCINOLONE ACETONIDE SUSP 40MG/ML 1ML VIAL As Ordered ONE
== END ==
LOC: M PAIN 14:15
PROVIDERS: ATTEND Anesthesiology
DX: M79.10 Myalgia, unspecified site (principal); Z79.891 Long term (current) use of opiate analgesic; M54.2 Cervicalgia; I10 Essential (primary) hypertension; Z79.01 Long term (current) use of anticoagulants; Z79.818 Long term (current) use of other agents affecting estrogen receptors and estrogen levels; Z88.0 Allergy status to penicillin; Z88.1 Allergy status to other antibiotic agents; Z88.2 Allergy status to sulfonamides; Z88.8 Allergy status to other drugs, medicaments and biological substances; Z91.041 Radiographic dye allergy status; Z91.048 Other nonmedicinal substance allergy status

== ENCOUNTER → 2023-07-22 | Outpatient (CLI) | payer MEDICARE ==
[~2023-07-22] MED LIST changes: +TRIAMCINOLONE ACETONIDE SUSP 40MG/ML 1ML VIAL As Ordered ONE
== END ==
LOC: M PAIN 13:00
PROVIDERS: ATTEND Anesthesiology
DX: M79.12 Myalgia of auxiliary muscles, head and neck (principal); G89.29 Other chronic pain; I10 Essential (primary) hypertension; I48.0 Paroxysmal atrial fibrillation; E03.9 Hypothyroidism, unspecified; H35.30 Unspecified macular degeneration; G60.9 Hereditary and idiopathic neuropathy, unspecified; Z79.01 Long term (current) use of anticoagulants; Z79.891 Long term (current) use of opiate analgesic; Z79.899 Other long term (current) drug therapy; Z88.0 Allergy status to penicillin; Z88.1 Allergy status to other antibiotic agents; Z88.8 Allergy status to other drugs, medicaments and biological substances; Z91.02 Food additives allergy status; Z91.041 Radiographic dye allergy status
CPT/HCPCS: 20552; J0665; J3301

== ENCOUNTER → 2023-08-26 | Outpatient (CLI) | payer MEDICARE ==
[~2023-08-26] MED LIST changes: -TRIAMCINOLONE ACETONIDE SUSP 40MG/ML 1ML VIAL As Ordered ONE
== END ==
LOC: M PAIN 11:45
PROVIDERS: ATTEND Nurse Practitioner Family
DX: M54.2 Cervicalgia (principal); M79.12 Myalgia of auxiliary muscles, head and neck; M54.81 Occipital neuralgia; G89.29 Other chronic pain; I10 Essential (primary) hypertension; E03.9 Hypothyroidism, unspecified; I48.0 Paroxysmal atrial fibrillation; H35.30 Unspecified macular degeneration; G62.9 Polyneuropathy, unspecified; Z79.01 Long term (current) use of anticoagulants; Z79.890 Hormone replacement therapy; Z79.891 Long term (current) use of opiate analgesic; Z79.899 Other long term (current) drug therapy; Z88.0 Allergy status to penicillin; Z88.1 Allergy status to other antibiotic agents; Z88.8 Allergy status to other drugs, medicaments and biological substances; Z91.02 Food additives allergy status; Z91.041 Radiographic dye allergy status

== ENCOUNTER → 2023-09-10 | Outpatient (CLI) | payer MEDICARE | LOC: M RAD 10:37 | PROVIDERS: ATTEND Nurse Practitioner Family | DX: M50.321 Other cervical disc degeneration at C4-C5 level (principal) ==

== ENCOUNTER → 2023-09-16 | Outpatient (CLI) | payer MEDICARE | LOC: M PAIN 11:00 | PROVIDERS: ATTEND Nurse Practitioner Family | DX: M79.12 Myalgia of auxiliary muscles, head and neck (principal); G89.29 Other chronic pain; I10 Essential (primary) hypertension; I48.0 Paroxysmal atrial fibrillation; E03.9 Hypothyroidism, unspecified; H35.30 Unspecified macular degeneration; G62.9 Polyneuropathy, unspecified; Z79.01 Long term (current) use of anticoagulants; Z79.891 Long term (current) use of opiate analgesic; Z79.899 Other long term (current) drug therapy; Z88.0 Allergy status to penicillin; Z88.1 Allergy status to other antibiotic agents; Z88.8 Allergy status to other drugs, medicaments and biological substances; Z91.041 Radiographic dye allergy status; Z91.02 Food additives allergy status ==

== ENCOUNTER → 2023-10-10 | Outpatient (CLI) | payer MEDICARE | LOC: M PAIN 08:30 | PROVIDERS: ATTEND Anesthesiology | DX: M47.812 Spondylosis without myelopathy or radiculopathy, cervical region (principal); G89.29 Other chronic pain; M54.2 Cervicalgia; I10 Essential (primary) hypertension; I48.0 Paroxysmal atrial fibrillation; E03.9 Hypothyroidism, unspecified; H35.30 Unspecified macular degeneration; G62.9 Polyneuropathy, unspecified; Z79.890 Hormone replacement therapy; Z79.891 Long term (current) use of opiate analgesic; Z79.01 Long term (current) use of anticoagulants; Z79.899 Other long term (current) drug therapy; Z88.0 Allergy status to penicillin; Z88.1 Allergy status to other antibiotic agents; Z88.8 Allergy status to other drugs, medicaments and biological substances; Z91.02 Food additives allergy status; Z91.041 Radiographic dye allergy status ==

== ENCOUNTER → 2023-11-05 | Outpatient (CLI) | payer MEDICARE | LOC: M PAIN 10:30 | PROVIDERS: ATTEND Anesthesiology | DX: M79.12 Myalgia of auxiliary muscles, head and neck (principal); M54.2 Cervicalgia; M47.812 Spondylosis without myelopathy or radiculopathy, cervical region; I10 Essential (primary) hypertension; I48.0 Paroxysmal atrial fibrillation; E03.9 Hypothyroidism, unspecified; H35.30 Unspecified macular degeneration; G62.9 Polyneuropathy, unspecified; Z79.890 Hormone replacement therapy; Z79.899 Other long term (current) drug therapy; Z79.01 Long term (current) use of anticoagulants; Z88.0 Allergy status to penicillin; Z88.1 Allergy status to other antibiotic agents; Z88.8 Allergy status to other drugs, medicaments and biological substances; Z91.041 Radiographic dye allergy status; Z91.02 Food additives allergy status ==

== ENCOUNTER 2023-11-19 09:39 | Emergency (ER) | payer MEDICARE ==
[~2023-11-19 09:39] MED LIST changes: -FEXO-157; +FEXO-63
[2023-11-19] MEDS: LIDOCAINE 5% (LIDODERM) PATCH TD ONE (12:48)
[2023-11-19 14:25] LABS: BASO % 0.5 % (0.0-1.0); EOS % 0.4 % (0.0-3.0); HEMATOCRIT 44.9 % (36.0-47.0); HEMOGLOBIN 15.4 g/dl (12.0-15.5); LYMPH # 1.9 10^3/uL (1.5-5.0); LYMPH % 22.9 % (24.0-44.0); MEAN CORPUSCULAR HEMOGLOBIN 33.2 pg (27.0-33.0); MEAN CORPUSCULAR HGB CONC 34.3 g/dl (32.0-36.5); MEAN CORPUSCULAR VOLUME 96.8 fl (80.0-96.0); MONO # 0.8 10^3/uL (0.0-0.8); MONO % 9.1 % (2.0-8.0); NEUTROPHILS # 5.5 10^3/uL (1.5-8.5); NEUTROPHILS % 66.6 % (36.0-66.0); PLATELET COUNT, AUTOMATED 133 10^3/uL (150-450); RED BLOOD COUNT 4.64 10^6/uL (4.00-5.40); WHITE BLOOD COUNT 8.3 10^3/uL (4.0-10.0)
[2023-11-19] MEDS: NORCO, ANEXSIA 5/325MG TABLET (HYDROcodone/ACETAMINOPHEN) PO ONE (14:38)
[2023-11-19 14:49] LABS: BLOOD UREA NITROGEN < 5 MG/DL (9-23); CALCIUM LEVEL 9.3 MG/DL (8.3-10.6); CARBON DIOXIDE LEVEL 29 MMOL/L (20-31); CHLORIDE LEVEL 94 MMOL/L (98-107); CREATININE FOR GFR 0.42 MG/DL (0.55-1.30); GLOMERULAR FILTRATION RATE > 60.0 (>32); GLUCOSE, FASTING 129 MG/DL (74-106); SODIUM LEVEL 130 MMOL/L (136-145)
[2023-11-19] MEDS ORDERED: CEFD1CAP9 PO (15:36)
[2023-11-19] MEDS ORDERED: HYDR-3713 PO (15:36)
[2023-11-19] MEDS ORDERED: LIDO1PAD TOP (15:38)
[2023-11-19] MEDS: CEFDINIR 300 MG CAP (OMNICEF) PO ONE (16:06)
[2023-11-19 16:07] VITALS: BP 170/75; TEMP 97.6; O2SAT 96
== END 2023-11-19 16:26 | disposition home or self-care (01) ==
LOC: M ED 09:39 → EDSEX 09:39 → EDBD 09:39 → M ED 16:26
DX: N39.0 Urinary tract infection, site not specified (principal); G89.29 Other chronic pain; M54.9 Dorsalgia, unspecified; I10 Essential (primary) hypertension; K21.9 Gastro-esophageal reflux disease without esophagitis; E03.9 Hypothyroidism, unspecified; J45.909 Unspecified asthma, uncomplicated; Z85.3 Personal history of malignant neoplasm of breast; Z79.899 Other long term (current) drug therapy; Z88.0 Allergy status to penicillin; Z88.2 Allergy status to sulfonamides; Z88.1 Allergy status to other antibiotic agents; Z88.5 Allergy status to narcotic agent; Z88.8 Allergy status to other drugs, medicaments and biological substances; Z91.89 Other specified personal risk factors, not elsewhere classified

== ENCOUNTER → 2023-11-21 | Outpatient (CLI) | payer MEDICARE ==
[~2023-11-21] MED LIST changes: +CEFD1CAP9 PO; +CYCL5TAB PO; +HYDR-3716 PO; +HYDR-4571 PO; +LIDO1PAD TOP; +LIDO5TD TD; +MAGN400T2 PO; +METO1TAB87 PO; +MIDO5TA PO; +OCUVTAB4 PO; +PROB250C PO; +RA P1CAP3 PO; +SODI1TAB6 PO; +TRAM1TAB42 PO; +TRIA1CR80 TOP
== END ==
LOC: M RAD 12:07
PROVIDERS: ATTEND Internal Medicine
DX: E83.59 Other disorders of calcium metabolism (principal); K80.20 Calculus of gallbladder without cholecystitis without obstruction; K56.41 Fecal impaction; R10.12 Left upper quadrant pain; R10.814 Left lower quadrant abdominal tenderness; N39.0 Urinary tract infection, site not specified

== ENCOUNTER 2023-11-24 16:10 | Observation (INO) | payer MEDICARE ==
[~2023-11-24] VITALS: Ht 165.1 cm; Wt 60.4 kg
[~2023-11-24 16:10] MED LIST changes: -CYCL5TAB PO; -HYDR-3716 PO; -HYDR-4571 PO; -LIDO5TD TD; -MAGN400T2 PO; -METO1TAB87 PO; -MIDO5TA PO; -OCUVTAB4 PO; -PROB250C PO; -RA P1CAP3 PO; -SODI1TAB6 PO; -TRAM1TAB42 PO; -TRIA1CR80 TOP
[2023-11-24] MEDS: CYCLOBENZAPRINE 5MG TABLET PO ONE (17:17)
[2023-11-24] MEDS: PERCOCET 5MG/325MG TAB PO ONE ×2 (17:19→22:40)
[2023-11-24] MEDS: NS 1,000 ML IV SCH (17:21)
[2023-11-24 17:25] LABS: BASO # 0.1 10^3/uL (0.0-0.2); BASO % 0.7 % (0.0-1.0); EOS # 0.1 10^3/uL (0.0-0.5); EOS % 1.2 % (0.0-3.0); HEMATOCRIT 45.6 % (36.0-47.0); LYMPH # 1.9 10^3/uL (1.5-5.0); LYMPH % 27.9 % (24.0-44.0); MEAN CORPUSCULAR HEMOGLOBIN 33.7 pg (27.0-33.0); MEAN CORPUSCULAR HGB CONC 35.1 g/dl (32.0-36.5); MONO # 0.7 10^3/uL (0.0-0.8); MONO % 10.2 % (2.0-8.0); NEUTROPHILS % 59.4 % (36.0-66.0); PLATELET COUNT, AUTOMATED 137 10^3/uL (150-450); RED BLOOD COUNT 4.75 10^6/uL (4.00-5.40); WHITE BLOOD COUNT 6.8 10^3/uL (4.0-10.0)
[2023-11-24 18:54] LABS: C REACTIVE PROTEIN QUANTITATIV < 0.40 MG/DL (<1.0)
[2023-11-24 18:56] LABS: ALBUMIN 3.9 G/DL (3.2-5.2); ALKALINE PHOSPHATASE 86 U/L (46-116); ALT/SGPT 57 U/L (7.0-40); AST/SGOT 72 U/L (<34); BLOOD UREA NITROGEN 7 MG/DL (9-23); CALCIUM LEVEL 8.8 MG/DL (8.3-10.6); CARBON DIOXIDE LEVEL 29 MMOL/L (20-31); CHLORIDE LEVEL 95 MMOL/L (98-107); CREATININE FOR GFR 0.47 MG/DL (0.55-1.30); GLOMERULAR FILTRATION RATE > 60.0 (>32); GLUCOSE, FASTING 91 MG/DL (74-106); MAGNESIUM LEVEL 1.6 MG/DL (1.8-2.4); POTASSIUM SERUM 4.3 MMOL/L (3.5-5.1); SODIUM LEVEL 128 MMOL/L (136-145); TOTAL PROTEIN 6.8 G/DL (5.7-8.2)
[2023-11-24] MEDS: MAG SULF 1GM/100ML (MAG RUN) 1 GM in IV 1 EA IV ONE (19:09)
[2023-11-24] MEDS: hydrALAZINE 20MG/ML 1ML VIAL IV ONE (19:09)
[2023-11-24 19:47] LABS: INR 4.03; PROTHROMBIN TIME 37.7 SECONDS (12.5-14.5)
[2023-11-24] MEDS: LIDOCAINE W/EPINEPHRINE 1% 20ML VIAL SC ONE (21:30)
[2023-11-24] MEDS: MORPHINE 2 MG/ML 1ML VIAL IV ONE (22:30)
[2023-11-24] MEDS ORDERED: traMADol 50 MG TAB PO PRN (22:40)
[2023-11-24] MEDS ORDERED: MOM 30ML SUSPENSION UDC PO PRN (22:40)
[2023-11-24] MEDS ORDERED: ACETAMINOPHEN TAB 650MG DOSE (2X325MG) PO PRN (22:40)
[2023-11-24] MEDS ORDERED: NORCO, ANEXSIA 5/325MG TABLET (HYDROcodone/ACETAMINOPHEN) PO PRN (23:55)
[2023-11-25] VITALS (8 sets, daily range): BP systolic 106–185; BP diastolic 56–90; TEMP 96.8–98.3; O2SAT 92–100
[2023-11-25] MEDS: NORCO, ANEXSIA 5/325MG TABLET (HYDROcodone/ACETAMINOPHEN) PO PRN (00:20)
[2023-11-25] MEDS ORDERED: HYDR-4571 PO (00:28)
[2023-11-25] MEDS ORDERED: MAGN400T2 PO (00:28)
[2023-11-25] MEDS ORDERED: CEFD1CAP9 PO (00:28)
[2023-11-25] MEDS ORDERED: WARF-20 PO ×2 (00:28)
[2023-11-25] MEDS ORDERED: OCUVTAB4 PO (00:28)
[2023-11-25] MEDS ORDERED: HOME MED LIST COMPLETE! XX SCH ×2 (00:30→20:30)
[2023-11-25] MEDS: LIDOCAINE 5% (LIDODERM) PATCH TD SCH (01:32)
[2023-11-25] MEDS: CYCLOBENZAPRINE 5MG TABLET PO PRN (01:48)
[2023-11-25] MEDS: LEVOTHYROXINE 100MCG TABLET (0.1MG) PO SCH (06:27)
[2023-11-25 07:33] LABS: HEMATOCRIT 42.6 % (36.0-47.0); HEMOGLOBIN 14.8 g/dl (12.0-15.5); MEAN CORPUSCULAR HEMOGLOBIN 33.6 pg (27.0-33.0); MEAN CORPUSCULAR HGB CONC 34.7 g/dl (32.0-36.5); MEAN CORPUSCULAR VOLUME 96.6 fl (80.0-96.0); PLATELET COUNT, AUTOMATED 113 10^3/uL (150-450); RED BLOOD COUNT 4.41 10^6/uL (4.00-5.40); WHITE BLOOD COUNT 8.1 10^3/uL (4.0-10.0)
[2023-11-25 07:57] LABS: ALBUMIN 3.4 G/DL (3.2-5.2); ALKALINE PHOSPHATASE 71 U/L (46-116); ALT/SGPT 51 U/L (7.0-40); AST/SGOT 64 U/L (<34); BILIRUBIN,TOTAL 1.6 MG/DL (0.3-1.2); BLOOD UREA NITROGEN 6 MG/DL (9-23); CALCIUM LEVEL 8.4 MG/DL (8.3-10.6); CARBON DIOXIDE LEVEL 26 MMOL/L (20-31); CHLORIDE LEVEL 95 MMOL/L (98-107); CREATININE FOR GFR 0.43 MG/DL (0.55-1.30); GLOMERULAR FILTRATION RATE > 60.0 (>32); GLUCOSE, FASTING 96 MG/DL (74-106); MAGNESIUM LEVEL 1.6 MG/DL (1.8-2.4); POTASSIUM SERUM 4.1 MMOL/L (3.5-5.1); SODIUM LEVEL 128 MMOL/L (136-145)
[2023-11-25 08:01] LABS: INR 3.05; PROTHROMBIN TIME 30.4 SECONDS (12.5-14.5)
[2023-11-25] MEDS: MAGNESIUM OXIDE 400MG TAB (MAG-OX) PO SCH (09:00)
[2023-11-25] MEDS: ACETAMINOPHEN 500 MG TAB PO SCH (09:00)
[2023-11-25] MEDS: CelecoXIB (CeleBREX) 100 MG CAP PO SCH (09:00)
[2023-11-25] MEDS: SODIUM CHLORIDE 1 GM TAB PO SCH (09:00)
[2023-11-25] MEDS: METOPROLOL TARTRATE 100MG TAB PO SCH (09:45)
[2023-11-25] MEDS: PANTOPRAZOLE 40MG TAB (PROTONIX) PO SCH (21:00)
[2023-11-25] MEDS ORDERED: CelecoXIB (CeleBREX) 100 MG CAP PO SCH (21:00)
[2023-11-25] MEDS: SENOKOT S TAB PO SCH (21:00)
[2023-11-25] MEDS: KETOROLAC 30 MG/ML 1ML VIAL IV SCH (21:10)
[2023-11-25] MEDS: METOPROLOL TART 50 MG TAB PO SCH (21:11)
[2023-11-26 05:30] VITALS: BP 176/81; TEMP 98.8; O2SAT 98
[2023-11-26 06:57] LABS: SODIUM,RANDOM URINE 12 MMOL/L
[2023-11-26 07:45] LABS: OSMOLALITY URINE 293 MOSM/KG (50-1400)
[2023-11-26 07:51] LABS: BASO # 0.1 10^3/uL (0.0-0.2); BASO % 0.9 % (0.0-1.0); EOS # 0.4 10^3/uL (0.0-0.5); EOS % 5.4 % (0.0-3.0); HEMOGLOBIN 14.1 g/dl (12.0-15.5); LYMPH # 1.6 10^3/uL (1.5-5.0); LYMPH % 21.2 % (24.0-44.0); MEAN CORPUSCULAR HGB CONC 34.4 g/dl (32.0-36.5); MONO # 0.8 10^3/uL (0.0-0.8); NEUTROPHILS # 4.5 10^3/uL (1.5-8.5); NEUTROPHILS % 60.8 % (36.0-66.0); PLATELET COUNT, AUTOMATED 112 10^3/uL (150-450); RED BLOOD COUNT 4.27 10^6/uL (4.00-5.40); WHITE BLOOD COUNT 7.4 10^3/uL (4.0-10.0)
[2023-11-26 08:06] LABS: INR 3.14; PROTHROMBIN TIME 31.1 SECONDS (12.5-14.5)
[2023-11-26 08:17] LABS: BLOOD UREA NITROGEN 12 MG/DL (9-23); CALCIUM LEVEL 8.3 MG/DL (8.3-10.6); CARBON DIOXIDE LEVEL 27 MMOL/L (20-31); CHLORIDE LEVEL 95 MMOL/L (98-107); CREATININE FOR GFR 0.51 MG/DL (0.55-1.30); GLOMERULAR FILTRATION RATE > 60.0 (>32); GLUCOSE, FASTING 87 MG/DL (74-106); POTASSIUM SERUM 4.4 MMOL/L (3.5-5.1); SODIUM LEVEL 126 MMOL/L (136-145)
[2023-11-26] MEDS: NS 1,000 ML IV ONE (09:04)
[2023-11-26] MEDS ORDERED: NORCO, ANEXSIA 5/325MG TABLET (HYDROcodone/ACETAMINOPHEN) PO PRN (12:50)
[2023-11-26] MEDS ORDERED: KETOROLAC 30 MG/ML 1ML VIAL IV PRN (13:00)
[2023-11-26] MEDS: NORCO, ANEXSIA 5/325MG TABLET (HYDROcodone/ACETAMINOPHEN) PO PRN (13:48)
[2023-11-26 15:19] LABS: BLOOD UREA NITROGEN 9 MG/DL (9-23); CARBON DIOXIDE LEVEL 25 MMOL/L (20-31); CHLORIDE LEVEL 96 MMOL/L (98-107); CREATININE FOR GFR 0.44 MG/DL (0.55-1.30); GLOMERULAR FILTRATION RATE > 60.0 (>32); GLUCOSE, FASTING 95 MG/DL (74-106); POTASSIUM SERUM 4.3 MMOL/L (3.5-5.1); SODIUM LEVEL 128 MMOL/L (136-145)
[2023-11-26] MEDS: NS 1,000 ML IV SCH (18:32)
[2023-11-26 19:47] VITALS: BP 154/74; TEMP 97; O2SAT 97
[2023-11-26 23:35] VITALS: BP 152/78; TEMP 98.1; O2SAT 95
[2023-11-27 04:27] VITALS: BP 188/90; TEMP 97; O2SAT 100
[2023-11-27 05:51] VITALS: BP 162/78
[2023-11-27 07:01] LABS: BASO # 0.1 10^3/uL (0.0-0.2); BASO % 0.8 % (0.0-1.0); EOS # 0.4 10^3/uL (0.0-0.5); EOS % 5.9 % (0.0-3.0); HEMOGLOBIN 13.4 g/dl (12.0-15.5); LYMPH # 1.5 10^3/uL (1.5-5.0); LYMPH % 22.9 % (24.0-44.0); MEAN CORPUSCULAR HEMOGLOBIN 33.7 pg (27.0-33.0); MEAN CORPUSCULAR HGB CONC 34.4 g/dl (32.0-36.5); MONO # 0.7 10^3/uL (0.0-0.8); MONO % 11.1 % (2.0-8.0); NEUTROPHILS # 3.9 10^3/uL (1.5-8.5); NEUTROPHILS % 58.5 % (36.0-66.0); RED BLOOD COUNT 3.98 10^6/uL (4.00-5.40); WHITE BLOOD COUNT 6.6 10^3/uL (4.0-10.0)
[2023-11-27 07:23] LABS: INR 2.81; PROTHROMBIN TIME 28.5 SECONDS (12.5-14.5)
[2023-11-27 07:27] LABS: BLOOD UREA NITROGEN 6 MG/DL (9-23); CALCIUM LEVEL 8.2 MG/DL (8.3-10.6); CARBON DIOXIDE LEVEL 29 MMOL/L (20-31); CHLORIDE LEVEL 99 MMOL/L (98-107); CREATININE FOR GFR 0.49 MG/DL (0.55-1.30); GLOMERULAR FILTRATION RATE > 60.0 (>32); GLUCOSE, FASTING 85 MG/DL (74-106); POTASSIUM SERUM 4.5 MMOL/L (3.5-5.1); SODIUM LEVEL 131 MMOL/L (136-145)
[2023-11-27 08:10] LABS: PLATELET COUNT, AUTOMATED 97 10^3/uL (150-450)
[2023-11-27] MEDS: FUROSEMIDE 20MG/2ML VIAL IV ONE (09:13)
[2023-11-27 09:16] VITALS: BP 162/78
[2023-11-27 09:54] LABS: MAGNESIUM LEVEL 1.7 MG/DL (1.8-2.4)
[2023-11-27 12:00] VITALS: BP 160/96; TEMP 96.9; O2SAT 95
[2023-11-27] MEDS ORDERED: LIDO5TD TD (12:20)
[2023-11-27] MEDS ORDERED: HYDR-4571 PO ×2 (12:20→12:42)
[2023-11-27] MEDS ORDERED: SODI1TAB6 PO (12:20)
[2023-11-27] MEDS ORDERED: CYCL5TAB PO (12:20)
[2024-01-13] MEDS ORDERED: HYDR-3716 PO (10:09)
== END 2023-11-27 14:45 | disposition home or self-care (01) ==
LOC: EDBD 16:10 → M ED 16:10 → INTOOBSV 22:40 → M ED INP 22:40 → M MS4PR 11-25 00:36
PROVIDERS: ADMIT Internal Medicine; ATTEND Internal Medicine
DX: S51.802A Unspecified open wound of left forearm, initial encounter (principal); S09.90XA Unspecified injury of head, initial encounter; M54.50 Low back pain, unspecified; M62.830 Muscle spasm of back; S51.012A Laceration without foreign body of left elbow, initial encounter; Y92.238 Other place in hospital as the place of occurrence of the external cause; W19.XXXA Unspecified fall, initial encounter; K80.20 Calculus of gallbladder without cholecystitis without obstruction; K56.41 Fecal impaction; R10.12 Left upper quadrant pain; R10.814 Left lower quadrant abdominal tenderness; N39.0 Urinary tract infection, site not specified; M48.54XA Collapsed vertebra, not elsewhere classified, thoracic region, initial encounter for fracture; M51.34 Other intervertebral disc degeneration, thoracic region; M51.36 Other intervertebral disc degeneration, lumbar region; T45.515A Adverse effect of anticoagulants, initial encounter; E87.1 Hypo-osmolality and hyponatremia; I48.0 Paroxysmal atrial fibrillation; Z79.01 Long term (current) use of anticoagulants; Z79.899 Other long term (current) drug therapy; I10 Essential (primary) hypertension; E03.9 Hypothyroidism, unspecified; M41.86 Other forms of scoliosis, lumbar region; K76.0 Fatty (change of) liver, not elsewhere classified; Z85.3 Personal history of malignant neoplasm of breast; Z92.3 Personal history of irradiation; M81.0 Age-related osteoporosis without current pathological fracture; Z88.0 Allergy status to penicillin; Z88.2 Allergy status to sulfonamides; Z88.5 Allergy status to narcotic agent; Z88.8 Allergy status to other drugs, medicaments and biological substances; Z91.018 Allergy to other foods; Y99.9 Unspecified external cause status
CPT/HCPCS: 12002; 36415; 70450; 71045; 72125; 72128; 72131; 73080; 73110; 73130; 80048; 80053; 81001; 83605; 83735; 83935; 84300; 85025; 85027; 85049; 85055; 85610; 86140; 87040; 92526; 92610; 96361; 96372; 96374; 96375; 96376; 97116; 97161; 97530; 99285; G0378; J0360; J1885; J1940; J3475

== ENCOUNTER → 2023-12-03 | Outpatient (CLI) | payer MEDICARE ==
[~2023-12-03] MED LIST changes: +CYCL5TAB PO; +HYDR-4571 PO; +LIDO5TD TD; +MAGN400T2 PO; +OCUVTAB4 PO; +SODI1TAB6 PO
== END ==
LOC: M RAD 08:12
PROVIDERS: ATTEND Internal Medicine
DX: M25.552 Pain in left hip (principal); M16.12 Unilateral primary osteoarthritis, left hip; I25.10 Atherosclerotic heart disease of native coronary artery without angina pectoris

== ENCOUNTER → 2023-12-10 | Outpatient (REF) | payer MEDICARE ==
[2023-12-10 16:24] LABS: INR 4.23; PROTHROMBIN TIME 39.1 SECONDS (12.5-14.5)
== END ==
LOC: M LAB REF 16:07
PROVIDERS: ATTEND Internal Medicine
DX: D68.69 Other thrombophilia (principal); Z79.01 Long term (current) use of anticoagulants

== ENCOUNTER → 2023-12-19 | Outpatient (CLI) | payer MEDICARE | LOC: M PAIN 17:00 | PROVIDERS: ATTEND Anesthesiology | DX: M54.50 Low back pain, unspecified (principal); M54.2 Cervicalgia; M47.812 Spondylosis without myelopathy or radiculopathy, cervical region; I10 Essential (primary) hypertension; Z79.01 Long term (current) use of anticoagulants; Z79.890 Hormone replacement therapy; Z79.891 Long term (current) use of opiate analgesic; Z79.899 Other long term (current) drug therapy; Z88.0 Allergy status to penicillin; Z88.1 Allergy status to other antibiotic agents; Z88.2 Allergy status to sulfonamides; Z88.5 Allergy status to narcotic agent; Z91.048 Other nonmedicinal substance allergy status ==

== ENCOUNTER → 2023-12-30 | Outpatient (CLI) | payer MEDICARE | LOC: M PAIN 12:45 | PROVIDERS: ATTEND Anesthesiology | DX: M54.2 Cervicalgia (principal); M47.812 Spondylosis without myelopathy or radiculopathy, cervical region; M54.50 Low back pain, unspecified; I10 Essential (primary) hypertension; I48.0 Paroxysmal atrial fibrillation; E03.9 Hypothyroidism, unspecified; H35.30 Unspecified macular degeneration; K76.0 Fatty (change of) liver, not elsewhere classified; G62.9 Polyneuropathy, unspecified; Z79.01 Long term (current) use of anticoagulants; Z79.891 Long term (current) use of opiate analgesic; Z79.899 Other long term (current) drug therapy; Z88.0 Allergy status to penicillin; Z88.1 Allergy status to other antibiotic agents; Z88.8 Allergy status to other drugs, medicaments and biological substances; Z91.041 Radiographic dye allergy status; Z91.02 Food additives allergy status ==

== ENCOUNTER → 2024-01-06 | Outpatient (CLI) | payer MEDICARE ==
[~2024-01-06] MED LIST changes: +HYDR-3716; +PROB250C PO; +TRAM1TAB42 PO
== END ==
LOC: M PAIN 09:15
PROVIDERS: ATTEND Anesthesiology
DX: M79.18 Myalgia, other site (principal); G89.29 Other chronic pain; M54.50 Low back pain, unspecified; I10 Essential (primary) hypertension; I48.0 Paroxysmal atrial fibrillation; E03.9 Hypothyroidism, unspecified; H35.30 Unspecified macular degeneration; K76.0 Fatty (change of) liver, not elsewhere classified; Z79.01 Long term (current) use of anticoagulants; Z79.891 Long term (current) use of opiate analgesic; Z79.899 Other long term (current) drug therapy; Z88.0 Allergy status to penicillin; Z88.1 Allergy status to other antibiotic agents; Z88.8 Allergy status to other drugs, medicaments and biological substances; Z91.041 Radiographic dye allergy status; Z91.02 Food additives allergy status

== ENCOUNTER → 2024-01-07 | Outpatient (REF) | payer MEDICARE ==
[2024-01-13 22:02] LABS: LYME TOTAL ANTIBODY CIA <= 0.90 Index (<=0.90)
== END ==
LOC: M LAB REF 16:49
PROVIDERS: ATTEND Physician Assistant Medical
DX: R53.83 Other fatigue (principal); Z11.59 Encounter for screening for other viral diseases

== ENCOUNTER 2024-01-13 09:41 | Emergency (ER) | payer MEDICARE ==
[~2024-01-13] VITALS: Ht 167.6 cm; Wt 59.1 kg
[~2024-01-13 09:41] MED LIST changes: -HYDR-3716; -PROB250C PO; -TRAM1TAB42 PO
[2024-01-13] MEDS ORDERED: PROB250C PO (10:09)
[2024-01-13] MEDS ORDERED: HYDR-3716 (10:09)
[2024-01-13] MEDS ORDERED: TRAM1TAB42 PO (13:41)
[2024-01-13] MEDS: NAPROXEN 250 MG TAB PO ONE (13:48)
[2024-01-13 14:01] VITALS: BP 173/89; TEMP 97.7; O2SAT 99
== END 2024-01-13 14:03 | disposition home or self-care (01) ==
LOC: EDBD 09:41 → M ED 09:41
DX: M79.604 Pain in right leg (principal); I11.9 Hypertensive heart disease without heart failure; Z79.02 Long term (current) use of antithrombotics/antiplatelets; Z79.899 Other long term (current) drug therapy; Z88.0 Allergy status to penicillin; Z88.2 Allergy status to sulfonamides; Z88.8 Allergy status to other drugs, medicaments and biological substances; Z91.89 Other specified personal risk factors, not elsewhere classified; Z88.5 Allergy status to narcotic agent

== ENCOUNTER 2024-01-20 06:46 | Inpatient (IN) | payer MEDICARE ==
[~2024-01-20] VITALS: Ht 167.6 cm; Wt 59.1 kg
[2024-01-20] MEDS: LEVOTHYROXINE 100MCG TABLET (0.1MG) PO SCH (06:00)
[~2024-01-20 06:46] MED LIST changes: +HYDR-3716 PO; +PROB250C PO; +TRAM1TAB42 PO
[2024-01-20 08:41] LABS: HEMATOCRIT 30.5 % (36.0-47.0); HEMOGLOBIN 10.3 g/dl (12.0-15.5); MEAN CORPUSCULAR HEMOGLOBIN 34.2 pg (27.0-33.0); MEAN CORPUSCULAR HGB CONC 33.8 g/dl (32.0-36.5); MEAN CORPUSCULAR VOLUME 101.3 fl (80.0-96.0); PLATELET COUNT, AUTOMATED 150 10^3/uL (150-450); RED BLOOD COUNT 3.01 10^6/uL (4.00-5.40); WHITE BLOOD COUNT 8.2 10^3/uL (4.0-10.0)
[2024-01-20 09:03] LABS: ALBUMIN 3.3 G/DL (3.2-5.2); ALKALINE PHOSPHATASE 96 U/L (46-116); ALT/SGPT 43 U/L (7.0-40); AST/SGOT 58 U/L (<34); BILIRUBIN,DIRECT 0.8 MG/DL (<0.4); BILIRUBIN,TOTAL 2.1 MG/DL (0.3-1.2); BLOOD UREA NITROGEN 8 MG/DL (9-23); CALCIUM LEVEL 8.2 MG/DL (8.3-10.6); CARBON DIOXIDE LEVEL 26 MMOL/L (20-31); CHLORIDE LEVEL 100 MMOL/L (98-107); CREATININE FOR GFR 0.37 MG/DL (0.55-1.30); GLOMERULAR FILTRATION RATE > 60.0 (>32); GLUCOSE, FASTING 121 MG/DL (74-106); POTASSIUM SERUM 3.9 MMOL/L (3.5-5.1); SODIUM LEVEL 130 MMOL/L (136-145); TOTAL PROTEIN 6.1 G/DL (5.7-8.2)
[2024-01-20 09:15] LABS: PROCALCITONIN 0.06 ng/ml
[2024-01-20 09:21] LABS: PROTHROMBIN TIME 55.2 SECONDS (12.5-14.5)
[2024-01-20 09:48] LABS: INR 6.62
[2024-01-20] MEDS ORDERED: HOME MED LIST COMPLETE! XX SCH (10:10)
[2024-01-20] MEDS ORDERED: TRIA1CR80 TOP (10:10)
[2024-01-20] MEDS ORDERED: RA P1CAP3 PO (10:10)
[2024-01-20] MEDS: PHYTONADIONE 5 MG TAB PO ONE (10:42)
[2024-01-20] MEDS: PERCOCET 5MG/325MG TAB PO ONE (10:57)
[2024-01-20] MEDS ORDERED: TRIAMCINOLONE ACET 0.1% CREAM 80GM TOP PRN (12:05)
[2024-01-20] MEDS ORDERED: ANEXSIA, NORCO 7.5MG/325MG TABLET(HYDROCODONE/APAP) PO PRN (12:05)
[2024-01-20 12:55] LABS: IRON (FE) 125 UG/DL (50-170); PERCENT SATURATION 58.4 % (13.2-45.0); TOTAL IRON BINDING CAPACITY 214 UG/DL (250-425)
[2024-01-20 13:25] LABS: FERRITIN 2227.5 NG/ML (7.3-270.7)
[2024-01-20 15:20] VITALS: BP 170/80; TEMP 96.8; O2SAT 100
[2024-01-20] MEDS: METOPROLOL TART 50 MG TAB PO SCH (15:40)
[2024-01-20] MEDS: ANEXSIA, NORCO 7.5MG/325MG TABLET(HYDROCODONE/APAP) PO PRN (16:17)
[2024-01-20 17:14] VITALS: BP 110/60
[2024-01-20 20:00] VITALS: BP 139/81; TEMP 97.3; O2SAT 99
[2024-01-21] MEDS: ACETAMINOPHEN TAB 650MG DOSE (2X325MG) PO PRN (03:53)
[2024-01-21 04:00] VITALS: BP 147/84; TEMP 97.5; O2SAT 97
[2024-01-21 07:51] LABS: HEMATOCRIT 24.8 % (36.0-47.0); HEMOGLOBIN 8.5 g/dl (12.0-15.5); MEAN CORPUSCULAR HEMOGLOBIN 34.1 pg (27.0-33.0); MEAN CORPUSCULAR HGB CONC 34.3 g/dl (32.0-36.5); MEAN CORPUSCULAR VOLUME 99.6 fl (80.0-96.0); PLATELET COUNT, AUTOMATED 158 10^3/uL (150-450); RED BLOOD COUNT 2.49 10^6/uL (4.00-5.40)
[2024-01-21 07:52] LABS: INR 2.5; PROTHROMBIN TIME 26.1 SECONDS (12.5-14.5)
[2024-01-21 08:12] LABS: ALBUMIN 2.8 G/DL (3.2-5.2); ALKALINE PHOSPHATASE 80 U/L (46-116); ALT/SGPT 35 U/L (7.0-40); AST/SGOT 42 U/L (<34); BILIRUBIN,TOTAL 2.3 MG/DL (0.3-1.2); BLOOD UREA NITROGEN 7 MG/DL (9-23); CARBON DIOXIDE LEVEL 27 MMOL/L (20-31); CHLORIDE LEVEL 98 MMOL/L (98-107); CREATININE FOR GFR 0.37 MG/DL (0.55-1.30); GLOMERULAR FILTRATION RATE > 60.0 (>32); GLUCOSE, FASTING 103 MG/DL (74-106); POTASSIUM SERUM 3.9 MMOL/L (3.5-5.1); SODIUM LEVEL 128 MMOL/L (136-145); TOTAL PROTEIN 5.2 G/DL (5.7-8.2)
[2024-01-21 10:05] VITALS: BP 86/50
[2024-01-21] MEDS: METOPROLOL TART 12.5 MG PER 1/2 TAB PO SCH (10:06)
[2024-01-21 11:08] VITALS: BP 108/50
[2024-01-21 12:00] VITALS: TEMP 97.3; O2SAT 92
[2024-01-21 13:28] VITALS: BP 114/50
[2024-01-21 15:31] LABS: OSMOLALITY SERUM 264 MOSM/KG (280-301)
[2024-01-21 15:32] LABS: FREE T4 1.05 NG/DL (0.89-1.76)
[2024-01-21] MEDS: WARFARIN SOD 2MG TAB PO SCH (16:34)
[2024-01-21 18:47] LABS: SODIUM,RANDOM URINE 71 MMOL/L
[2024-01-21 19:55] LABS: OSMOLALITY URINE 400 MOSM/KG (50-1400)
[2024-01-21 20:00] VITALS: BP 104/62; TEMP 97; O2SAT 95
[2024-01-22 04:00] VITALS: BP 109/62; TEMP 97; O2SAT 97
[2024-01-22 05:57] LABS: BASO % 0.5 % (0.0-1.0); EOS # 0.3 10^3/uL (0.0-0.5); EOS % 3.7 % (0.0-3.0); HEMATOCRIT 24.2 % (36.0-47.0); HEMOGLOBIN 8.1 g/dl (12.0-15.5); LYMPH % 25.4 % (24.0-44.0); MEAN CORPUSCULAR HEMOGLOBIN 33.8 pg (27.0-33.0); MEAN CORPUSCULAR HGB CONC 33.5 g/dl (32.0-36.5); MEAN CORPUSCULAR VOLUME 100.8 fl (80.0-96.0); MONO # 1.1 10^3/uL (0.0-0.8); MONO % 14.5 % (2.0-8.0); NEUTROPHILS # 4.3 10^3/uL (1.5-8.5); PLATELET COUNT, AUTOMATED 133 10^3/uL (150-450); WHITE BLOOD COUNT 7.8 10^3/uL (4.0-10.0)
[2024-01-22 06:13] LABS: INR 1.93; PROTHROMBIN TIME 21.4 SECONDS (12.5-14.5)
[2024-01-22 06:24] LABS: ALBUMIN 2.6 G/DL (3.2-5.2); ALKALINE PHOSPHATASE 74 U/L (46-116); ALT/SGPT 30 U/L (7.0-40); AST/SGOT 38 U/L (<34); BLOOD UREA NITROGEN 7 MG/DL (9-23); CALCIUM LEVEL 8.1 MG/DL (8.3-10.6); CARBON DIOXIDE LEVEL 28 MMOL/L (20-31); CHLORIDE LEVEL 98 MMOL/L (98-107); CREATININE FOR GFR 0.43 MG/DL (0.55-1.30); GLOMERULAR FILTRATION RATE > 60.0 (>32); GLUCOSE, FASTING 90 MG/DL (74-106); MAGNESIUM LEVEL 1.6 MG/DL (1.8-2.4); POTASSIUM SERUM 3.8 MMOL/L (3.5-5.1); SODIUM LEVEL 130 MMOL/L (136-145)
[2024-01-22] MEDS: MAG SULF 1GM/100ML (MAG RUN) 1 GM in IV 1 EA IV SCH (09:19)
[2024-01-22 11:25] VITALS: BP_SYST 69; BP_SYST 92; BP_DIAS 40; BP_DIAS 61
[2024-01-22 12:00] VITALS: BP 107/68; TEMP 96.8; O2SAT 97
[2024-01-22] MEDS ORDERED: WARFARIN SOD 5MG TAB PO SCH (17:00)
[2024-01-23 04:00] VITALS: BP 139/78; TEMP 97.2; O2SAT 95
[2024-01-23 06:46] LABS: BASO % 0.4 % (0.0-1.0); EOS # 0.4 10^3/uL (0.0-0.5); EOS % 4.2 % (0.0-3.0); HEMATOCRIT 27.7 % (36.0-47.0); HEMOGLOBIN 9.4 g/dl (12.0-15.5); LYMPH # 2.3 10^3/uL (1.5-5.0); LYMPH % 23.6 % (24.0-44.0); MEAN CORPUSCULAR HEMOGLOBIN 34.9 pg (27.0-33.0); MEAN CORPUSCULAR HGB CONC 33.9 g/dl (32.0-36.5); MONO # 1.3 10^3/uL (0.0-0.8); MONO % 13.2 % (2.0-8.0); NEUTROPHILS # 5.6 10^3/uL (1.5-8.5); NEUTROPHILS % 57.3 % (36.0-66.0); PLATELET COUNT, AUTOMATED 174 10^3/uL (150-450); RED BLOOD COUNT 2.69 10^6/uL (4.00-5.40); WHITE BLOOD COUNT 9.7 10^3/uL (4.0-10.0)
[2024-01-23 06:56] LABS: INR 1.72; PROTHROMBIN TIME 19.5 SECONDS (12.5-14.5)
[2024-01-23 07:05] LABS: BLOOD UREA NITROGEN 5 MG/DL (9-23); CALCIUM LEVEL 7.9 MG/DL (8.3-10.6); CARBON DIOXIDE LEVEL 27 MMOL/L (20-31); CHLORIDE LEVEL 99 MMOL/L (98-107); CREATININE FOR GFR 0.39 MG/DL (0.55-1.30); GLOMERULAR FILTRATION RATE > 60.0 (>32); GLUCOSE, FASTING 97 MG/DL (74-106); MAGNESIUM LEVEL 1.7 MG/DL (1.8-2.4); POTASSIUM SERUM 3.9 MMOL/L (3.5-5.1); SODIUM LEVEL 128 MMOL/L (136-145)
[2024-01-23] MEDS: MAG SULF 1GM/100ML (MAG RUN) 1 GM in IV 1 EA IV SCH (09:30)
[2024-01-23 12:00] VITALS: BP 147/78; TEMP 97; O2SAT 96
[2024-01-23] MEDS ORDERED: MIRALAX *UNIT DOSE* 17GM PACKET PO PRN (15:10)
[2024-01-23] MEDS ORDERED: SENOKOT S TAB PO PRN (15:10)
[2024-01-23 20:41] VITALS: BP 135/82; TEMP 98.1; O2SAT 98
[2024-01-24 03:37] VITALS: BP 120/70; TEMP 97.2; O2SAT 97
[2024-01-24 06:46] LABS: BASO % 0.4 % (0.0-1.0); EOS # 0.3 10^3/uL (0.0-0.5); EOS % 3.2 % (0.0-3.0); HEMATOCRIT 28.2 % (36.0-47.0); HEMOGLOBIN 9.3 g/dl (12.0-15.5); LYMPH # 2.1 10^3/uL (1.5-5.0); LYMPH % 22.1 % (24.0-44.0); MEAN CORPUSCULAR HEMOGLOBIN 34.3 pg (27.0-33.0); MEAN CORPUSCULAR VOLUME 104.1 fl (80.0-96.0); MONO # 1.2 10^3/uL (0.0-0.8); MONO % 12.4 % (2.0-8.0); NEUTROPHILS # 5.8 10^3/uL (1.5-8.5); NEUTROPHILS % 60.3 % (36.0-66.0); PLATELET COUNT, AUTOMATED 183 10^3/uL (150-450); RED BLOOD COUNT 2.71 10^6/uL (4.00-5.40); WHITE BLOOD COUNT 9.6 10^3/uL (4.0-10.0)
[2024-01-24 06:53] LABS: INR 1.75; PROTHROMBIN TIME 19.8 SECONDS (12.5-14.5)
[2024-01-24 07:15] LABS: BLOOD UREA NITROGEN 5 MG/DL (9-23); CALCIUM LEVEL 8.1 MG/DL (8.3-10.6); CARBON DIOXIDE LEVEL 29 MMOL/L (20-31); CHLORIDE LEVEL 99 MMOL/L (98-107); CREATININE FOR GFR 0.37 MG/DL (0.55-1.30); GLOMERULAR FILTRATION RATE > 60.0 (>32); GLUCOSE, FASTING 96 MG/DL (74-106); MAGNESIUM LEVEL 1.8 MG/DL (1.8-2.4); POTASSIUM SERUM 3.9 MMOL/L (3.5-5.1); SODIUM LEVEL 131 MMOL/L (136-145)
[2024-01-24 12:00] VITALS: BP 141/75; TEMP 96.8; O2SAT 100
[2024-01-24] MEDS: METOCLOPRAMIDE INJ 10MG/2ML VIAL IV PRN (17:22)
[2024-01-24 20:00] VITALS: BP 151/79; TEMP 98.1; O2SAT 95
[2024-01-24] MEDS: METOPROLOL TART 25 MG TABLET PO SCH (20:02)
[2024-01-25 04:00] VITALS: BP 137/89; TEMP 97.8; O2SAT 95
[2024-01-25 06:03] LABS: BASO % 0.5 % (0.0-1.0); EOS # 0.3 10^3/uL (0.0-0.5); EOS % 4.1 % (0.0-3.0); HEMATOCRIT 29.6 % (36.0-47.0); HEMOGLOBIN 9.7 g/dl (12.0-15.5); LYMPH # 1.6 10^3/uL (1.5-5.0); LYMPH % 21.3 % (24.0-44.0); MEAN CORPUSCULAR HEMOGLOBIN 34.5 pg (27.0-33.0); MEAN CORPUSCULAR HGB CONC 32.8 g/dl (32.0-36.5); MEAN CORPUSCULAR VOLUME 105.3 fl (80.0-96.0); MONO # 0.9 10^3/uL (0.0-0.8); MONO % 12.6 % (2.0-8.0); NEUTROPHILS # 4.4 10^3/uL (1.5-8.5); PLATELET COUNT, AUTOMATED 161 10^3/uL (150-450); RED BLOOD COUNT 2.81 10^6/uL (4.00-5.40); WHITE BLOOD COUNT 7.4 10^3/uL (4.0-10.0)
[2024-01-25 06:12] LABS: INR 1.68; PROTHROMBIN TIME 19.2 SECONDS (12.5-14.5)
[2024-01-25 06:15] LABS: BLOOD UREA NITROGEN 5 MG/DL (9-23); CALCIUM LEVEL 7.9 MG/DL (8.3-10.6); CARBON DIOXIDE LEVEL 28 MMOL/L (20-31); CHLORIDE LEVEL 100 MMOL/L (98-107); CREATININE FOR GFR 0.43 MG/DL (0.55-1.30); GLOMERULAR FILTRATION RATE > 60.0 (>32); GLUCOSE, FASTING 90 MG/DL (74-106); MAGNESIUM LEVEL 1.7 MG/DL (1.8-2.4); POTASSIUM SERUM 3.8 MMOL/L (3.5-5.1); SODIUM LEVEL 132 MMOL/L (136-145)
[2024-01-25] MEDS: MAG SULF 1GM/100ML (MAG RUN) 1 GM in IV 1 EA IV SCH (09:13)
[2024-01-25 12:00] VITALS: BP 127/84; TEMP 97; O2SAT 97
[2024-01-25 20:00] VITALS: BP 130/71; TEMP 97.3; O2SAT 97
[2024-01-26 04:00] VITALS: BP 141/78; TEMP 97; O2SAT 93
[2024-01-26 05:31] LABS: BASO # 0.1 10^3/uL (0.0-0.2); BASO % 0.6 % (0.0-1.0); EOS # 0.3 10^3/uL (0.0-0.5); EOS % 4.3 % (0.0-3.0); HEMATOCRIT 29.2 % (36.0-47.0); HEMOGLOBIN 9.5 g/dl (12.0-15.5); LYMPH # 1.8 10^3/uL (1.5-5.0); MEAN CORPUSCULAR HEMOGLOBIN 34.2 pg (27.0-33.0); MEAN CORPUSCULAR HGB CONC 32.5 g/dl (32.0-36.5); MONO # 0.9 10^3/uL (0.0-0.8); MONO % 11.6 % (2.0-8.0); NEUTROPHILS # 4.7 10^3/uL (1.5-8.5); NEUTROPHILS % 59.4 % (36.0-66.0); PLATELET COUNT, AUTOMATED 177 10^3/uL (150-450); RED BLOOD COUNT 2.78 10^6/uL (4.00-5.40); WHITE BLOOD COUNT 7.9 10^3/uL (4.0-10.0)
[2024-01-26 05:55] LABS: BLOOD UREA NITROGEN 5 MG/DL (9-23); CALCIUM LEVEL 7.7 MG/DL (8.3-10.6); CARBON DIOXIDE LEVEL 29 MMOL/L (20-31); CHLORIDE LEVEL 101 MMOL/L (98-107); CREATININE FOR GFR 0.46 MG/DL (0.55-1.30); GLOMERULAR FILTRATION RATE > 60.0 (>32); GLUCOSE, FASTING 82 MG/DL (74-106); MAGNESIUM LEVEL 1.8 MG/DL (1.8-2.4); POTASSIUM SERUM 4.1 MMOL/L (3.5-5.1); SODIUM LEVEL 133 MMOL/L (136-145)
[2024-01-26 08:20] VITALS: BP 127/82
[2024-01-26 09:38] LABS: INR 1.45; PROTHROMBIN TIME 17.2 SECONDS (12.5-14.5)
[2024-01-26 12:00] VITALS: BP 146/67; TEMP 97.3; O2SAT 99
[2024-01-26] MEDS ORDERED: METO1TAB87 PO (12:03)
== END 2024-01-26 15:46 | DRG 813 ==
LOC: M ED 06:46 → M ED INP 12:02 → M MSPAV 15:27
PROVIDERS: ADMIT Hospitalist; ATTEND Hospitalist
DX: D68.9 Coagulation defect, unspecified (principal); E22.2 Syndrome of inappropriate secretion of antidiuretic hormone; I10 Essential (primary) hypertension; E03.9 Hypothyroidism, unspecified; Z79.01 Long term (current) use of anticoagulants; D64.9 Anemia, unspecified; I48.0 Paroxysmal atrial fibrillation; R94.5 Abnormal results of liver function studies; K76.0 Fatty (change of) liver, not elsewhere classified; Z85.3 Personal history of malignant neoplasm of breast; Z92.3 Personal history of irradiation; Z88.0 Allergy status to penicillin; Z88.8 Allergy status to other drugs, medicaments and biological substances; Z88.5 Allergy status to narcotic agent; Z79.899 Other long term (current) drug therapy; Z88.2 Allergy status to sulfonamides; Z66 Do not resuscitate

== ENCOUNTER 2024-01-26 12:20 | Inpatient (IN) | payer MEDICARE ==
[~2024-01-26] VITALS: Ht 167.6 cm; Wt 57.7 kg
[~2024-01-26 12:20] MED LIST changes: +METO1TAB87 PO; +RA P1CAP3 PO; +TRIA1CR80 TOP
[2024-01-26] MEDS ORDERED: TRIAMCINOLONE ACET 0.1% CREAM 80GM TOP PRN (13:15)
[2024-01-26] MEDS ORDERED: ANEXSIA, NORCO 7.5MG/325MG TABLET(HYDROCODONE/APAP) PO PRN (13:15)
[2024-01-26] MEDS ORDERED: MAALOX 30 ML SUSP *UDC PO PRN (13:30)
[2024-01-26] MEDS ORDERED: BISACODYL 10MG SUPP PR PRN (13:30)
[2024-01-26] MEDS ORDERED: ACETAMINOPHEN TAB 650MG DOSE (2X325MG) PO PRN (13:30)
[2024-01-26] MEDS ORDERED: BISACODYL 5MG TAB PO PRN (13:30)
[2024-01-26] MEDS ORDERED: MIRALAX *UNIT DOSE* 17GM PACKET PO PRN (13:30)
[2024-01-26] MEDS ORDERED: ONDANSETRON 4MG TAB PO PRN (13:30)
[2024-01-26 16:00] VITALS: BP 138/66; TEMP 98.8; O2SAT 100
[2024-01-26 20:00] VITALS: BP 129/74; TEMP 97.7; O2SAT 100
[2024-01-26] MEDS: METOPROLOL TART 25 MG TABLET PO SCH (20:29)
[2024-01-26] MEDS: ANEXSIA, NORCO 7.5MG/325MG TABLET(HYDROCODONE/APAP) PO PRN (20:31)
[2024-01-27 04:00] VITALS: BP 134/80; TEMP 98; O2SAT 98
[2024-01-27] MEDS: LEVOTHYROXINE 100MCG TABLET (0.1MG) PO SCH (05:25)
[2024-01-27 07:17] LABS: BASO % 0.6 % (0.0-1.0); EOS # 0.2 10^3/uL (0.0-0.5); EOS % 2.6 % (0.0-3.0); HEMOGLOBIN 10.1 g/dl (12.0-15.5); LYMPH # 1.6 10^3/uL (1.5-5.0); LYMPH % 23.1 % (24.0-44.0); MEAN CORPUSCULAR HEMOGLOBIN 34.2 pg (27.0-33.0); MEAN CORPUSCULAR HGB CONC 32.6 g/dl (32.0-36.5); MEAN CORPUSCULAR VOLUME 105.1 fl (80.0-96.0); MONO # 0.7 10^3/uL (0.0-0.8); MONO % 10.4 % (2.0-8.0); NEUTROPHILS # 4.3 10^3/uL (1.5-8.5); PLATELET COUNT, AUTOMATED 176 10^3/uL (150-450); RED BLOOD COUNT 2.95 10^6/uL (4.00-5.40); WHITE BLOOD COUNT 6.9 10^3/uL (4.0-10.0)
[2024-01-27 07:48] LABS: BLOOD UREA NITROGEN 7 MG/DL (9-23); CALCIUM LEVEL 8.2 MG/DL (8.3-10.6); CARBON DIOXIDE LEVEL 27 MMOL/L (20-31); CHLORIDE LEVEL 101 MMOL/L (98-107); CREATININE FOR GFR 0.44 MG/DL (0.55-1.30); GLOMERULAR FILTRATION RATE > 60.0 (>32); GLUCOSE, FASTING 89 MG/DL (74-106); POTASSIUM SERUM 3.6 MMOL/L (3.5-5.1); SODIUM LEVEL 132 MMOL/L (136-145)
[2024-01-27 12:00] VITALS: BP 90/57; TEMP 97.8; O2SAT 100
[2024-01-27] MEDS: MIDODRINE 5 MG TAB PO SCH (16:40)
[2024-01-27 20:15] VITALS: BP 127/66; TEMP 97.8; O2SAT 100
[2024-01-28 04:30] VITALS: BP 137/70; TEMP 98.2; O2SAT 97
[2024-01-28 11:06] VITALS: BP 146/84
[2024-01-28 12:00] VITALS: BP 146/84; TEMP 98.6; O2SAT 96
[2024-01-28] MEDS: TRIAMCINOLONE ACETONIDE SUSP 40MG/ML 1ML VIAL IA ONE (14:45)
[2024-01-28] MEDS: LIDOCAINE 2% MDV 20ML VIAL XX ONE (14:45)
[2024-01-28 20:00] VITALS: BP 140/67; TEMP 97.8; O2SAT 98
[2024-01-29 04:00] VITALS: BP 126/61; TEMP 97; O2SAT 94
[2024-01-29 12:00] VITALS: BP 173/79; TEMP 98.1; O2SAT 98
[2024-01-29 20:00] VITALS: BP 116/62; TEMP 99.1; O2SAT 100
[2024-01-30 04:00] VITALS: BP 133/63; TEMP 97.6; O2SAT 99
[2024-01-30 06:20] VITALS: BP 150/90
[2024-01-30 07:07] LABS: BASO % 0.1 % (0.0-1.0); HEMATOCRIT 35.6 % (36.0-47.0); HEMOGLOBIN 11.6 g/dl (12.0-15.5); LYMPH % 11.4 % (24.0-44.0); MEAN CORPUSCULAR HEMOGLOBIN 34.8 pg (27.0-33.0); MEAN CORPUSCULAR HGB CONC 32.6 g/dl (32.0-36.5); MEAN CORPUSCULAR VOLUME 106.9 fl (80.0-96.0); MONO # 0.5 10^3/uL (0.0-0.8); MONO % 5.8 % (2.0-8.0); NEUTROPHILS % 81.9 % (36.0-66.0); PLATELET COUNT, AUTOMATED 188 10^3/uL (150-450); RED BLOOD COUNT 3.33 10^6/uL (4.00-5.40); WHITE BLOOD COUNT 8.6 10^3/uL (4.0-10.0)
[2024-01-30 07:28] LABS: BLOOD UREA NITROGEN 10 MG/DL (9-23); CALCIUM LEVEL 9.2 MG/DL (8.3-10.6); CARBON DIOXIDE LEVEL 27 MMOL/L (20-31); CHLORIDE LEVEL 100 MMOL/L (98-107); GLOMERULAR FILTRATION RATE > 60.0 (>32); GLUCOSE, FASTING 115 MG/DL (74-106); POTASSIUM SERUM 4.3 MMOL/L (3.5-5.1); SODIUM LEVEL 132 MMOL/L (136-145)
[2024-01-30 12:30] VITALS: BP 170/77; O2SAT 100
[2024-01-30 13:28] VITALS: TEMP 100.1; O2SAT 100
[2024-01-30 13:35] LABS: ERYTHROCYTE SEDIMENTATION RATE 34 mm/hr (0-30)
[2024-01-30 13:44] LABS: PROCALCITONIN 0.07 ng/ml
[2024-01-30] MEDS: amLODIPine 5 MG TAB PO ONE (14:09)
[2024-01-30] MEDS: cloNIDine 0.1MG TABLET PO ONE (14:52)
[2024-01-30 16:05] VITALS: BP 136/65; TEMP 98.7; O2SAT 99
[2024-01-30 20:32] VITALS: BP 108/64; TEMP 97.9; O2SAT 99
[2024-01-30] MEDS: cefTRIAXone SOD 1 GM in D5W MINI-BAG PLUS 50 ML IV SCH (21:45)
[2024-01-31 00:14] VITALS: BP 139/74; TEMP 96.5; O2SAT 99
[2024-01-31 03:54] VITALS: BP 128/72; TEMP 97.5; O2SAT 97
[2024-01-31 07:22] LABS: BASO % 0.1 % (0.0-1.0); EOS % 0.1 % (0.0-3.0); HEMOGLOBIN 11.9 g/dl (12.0-15.5); LYMPH # 1.1 10^3/uL (1.5-5.0); LYMPH % 12.2 % (24.0-44.0); MEAN CORPUSCULAR HEMOGLOBIN 35.1 pg (27.0-33.0); MEAN CORPUSCULAR HGB CONC 32.2 g/dl (32.0-36.5); MEAN CORPUSCULAR VOLUME 109.1 fl (80.0-96.0); MONO # 0.9 10^3/uL (0.0-0.8); MONO % 9.8 % (2.0-8.0); NEUTROPHILS # 6.7 10^3/uL (1.5-8.5); PLATELET COUNT, AUTOMATED 167 10^3/uL (150-450); RED BLOOD COUNT 3.39 10^6/uL (4.00-5.40); WHITE BLOOD COUNT 8.7 10^3/uL (4.0-10.0)
[2024-01-31 07:34] LABS: ERYTHROCYTE SEDIMENTATION RATE 26 mm/hr (0-30)
[2024-01-31 07:53] LABS: ALBUMIN 3.1 G/DL (3.2-5.2); BLOOD UREA NITROGEN 10 MG/DL (9-23); CARBON DIOXIDE LEVEL 27 MMOL/L (20-31); CHLORIDE LEVEL 101 MMOL/L (98-107); CREATININE FOR GFR 0.38 MG/DL (0.55-1.30); GLOMERULAR FILTRATION RATE > 60.0 (>32); GLUCOSE, FASTING 101 MG/DL (74-106); MAGNESIUM LEVEL 1.9 MG/DL (1.8-2.4); PHOSPHORUS LEVEL 2.8 MG/DL (2.4-5.1); POTASSIUM SERUM 4.3 MMOL/L (3.5-5.1); SODIUM LEVEL 131 MMOL/L (136-145)
[2024-01-31 12:00] VITALS: BP 120/80; TEMP 97.2; O2SAT 100
[2024-01-31 20:00] VITALS: BP 128/70; TEMP 98.7; O2SAT 99
[2024-02-01 04:00] VITALS: BP 114/68; TEMP 97.4; O2SAT 100
[2024-02-01 12:00] VITALS: BP 142/68; TEMP 97.9; O2SAT 99
[2024-02-01 20:00] VITALS: BP 162/90; TEMP 97.8; O2SAT 100
[2024-02-02 04:00] VITALS: BP 158/78; TEMP 97; O2SAT 98
[2024-02-02 12:00] VITALS: BP 122/67; TEMP 97.3; O2SAT 98
[2024-02-02] MEDS: NS 500 ML IV ONE (12:19)
[2024-02-02] MEDS: MIDODRINE 5 MG TAB PO SCH (12:19)
[2024-02-02] MEDS: DIGOXIN INJ 0.5 MG/2 ML AMP IV ONE (12:34)
[2024-02-02] MEDS ORDERED: MIDO5TA PO (15:19)
[2024-02-02] MEDS ORDERED: HYDR-3716 PO (15:19)
[2024-02-02 20:00] VITALS: BP 142/78; TEMP 98; O2SAT 98
[2024-02-03 04:00] VITALS: BP 172/90; TEMP 97; O2SAT 98
[2024-02-03 05:00] VITALS: BP 152/74
[2024-02-03 08:44] VITALS: BP 184/88
[2024-02-03 10:01] VITALS: BP 120/65
[2024-02-03] MEDS: METOPROLOL TART 50 MG TAB PO ONE (10:01)
[2024-02-03 12:00] VITALS: BP 149/77; TEMP 97.8; O2SAT 99
[2024-02-03] MEDS ORDERED: MIDO5TA PO (12:20)
[2024-02-03] MEDS ORDERED: METO1TAB87 PO (12:20)
[2024-02-03] MEDS ORDERED: METOPROLOL TART 25 MG TABLET PO SCH (21:00)
== END 2024-02-03 13:32 | disposition home health service (06) | DRG 560 ==
LOC: M PM&R 15:50
PROVIDERS: ADMIT Physical Medicine & Rehabilitation; ATTEND Physical Medicine & Rehabilitation
DX: S32.89XD Fracture of other parts of pelvis, subsequent encounter for fracture with routine healing (principal); E87.1 Hypo-osmolality and hyponatremia; I48.0 Paroxysmal atrial fibrillation; I10 Essential (primary) hypertension; E03.9 Hypothyroidism, unspecified; Z79.01 Long term (current) use of anticoagulants; Z85.3 Personal history of malignant neoplasm of breast; Z92.3 Personal history of irradiation; R26.89 Other abnormalities of gait and mobility; M19.90 Unspecified osteoarthritis, unspecified site; M25.461 Effusion, right knee; Z88.0 Allergy status to penicillin; Z88.2 Allergy status to sulfonamides; Z88.5 Allergy status to narcotic agent; Z88.8 Allergy status to other drugs, medicaments and biological substances; Z79.899 Other long term (current) drug therapy; D64.9 Anemia, unspecified; Z66 Do not resuscitate

== ENCOUNTER → 2024-02-17 | Outpatient (CLI) | payer MEDICARE ==
[~2024-02-17] MED LIST changes: +MIDO5TA PO
== END ==
LOC: M SOG 07:25
PROVIDERS: ATTEND Physician Assistant
DX: R10.2 Pelvic and perineal pain (principal); Z53.9 Procedure and treatment not carried out, unspecified reason

== ENCOUNTER → 2024-04-09 | Outpatient (CLI) | payer MEDICARE ==
[~2024-04-09] MED LIST changes: -CYCL5TAB PO; +CYCL5TAB4 PO
== END ==
LOC: M PAIN 10:00
PROVIDERS: ATTEND Anesthesiology
DX: M47.812 Spondylosis without myelopathy or radiculopathy, cervical region (principal); Z79.891 Long term (current) use of opiate analgesic; M54.2 Cervicalgia; I10 Essential (primary) hypertension; I48.0 Paroxysmal atrial fibrillation; H35.30 Unspecified macular degeneration; E89.0 Postprocedural hypothyroidism; G62.9 Polyneuropathy, unspecified; Z79.01 Long term (current) use of anticoagulants; Z79.890 Hormone replacement therapy; Z79.899 Other long term (current) drug therapy; Z88.0 Allergy status to penicillin; Z88.1 Allergy status to other antibiotic agents; Z88.8 Allergy status to other drugs, medicaments and biological substances; Z91.02 Food additives allergy status; Z91.041 Radiographic dye allergy status